=== PATIENT | male | born 1975 | race Caucasian/White ===

== ENCOUNTER 2017-09-21 19:14 | Emergency (ER) | payer MEDICAID, SELFPAY ==
[2017-09-21] VITALS (8 sets, daily range): BP systolic 133–156; BP diastolic 60–103; PULSE 98–114; RESP 12–25; TEMP 36.6; O2SAT 95–99; BMI 40.0
--- NOTE | 2017-09-21 19:30 | ED.VISSUMM ---
- ER Visit Summary Date of Service: 09/21/17 Chief Complaint: Dyspnea and wheezing History of Present Illness: The patient is a 41 M with history of asthma who presents for 5 weeks of respiratory complaints, including dyspnea, wheezing and now cough. Patient was diagnosed with a sinus and double ear infection 5 weeks ago and completed a course of amoxicillin. He then began having chest tightness and symptoms consistent with asthma exacerbation, and was started on prednisone and albuterol. He felt much better and completed the prednisone 2 days ago. Since then he has been getting worse again. He has pleuritic chest pain, frequent cough, shortness of breath, and nausea and vomiting yesterday. No fever. His symptoms are consistent with his asthma. He also has history of pneumonia. He has not had a chest x-ray since his symptoms began. Physical Examination: Vital signs: afebrile, hemodynamically stable, no hypoxia on room air General: well nourished, well developed, in no distress frequently coughing Skin: warm, dry, no rash, no pallor HEENT: normocephalic and atraumatic; PERRL, EOMI, moist mucous membranes Cardiovascular: Tachycardic rate and regular rhythm without murmurs, no peripheral edema, 2+ pulses all distal extremities Respiratory: Mild increased work of breathing, shallow respirations, lungs are clear to auscultation bilaterally, no rales, rhonchi or wheezing, frequently coughing Abdominal: Abdomen is soft, nontender with normoactive bowel sounds, no guarding or rebound, no masses MSK: Moves all extremities, no deformities, normal strength Neuro: Awake and alert, oriented ?4. No facial droop, sensation and motor function intact and symmetric Test Results: Abnormal Lab Results 09/21/17 09/21/17 09/21/17 21:00 21:00 21:00 WBC 11.8 H RBC 4.67 Hgb 13.9 Hct 41.2 MCV 88.2 MCH 29.8 MCHC 33.7 RDW 12.2 RDW Differential 38.5 Plt Count 331 MPV 9.7 Immature Gran % (Auto) 0.100 Neut % (Auto) 54.4 Lymph % (Auto) 35.7 O'Brien % (Auto) 8.3 Eos % (Auto) 1.2 Baso % (Auto) 0.3 Absolute Neuts (auto) 6.4 Absolute Lymphs (auto) 4.19 Total Counted Not Reportable D-Dimer Quant (PE/DVT) 0.27 Sodium 135 L Potassium 3.7 Chloride 100 Carbon Dioxide 28.0 Anion Gap 7 BUN 8 Creatinine 0.79 Estim Creat Clear Calc 111.04 Est GFR (MDRD) Af Amer 138 Est GFR (MDRD) Non-Af 114 BUN/Creatinine Ratio 10.1 Glucose 312 H Calcium 8.8 Troponin I < 0.02 Emergency Department Course and Treatment: Patient states his asthma is more cough variant rather than overt wheezing. He is currently having frequent cough with chest discomfort and shortness of breath. He was given a series of breathing treatments. He was given an oral dose of prednisone. Chest x-ray performed no pneumonia. Reevaluation patient had no improvement. We discussed his symptoms, and he stated he was concerned after googling his symptoms and was concerned for possible cardiac disease. Concerned started when he had jaw pain at onset of his symptoms 5 weeks ago. Given the patient is still complaining of chest tightness with his cough and shortness of breath, and has these concerns as well as history of diabetes and a BMI, chest pain workup was performed. D-dimer was negative. Troponin negative. EKG showed sinus tachycardia without ischemia or ectopy. Patient had resolution of his tachycardia prior to receiving his breathing treatments, and now the tachycardia may be related to the albuterol treatments. Patient was given a dose of Hycodan for his persistent cough. He had resolution of the cough while in the emergency department and felt much better afterwards. He is low risk at this time for this being acute coronary syndrome, as his symptoms have been present for 5 weeks and are more consistent with an infectious process. Thus no further cardiac workup performed. Patient was given a prescription for Hycodan and placed back on a prednisone taper. He was discharged home in improved condition from the Hycodan. Treatment Plan: [] Disposition: [] Impression: Acute bronchitis in patient with cough variant asthma This note was generated with [employer] dictation software. It may contain incorrect words, spelling, and punctuation that were not noted in review of the chart prior to signing ED Disposition - Plan for ED Patient: Disposition: Home or Assisted Living Chief Complaint: Asthma Instructions: ED Bronchitis Asthmatic Prescriptions: Hydrocodone Bit/Homatropine [Hycodan Syrup] 5 ml PO Q6H PRN PRN 3 Days #50 ml PRN Reason: severe cough Prednisone 10 mg PO UD #33 tab Referrals: Chadwick Alberts DO [Primary Care Provider] - 3-5 Days if not improving Additional Instructions: Please take the prednisone taper as prescribed to help with your asthma. You may use the cough medicine as needed for severe cough. I recommend you take it at bedtime, as it may make you sleepy and will help you sleep better. If you have any worsening of your condition or any new concerning symptoms, please follow-up with your doctor immediately or return to the emergency department immediately for another evaluation.
[2017-09-21] MEDS: predniSONE 20 MG Tablet 60 MG PO (19:36)
[2017-09-21] MEDS: Albuterol 2.5 MG/3 ML VIAL.NEB. INHALATION ×3 (19:37→19:48)
[2017-09-21] MEDS: Ipratropium/Albuterol Sulfate 3 ML AMPUL.NEB INHALATION (19:38)
--- NOTE | 2017-09-21 19:38 | NURSING ---
AEROSOL TX GIVEN BY RESPIRATORY
--- NOTE | 2017-09-21 20:10 | RAD_ITS ---
STUDY: X-RAY CHEST REASON FOR EXAM: Male, 41 years old. Asthma. Cough and illness for 3 weeks. TECHNIQUE: Frontal and lateral views of the chest. COMPARISON: January 03, 2015 FINDINGS: There is low volume inspiration with bibasilar atelectasis unchanged. There are no focal consolidations. There is no demonstrated pleural abnormality. Normal size heart. Normal mediastinum and ike. Normal visualized pulmonary arteries. Normal visualized aortic arch and descending thoracic aorta. Normal visualized thoracic spine. Normal visualized ribs, clavicles, and shoulders. There is no demonstrated abnormality of the visualized soft tissue structures of the upper abdomen. RAD/Chest PA and Lateral IMPRESSION: Stable low volume inspiration. No new or acute pathology. Electronically Signed: Marco Antonio Baltazar MD at 20:27 EDT , Service support ,
--- NOTE | 2017-09-21 20:42 | EKG12_ITS ---
Test Reason : CP Blood Pressure : / mmHG Vent. Rate : 106 BPM Atrial Rate : 106 BPM P-R Int : 174 ms QRS Dur : 082 ms QT Int : 340 ms P-R-T Axes : 062 035 027 degrees QTc Int : 451 ms Sinus tachycardia Otherwise normal ECG Confirmed by CALOS CASH, ES ([id number]), news videotape editor KAM WHITEHEAD ([id number] on 09/23/2017 1:58:36 PM Referred By: MIRTHA Confirmed By:ES LIVE MD
[2017-09-21] MEDS: 0.9% Normal Saline 1,000 ML 1000 ML IV (21:02)
--- NOTE | 2017-09-21 21:14 | NURSING ---
PT HAD STATED TO THE DOCTOR THAT HE HAD NO RELIEF FROM THE AEROSOL TX, AND HAD SOME CONCERNING S/S WITH HIS CHEST DISCOMFORT.
[2017-09-21 21:19] LABS: Absolute Lymphocyte Count 4.19 X10^3/ul (0.83-4.51); Absolute Neutrophil Count 6.4 X10^3/uL (2.0-7.7); Basophil# 0.03 X10^3/uL; Basophil% 0.3 % (0-1); Eosinophil# 0.14 X10^3/uL; Eosinophils% 1.2 % (0-5); Hematocrit 41.2 % (40-54); Hemoglobin 13.9 g/dl (13.0-16.5); Lymphocyte # 4.19 X10^3/ul (4.0); Lymphocyte % 35.7 % (19-41); Mean Corp Hgb Conc 33.7 g/gl (32-36); Mean Corpuscular Hgb 29.8 pg (27.0-32.0); Mean Corpuscular Volume 88.2 fL (80-94); Mean Platelet Vol. 9.7 fl (6.2-12.0); Monocyte# 0.98 X10^3/uL; Monocyte% 8.3 % (0-10); Neutrophil % 54.4 % (47-70); Platelet Count 331 K/mm3 (150-450); RBC Distribution Width CV 12.2 % (11.6-14.6); RBC Distribution Width SD 38.5 fl (35.1-43.9); Red Blood Count 4.67 M/mm3 (4.6-6.2); White Blood Count 11.8 K/mm3 (4.4-11.0)
[2017-09-21 21:20] LABS: POSITIVE COUNT NO; POSITIVE DIFFERENTIAL NO; POSITIVE MORPHOLOGY NO
[2017-09-21 21:28] LABS: D-Dimer Quantitative (DVT/PE) 0.27 FEU/ug/m (0.27-0.49)
[2017-09-21 21:33] LABS: Anion Gap 7 (5-15); BUN 8 mg/dL (7-18); BUN/Creat Ratio 10.1 RATIO (10-20); Calcium,Total 8.8 mg/dL (8.5-10.1); Chloride 100 mmol/L (98-107); Creatinine, Serum 0.79 mg/dL (0.70-1.30); EST Glomerular Filtration Rate 114 mL/min (>60); Est Glom Filt Rate - Afr Amer 138 mL/min (>60); Estimated Creatinine Clearance 111.04 ml/min; Glucose 312 mg/dL (74-106); Potassium 3.7 mmol/L (3.5-5.1); Sodium Level 135 mmol/L (136-145)
--- NOTE | 2017-09-21 21:51 | ED.DEP ---
ED Disposition - Plan for ED Patient: Disposition: Home or Assisted Living Chief Complaint: Asthma Instructions: ED Bronchitis Asthmatic Prescriptions: Hydrocodone Bit/Homatropine [Hycodan Syrup] 5 ml PO Q6H PRN PRN 3 Days #50 ml PRN Reason: severe cough Prednisone 10 mg PO UD #33 tab Referrals: Chadwick Alberts DO [Primary Care Provider] - 3-5 Days if not improving Additional Instructions: Please take the prednisone taper as prescribed to help with your asthma. You may use the cough medicine as needed for severe cough. I recommend you take it at bedtime, as it may make you sleepy and will help you sleep better. If you have any worsening of your condition or any new concerning symptoms, please follow-up with your doctor immediately or return to the emergency department immediately for another evaluation.
== END 2017-09-21 22:01 | disposition home or self-care (01) ==
PROVIDERS: Emergency Provider Emergency Medicine; Family Provider Family Medicine; PCP Family Medicine
DX: J40 Bronchitis, not specified as acute or chronic (principal); J45.991 Cough variant asthma; E11.9 Type 2 diabetes mellitus without complications; Z87.01 Personal history of pneumonia (recurrent); Z79.84 Long term (current) use of oral hypoglycemic drugs
CPT/HCPCS: 71046; 80048; 84484; 85025; 85379; 93005; 94640; 96360; 99284; J7030; A4216

== ENCOUNTER 2018-08-08 14:40 | Emergency (ER) | payer OTHER, SELFPAY ==
[2018-08-08 14:41] VITALS: BP 139/80; PULSE 94; RESP 16; TEMP 36.6; O2SAT 98; BMI 38.4
[2018-08-08 14:42] VITALS: TEMP 36.7
[2018-08-08 15:12] LABS: Absolute Lymphocyte Count 2.59 X10^3/ul (0.83-4.51); Absolute Neutrophil Count 5.1 X10^3/uL (2.0-7.7); Basophil# 0.06 X10^3/uL; Basophil% 0.7 % (0-1); Eosinophil# 0.16 X10^3/uL; Eosinophils% 1.8 % (0-5); Hematocrit 40.5 % (40-54); Hemoglobin 14.1 g/dl (13.0-16.5); Lymphocyte # 2.59 X10^3/ul (4.0); Lymphocyte % 29.6 % (19-41); Mean Corp Hgb Conc 34.8 g/gl (32-36); Mean Corpuscular Hgb 30.1 pg (27.0-32.0); Mean Corpuscular Volume 86.5 fL (80-94); Mean Platelet Vol. 9.6 fl (6.2-12.0); Monocyte# 0.85 X10^3/uL; Monocyte% 9.7 % (0-10); Neutrophil # 5.05 X10^3/uL (2.7-7.7); Neutrophil % 57.7 % (47-70); Platelet Count 323 K/mm3 (150-450); RBC Distribution Width CV 12.1 % (11.6-14.6); RBC Distribution Width SD 37.6 fl (35.1-43.9); Red Blood Count 4.68 M/mm3 (4.6-6.2); White Blood Count 8.8 K/mm3 (4.4-11.0)
[2018-08-08 15:14] LABS: POSITIVE COUNT NO; POSITIVE DIFFERENTIAL NO; POSITIVE MORPHOLOGY NO
[2018-08-08 15:23] LABS: BUN 7 mg/dL (7-18); Creatinine, Serum 0.76 mg/dL (0.70-1.30); EST Glomerular Filtration Rate 120 mL/min (>60); Estimated Creatinine Clearance 118.38 ml/min; Glucose 252 mg/dL (74-106)
--- NOTE | 2018-08-08 15:23 | CT_ITS ---
STUDY: CT ABDOMEN AND PELVIS WITHOUT CONTRAST REASON FOR EXAM: Male, 42 years old. Right upper quadrant pain with nausea and vomiting. RADIATION DOSAGE (If Supplied By Facility): CTDIvol = ( 23.55 ) mGy, DLP = ( 1282.42 ) mGycm TECHNIQUE: Transaxial images were obtained from the dome of the diaphragm to the symphysis pubis without oral contrast, and without intravenous contrast. Sagittal and coronal images were reconstructed. Individualized dose optimization techniques were used for this CT. COMPARISON: None. FINDINGS: The visualized lung bases are unremarkable. The visualized portions of the heart are within normal limits. Normal liver. Normal gallbladder and extrahepatic biliary system. Normal spleen. Normal pancreas. Normal bilateral adrenal glands. Normal right kidney. Normal left kidney. There is a small hiatal hernia. Normal small intestine. Normal colon. The appendix is visualized and appears normal. Multiple small lymph nodes are seen within the root of the mesenteric fat suggestive of mesenteric adenitis. Normal abdominal aorta. Normal inferior vena cava. Normal retroperitoneum. Normal urinary bladder. There is a left-sided inguinal hernia containing adipose tissue. Normal osseous structures. CT/Abdomen/Pelvis without Cont IMPRESSION: Findings suggestive of mesenteric lymphadenitis in the root of the mesentery. Electronically Signed: Ryan Ledesma, at 15:58 EST , Service support ,
[2018-08-08 15:24] LABS: Anion Gap 9 (5-15); BUN/Creat Ratio 9.2 RATIO (10-20); Calcium,Total 8.1 mg/dL (8.5-10.1); Chloride 102 mmol/L (98-107); Est Glom Filt Rate - Afr Amer 145 mL/min (>60); Potassium 3.6 mmol/L (3.5-5.1); Sodium Level 138 mmol/L (136-145)
--- NOTE | 2018-08-08 15:25 | ED.DCSUM_ITS ---
- ER Visit Summary Date of Service: 08/08/18 Chief Complaint: [Abdominal pain] History of Present Illness: The patient is a 42 M presents the emergency department complaint of abdominal pain that started initially 8 days ago. Patient states the pain is typically worse at night and he has a hard time sleeping at night. Patient initially had severe vomiting that lasted about 12 hours but then seemed to resolve until this morning when he started to vomit again. Patient states that he has had frequent watery stools about every hour. He denies any fevers. Patient last ate around noon today was able eat some fish and states that was the first time he had eaten anything solid. Patient is a type II diabetic and he has had a history of kidney stones. He denies any urinary symptoms. Patient has not been on antibiotics recently.] Physical Examination: [HEENT-PERRLA, EOMI. Cranial nerves II through XII grossly intact. TMs clear. Mucous membranes moist. No adenopathy. Cardiovascular-regular rate and rhythm without murmur or ectopy Lungs-clear to auscultation, chest wall stable without crepitus or subcu emphysema Abdomen-normoactive bowel sounds, soft. Patient has some tenderness palpation mostly over the right lower quadrant with some guarding. There is no rebound, rigidity, or peritoneal signs. No CVA tenderness on exam. Extremities-intact ?4, normal range of motion, normal pulses, atraumatic] Test Results: [CBC with differential obtained showed a white blood cell count of 8.8, hemoglobin 14, hematocrit 40, platelets 323. Chemistries were unremarkable. Glucose was 252. LFTs showed slightly elevated ALT of 85, AST was 45, and lipase was 583. CT scan of the abdomen pelvis showed a normal appendix and some mesenteric adenitis. Ultrasound of the gallbladder was significant for some hepatomegaly otherwise nothing acute.] Emergency Department Course and Treatment: [Patient received Zofran in the emergency department as well as a liter normal same fluid bolus.] Treatment Plan: [Patient will be given a prescription for Zofran and Lomotil. I did order and send off stool for enteric pathogens as well as ova and parasites.] Disposition: [Discharged home in stable condition] Impression: [Abdominal pain Gastroenteritis] This note was generated with [employer] dictation software. It may contain incorrect words, spelling, and punctuation that were not noted in review of the chart prior to signing ED Disposition - Plan for ED Patient: Referrals: NOT,DEFINED [NON-STAFF] -
[2018-08-08] MEDS: 0.9% Normal Saline 1,000 ML 1000 ML IV (15:35)
[2018-08-08] MEDS: Ondansetron 4 MG/2 ML Vial IV (15:35)
[2018-08-08 15:46] LABS: Bacteria 0 SEEN /hpf (None Seen); Mucous, Urine 0 SEEN /hpf (<or=2+); Red Blood Cells-Urine 0 SEEN /hpf (0-5); Squamous Epithelial Cells - UA 0 SEEN /hpf (0-5); White Blood Cells 0 SEEN /hpf (0-5)
[2018-08-08 16:07] LABS: Color, Urine Yellow (Yellow); Glucose, Dipstick 1000 mg/dl (Normal); Ketone-Dipstick Negative (Negative); Leukocyte Esterase-Dipstick Negative /ul (Negative); Nitrite-Dipstick Negative (Negative); Occult Blood-Urine Negative /ul (Negative); Protein-Dipstick Negative (Negative); Specific Gravity, Urine 1.015 (1.002-1.030); Urine Bilirubin Dipstick Negative (Negative); Urine Clarity Clear (Clear); Urine Urobilinogen Normal (Normal)
[2018-08-08 16:13] LABS: AST(SGOT) 45 U/L (15-37); Alanine Aminotransfer ALT/SGPT 85 U/L (16-61); Albumin, Serum 3.3 g/dL (3.2-5.0); Alkaline Phosphatase 93 U/L (45-117); Bilirubin, Direct 0.14 mg/dL (0.00-0.30); Globulin 3.4 g/dL (2.2-4.2); Lipase 583 U/L (73-393); Protein, Total 6.7 g/dL (6.4-8.2)
--- NOTE | 2018-08-08 17:08 | US_ITS ---
STUDY: ABDOMINAL ULTRASOUND - RIGHT UPPER QUADRANT REASON FOR VISIT: Male, 42 years old. Right upper quadrant pain. TECHNIQUE: Ultrasound evaluation of the right upper quadrant was performed with real-time and static barber-scale imaging. TECHNICAL QUALITY: Adequate. COMPARISON: CT scan 08/08/2018. FINDINGS: Liver: The liver measures 20.6 cm. There is increased echogenicity consistent with fatty infiltration. The bile ducts are within normal limits. There is hepatic color flow. The direction of portal flow is hepatopetal. There is no demonstrated mass lesion. Gallbladder: Normal distended gallbladder. The gallbladder wall measures 2 mm. There is a negative sonographic March's sign. There is no pericholecystic fluid. There are no gallstones. Common Bile Duct (C.B.D.): The common bile duct measures 3 mm. Pancreas: Normal size of the head, body and tail of the pancreas. There is normal echogenicity of the pancreas. There is no demonstrated pancreatic mass or cyst. Right Kidney: Normal size of the right kidney. The right kidney measures 13.3 cm. Normal renal cortex. The right cortex measures 1.0 cm. There is no demonstrated renal mass or cyst. There is no right hydronephrosis. US/Gallbladder IMPRESSION: Hepatomegaly and fatty liver. No acute abnormalities. Electronically Signed: Jhoan Mujica MD at 18:56 EST , Service support ,
[2018-08-08 18:12] VITALS: RESP 17; TEMP 37
[2018-08-08 19:01] VITALS: BP 123/87; PULSE 86; RESP 17; O2SAT 97
--- NOTE | 2018-08-08 19:04 | ED.DEP ---
ED Disposition - Plan for ED Patient: Instructions: ED Abdominal Pain Unkn Cause, ED Gastroenteritis Viral, ED Gastroenteritis Report Pend Prescriptions: Ondansetron [Zofran Odt] 4 mg PO Q8H PRN PRN #10 tab PRN Reason: Nausea Diphenoxylate/Atrop [Lomotil] 2 tab PO TID PRN PRN #20 tab PRN Reason: Diarrhea Referrals: NOT,DEFINED [NON-STAFF] - 3-5 Days
== END 2018-08-08 19:21 | disposition home or self-care (01) ==
LOC: ED 15:53
PROVIDERS: Emergency Provider Emergency Medicine; Family Provider Physician Assistant; PCP Physician Assistant
DX: K52.9 Noninfective gastroenteritis and colitis, unspecified (principal); R10.9 Unspecified abdominal pain; E11.9 Type 2 diabetes mellitus without complications; I88.0 Nonspecific mesenteric lymphadenitis; R16.0 Hepatomegaly, not elsewhere classified; Z79.84 Long term (current) use of oral hypoglycemic drugs; Z79.899 Other long term (current) drug therapy; Z87.442 Personal history of urinary calculi
CPT/HCPCS: 74176; 76705; 80048; 80076; 81001; 83690; 85025; 87506; 96361; 96374; 99283; J7030; A4216; J2405

== ENCOUNTER 2018-08-14 08:55 | Emergency (ER) | payer OTHER, SELFPAY ==
[2018-08-14 08:56] VITALS: BP 157/84; PULSE 101; RESP 20; TEMP 37.9; O2SAT 97; BMI 39.1
[2018-08-14 09:11] VITALS: TEMP 37.8
--- NOTE | 2018-08-14 09:11 | RAD_ITS ---
STUDY: X-RAY CHEST REASON FOR EXAM: Male, 42 years old. Chest pain. TECHNIQUE: PA and lateral views of the chest. COMPARISON: Comparison is made with prior study dated September 21, 2017. FINDINGS: Mild elevation of the right hemidiaphragm. Mild degree of vascular congestion. There is no demonstrated pleural abnormality. Normal size heart. Normal mediastinum and ike. Normal visualized pulmonary arteries. Normal visualized aortic arch and descending thoracic aorta. There are degenerative changes of the visualized thoracic spine. Normal visualized ribs, clavicles, and shoulders. There is no demonstrated abnormality of the visualized soft tissue structures of the upper abdomen. RAD/Chest PA and Lateral IMPRESSION: Mild degree of vascular congestion. Electronically Signed: Ryan Ledesma, at 10:34 EDT , Service support ,
--- NOTE | 2018-08-14 09:11 | EKG12_ITS ---
Test Reason : CHEST OTHER Blood Pressure : / mmHG Vent. Rate : 094 BPM Atrial Rate : 094 BPM P-R Int : 172 ms QRS Dur : 082 ms QT Int : 336 ms P-R-T Axes : 049 043 013 degrees QTc Int : 420 ms Normal sinus rhythm Normal ECG Confirmed by RICHARD CUMMINGS ([id number]), staff editor DEREK LUI ([id number]) on 08/18/2018 4:54:41 PM Referred By: Confirmed By:RICHARD CUMMINGS
--- NOTE | 2018-08-14 09:15 | ED.VISSUMM ---
- ER Visit Summary Date of Service: 08/14/18 Chief Complaint: Chest pain History of Present Illness: The patient is a 42 M with chest pain and cough. Symptoms have been going on for several days. He was diagnosed with Rasheeda virus at a visit last week. He had nausea and vomiting as well as diarrhea. He continues to have vomiting, but the diarrhea has improved. He presents today with increasing coughing and bilateral rib pain. He has a history of asthma and pneumonia. He denies any history of heart disease or PE. Denies any leg swelling or calf pain. Denies recent travel. Denies recent surgery or hospitalization. Denies any chest pain with exertion. Physical Examination: Temperature is 100.2. Heart rate 101 and respiratory rate 20. Pulse ox 97% on room air. The patient appears uncomfortable but not toxic or in distress. Heart is regular. Lungs show expiratory wheeze in all gruber. Abdomen is soft and nontender. Extremities nontender with no edema. Skin appears normal. Test Results: Labs and chest x-ray pending. Emergency Department Course and Treatment: Patient was treated with fluids DuoNeb, and Toradol while awaiting results. I am concerned for infectious etiologies as well as myofascial chest pain. I have less suspicion for cardiac, PE, vascular pathology. Will check EKG, chest x-ray, labs. Will reassess. CBC, CMP, lipase all unremarkable. His glucose was 256. Troponin was normal. EKG and chest x-ray unremarkable. He had some mild vascular congestion but no evidence of pneumonia or other complication. I suspect the patient's symptoms may be from his viral illness. There are no red flag findings like sepsis. Nothing to suggest cardiomyopathy or other complications. I believe the patient is appropriate for outpatient care and follow-up with his doctor. He was educated on symptoms for which to return. He was given a short course of pain medicine as well as Tessalon. He has breathing treatments at home. Treatment Plan: As above Disposition: Discharge Impression: 1. Cough This note was generated with [employer] dictation software. It may contain incorrect words, spelling, and punctuation that were not noted in review of the chart prior to signing ED Disposition - Plan for ED Patient: Referrals: Chioma Weinstein PA [Primary Care Provider] -
--- NOTE | 2018-08-14 09:18 | ED.DCSUM_ITS ---
- ER Visit Summary Date of Service: 08/14/18 Chief Complaint: Chest pain History of Present Illness: The patient is a 42 M with chest pain and cough. Symptoms have been going on for several days. He was diagnosed with Rasheeda virus at a visit last week. He had nausea and vomiting as well as diarrhea. He co ntinues to have vomiting, but the diarrhea has improved. He presents today with increasing coughing and bilateral rib pain. He has a history of asthma and pneumonia. He denies any history of heart disease or PE. Denies any leg swelling or calf pain. Denies recent travel. Denies recent surgery or hospitalization. Denies any chest pain with exertion. Physical Examination: Temperature is 100.2. Heart rate 101 and respiratory rate 20. Pulse ox 97% on room air. The patient appears uncomfortable but not toxic or in distress. Heart is regular. Lungs show expiratory wheeze in all gruber. Abdomen is soft and nontender. Extremities nontender with no edema. Skin appears normal. Test Results: Labs and chest x-ray pending. Emergency Department Course and Treatment: Patient was treated with fluids DuoNeb, and Toradol while awaiting results. I am concerned for infectious etiologies as well as myofascial chest pain. I have less suspicion for cardiac, PE, vascular pathology. Will check EKG, chest x-ray, labs. Will reassess. CBC, CMP, lipase all unremarkable. His glucose was 256. Troponin was normal. EKG and chest x-ray unremarkable. He had some mild vascular congestion but no evidence of pneumonia or other complication. I suspect the patient's symptoms may be from his viral illness. There are no red flag findings like sepsis. Nothing to suggest cardiomyopathy or other complications. I believe the patient is appropriate for outpatient care and follow-up with his doctor. He was educated on symptoms for which to return. He was given a short course of pain medicine as well as Tessalon. He has breathing treatments at home. Treatment Plan: As above Disposition: Discharge Impression: 1. Cough This note was generated with [employer] dictation software. It may contain incorrect words, spelling, and punctuation that were not noted in review of the chart prior to signing ED Disposition - Plan for ED Patient: Referrals: Chioma Weinstein PA [Primary Care Provider] -
[2018-08-14] MEDS: Ipratropium/Albuterol Sulfate 3 ML AMPUL.NEB INHALATION (09:29)
[2018-08-14 09:35] VITALS: PULSE 89; RESP 18
[2018-08-14] MEDS: Ketorolac 30 MG/ML Syringe IV (09:49)
[2018-08-14] MEDS: 0.9% Normal Saline 1,000 ML 1000 ML IV (09:49)
[2018-08-14 09:53] LABS: Absolute Lymphocyte Count 1.48 X10^3/ul (0.83-4.51); Absolute Neutrophil Count 4.4 X10^3/uL (2.0-7.7); Basophil# 0.06 X10^3/uL; Basophil% 0.9 % (0-1); Eosinophil# 0.13 X10^3/uL; Eosinophils% 1.9 % (0-5); Hemoglobin 12.6 g/dl (13.0-16.5); Lymphocyte # 1.48 X10^3/ul (4.0); Lymphocyte % 21.7 % (19-41); Mean Corp Hgb Conc 33.2 g/gl (32-36); Mean Corpuscular Hgb 29.1 pg (27.0-32.0); Mean Corpuscular Volume 87.8 fL (80-94); Monocyte# 0.79 X10^3/uL; Monocyte% 11.6 % (0-10); Neutrophil # 4.35 X10^3/uL (2.7-7.7); Neutrophil % 63.8 % (47-70); Platelet Count 286 K/mm3 (150-450); RBC Distribution Width SD 38.9 fl (35.1-43.9); Red Blood Count 4.33 M/mm3 (4.6-6.2); White Blood Count 6.8 K/mm3 (4.4-11.0)
[2018-08-14 09:58] LABS: POSITIVE COUNT NO; POSITIVE DIFFERENTIAL NO; POSITIVE MORPHOLOGY NO
[2018-08-14 10:01] LABS: ALB/GLOB Ratio 0.8 RATIO (0.9-2.4); AST(SGOT) 32 U/L (15-37); Alanine Aminotransfer ALT/SGPT 65 U/L (16-61); Albumin, Serum 2.8 g/dL (3.2-5.0); Alkaline Phosphatase 104 U/L (45-117); Anion Gap 8 (5-15); BUN 5 mg/dL (7-18); BUN/Creat Ratio 6.4 RATIO (10-20); Calcium,Total 7.9 mg/dL (8.5-10.1); Chloride 99 mmol/L (98-107); Creatinine, Serum 0.78 mg/dL (0.70-1.30); EST Glomerular Filtration Rate 115 mL/min (>60); Est Glom Filt Rate - Afr Amer 139 mL/min (>60); Estimated Creatinine Clearance 115.35 ml/min; Globulin 3.7 g/dL (2.2-4.2); Glucose 256 mg/dL (74-106); Lipase 121 U/L (73-393); Potassium 3.8 mmol/L (3.5-5.1); Protein, Total 6.5 g/dL (6.4-8.2); Sodium Level 136 mmol/L (136-145)
--- NOTE | 2018-08-14 11:03 | DCINST.ED_ITS ---
ED Disposition - Plan for ED Patient: Instructions: ED Viral Syndrome Prescriptions: Hydrocodone Bitart/Apap 5-325 [[place] 5MG-325MG] 1 tab PO Q6H PRN PRN 3 Days #10 tab PRN Reason: Pain Benzonatate [Tessalon Perle] 200 mg PO TID PRN PRN #20 cap PRN Reason: Cough Referrals: Chioma Weinstein PA [Primary Care Provider] -
[2018-08-14 11:28] VITALS: BP 122/77; PULSE 87; PULSE 89; RESP 19; TEMP 37.8; O2SAT 94; O2SAT 95
== END 2018-08-14 11:35 | disposition home or self-care (01) ==
PROVIDERS: Emergency Provider Emergency Medicine; Family Provider Physician Assistant; PCP Physician Assistant
DX: R05 Cough (principal); E11.9 Type 2 diabetes mellitus without complications; Z79.84 Long term (current) use of oral hypoglycemic drugs
CPT/HCPCS: 71046; 80053; 83690; 84484; 85025; 93005; 94640; 96361; 96374; 99284; J7030; A4216

== ENCOUNTER 2019-02-23 10:48 | Emergency (ER) | payer OTHER, SELFPAY ==
[2019-02-23 10:49] VITALS: BP 149/85; PULSE 111; RESP 17; TEMP 37.4; O2SAT 98; BMI 39.2
--- NOTE | 2019-02-23 11:45 | EKG12_ITS ---
Test Reason : ABD PAIN Blood Pressure : / mmHG Vent. Rate : 101 BPM Atrial Rate : 101 BPM P-R Int : 166 ms QRS Dur : 080 ms QT Int : 338 ms P-R-T Axes : 050 038 020 degrees QTc Int : 438 ms Sinus tachycardia Otherwise normal ECG Confirmed by CALOS CASH, ES ([id number]), clinical editor GAIL RUIZ ([id number]) on 02/25/2019 10:48:47 AM Referred By: LUCILA Confirmed By:ES LIVE MD
--- NOTE | 2019-02-23 11:46 | CT_ITS ---
STUDY: CTA CHEST REASON FOR EXAM: Male, 43 years old. Abdominal pain. Nausea. Fatigue. RADIATION DOSAGE (If Supplied By Facility): CTDIvol = ( 22.41 ) mGy, DLP = ( 2045.22 ) mGycm TECHNIQUE: The examination was performed with the intravenous administration of IV Isovue 370 100CC. Post-processing of the angiographic images was performed, with multiplanar reformation and 3D reconstruction. Individualized dose optimization techniques were used for this CT. COMPARISON: None. FINDINGS: Normal enhancement of the main pulmonary artery and right and left pulmonary arteries. Normal enhancement of the bilateral peripheral pulmonary arteries. There is no demonstrated pulmonary embolism. Normal thoracic aorta and visualized great vessels. There is no demonstrated aortic dissection. Normal heart and pericardium. Normal mediastinum. Normal hilar regions. Normal visualized trachea and bronchi. The lungs are well expanded. Normal pulmonary parenchyma. Normal pleura. Normal chest wall structures. There are degenerative changes of thoracic spine. Diffuse fatty infiltration of the liver. Small hiatal hernia. CT/CTA Chest W/WO Contrast IMPRESSION: Normal CTA chest examination, without a demonstrated pulmonary embolism or arterial dissection. Diffuse fatty infiltration of the liver. Electronically Signed: Ryan Ledesma, at 13:59 EDT , Service support ,
--- NOTE | 2019-02-23 11:46 | CT_ITS ---
STUDY: CT ABDOMEN AND PELVIS WITH CONTRAST REASON FOR EXAM: Male, 43 years old. Abdominal pain. Nausea. Fatigue. RADIATION DOSAGE (If Supplied By Facility): CTDIvol = ( 22.41 ) mGy, DLP = ( 2045.22 ) mGycm TECHNIQUE: Transaxial images were obtained from the dome of the diaphragm to the symphysis pubis without oral contrast. IV 100mL Isovue-370 100CC was administered. Sagittal and coronal images were reconstructed. Individualized dose optimization techniques were used for this CT. COMPARISON: Comparison is made with prior examination dated August 08, 2018. FINDINGS: The visualized lung bases are unremarkable. The visualized portions of the heart are within normal limits. There is decreased attenuation of the liver consistent with steatosis. Normal gallbladder and extrahepatic biliary system. Normal spleen. Normal pancreas. Normal bilateral adrenal glands. Normal right kidney. Normal left kidney. There is a small hiatal hernia. Normal small intestine. There are scattered colonic diverticula consistent with diverticulosis. The appendix is visualized and appears normal. Normal abdominal aorta. Normal inferior vena cava. There is borderline retroperitoneal lymphadenopathy with enlarged nodes no greater than 10mm in the short axis diameter. Scattered small lymph nodes are seen in the root of the mesentery. These have decreased in size as compared to prior study. Normal urinary bladder. There is a left-sided inguinal hernia containing adipose tissue. Normal osseous structures. CT/Abdomen/Pelvis W IV Cont ONLY IMPRESSION: Fatty infiltration of the liver. Small left inguinal hernia containing fat. Scattered sigmoid diverticula. Electronically Signed: Ryan Ledesma, at 14:02 EDT , Service support ,
--- NOTE | 2019-02-23 11:47 | ED.DCSUM_ITS ---
- ER Visit Summary Date of Service: 02/23/19 Chief Complaint: Abdominal pain History of Present Illness: The patient is a 43 M presenting with abdominal pain. Patient states this started today. He has had symptoms of nausea, dizziness over the past week. Denies syncope. Denies chest pain. He states earlier in the week he had vomiting and diarrhea. This has since resolved. He now has left upper quadrant abdominal pain. He has a mild cough. He has had a fever at home. Complains of diffuse myalgias. He was seen by Dr. Nicole and sent to the ED for further evaluation. Physical Examination: Vitals are stable. Patient is afebrile. Alert no acute distress. HEENT exam is unremarkable. Neck is supple. Lungs are clear and equal bilaterally. Heart is regular rate and rhythm. Abdomen is soft left upper quadrant tenderness, no rebound or guarding Extremities are unremarkable. Skin is warm and dry. Remainder of exam is unremarkable. Emergency Department Course and Treatment: Patient was given IV fluids, morphine, Zofran. EKG is sinus tachycardia rate of 101. CBC, chemistries unremarkable other than glucose 317. Urinalysis unremarkable other than glucose. Troponin is negative. CTA chest shows no evidence of PE. CT abdomen shows fatty infiltration of the liver, small left inguinal hernia containing fat, scattered sigmoid diverticula. He was given a GI cocktail. Repeat BGT 236. Patient has some improvement of his symptoms. He will follow-up with his primary care physician. He is given prescription for Pepcid and Zofran. Advised return to ED for worsening complaints. Disposition: Discharge home Impression: Abdominal pain This note was generated with [employer] dictation software. It may contain incorrect words, spelling, and punctuation that were not noted in review of the chart prior to signing ED Disposition - Plan for ED Patient: Instructions: ABDOMINAL PAIN, Unkown Cause, (Male) Prescriptions: Famotidine [Pepcid] 20 mg PO BID #28 tab Prescription Printed Ondansetron [Zofran Odt] 4 mg PO Q8H PRN PRN #10 tab PRN Reason: Nausea Prescription Printed Referrals: Chioma Weinstein PA [Primary Care Provider] -
[2019-02-23] MEDS: Ondansetron 4 MG/2 ML Vial IV (11:59)
[2019-02-23] MEDS: 0.9% Normal Saline 1,000 ML 1000 ML IV (11:59)
[2019-02-23] MEDS: Morphine 4 MG/ML Syringe IV (11:59)
[2019-02-23 12:01] LABS: Bacteria 0 SEEN /hpf (None Seen); Mucous, Urine 0 SEEN /hpf (<or=2+); Red Blood Cells-Urine 0 SEEN /hpf (0-5); Squamous Epithelial Cells - UA 0 SEEN /hpf (0-5); White Blood Cells 0 SEEN /hpf (0-5)
[2019-02-23 12:03] LABS: Color, Urine Yellow (Yellow); Glucose, Dipstick 1000 mg/dl (Normal); Ketone-Dipstick 50 mg/dl (Negative); Leukocyte Esterase-Dipstick Negative /ul (Negative); Nitrite-Dipstick Negative (Negative); Occult Blood-Urine Negative /ul (Negative); Protein-Dipstick Negative (Negative); Urine Bilirubin Dipstick Negative (Negative); Urine Clarity Clear (Clear); Urine Urobilinogen 1 mg/dl (Normal)
[2019-02-23 12:03] LABS: Absolute Lymphocyte Count 1.01 X10^3/uL (0.83-4.51); Absolute Neutrophil Count 3.9 X10^3/uL (2.0-7.7); Basophil# 0.05 X10^3/uL; Basophil% 0.9 % (0-1); Eosinophil# 0.02 X10^3/uL; Eosinophils% 0.4 % (0-5); Hematocrit 45.9 % (40-54); Hemoglobin 15.8 g/dL (13.0-16.5); Lymphocyte # 1.01 X10^3/ul (4.0); Lymphocyte % 17.8 % (19-41); Mean Corp Hgb Conc 34.4 g/dL (32-36); Mean Corpuscular Volume 87.1 fL (80-94); Mean Platelet Vol. 9.7 fl (6.2-12.0); Monocyte# 0.66 X10^3/uL; Monocyte% 11.7 % (0-10); NRBC Flagged by Analyzer 0 % (0-5); Neutrophil # 3.89 X10^3/uL (2.7-7.7); Neutrophil % 68.7 % (47-70); Platelet Count 253 K/mm3 (150-450); RBC Distribution Width CV 11.9 % (11.6-14.6); RBC Distribution Width SD 38.1 fl (35.1-43.9); Red Blood Count 5.27 M/mm3 (4.6-6.2); White Blood Count 5.7 K/mm3 (4.4-11.0)
[2019-02-23 12:16] LABS: Anion Gap 9 (5-15); BUN 8 mg/dL (7-18); Calcium,Total 8.9 mg/dL (8.5-10.1); Chloride 98 mmol/L (98-107); EST Glomerular Filtration Rate 111 mL/min (>60); Est Glom Filt Rate - Afr Amer 135 mL/min (>60); Estimated Creatinine Clearance 107.44 ml/min; Glucose 317 mg/dL (74-106); Potassium 4.3 mmol/L (3.5-5.1); Sodium Level 134 mmol/L (136-145)
[2019-02-23 13:15] VITALS: BP 138/91; PULSE 69; RESP 18; TEMP 37.3; O2SAT 97
[2019-02-23] MEDS: 0.9% Normal Saline 1,000 ML 999 ML IV (13:26)
[2019-02-23 16:01] LABS: Bedside Glucose 236 mg/dL (70-110)
[2019-02-23] MEDS: Mag Hydrox/Al Hydrox/Simeth 30 ML UDC PO (16:04)
--- NOTE | 2019-02-23 16:05 | ED.DEP ---
ED Disposition - Plan for ED Patient: Instructions: ABDOMINAL PAIN, Unkown Cause, (Male) Prescriptions: Famotidine [Pepcid] 20 mg PO BID #28 tablet Ondansetron [Zofran Odt] 4 mg PO Q8H PRN PRN #10 tablet PRN Reason: Nausea Referrals: Chioma Weinstein PA [Primary Care Provider] -
[2019-02-23 16:41] VITALS: BP 124/81; PULSE 103; RESP 11; O2SAT 96
== END 2019-02-23 16:50 | disposition home or self-care (01) ==
LOC: ED 12:39
PROVIDERS: Emergency Provider Emergency Medicine; Family Provider Physician Assistant; PCP Physician Assistant
DX: R10.12 Left upper quadrant pain (principal); R42 Dizziness and giddiness; R05 Cough; R11.2 Nausea with vomiting, unspecified; R19.7 Diarrhea, unspecified; R50.9 Fever, unspecified; K76.0 Fatty (change of) liver, not elsewhere classified; K40.90 Unilateral inguinal hernia, without obstruction or gangrene, not specified as recurrent; K57.30 Diverticulosis of large intestine without perforation or abscess without bleeding; J45.909 Unspecified asthma, uncomplicated; E11.9 Type 2 diabetes mellitus without complications; Z87.442 Personal history of urinary calculi; Z79.84 Long term (current) use of oral hypoglycemic drugs
CPT/HCPCS: 71275; 74177; 80048; 81001; 82962; 84484; 85025; 93005; 96361; 96374; 96375; 99285; Q9967; A4216; J2405

== ENCOUNTER 2019-02-28 08:30 | Emergency (ER) | payer OTHER, SELFPAY ==
[2019-02-28 08:30] VITALS: BP 157/80; PULSE 103; RESP 17; TEMP 36.9; O2SAT 95; BMI 38.7
--- NOTE | 2019-02-28 09:21 | ED.DCSUM_ITS ---
History of Present Illness Chief Complaint: Abd Pain Informant: Patient Onset: Days Narrative: Patient presents to the ED with primary concern of one episode of hematemesis. He states this morning he vomited approximately the size of a quarter of bright red blood. This was his only episode. For the last week and a half, he has had abdominal pain, fever, nausea, and vomiting. He states the pain was predominantly in the left upper quadrant until yesterday it is more in the right flank area. He was seen here 5 days ago and had quite an extensive work-up including CTA of the chest and CT of the abdomen/pelvis with IV contrast. There is no PE. CT of the abdomen just showed sigmoid diverticula and a a small left inguinal hernia. He states that they told him he may have a gastric ulcer and he has an appointment in 2 days with his PCP to establish a referral to general surgery. He states this week he has been taking ibuprofen for his pain. He is taking 800 mg twice a day. He was prescribed Pepcid and Zofran after leaving the emergency department at his last visit and has been taking everything as prescribed until today. He has reported intermittent fevers. His highest temperature is 101 ?F. He is not taking any other antipyretics other than the i buprofen he denies any chest pain, shortness of breath, cough. Past Medical History - Allergies and Home Meds Allergies/Adverse Reactions: Allergies metoclopramide HCl [From Reglan] Adverse Reaction (Verified 02/28/19 08:30) Other Primary Care Physician: Jose Christy MD [STAFF PHYSICIAN] - Chioma Weinstein PA [Primary Care Provider] - Smoking Status: Never smoker Review of Systems General: Reports: Fever. Denies: Chills, Sweats Eyes: Denies: Visual changes - bilaterally, Diplopia ENT: Denies: Rhinorrhea, Sore throat Cardiovascular: Denies: Chest pain, Palpitations Respiratory: Denies: Dyspnea, Cough, Dyspnea on exertion Gastrointestinal: Reports: Abdominal pain, Nausea, - - Hematemesis. Denies: Vomiting, Diarrhea, Melena, Hematochezia Genitourinary: Denies: Dysuria, Hematuria, Frequency Musculoskeletal: Denies: Back pain, Extremity Pain Skin: Denies: Rash, Wounds Neurological: Denies: Headache, Weakness, Numbness Physical Exam Vital Signs/Narrative: Vital Signs Temp Pulse Resp BP Pulse Ox 02/28/19 08:30 98.4 F 103 H 17 157/80 H 95 General: Well nourished, Well developed, No Acute Distress Head: Normocephalic, Atraumatic Eyes: Perrl, EOMI ENT: Moist mucous membranes, No rhinorrhea Neck: Supple, Nontender Cardiovascular: Regular rate, Regular rhythm, No murmurs Respiratory: No distress, CTA bilaterally, Chest nontender Abdomen: Soft, Nondistended, Normal bowel sounds, - - Generalized abdominal tenderness to palpation. . Negative for: Guarding, Rebound tenderness Back: Nontender, Normal Inspection. Negative for: CVA tenderness Extremities: Nontender, No edema Skin: Normal color, No rash Neurological: Alert, Oriented x3, Cranial nerves II-XII grossly intact, Normal Strength, Normal Sensation Psychological: Normal affect, Normal Mood Diagnostic/Tx/Re-eval - Medical Decision Making Presents to the ED with abdominal pain, nausea, vomiting, and intermittent fever. He was seen here Saturday for similar symptoms. This morning, he had one episode of hematemesis. He appears well and nontoxic. He states that on Saturday he did have extensive work-up done. This included negative CTA of the chest. CT of the abdomen/pelvis with IV contrast indicated left inguinal hernia and sigmoid diverticula with no evidence of diverticulitis or other acute findings. Patient was given IV fluids, morphine, Zofran, and Pepcid for symptomatic relief. He was told on Saturday that he could have a gastric ulcer. Since then, he has been continuing to take large doses of ibuprofen at a time. I did discuss with him that this could still be the case. Laboratory studies are fairly unremarkable. Given the patient's intermittent fever since Saturday, repeat CT of the abdomen/pelvis was obtained which indicated no acute findings descriptive of his symptoms. Patient was reeducated that this may be a gastric ulcer was given general surgery to follow-up with. He does have Zofran still at home that he will continue to use. He was prescribed Pepcid on Saturday and I did give him another prescription for Pepcid in case he runs out. He will also be started on a course of Carafate. He does have a follow-up appointment on Saturday with his PCP. Is educated on signs/symptoms to return to the ED and provided with discharge instructions. He was agreeable to plan. Impression: Gastritis versus gastric ulcer. Fever unknown origin. Disposition: Home stable. ED Disposition - Plan for ED Patient: Disposition: Home or Assisted Living Diagnosis: Gastritis Instructions: GASTRITIS vs. ULCER Prescriptions: Sucralfate [Carafate] 1 gm PO 4X/DAY 7 Days #28 udc Prescription Printed Famotidine [Pepcid] 20 mg PO BID #28 tab Prescription Printed Referrals: Chioma Weinstein PA [Primary Care Provider] - Jose Christy MD [STAFF PHYSICIAN] -
[2019-02-28] MEDS: Ondansetron 4 MG/2 ML Vial IV (09:35)
[2019-02-28] MEDS: Morphine 4 MG/ML Syringe IV ×2 (09:35→13:46)
[2019-02-28] MEDS: 0.9% Normal Saline 1,000 ML 1000 ML IV (09:35)
[2019-02-28 09:41] LABS: Bacteria 0 SEEN /hpf (None Seen); Mucous, Urine 0 SEEN /hpf (<or=2+); Red Blood Cells-Urine 0 SEEN /hpf (0-5); Squamous Epithelial Cells - UA 0 SEEN /hpf (0-5)
[2019-02-28 09:45] LABS: Absolute Lymphocyte Count 5.36 X10^3/uL (0.83-4.51); Absolute Neutrophil Count 3.1 X10^3/uL (2.0-7.7); Basophil# 0.07 X10^3/uL; Basophil% 0.7 % (0-1); Eosinophil# 0.19 X10^3/uL; Hematocrit 40.4 % (40-54); Hemoglobin 13.8 g/dL (13.0-16.5); Lymphocyte # 5.36 X10^3/ul (4.0); Lymphocyte % 56.6 % (19-41); Mean Corp Hgb Conc 34.2 g/dL (32-36); Mean Corpuscular Hgb 29.4 pg (27.0-32.0); Mean Corpuscular Volume 86.1 fL (80-94); Mean Platelet Vol. 9.5 fl (6.2-12.0); Monocyte# 0.77 X10^3/uL; Monocyte% 8.1 % (0-10); NRBC Flagged by Analyzer 0 % (0-5); Neutrophil # 3.05 X10^3/uL (2.7-7.7); Neutrophil % 32.3 % (47-70); POSITIVE DIFFERENTIAL YES; POSITIVE MORPHOLOGY YES; Platelet Count 219 K/mm3 (150-450); RBC Distribution Width CV 12.2 % (11.6-14.6); RBC Distribution Width SD 37.9 fl (35.1-43.9); Red Blood Count 4.69 M/mm3 (4.6-6.2); White Blood Count 9.5 K/mm3 (4.4-11.0)
[2019-02-28 09:46] LABS: Color, Urine Yellow (Yellow); Glucose, Dipstick 1000 mg/dl (Normal); Ketone-Dipstick 5 mg/dl (Negative); Leukocyte Esterase-Dipstick Negative /ul (Negative); Nitrite-Dipstick Negative (Negative); Occult Blood-Urine Negative /ul (Negative); Protein-Dipstick 15 mg/dl (Negative); Specific Gravity, Urine 1.015 (1.002-1.030); Urine Bilirubin Dipstick Negative (Negative); Urine Clarity Clear (Clear); Urine Urobilinogen Normal (Normal)
[2019-02-28 09:52] LABS: Differential Indicated SCAN CRITERIA MET
[2019-02-28 10:03] LABS: White Blood Cells 0-5 SEEN /hpf (0-5)
[2019-02-28 10:06] LABS: Differential Comment SCANNED
[2019-02-28 10:07] LABS: Reactive Lymphocyte 1+
[2019-02-28 10:57] LABS: ALB/GLOB Ratio 0.8 RATIO (0.9-2.4); AST(SGOT) 51 U/L (15-37); Alanine Aminotransfer ALT/SGPT 95 U/L (16-61); Alkaline Phosphatase 113 U/L (45-117); Anion Gap 6 (5-15); BUN 6 mg/dL (7-18); BUN/Creat Ratio 7.3 RATIO (10-20); Calcium,Total 8.6 mg/dL (8.5-10.1); Chloride 101 mmol/L (98-107); Creatinine, Serum 0.82 mg/dL (0.70-1.30); EST Glomerular Filtration Rate 108 mL/min (>60); Est Glom Filt Rate - Afr Amer 131 mL/min (>60); Estimated Creatinine Clearance 104.82 ml/min; Globulin 3.9 g/dL (2.2-4.2); Glucose 288 mg/dL (74-106); Lipase 188 U/L (73-393); Protein, Total 6.9 g/dL (6.4-8.2); Sodium Level 137 mmol/L (136-145)
[2019-02-28 12:31] VITALS: BP 122/70; PULSE 71; RESP 16; O2SAT 95
--- NOTE | 2019-02-28 12:49 | CT_ITS ---
STUDY: CT ABDOMEN AND PELVIS WITH CONTRAST REASON FOR EXAM: Male, 43 years old. Abdominal pain. Fever. RADIATION DOSAGE (If Supplied By Facility): CTDIvol = ( 20.35 ) mGy, DLP = ( 1386.6 ) mGycm TECHNIQUE: Transaxial images were obtained from the dome of the diaphragm to the symphysis pubis without oral contrast. IV 100mL Isovue-300 100 was administered. Sagittal and coronal images were reconstructed. Individualized dose optimization techniques were used for this CT. COMPARISON: February 23, 2019 FINDINGS: The visualized lung bases are unremarkable. The visualized portions of the heart are within normal limits. There is hepatomegaly with diffuse hepatic enlargement. Normal gallbladder and extrahepatic biliary system. There is mild splenomegaly. Normal pancreas. Normal bilateral adrenal glands. Normal right kidney. Normal left kidney. No stones are seen. There is distention of the left mid and distal ureter, series 2 images 103/140 through 115/140. No stones are seen. Normal visualized stomach. Normal small intestine. There are multiple colonic diverticula consistent with diverticulosis. The appendix is visualized and appears normal. Normal abdominal aorta. Normal inferior vena cava. Normal retroperitoneum. Normal urinary bladder. There is no free fluid in the abdomen or pelvis. There is a left-sided inguinal hernia containing adipose tissue. Normal osseous structures. CT/Abdomen/Pelvis W IV Cont ONLY IMPRESSION: Colonic diverticulosis. No obstruction or abscess. Dilatation of the left ureter. No stones are seen. Hepatosplenomegaly. Left inguinal hernia containing fat. Electronically Signed: Turner Wood MD at 14:13 EDT , Service support ,
--- NOTE | 2019-02-28 18:35 | ED.RN ---
PT CALLED ASKING IF CARAFATE LIQUID COULD BE CHANGED TO TABLET D/T KAMARA DIFFERENCE. OK'D TO CHANGE TO TABLET PER DR. CANSECO. [facility] MADE AWARE OF CHANGE. CALLED PT BACK AND MADE AWARE OF CHANGE.
== END 2019-02-28 15:09 | disposition home or self-care (01) ==
PROVIDERS: Emergency Provider Physician Assistant; Family Provider Physician Assistant; PCP Physician Assistant
DX: K29.70 Gastritis, unspecified, without bleeding (principal); K57.30 Diverticulosis of large intestine without perforation or abscess without bleeding; K40.90 Unilateral inguinal hernia, without obstruction or gangrene, not specified as recurrent
CPT/HCPCS: 74177; 80053; 81001; 83690; 85025; 96361; 96365; 96374; 96375; 96376; 99284; J7030; Q9967; J2405

== ENCOUNTER 2019-12-21 17:54 | Emergency (ER) | payer OTHER, SELFPAY ==
[2019-12-21 17:56] VITALS: BP 152/88; PULSE 97; RESP 18; TEMP 36.6; O2SAT 98; BMI 38.7
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
--- NOTE | 2019-12-21 18:42 | ED.DEP ---
ED Disposition - Plan for ED Patient: Disposition: Home or Assisted Living Instructions: ED LUMBAR SPRAIN/STRAIN Prescriptions: Diazepam [Valium] 5 mg PO 4X/DAY PRN PRN #14 tab PRN Reason: Muscle Spasm Prescription Printed Referrals: Chioma Weinstein PA [Primary Care Provider] - 1 Week if not improving Additional Instructions: Follow-up with your primary care provider if not improving. Valium for back spasms. Motrin for pain and inflammation. Do not drive or drink alcohol while taking the Valium. Hot shower and warm bath.
== END 2019-12-21 18:50 | disposition home or self-care (01) ==
LOC: ED 18:47
PROVIDERS: Emergency Provider Emergency Medicine; PCP Physician Assistant
DX: M54.5 Low back pain (principal); M62.830 Muscle spasm of back; E11.9 Type 2 diabetes mellitus without complications; J45.909 Unspecified asthma, uncomplicated; Z79.84 Long term (current) use of oral hypoglycemic drugs; Z79.899 Other long term (current) drug therapy; Z87.442 Personal history of urinary calculi
CPT/HCPCS: 72100; 99282

== ENCOUNTER 2020-07-21 19:32 | Emergency (ER) | payer OTHER, SELFPAY ==
[2020-07-21 19:34] VITALS: BP 152/79; PULSE 106; RESP 16; TEMP 36.6; O2SAT 97; BMI 40.3
[2020-07-21] MEDS: Morphine 4 MG/ML Syringe IV (21:14)
[2020-07-21] MEDS: Ondansetron 4 MG/2 ML Vial IV (21:14)
[2020-07-21] MEDS: 0.9% Normal Saline 1,000 ML 1000 ML IV (21:15)
[2020-07-21 21:30] LABS: Bacteria 0 SEEN /hpf (None Seen); Mucous, Urine 0 SEEN /hpf (<or=2+); Red Blood Cells-Urine 0 SEEN /hpf (0-5); Squamous Epithelial Cells - UA 0 SEEN /hpf (0-5); White Blood Cells 0 SEEN /hpf (0-5)
[2020-07-21 21:35] LABS: Absolute Neutrophil Count 14.5 X10^3/uL (2.0-7.7); Basophil# 0.03 X10^3/uL; Basophil% 0.2 % (0-1); Eosinophil# 0.01 X10^3/uL; Eosinophils% 0.1 % (0-5); Hematocrit 41.1 % (40-54); Hemoglobin 14.2 g/dL (13.0-16.5); Lymphocyte % 9.4 % (19-41); Mean Corp Hgb Conc 34.5 g/dL (32-36); Mean Corpuscular Hgb 30.3 pg (27.0-32.0); Mean Corpuscular Volume 87.6 fL (80-94); Mean Platelet Vol. 9.8 fl (6.2-12.0); Monocyte# 0.71 X10^3/uL; Monocyte% 4.2 % (0-10); NRBC Flagged by Analyzer 0 % (0-5); Neutrophil # 14.51 X10^3/uL (2.7-7.7); Neutrophil % 85.5 % (47-70); Platelet Count 399 K/mm3 (150-450); RBC Distribution Width CV 11.7 % (11.6-14.6); RBC Distribution Width SD 37.1 fl (35.1-43.9); Red Blood Count 4.69 M/mm3 (4.6-6.2)
--- NOTE | 2020-07-21 21:37 | ED.VIS.GEN ---
History of Present Illness Informant: Patient Narrative: 44-year-old male postoperative day 1 of a left inguinal hernia surgery at [facility] by Dr. Christy He tells me that this afternoon he developed nausea and vomiting. He notes significant pain at the surgical site. He states he has not had a bowel movement. He notes that he has had very little flatus. He took some MiraLAX this evening. No fevers. He has been able to urinate. He was unable to contact his surgeon and did not think he could make it to the hospital in [place] so he came here. <Elio Mendez - Last Filed: 07/21/20 21:37> <Turner Adan - Last Filed: 07/22/20 01:09> Chief Complaint: Male Pain/Injury Past Medical History Surgical History: herniorrhaphy Smoking Status: Never smoker Drugs: None <Elio Mendez - Last Filed: 07/21/20 21:37> <Turner Adan - Last Filed: 07/22/20 01:09> - Allergies and Home Meds Allergies/Adverse Reactions: Allergies metoclopramide HCl [From Reglan] Adverse Reaction (Verified 07/21/20 19:33) Other Primary Care Physician: Chioma Weinstein PA [Primary Care Provider] - Review of Systems General: Denies: Chills, Fever, Sweats Eyes: Denies: Visual changes - bilaterally, Diplopia ENT: Denies: Rhinorrhea, Sore throat Cardiovascular: Denies: Chest pain, Palpitations Respiratory: Denies: Dyspnea, Cough, Dyspnea on exertion Gastrointestinal: Reports: Abdominal pain, Nausea, Vomiting. Denies: Diarrhea, Melena, Hematochezia Genitourinary: Denies: Dysuria, Hematuria, Frequency Musculoskeletal: Denies: Back pain, Extremity Pain Skin: Denies: Rash, Wounds Neurological: Denies: Headache, Weakness, Numbness <Elio Mendez - Last Filed: 07/21/20 21:37> Physical Exam Vital Signs/Narrative: Vital Signs Temp Pulse Resp BP Pulse Ox 07/21/20 19:34 97.9 F 106 H 16 152/79 H 97 Inital Vital Signs reviewed: Yes General: Well nourished, Well developed, No Acute Distress Head: Normocephalic, Atraumatic Eyes: Perrl, EOMI ENT: Moist mucous membranes, No rhinorrhea Neck: Supple, Nontender Cardiovascular: Regular rate, Regular rhythm, No murmurs Respiratory: No distress, CTA bilaterally, Chest nontender Abdomen: Soft, Nontender, Nondistended, Hypoactive bowel sounds, - - Left inguinal surgical site appears without complication. Mild ecchymosis noted. Back: Nontender, Normal Inspection Extremities: Nontender, No edema Skin: Normal color, No rash Neurological: Alert, Oriented x3, Cranial nerves II-XII grossly intact, Normal Strength, Normal Sensation Psychological: Normal affect, Normal Mood <Elio Mendez - Last Filed: 07/21/20 21:37> Vital Signs/Narrative: Vital Signs Pulse Resp BP 07/22/20 00:48 91 16 125/82 H 07/21/20 22:14 106 H 16 136/83 H <Turner Adan - Last Filed: 07/22/20 01:09> Diagnostic/Tx/Re-eval Impressions Abdomen/Pelvis CT 07/21/20 22:00 IMPRESSION: Postsurgical changes of the left internal canal region without evidence of large hernia formation. Small amount of surrounding inflammation without evidence of abscess Electronically Signed: Gonzalez Buck DO at 0:25 EST Tel , Service support , 07/21/20 22:00 CT Abd [Abdomen/Pelvis WITH Contrast] [CT] Stat Laboratory Results 07/21/20 07/21/20 07/21/20 21:15 21:15 21:15 WBC 17.0 H RBC 4.69 Hgb 14.2 Hct 41.1 MCV 87.6 MCH 30.3 MCHC 34.5 RDW Std Deviation 37.1 RDW Coeff of Jeremiah 11.7 Plt Count 399 MPV 9.8 Immature Gran % (Auto) 0.600 Neut % (Auto) 85.5 H Lymph % (Auto) 9.4 L [place] % (Auto) 4.2 Eos % (Auto) 0.1 Baso % (Auto) 0.2 Absolute Neuts (auto) 14.5 H Absolute Lymphs (auto) 1.60 Nucleated RBC % 0 Sodium 131 L Potassium 4.0 Chloride 98 Carbon Dioxide 28.0 Anion Gap 5 BUN 8 Creatinine 0.72 Estim Creat Clear Calc 118.15 Est GFR (MDRD) Af Amer 152 Est GFR (MDRD) Non-Af 125 BUN/Creatinine Ratio 11.1 Glucose 325 H Calcium 8.6 Total Bilirubin 0.70 AST 11 L ALT 28 Alkaline Phosphatase 87 Total Protein 7.3 Albumin 3.4 Globulin 3.9 Albumin/Globulin Ratio 0.9 Lipase 367 Urine Color Yellow Urine Clarity Clear Urine pH 6.5 Ur Specific [place] 1.015 Urine Protein 15 H Urine Glucose (UA) 1000 H Urine Ketones 150 H Urine Occult Blood Negative Urine Nitrite Negative Urine Bilirubin Negative Urine Urobilinogen Normal Ur Leukocyte Esterase Negative Urine RBC 0 SEEN Urine WBC 0 SEEN Ur Squamous Epith Cells 0 SEEN Urine Bacteria 0 SEEN Urine Mucus 0 SEEN - Medical Decision Making It took over care of this patient at rn clinical review 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 Upon going to CT for his imaging, the swimming pool service technician called me because the patient was so anxious about being claustrophobic and lying down for the CT and having an asthma attack, etc. that he said he was unable to undergo the scan. I sent a nurse over and offered the patient a dose of Ativan, he accepted this and was able to do the scan. The results are as above, which are benign showing postoperative changes without any acute abnormality. I examined him. He states after the morphine, Zofran, IV fluids, he is feeling much better and he appears well. His abdomen is soft and benign and he has normal bowel sounds present now. He states since he was last seen by the other ED physician, he has passed some flatus suggesting that if he did have an ileus it is resolved and his bowels are waking up. He has not had a bowel movement yet. We gave him some water to drink and he drank without any difficulty and he feels well enough to go home. I feel in context of all of this, his leukocytosis was likely due to stress/pain/demargination, and does not necessarily indicate infection or acute surgical emergency since the CT indicates none is present. Since it is after midnight and his surgeon is not on-call for this hospital, I do not think it requires any emergency surgery contact at this time, and he is encouraged to call his surgeon in the morning and to stay on a clear liquid diet in the meantime. He is comfortable with that plan. <Turner Adan - Last Filed: 07/22/20 01:09> ED Disposition <Elio Mendez - Last Filed: 07/21/20 21:37> <Turner Adan - Last Filed: 07/22/20 01:09> - Plan for ED Patient: Disposition: Home or Assisted Living Diagnosis: Postoperative pain, Vomiting Instructions: ED Post Op Wound Check, Pain Referrals: Jose Christy MD [STAFF PHYSICIAN] - (1-2 days -- call to discuss or make an appointment for Saturday or Saturday)
[2020-07-21 21:42] LABS: Color, Urine Yellow (Yellow); Glucose, Dipstick 1000 mg/dl (Normal); Leukocyte Esterase-Dipstick Negative /ul (Negative); Nitrite-Dipstick Negative (Negative); Occult Blood-Urine Negative /ul (Negative); Protein-Dipstick 15 mg/dl (Negative); Specific Gravity, Urine 1.015 (1.002-1.030); Urine Bilirubin Dipstick Negative (Negative); Urine Clarity Clear (Clear); Urine Urobilinogen Normal (Normal); Urine pH 6.5 (5.0 - 8.0)
[2020-07-21 21:44] LABS: Ketone-Dipstick 150 mg/dl (Negative)
[2020-07-21 21:52] LABS: ALB/GLOB Ratio 0.9 RATIO (0.9-2.4); AST(SGOT) 11 U/L (15-37); Alanine Aminotransfer ALT/SGPT 28 U/L (16-61); Albumin, Serum 3.4 g/dL (3.2-5.0); Alkaline Phosphatase 87 U/L (45-117); Anion Gap 5 (5-15); BUN 8 mg/dL (7-18); BUN/Creat Ratio 11.1 RATIO (10-20); Calcium,Total 8.6 mg/dL (8.5-10.1); Chloride 98 mmol/L (98-107); Creatinine, Serum 0.72 mg/dL (0.70-1.30); EST Glomerular Filtration Rate 125 mL/min (>60); Est Glom Filt Rate - Afr Amer 152 mL/min (>60); Estimated Creatinine Clearance 118.15 ml/min; Globulin 3.9 g/dL (2.2-4.2); Glucose 325 mg/dL (74-106); Lipase 367 U/L (73-393); Protein, Total 7.3 g/dL (6.4-8.2); Sodium Level 131 mmol/L (136-145)
--- NOTE | 2020-07-21 22:00 | CT_ITS ---
STUDY: CT ABDOMEN AND PELVIS WITH CONTRAST REASON FOR EXAM: Male, 44 years old. LT INGUINAL HERNIA REPAIR YESTERDAY,NAUSEA AND VOMITING,PAIN AT SURGERY SITE,ELEVATED WBC,NO BM -- HX:ASTHMA,DIABETES,GERD RADIATION DOSAGE (If Supplied By Facility): CTDIvol = ( 21.57 ) mGy, DLP = ( 1730.73 ) mGycm TECHNIQUE: Transaxial images were obtained from the dome of the diaphragm to the symphysis pubis without oral contrast. Oral and amp; IV Gastrografin and amp; 100mL Isovue-300 was administered. Sagittal and coronal images were reconstructed. Individualized dose optimization techniques were used for this CT. COMPARISON: CT abdomen and pelvis dated 02/28/2019 FINDINGS: The visualized lung bases are unremarkable. The visualized portions of the heart are within normal limits. Normal liver. Normal gallbladder and extrahepatic biliary system. Normal spleen. Normal pancreas. Normal bilateral adrenal glands. Normal right kidney. Normal left kidney. Stable perinephric fat stranding bilaterally Normal visualized stomach. Normal small intestine. Normal colon. The appendix is visualized and appears normal. Normal abdominal aorta. Normal inferior vena cava. Normal retroperitoneum. Normal urinary bladder. Unremarkable prostate. Postsurgical changes in the left inguinal canal region. No evidence of significant hernia formation. Surrounding subcutaneous inflammation and edema. No evidence of abscess. Normal abdominal wall. Normal osseous structures. CT/Abdomen/Pelvis WITH Contrast IMPRESSION: Postsurgical changes of the left internal canal region without evidence of large hernia formation. Small amount of surrounding inflammation without evidence of abscess Electronically Signed: Gonzalez Buck DO at 0:25 EST Tel , Service support ,
[2020-07-21] MEDS: 0.9% Normal Saline 1,000 ML 125 ML IV (22:12)
[2020-07-21 22:14] VITALS: BP 136/83; PULSE 106; RESP 16
[2020-07-22 00:48] VITALS: BP 125/82; PULSE 91; RESP 16
== END 2020-07-22 01:15 | disposition home or self-care (01) ==
PROVIDERS: Emergency Provider Emergency Medicine; PCP Physician Assistant
DX: R11.2 Nausea with vomiting, unspecified (principal); R10.9 Unspecified abdominal pain; Z98.890 Other specified postprocedural states; Z87.19 Personal history of other diseases of the digestive system
CPT/HCPCS: 74177; 80053; 81001; 83690; 85025; 96361; 96374; 96375; 99284; J7030; Q9967; J2405

== ENCOUNTER 2020-08-22 12:13 | Emergency (ER) | payer OTHER, SELFPAY ==
[2020-08-22 12:14] VITALS: BP 162/97; PULSE 105; RESP 18; TEMP 36.4; O2SAT 97; BMI 39.4
--- NOTE | 2020-08-22 12:48 | CT_ITS ---
STUDY: CT ABDOMEN AND PELVIS WITH CONTRAST REASON FOR EXAM: Male, 44 years old. Left sided pain, 3 weeks s/p inguinal hernia repair. RADIATION DOSAGE (If Supplied By Facility): CTDIvol = ( 16.82 ) mGy, DLP = ( 1341.55 ) mGycm TECHNIQUE: Transaxial images were obtained from the dome of the diaphragm to the symphysis pubis without oral contrast. IV 100mL Isovue-300 was administered. Sagittal and coronal images were reconstructed. Individualized dose optimization techniques were used for this CT. COMPARISON: Comparison is made with prior study dated 07/21/2020. FINDINGS: The visualized lung bases are unremarkable. The visualized portions of the heart are within normal limits. There is decreased attenuation of the liver consistent with steatosis. Normal gallbladder and extrahepatic biliary system. Normal spleen. Normal pancreas. Normal bilateral adrenal glands. Normal right kidney. Normal left kidney. There is dilatation of the mid and distal portion of the left ureter. No obstructive uropathy is seen. This may represent changes to either a recently passed calculus or a possible left ureteral vesicle reflux. There is a small hiatal hernia. Normal small intestine. Normal colon. The appendix is visualized and appears normal. Normal abdominal aorta. Normal inferior vena cava. Normal retroperitoneum. Normal urinary bladder. Persistent postoperative changes are seen in the deep subcutaneous tissues in the region of the left inguinal canal. There has been a slight progression of the 4 cm x 5.2 cm soft tissue density in the left inguinal canal. This may represent partial resorption of the postoperative hematoma. Normal osseous structures. CT/Abdomen/Pelvis W IV Cont ONLY IMPRESSION: Postoperative changes are seen overlying the left inguinal canal secondary to prior left inguinal hernia repair. There has been slight progression in the 5.2 cm x 4 cm rounded soft tissue density suggestive of possible resolving hematoma. Fatty infiltration of the liver. Electronically Signed: Ryan Ledesma MD at 14:03 EDT , Service support ,
[2020-08-22] MEDS: 0.9% Normal Saline 1,000 ML 1000 ML IV (13:03)
[2020-08-22] MEDS: Ondansetron 4 MG/2 ML Vial IV (13:04)
[2020-08-22 13:08] LABS: Absolute Lymphocyte Count 3.05 X10^3/uL (0.83-4.51); Absolute Neutrophil Count 5.1 X10^3/uL (2.0-7.7); Basophil# 0.05 X10^3/uL; Basophil% 0.6 % (0-1); Eosinophil# 0.17 X10^3/uL; Eosinophils% 1.9 % (0-5); Hematocrit 42.7 % (40-54); Hemoglobin 14.4 g/dL (13.0-16.5); Lymphocyte # 3.05 X10^3/ul (4.0); Lymphocyte % 33.6 % (19-41); Mean Corp Hgb Conc 33.7 g/dL (32-36); Mean Corpuscular Hgb 29.8 pg (27.0-32.0); Mean Corpuscular Volume 88.4 fL (80-94); Mean Platelet Vol. 9.2 fl (6.2-12.0); Monocyte# 0.64 X10^3/uL; Monocyte% 7.1 % (0-10); NRBC Flagged by Analyzer 0 % (0-5); Neutrophil # 5.12 X10^3/uL (2.7-7.7); Neutrophil % 56.4 % (47-70); Platelet Count 418 K/mm3 (150-450); RBC Distribution Width CV 11.7 % (11.6-14.6); Red Blood Count 4.83 M/mm3 (4.6-6.2); White Blood Count 9.1 K/mm3 (4.4-11.0)
[2020-08-22 13:17] LABS: ALB/GLOB Ratio 0.8 RATIO (0.9-2.4); AST(SGOT) 11 U/L (15-37); Alanine Aminotransfer ALT/SGPT 29 U/L (16-61); Albumin, Serum 3.3 g/dL (3.2-5.0); Alkaline Phosphatase 94 U/L (45-117); Anion Gap 5 (5-15); BUN 8 mg/dL (7-18); BUN/Creat Ratio 10.4 RATIO (10-20); Calcium,Total 8.7 mg/dL (8.5-10.1); Chloride 101 mmol/L (98-107); Creatinine, Serum 0.77 mg/dL (0.70-1.30); EST Glomerular Filtration Rate 117 mL/min (>60); Est Glom Filt Rate - Afr Amer 141 mL/min (>60); Estimated Creatinine Clearance 110.48 ml/min; Globulin 4.1 g/dL (2.2-4.2); Glucose 295 mg/dL (74-106); Lipase 173 U/L (73-393); Protein, Total 7.4 g/dL (6.4-8.2); Sodium Level 133 mmol/L (136-145)
--- NOTE | 2020-08-22 14:38 | ED.VISSUMM ---
- ER Visit Summary Date of Service: 08/22/20 Chief Complaint: Abdominal pain History of Present Illness: The patient is a 44 M who sees Riky Weinstein and Dr. Conrad. Patient reports that he had a left inguinal hernia repaired 3-1/[address] Conrad[address] States that he has abdominal pain that began 2 days ago. Some aching pain in the left upper quadrant is 7-10 at worst and 5-10 currently. Is worsened by standing. Is relieved by laying on his right side. Patient reports has been nausea and vomited twice. No blood in his emesis. Has had diarrhea over the past 3 days. He states he had it 10 x 3 days ago, 5 times yesterday, and twice today. No blood in stools or black tarry stools. Patient reports that 9 days ago he had an abscess to the left side of his back I&D. He was placed on Bactrim and Keflex. He reports that he has 1 day left. Physical Examination: Vitals: Stable. Afebrile. General: Well-nourished and well-developed. Head: Normocephalic atraumatic. Neck: Supple, no lymphadenopathy. No JVD. Nontender. Cardiovascular: Regular rate and rhythm. No murmurs. Respiratory: No respiratory distress. Clear to auscultation bilaterally. Abdominal: Soft, nontender, nondistended, normal bowel sounds. No guarding, rebound, or peritoneal signs. Incision in the left inguinal region is clean, dry, intact. It is healed well. Back: Nontender. Extremities: Nontender, no edema. Skin: Exam of his back shows where he had the I&D performed in the left flank. The incision is healing well. There is no erythema, induration, or fluctuance. Neurologic: Alert and oriented ?3. Cranial nerves II through XII are intact. Normal strength and sensation. Psych: Normal affect. Test Results: CBC is normal. Chem-7 shows a sodium 133 and glucose 295. LFTs show an AST of 11. Lipase is 173. Clinical Impression(s) from Imaging Studies Abdomen/Pelvis CT 08/22/20 12:48 IMPRESSION: Postoperative changes are seen overlying the left inguinal canal secondary to prior left inguinal hernia repair. There has been slight progression in the 5.2 cm x 4 cm rounded soft tissue density suggestive of possible resolving hematoma. Fatty infiltration of the liver. Electronically Signed: Ryan Ledesma MD at 14:03 EDT , Service support , Emergency Department Course and Treatment: Patient was given Zofran IV. He is resting comfortably and refused pain medications. He was unable to give a stool sample. Treatment Plan: I had a prolonged discussion the patient brought up possibility of C. difficile given the recent antibiotics. The diarrhea actually seems to be improving and he has not been able to give a sample here. He is instructed to stop taking the Bactrim and Keflex as there is no longer an abscess or cellulitis present. He will be discharged with Zofran and instructed to follow-up his primary care physician in 1 to 2 days if not improving. Return to the emergency department for any worsening symptoms. Disposition: To home in improved and stable condition. Impression: 1. Abdominal pain, uncertain cause. 2. 3-week status post left inguinal hernia repair. 3. Diarrhea. This note was generated with [employer] dictation software. It may contain incorrect words, spelling, and punctuation that were not noted in review of the chart prior to signing ED Disposition - Plan for ED Patient: Disposition: Home or Assisted Living Instructions: ED Diarrhea, Unknown Cause Prescriptions: Ondansetron [Zofran Odt] 4 mg PO Q8H PRN PRN #10 tablet PRN Reason: Nausea Prescription Printed Referrals: Chioma Weinstein PA [Primary Care Provider] - 1-2 Days if not improving
[2020-08-22 14:57] VITALS: BP 128/90; PULSE 96; RESP 16; O2SAT 96; O2SAT 97
== END 2020-08-22 15:22 | disposition home or self-care (01) ==
LOC: ED 12:58
PROVIDERS: Emergency Provider Emergency Medicine; PCP Physician Assistant
DX: R10.12 Left upper quadrant pain (principal); Z98.890 Other specified postprocedural states; R06.00 Dyspnea, unspecified; R68.83 Chills (without fever); R19.7 Diarrhea, unspecified; R11.2 Nausea with vomiting, unspecified; E11.9 Type 2 diabetes mellitus without complications; J45.909 Unspecified asthma, uncomplicated; Z79.84 Long term (current) use of oral hypoglycemic drugs
CPT/HCPCS: 74177; 80053; 83690; 85025; 96361; 96374; 99283; J7030; Q9967; J2405

== ENCOUNTER 2020-08-24 12:54 | Emergency (ER) | payer OTHER, SELFPAY ==
[2020-08-24 12:55] VITALS: BP 158/100; PULSE 100; RESP 19; TEMP 36.4; O2SAT 98; BMI 38.4
[2020-08-24] MEDS: Ondansetron 4 MG/2 ML Vial IV (13:28)
[2020-08-24] MEDS: 0.9% Normal Saline 1,000 ML 1000 ML IV (13:28)
[2020-08-24] MEDS: Morphine 4 MG/ML Syringe IV (13:28)
[2020-08-24 13:30] LABS: Absolute Lymphocyte Count 2.75 X10^3/uL (0.83-4.51); Basophil# 0.06 X10^3/uL; Basophil% 0.7 % (0-1); Eosinophil# 0.18 X10^3/uL; Eosinophils% 2.1 % (0-5); Hematocrit 40.3 % (40-54); Hemoglobin 13.7 g/dL (13.0-16.5); Lymphocyte # 2.75 X10^3/ul (4.0); Lymphocyte % 32.1 % (19-41); Mean Corpuscular Hgb 29.6 pg (27.0-32.0); Mean Platelet Vol. 9.2 fl (6.2-12.0); Monocyte# 0.53 X10^3/uL; Monocyte% 6.2 % (0-10); NRBC Flagged by Analyzer 0 % (0-5); Neutrophil # 5.02 X10^3/uL (2.7-7.7); Neutrophil % 58.4 % (47-70); Platelet Count 374 K/mm3 (150-450); RBC Distribution Width CV 11.7 % (11.6-14.6); RBC Distribution Width SD 37.2 fl (35.1-43.9); Red Blood Count 4.63 M/mm3 (4.6-6.2); White Blood Count 8.6 K/mm3 (4.4-11.0)
[2020-08-24 13:46] LABS: ALB/GLOB Ratio 0.8 RATIO (0.9-2.4); AST(SGOT) 25 U/L (15-37); Alanine Aminotransfer ALT/SGPT 30 U/L (16-61); Albumin, Serum 3.2 g/dL (3.2-5.0); Alkaline Phosphatase 87 U/L (45-117); Anion Gap 6 (5-15); BUN 7 mg/dL (7-18); BUN/Creat Ratio 8.3 RATIO (10-20); Calcium,Total 8.8 mg/dL (8.5-10.1); Chloride 99 mmol/L (98-107); Creatinine, Serum 0.84 mg/dL (0.70-1.30); EST Glomerular Filtration Rate 105 mL/min (>60); Est Glom Filt Rate - Afr Amer 127 mL/min (>60); Estimated Creatinine Clearance 101.27 ml/min; Glucose 301 mg/dL (74-106); Lipase 227 U/L (73-393); Potassium 4.4 mmol/L (3.5-5.1); Protein, Total 7.2 g/dL (6.4-8.2); Sodium Level 135 mmol/L (136-145)
--- NOTE | 2020-08-24 14:47 | ED.DCSUM_ITS ---
- ER Visit Summary Date of Service: 08/24/20 Chief Complaint: Abdominal pain and diarrhea History of Present Illness: The patient is a 44 M who sees Riky Weinstein and Dr. Conrad. He reports that his abdominal pain began 4 days ago. Is an aching pain distention worsened 6 out of 10 currently. States it is worsened by food and he feels bloated. He reports this relieved by vomiting and diarrhea. Procedure vomited 3 times yesterday as well as 3 times today. No blood in his emesis. Is not getting relief from Zofran. Patient reports he is having diarrhea 4-6 times per day. He denies any blood in the stools or black tarry stools. He dropped off a sample for C. difficile [facility] today and does not have the reports back. He denies any dysuria or frequency. Patient had an abscess to his back that was I&D to 11 days ago. He was seen in the emergency department 2 days ago and instructed to stop the Bactrim and Keflex as this appears that it is healed well. Physical Examination: Vitals: Stable. Afebrile. General: Well-nourished and well-developed. Head: Normocephalic atraumatic. Neck: Supple, no lymphadenopathy. No JVD. Nontender. Cardiovascular: Regular rate and rhythm. No murmurs. Respiratory: No respiratory distress. Clear to auscultation bilaterally. Abdominal: Soft, mild diffuse tenderness to palpation, nondistended, normal bowel sounds. No guarding, rebound, or peritoneal signs. Incision in the left inguinal region is clean, dry, intact. There is no erythema or drainage. Back: Nontender. Extremities: Nontender, no edema. Skin: Normal color, no rash. Neurologic: Alert and oriented ?3. Cranial nerves II through XII are intact. Normal strength and sensation. Psych: Normal affect. Test Results: CBC is normal. Chem-7 shows a sodium 135 and glucose 301. LFTs are normal. Lipase is normal. Emergency Department Course and Treatment: Patient had an IV placed. Is given dose of morphine and Zofran IV. He had no vomiting while here. He is also been unable to give a stool sample while here. We did contact [facility] and they said that his stool sample is not even sent to [facility] yet. Treatment Plan: Patient would like to go home. He will be discharged with Phenergan to use in addition to his Zofran. Follow-up his primary care physician in 1 day for the results of his C. difficile test. Push fluids. Return to the emergency department for any worsening symptoms. Disposition: To home in improved and stable condition. Impression: 1. Abdominal pain. 2. Vomiting/diarrhea. 3. Noninsulin dependent diabetes mellitus with hyperglycemia. This note was generated with [employer] dictation software. It may contain incorrect words, spelling, and punctuation that were not noted in review of the chart prior to signing ED Disposition - Plan for ED Patient: Instructions: ED Vomiting and Diarrhea ... Prescriptions: proMETHazine suppository [Phenergan Suppository] 25 mg RECTAL Q6H PRN PRN #6 suppos. PRN Reason: Nausea proMETHazine tablet [Phenergan] 25 mg PO Q6H PRN PRN #10 tablet PRN Reason: Nausea Referrals: Chioma Weinstein PA [Primary Care Provider] - 1 Day for another exam
== END 2020-08-24 15:02 | disposition home or self-care (01) ==
LOC: ED 13:43
PROVIDERS: Emergency Provider Emergency Medicine; PCP Physician Assistant
DX: R10.9 Unspecified abdominal pain (principal); R11.2 Nausea with vomiting, unspecified; R68.83 Chills (without fever); E11.65 Type 2 diabetes mellitus with hyperglycemia; Z79.84 Long term (current) use of oral hypoglycemic drugs; J45.909 Unspecified asthma, uncomplicated
CPT/HCPCS: 80053; 83690; 85025; 96361; 96374; 96375; 99284; J7030; A4216; J2405

== ENCOUNTER 2020-08-28 16:47 | Observation (INO) | payer OTHER, SELFPAY ==
[2020-08-28 16:48] VITALS: BP 143/87; PULSE 106; RESP 20; TEMP 36.2; O2SAT 98; BMI 38.0
--- NOTE | 2020-08-28 17:05 | CT_ITS ---
STUDY: CT ABDOMEN AND PELVIS WITH CONTRAST REASON FOR EXAM: Male, 44 years old. Abdominal pain diarrhea RADIATION DOSAGE (If Supplied By Facility): CTDIvol = ( 14.29 ) mGy, DLP = ( 1244.16 ) mGycm TECHNIQUE: CT images were obtained from the dome of the diaphragm to the symphysis pubis without oral contrast. Oral and amp; IV BREEZA NEUTRAL and amp; 100ML ISOVUE 370 was administered. Sagittal and coronal images were reconstructed. Individualized dose optimization techniques were used for this CT. COMPARISON: 22 August 2020, 21 July 2020, 28 February 2019 FINDINGS: The visualized lung bases are unremarkable. The visualized portions of the heart are within normal limits. The liver is fatty infiltrated without focal lesions.. Normal gallbladder and extrahepatic biliary system. Normal spleen. Normal pancreas. Normal bilateral adrenal glands. Normal right kidney. Normal left kidney. Normal visualized stomach. Normal small intestine. Normal colon. The appendix is visualized and appears normal. Normal abdominal aorta. Normal inferior vena cava. Normal retroperitoneum. Normal urinary bladder. Left lower quadrant of abdominal wall and inguinal region inflammatory changes are slowly evolving/involuting. There is no drainable fluid collection. Normal osseous structures. CT/Abdomen/Pelvis WITH Contrast IMPRESSION: 1. No acute abdominal findings. 2. Slowly evolving/involuting left lower quadrant/inguinal inflammation. Electronically Signed: Jamin Byers MD at 19:21 EDT Tel , Service support ,
[2020-08-28] MEDS: 0.9% Normal Saline 1,000 ML 1000 ML IV (17:28)
[2020-08-28] MEDS: Ondansetron 4 MG/2 ML Vial IV (17:28)
[2020-08-28] MEDS: Morphine 4 MG/ML Syringe IV ×2 (17:29→20:28)
[2020-08-28 17:40] LABS: Absolute Lymphocyte Count 3.67 X10^3/uL (0.83-4.51); Absolute Neutrophil Count 5.2 X10^3/uL (2.0-7.7); Basophil# 0.08 X10^3/uL; Basophil% 0.8 % (0-1); Eosinophil# 0.21 X10^3/uL; Eosinophils% 2.1 % (0-5); Hematocrit 43.6 % (40-54); Hemoglobin 14.8 g/dL (13.0-16.5); Lymphocyte # 3.67 X10^3/ul (4.0); Mean Corp Hgb Conc 33.9 g/dL (32-36); Mean Corpuscular Hgb 29.8 pg (27.0-32.0); Mean Corpuscular Volume 87.9 fL (80-94); Mean Platelet Vol. 9.7 fl (6.2-12.0); Monocyte# 0.69 X10^3/uL; NRBC Flagged by Analyzer 0 % (0-5); Neutrophil # 5.23 X10^3/uL (2.7-7.7); Neutrophil % 52.8 % (47-70); Platelet Count 394 K/mm3 (150-450); RBC Distribution Width CV 11.8 % (11.6-14.6); RBC Distribution Width SD 37.7 fl (35.1-43.9); Red Blood Count 4.96 M/mm3 (4.6-6.2); White Blood Count 9.9 K/mm3 (4.4-11.0)
[2020-08-28 18:04] LABS: ALB/GLOB Ratio 0.8 RATIO (0.9-2.4); AST(SGOT) 25 U/L (15-37); Alanine Aminotransfer ALT/SGPT 34 U/L (16-61); Albumin, Serum 3.4 g/dL (3.2-5.0); Alkaline Phosphatase 90 U/L (45-117); Anion Gap 5 (5-15); BUN 9 mg/dL (7-18); BUN/Creat Ratio 10.3 RATIO (10-20); Calcium,Total 9.1 mg/dL (8.5-10.1); Chloride 98 mmol/L (98-107); Creatinine, Serum 0.88 mg/dL (0.70-1.30); EST Glomerular Filtration Rate 100 mL/min (>60); Est Glom Filt Rate - Afr Amer 121 mL/min (>60); Estimated Creatinine Clearance 96.67 ml/min; Globulin 4.1 g/dL (2.2-4.2); Glucose 294 mg/dL (74-106); Lipase 135 U/L (73-393); Potassium 4.5 mmol/L (3.5-5.1); Protein, Total 7.5 g/dL (6.4-8.2); Sodium Level 132 mmol/L (136-145)
--- NOTE | 2020-08-28 18:25 | ED.VISSUMM ---
- ER Visit Summary Date of Service: 08/28/20 Chief Complaint: Vomiting/diarrhea History of Present Illness: The patient is a 44 M who sees Riky Weinstein and Dr. Conrad. He has vomiting and diarrhea that began 8 days ago. He reports that he has been nausea and vomiting after every meal. Seems to improve yesterday after Zofran and Phenergan. However is worsened today despite these medications. He is reports that he is having diarrhea every few hours. He is estimating 5-10 times per day. He reports his stools very soft. He denies any blood in his stools or black tarry stools. No blood in his emesis. Patient complains of an aching, dull abdominal pain that is 10 out of 10 at worst and 6 out of 10 currently. Is worsened by eating or drinking anything. Is relieved by nothing. He denies any dysuria or frequency. Patient had a C. difficile and bacterial stool study that was negative at [facility] already. Patient did have a left inguinal hernia repair on July [address] Conrad. However, he reports that area is healing well and is not having any pain. He also had an I&D of his back 8 days ago and was placed on Keflex and Bactrim at that time. However, he stopped these medications 5 days ago. Physical Examination: Vitals: Stable. Afebrile. General: Well-nourished and well-developed. Head: Normocephalic atraumatic. Neck: Supple, no lymphadenopathy. No JVD. Nontender. Cardiovascular: Regular rate and rhythm. No murmurs. Respiratory: No respiratory distress. Clear to auscultation bilaterally. Abdominal: Soft, mild epigastric tenderness to palpation, nondistended, normal bowel sounds. No guarding, rebound, or peritoneal signs. Incision in the left inguinal region is clean, dry, intact. There is no erythema, induration, or tenderness to palpation. Back: Nontender. Incision to his back is healed well. There is no erythema or induration. Extremities: Nontender, no edema. Skin: Normal color, no rash. Neurologic: Alert and oriented ?3. Cranial nerves II through XII are intact. Normal strength and sensation. Psych: Normal affect. Test Results: CBC is normal. Chem-7 shows a sodium 132 and glucose 294. LFTs are normal. Lipase is normal. Covid is negative. Clinical Impression(s) from Imaging Studies Abdomen/Pelvis CT 08/28/20 17:05 IMPRESSION: 1. No acute abdominal findings. 2. Slowly evolving/involuting left lower quadrant/inguinal inflammation. Electronically Signed: Jamin Byers MD at 19:21 EDT Tel , Service support , Emergency Department Course and Treatment: Patient had an IV placed. Is given a liter normal saline. He is given morphine and Zofran IV. He is resting more comfortably. This is the patient's third visit to the emergency department for the symptoms. He has failed treatment at home with Zofran and Phenergan. He is allergic to Reglan. Patient has been unable to give a stool sample here. Treatment Plan: Patient will be discussed with Dr. Barrientos for the possibility of admission. Disposition: Admitted in stable condition. Impression: 1. Vomiting/diarrhea. 2. Hyperglycemia. 3. [id number] diabetes mellitus. This note was generated with [employer] dictation software. It may contain incorrect words, spelling, and punctuation that were not noted in review of the chart prior to signing ED Disposition - Plan for ED Patient: Referrals: Chioma Weinstein PA [Primary Care Provider] -
--- NOTE | 2020-08-28 19:59 | HP.PCM_ITS ---
Problem List (1) Intractable nausea and vomiting Status: Acute (2) Abdominal pain Status: Acute Qualifiers: Abdominal location: epigastric Qualified Code(s): R10.13 - Epigastric pain (3) Diarrhea Status: Acute Qualifiers: Diarrhea type: unspecified type Qualified Code(s): R19.7 - Diarrhea, unspecified (4) Obesity Status: Chronic Qualifiers: Obesity type: due to excess calories Obesity classification: adult class 2 (BMI 35 - 39.9) Serious obesity comorbidity presence: unspecified whether serious comorbidity present Body mass index: BMI 38.0-38.9 Qualified C ode(s): E66.09 - Other obesity due to excess calories; Z68.38 - Body mass index [BMI] 38.0-38.9, adult (5) Diabetes mellitus, type II Status: Acute Qualifiers: Diabetes mellitus fdc insulin use: without fdc use Diabetes mellitus complication status: with other specified complication Qualified Code(s): E11.69 - Type 2 diabetes mellitus with other specified complication (6) Asthma Status: Chronic Qualifiers: Asthma severity: unspecified severity Asthma persistence: unspecified Asthma complication type: unspecified Qualified Code(s): J45.909 - Unspecified asthma, uncomplicated (7) REGAN (obstructive sleep apnea) Status: Acute History of Present Illness Date of Admission: 08/28/20 Chief Complaint: Nausea, diarrhea The patient is a 44 y/o M w/ PMHx: Asthma, GERD, Diabetes mellitus type II, REGAN, Obesity who presents to the [facility] ED on 08/28/20 with history of recent left inguinal hernia repair by Dr. Christy with issues ongoing specifically primarily mid epigastric discomfort immediately following up oral intake of regular food all the way to clear liquids, approximately 20 to 30 minutes following, described as being punched in the stomach, 10 out of 10 sharp pain with immed iate emesis and worsen discomfort following this with slow improvement and trend towards a constant 5-6 out of 10 dull aching discomfort with additionally episodes of stomach cramping following attempted intake and independent of intake with loose stools following which his cramping does seem to improve. Patient notes that he has been going several times a day. He does note that he normally has with his chronic Metformin regimen 1 day approximately every 4 to 5 days of loose stools but this is very different than his normal previous baseline presentation. He denies having pain in the epigastric region to palpation. In the ED upon evaluation he notes his discomfort currently dull and constant level. Work-up in the ED included T 97.1, heart rate 106, BP 143/87, respiratory rate 20, 98% on room air, CBC unremarkable with WBC 9.9, hemoglobin 14.8, platelet 394 without marked shift, CMP with sodium 132, glucose 294 otherwise not marked appearing, lipase 135, unremarkable hepatic profile, CT abdomen and pelvis with contrast with reported left lower quadrant abdominal wall and inguinal region inflammatory changes there is slowly evolving/involuting with no drainable fluid collection but no other reported acute intra-abdominal findings. In the ED patient ministered normal saline, Zofran, morphine. Past Medical History Past Medical History (Chronic Problems): Chronic Problems Obesity (Chronic) Asthma (Chronic) Allergies metoclopramide HCl [From Reglan] Adverse Reaction (Verified 08/28/20 16:50) GO CRAZY Home Medications: Ambulatory Orders Medication Instructions Recorded metFORMIN HCl [Glucophage] 1,000 mg PO BIDCM 01/03/15 Glipizide [Glipizide ER] 5 mg PO DAILY 07/21/20 Albuterol Aerosols [Ventolin 2.5 mg INHALATION Q4H PRN PRN 08/22/20 Aerosols] Albuterol Inhaler [Ventolin Hfa 1 puff INHALATION Q6H PRN PRN 08/22/20 (SP)] proMETHazine suppository 25 mg RECTAL Q6H PRN PRN #6 suppos. 08/24/20 [Phenergan Suppository] proMETHazine tablet [Phenergan] 25 mg PO Q6H PRN PRN #10 tab 08/24/20 Surgical History: herniorrhaphy, - - Recent left inguinal hernia repair 07/20/2020, prior remote right inguinal hernia repair, left Achilles and cartilage surgery, tonsillectomy. Psychiatric History: Anxiety Lives: Spouse/ Significant Other - Patient lives with his and 3 children ranging in age from 3 years old to 17 years old, all boys., With Family Smoking Status: Never smoker Tobacco Use: Non-smoker Alcohol: None Drugs: None - *Family History Maternal History Items: - - Patient denies any maternal history of heart disease, diabetes, cancer, underlying pulmonary disease, underlying renal disease but does note she has significant issues with her esophagus, unsure exact disease. Notes frequent has items stuck, thin esophagus, dysphagia. Denied achalasia as etiology. Paternal History Items: - - Patient denies any paternal history of heart disease, diabetes, cancer, underlying pulmonary disease, underlying renal disease but does note significant history of frequent urinary tract infections. Review of Systems Constitutional: Reports: Anorexia, Malaise, Weakness, Fatigue. Denies: Chills, Fever, Weight Change HEENT: Denies: Head Aches, Sinus Congestion, Sinus Drainage Cardiovascular: Denies: Chest Pain, Palpitations Respiratory: Denies: Cough, Shortness of breath at rest, Sputum production Gastrointestinal: Reports: Abdominal Pain, Diarrhea, Nausea, Vomiting Genitourinary: Denies: Dysuria Musculoskeletal: Reports: Joint Pain. Denies: Joint Tenderness Skin: Denies: Rash, Wounds Neurological: Denies: Numbness, Tingling, Focal weakness Psychiatric: Reports: Anxiety. Denies: Depression, Homicidal Ideations, Suicidal Ideations Hematologic/ Lymphatic: Denies: Easy Bruising, Easy Bleeding VTE Information - Inpt Only VTE Present on Admission: No VTE Mechan Device Prophylaxis: SCD's VTE Pharm Prophylaxis ordered?: Yes Subjective: Patient seated upright in the ED bed, fatigued, mildly hoarse voice which he notes is from vomiting frequently. Objective: Physical Examination: General: awake, alert, oriented x 3 and cooperative, seated upright in the ED bed in no apparent distress, fatigued appearance. Skin: normal color, turgor, no icterus, cyanosis, well-healed left inguinal hernia incision. HEENT: AT/NC, EOMI, PERRLA, dry MM, no carotid bruits or JVD noted. Lungs: Diminished breath sounds, greater bases, appropriate effort, no rales, ronchi or wheezing. Heart: Mildly tachycardic with regular rhythm; no gallop, rub audible. Abdomen: soft, obese, no specific discomfort to palpation even in the epigastric region and patient confirms these not had pain by palpation, does state still discomfort currently, no marked obvious distention but habitus makes examination difficult, mildly hyperactive bowel sounds, no obvious HSM. Extremities: no cyanosis, clubbing, or edema. Neurological: patient awake, alert, oriented as noted; cognitive function intact; pupils equally reactive to light and accomodation; cranial nerves II-XII grossly normal, moving all 4 extremities, no focal deficits, strength mildly global decreased secondary to acute complaints. Psychiatric: affect appears fatigued otherwise normal, no acute evidence of depressive or anxiety feelings. - Physical Exam Vitals/I&O's: Vital Signs Temp Pulse Resp BP Pulse Ox 97.1 F L 106 H 20 H 143/87 H 98 08/28/20 16:48 08/28/20 16:48 08/28/20 16:48 08/28/20 16:48 08/28/20 16:48 Oxygen Delivery Method Room Air Weight: 239 lb 3.2 oz Body Mass Index (BMI) 38.0 Finger Stick Blood Glucose 236 Microbiology Past 72 Hours 08/28/20 18:07 Mucosa - Nose SARS-CoV-2 Antigen (Rapid) - Final Laboratory Results 08/28/20 17:30: WBC 9.9, RBC 4.96, Hgb 14.8, Hct 43.6, MCV 87.9, MCH 29.8, MCHC 33.9, RDW Std Deviation 37.7, RDW Coeff of Jeremiah 11.8, Plt Count 394, MPV 9.7, Immature Gran % (Auto) 0.300, Neut % (Auto) 52.8, Lymph % (Auto) 37.0, [place] % (Auto) 7.0, Eos % (Auto) 2.1, Baso % (Auto) 0.8, Absolute Neuts (auto) 5.2, Absolute Lymphs (auto) 3.67, Nucleated RBC % 0 08/28/20 17:30: Sodium 132 L, Potassium 4.5, Chloride 98, Carbon Dioxide 29.0, Anion Gap 5, BUN 9, Creatinine 0.88, Estim Creat Clear Calc 96.67, Est GFR (MDRD) Af Amer 121, Est GFR (MDRD) Non-Af 100, BUN/Creatinine Ratio 10.3, Glucose 294 H, Calcium 9.1, Total Bilirubin 0.60, AST 25, ALT 34, Alkaline Phosphatase 90, Total Protein 7.5, Albumin 3.4, Globulin 4.1, Albumin/Globulin Ratio 0.8 L, Lipase 135 Assessment/Plan All Active Problems Intractable nausea and vomiting (Acute) Abdominal pain (Acute) Diarrhea (Acute) Diabetes mellitus, type II (Acute) REGAN (obstructive sleep apnea) (Acute) The patient is a 44 y/o M w/ PMHx: Asthma, GERD, Diabetes mellitus type II, REGAN, Obesity who presents to the [facility] ED on 08/28/20 with history of recent left inguinal hernia repair by Dr. Christy with issues ongoing including epigastric discomfort, nausea and emesis following any oral intake and episodes of loose stools with cramping abdominal pain for the last several weeks since operative intervention 07/20/2020. 1. Recurrent bouts nausea with emesis with intractable epigastric region pain followed by loose stools, unclear etiology: Patient has never had this prior and he does note this started following his recent surgery however there is no WBC elevation or left shift and no significant finding on physical exam to the left lower quadrant nor on CT, nor does pain occur in the left lower quadrant. Will admit to medical surgical floor, will maintain n.p.o. status given pain with oral intake, maintain on IV famotidine, will initiate anti-inflammatory pain medicine as well as p.o. and IV breakthrough regimen, if requested C. difficile and enteric pathogen's are negative will initiate antidiarrheals as needed although from discussions only occurs following oral intake, requested surgery evaluation given recent surgery and onset following although lower suspicion of involvement, may need to consider gastric emptying study. Of note patient listed allergy to Reglan specifically because he became very anxious, notes he is discussed this with his physicians and they suspect it was but given very quickly, patient willing to try again if necessary. 2. Recent left inguinal hernia repair: Patient status post left inguinal surgery 07/20/2020 per his report. Patient has had follow-up with his surgeon, C. difficile given surgery recently outpatient negative however pending repeat as noted above, CT with noted evolving/involuting changes expected status post OR, lower suspicion that this is related but awaiting surgery service input. 3. Diabetes mellitus type II: Hold oral home regimen, will maintain n.p.o. status given presentation and slowly advance potential to clears in a.m. pending clinical reevaluation, accu checks w/ ISS. Will obtain HgbA1c given #1, unclear if may be related to potentially gastroparesis. 4. Chronic asthma: We will have as needed albuterol, encourage I-S and head of bed. 5. Obesity: Weight loss and lifestyle changes encouraged. 6. GERD: We will maintain on IV famotidine. 7. REGAN: We will maintain on CPAP nightly. Patient does note he has had issues with his own home CPAP and achieving the optimum dry/humidified air to work with his asthma to avoid exacerbations. Patient willing to try CPAP here and work with respiratory therapy to potentially help with his home situation. 8. DVT prophylaxis: Marah, Suex. OBSV E&M: [id number] Initial observation care L3
[2020-08-28 20:11] VITALS: BP 115/76; PULSE 85; RESP 16; O2SAT 98
[2020-08-28 20:31] VITALS: BP 115/76; PULSE 85; RESP 16; TEMP 36.8; O2SAT 98
[2020-08-28 21:19] VITALS: BMI 38.0; BMI 38.1
[2020-08-28 21:45] VITALS: PULSE 80
[2020-08-28 21:53] VITALS: BP 111/70; PULSE 83; RESP 16; TEMP 36.7; O2SAT 98
[2020-08-28] MEDS: Ketorolac 30 MG/ML Syringe IV (22:09)
[2020-08-28] MEDS: 0.9% Normal Saline 1,000 ML 999 ML IV (22:09)
[2020-08-28 23:02] LABS: Procalcitonin < 0.04 ng/mL (0.00-0.09)
[2020-08-28] MEDS: Famotidine 200 MG/20 ML MDV 20 MG in 0.9% Normal Saline (Pres. free 8 ML 300 MG IV (23:22)
[2020-08-28] MEDS: 0.9% Normal Saline 1,000 ML 125 ML IV (23:22)
[2020-08-28 23:37] VITALS: RESP 16; O2SAT 94
--- NOTE | 2020-08-28 23:41 | CPS ---
Patient declined usage of hospital CPAP during stay. Patient reported that he hasn't worn his CPAP machine at home in over 2 years due to dryness issues associated with the humidity. [employer] talked to patient and explained that hospital PAP machines unfortunately don't have the availability of controlled humidity with usage. Patient said that the humidity problems at home can lead him to have asthma flare ups. For this reason he would like to try without the CPAP during stay. If patient has problems with REGAN or requests to try the CPAP during stay he knows that [employer] will help setup CPAP on him.
[2020-08-28 23:46] LABS: Bedside Glucose 201 mg/dL (70-110)
[2020-08-28] MEDS: Insulin Lispro 100 UNIT/ML INSULN.PEN SC (23:47)
[2020-08-29 02:56] VITALS: BP 109/72; PULSE 72; RESP 16; TEMP 36.6; O2SAT 99
[2020-08-29 05:51] LABS: Absolute Lymphocyte Count 4.11 X10^3/uL (0.83-4.51); Absolute Neutrophil Count 2.7 X10^3/uL (2.0-7.7); Basophil# 0.06 X10^3/uL; Basophil% 0.8 % (0-1); Eosinophil# 0.33 X10^3/uL; Eosinophils% 4.2 % (0-5); Hematocrit 40.1 % (40-54); Hemoglobin 13.3 g/dL (13.0-16.5); Lymphocyte # 4.11 X10^3/ul (4.0); Mean Corp Hgb Conc 33.2 g/dL (32-36); Mean Corpuscular Hgb 29.8 pg (27.0-32.0); Mean Corpuscular Volume 89.7 fL (80-94); Mean Platelet Vol. 9.5 fl (6.2-12.0); Monocyte# 0.67 X10^3/uL; Monocyte% 8.5 % (0-10); NRBC Flagged by Analyzer 0 % (0-5); Neutrophil # 2.72 X10^3/uL (2.7-7.7); Neutrophil % 34.4 % (47-70); Platelet Count 321 K/mm3 (150-450); RBC Distribution Width CV 11.9 % (11.6-14.6); RBC Distribution Width SD 38.6 fl (35.1-43.9); Red Blood Count 4.47 M/mm3 (4.6-6.2); White Blood Count 7.9 K/mm3 (4.4-11.0)
[2020-08-29] MEDS: Insulin Lispro 100 UNIT/ML INSULN.PEN SC ×2 (06:11→12:09)
[2020-08-29] MEDS: Ketorolac 30 MG/ML Syringe IV ×3 (06:11→21:13)
[2020-08-29 06:18] LABS: ALB/GLOB Ratio 0.8 RATIO (0.9-2.4); AST(SGOT) 15 U/L (15-37); Alanine Aminotransfer ALT/SGPT 27 U/L (16-61); Albumin, Serum 2.7 g/dL (3.2-5.0); Alkaline Phosphatase 76 U/L (45-117); Anion Gap 6 (5-15); BUN 7 mg/dL (7-18); BUN/Creat Ratio 9.4 RATIO (10-20); Chloride 105 mmol/L (98-107); Creatinine, Serum 0.74 mg/dL (0.70-1.30); EST Glomerular Filtration Rate 121 mL/min (>60); Est Glom Filt Rate - Afr Amer 146 mL/min (>60); Estimated Creatinine Clearance 114.95 ml/min; Globulin 3.2 g/dL (2.2-4.2); Glucose 179 mg/dL (74-106); Protein, Total 5.9 g/dL (6.4-8.2); Sodium Level 138 mmol/L (136-145)
[2020-08-29 06:26] LABS: Bedside Glucose 188 mg/dL (70-110)
--- NOTE | 2020-08-29 07:30 | PCM.CONS.B ---
- Consult Date of Consult: 08/29/20 - Reason for Consult HISTORY AND PHYSICAL ? Kenrick Barrientos 1975 ? ? CHIEF COMPLAINT: nausea/emesis, diarrhea, early satiety, upper abdominal pain ? HPI: Kenrick is a 44 year old male who presents with complaint of nausea/emesis, diarrhea, early satiety, upper abdominal pain. He has noted the above for almost two weeks. He states that shortly after eating or drinking, has has nausea and then has emesis. He also notes feeling full in the upper abdomen. He denies fevers, but has chills and sweats. He states that he has upper abdominal pain, rated as 5 out of 10 on a scale of 1-10. Feels like someone punched <in the area> about 20 times He notes diarrhea, loose watery bowel movements 5-10 episodes per day. He denies blood in his stools. He presented to [facility] ED with dehydration symptoms. He is s/p left inguinal hernia repair on 07/20/2020, but denies pain in the left groin area. The patient had undergone CT scan at [facility] in February 2019 for his symptoms of abdominal pain, nausea and fatigue. ? Patient seen in April 2019 for abdominal complaints of nausea and dizziness. He also noted vomiting and episodic diarrhea. He underwent upper and lower endoscopy. He had mild gastritis and mild reflux esophagitis with a normal-appearing colon and normal terminal ileum. Pathology at that time demonstrated: ? FINAL DIAGNOSIS 1. Jejunum, biopsy (A): Small intestinal mucosa with no significant pathologic abnormality. 2. Stomach, biopsy (B): Mild chronic gastritis. 3. Distal esophagus, biopsy (C): Squamous mucosa with mild reactive changes. 4. Mid esophagus, biopsy (D): Squamous mucosa with mildly increased intraepithelial eosinophils; see comment. 5. Terminal ileum, biopsy (E): Small intestinal mucosa with no significant pathologic abnormality. 6. Random colon, biopsy (F): Colonic mucosa with no significant pathologic abnormality. ? He states he will get up without having any true nausea but usually if he does not eat the right amount of food first thing in the morning he will note nausea followed by relatively violent retching. He has used Zofran in the past which is helped the symptoms but usually he tries to time his food intake to minimize these effects. He feels this is likely secondary to him taking Metformin. He has not attempted to stop his Metformin dose. A recent hemoglobin A1c is elevated with an A1c of 10. ?? ? PAST MEDICAL HISTORY ? Abdominal pain ? ? Closed displaced avulsion fracture of left talus ? ? [facility] ? Diabetes (HCC) ? ? Gastritis 04/09/2019 ? EGD 04/03/19 Dr. Christy: Gastritis and GERD, diarrhea, normal-appearing colon ? GERD without esophagitis 04/09/2019 ? 04/03/[address] Christy: Gastritis and GERD, diarrhea, normal-appearing colon ? Hernia ? ? Mild intermittent asthma with acute exacerbation 01/15/2018 ? Lifelong. Has been to ED in last year. 2007 hospitalized. ? Type 2 diabetes mellitus with stable proliferative retinopathy of left eye, without long-term current use of insulin ([facility]) 11/19/2017 ? PAST SURGICAL HISTORY ? COLONOSCOP W/ OR W/O BRSH SPEC ? 03/27/2019 ? Colonoscopy ? EGD W/O OR W/BRUSH/WASH ? 03/27/2019 ? EGD ? INGUINAL HERNIA REPAIR HX Right 1993 ? KIDNEY STONE SURGERY HX ? ? ? PAST SURGICAL HISTORY OF ? 2000 ? right ankle: tendon repair and cartilage trimmed [facility] ? TONSILLECTOMY HX ? CURRENT MEDICATIONS ? ondansetron orally disintegrating (ZOFRAN ODT) 4 mg disintegrating tablet Take 1 tablet by mouth every 8 hours as needed. ? linagliptin-metFORMIN (JENTADUETO) 2.5-1,000 mg tab Take 1 tablet by mouth twice daily. ? glipiZIDE (GLUCOTROL) 5 mg tablet Take 1 tablet by mouth once daily. ? montelukast chewable (SINGULAIR) 5 mg chewable tablet Take 1 tablet by mouth daily at bedtime. ? albuterol (PROVENTIL) 5 mg/mL nebu Inhale 0.5 mL as instructed one time only for 1 dose. ?? ? ALLERGIES: Dulaglutide and Reglan [Metoclopramide Hcl] ? PERSONAL HISTORY: Tobacco Use ? Smoking status: Never Smoker ? Smokeless tobacco: Never Used Substance Use Topics ? Alcohol use: Never ? Drug use: Never - DENIES MARIJUANA USE ? FAMILY HISTORY: ? GI Mother Ledezma's esophagus ? Diabetes Maternal Grandmother ? ? Colon Cancer Maternal Grandfather ? ? Heart Maternal Grandfather ? ? Alzheimer's Disease Paternal Grandfather ? ? REVIEW OF SYSTEMS: General: The patient NOTES fatigue, denies weight loss, denies weight gain, NOTES feeling hot, and NOTES feelings of cold. Eyes: The patient denies glaucoma, denies eye injury/surgery, wears glasses or contacts. Ear/Nose/Throat: The patient denies allergies, NOTES hayfever, denies ear infections, and denies bloody noses. Cardiovascular: The patient denies chest pain, denies heart disease, denies high blood pressure,denies cardiac stent, denies prior heart attack, denies irregular heart beat, denies high cholesterol, denies poor circulation, denies heart failure, other cardiac issues, denies claudication, denies cold feet, denies peripheral arterial stent. Respiratory: The patient denies tuberculosis, NOTES pneumonia, denies frequent cough, denies pulmonary embolism, NOTES shortness of breath, and denies coughing up blood. Gastrointestinal: The patient denies difficulty swallowing, NOTES acid reflux, denies ulcers, NOTES vomiting, denies jaundice/hepatitis, denies gallbladder problems, denies black or tarry stools, denies hemorrhoids, denies bleeding from rectum, denies diverticulitis, denies constipation, NOTES diarrhea, denies loss of stool control, and denies hernias. Kidney/Bladder: The patient NOTES kidney stones, denies urine infections, and denies bloody urine. Skin: The patient denies a history of skin cancer, denies bleeding/changing moles, and denies a history of skin rash. Neurologic: The patient denies a history of epilepsy/convulsions, denies headaches, denies head/spinal injuries, and denies stroke/TIA. Psychiatric: The patient denies psychiatric medications, denies depression, and denies voices, denies substance abuse. Endocrine: The patient denies thyroid disorders, NOTES diabetes, and denies hormonal problems. Hematologic: The patient denies a history of bruising, denies bleeding, and denies anemia, denies blood clots. Infections: The patient denies a history of measles and mumps, denies rheumatic fever, and denies sexually transmitted diseases. Musculoskeletal: The patient denies back pain/injury, denies back problems, denies sciatica, denies knee/foot trouble, NOTES arthritis, or denies gout. ? ? PHYSICAL EXAMINATION: ?General: The patient is 44 year old male, well nourished, well hydrated in no acute distress. The patient is oriented to time, place, and person. ?VITALS: Blood pressure 122/82, pulse 102, temperature 36.5 ?C (97.7 ?F), height 170.2 cm (5' 7), weight 113.8 kg (250 lb 12.8 oz), SpO2 100 %. Body mass index is 39.28 kg/m?. ?HEENT: Normal cephalic, ataumatic, pupils are equally round, sclera are anicteric, mucous membranes are moist, oropharynx is clear. Neck has no masses, asymmetry or lymphadenopathy. Thyroid is unremarkable. ?Respiratory: Clear to auscultation and percussion. Normal respiratory excursion and pattern. ?Cardiac: Examination is regular rate and rhythm. ?Abdominal exam: Soft, nontender, with no palpable masses. No hepatosplenomegaly. A moderate reducible left inguinal hernia, no right inguinal or umbilical hernias are noted ?Rectal exam: exam deferred ?Extremities: no clubbing, cyanosis or edema. No adenopathy. ? Impression: upper abdominal pain nausea/vomiting - dehydration early satiety/fullness diarrhea Plan: I have discussed above with the patient. I doubt that the hernia repair is the cause of the patient's symptoms, as he has had these symptoms prior to surgery. However, the use of narcotic medications perioperatively, may have exacerbated his condition. Will evaluate for gallbladder disease and delayed gastric emptying - will order US RUQ and gastric emptying study I have no surgical offering at this point in time. I have explained above to patient and he has no questions at this time.
--- NOTE | 2020-08-29 07:31 | US_ITS ---
STUDY: ABDOMINAL ULTRASOUND - RIGHT UPPER QUADRANT REASON FOR VISIT: Male, 44 years old nausea/emesis, upper abdominal pain, diarrhea TECHNIQUE: Ultrasound evaluation of the right upper quadrant was performed with real-time and static barber-scale imaging. TECHNICAL QUALITY: Limited. Examination limited due to a combination of factors including obesity and bowel gas. COMPARISON: Comparison is made with prior examination dated 08/08/2018. FINDINGS: Liver: The liver is mildly enlarged and measures 18.4 cm. There is increased echogenicity consistent with fatty infiltration. The bile ducts are within normal limits. There is hepatic color flow. The direction of portal flow is hepatopetal. There is no demonstrated mass lesion. Gallbladder: Normal distended gallbladder. The gallbladder wall measures 2 mm. There is a negative sonographic March''s sign. There is no pericholecystic fluid. There are no gallstones. Common Bile Duct (C.B.D.): The common bile duct measures 4 mm. Pancreas: Normal size of the head, body and tail of the pancreas. There is normal echogenicity of the pancreas. There is no demonstrated pancreatic mass or cyst. Right Kidney: Normal size of the right kidney. The right kidney measures 14.1 cm x 6.1 cm x 4.9 cm. Normal renal cortex. The right cortex measures 1.6 cm. There is no demonstrated renal mass or cyst. There is no right hydronephrosis. US/Gallbladder IMPRESSION: Mild hepatomegaly and fatty infiltration of the liver. Electronically Signed: Ryan Ledesma MD at 9:16 EDT , Service support ,
--- NOTE | 2020-08-29 07:32 | NM_ITS ---
CLINICAL: 44-year-old diabetic male with reported history of chronic nausea-abdominal pain. SEMI-SOLID PHASE 99m Tc SULFUR COLLOID GASTRIC EMPTYING STUDY COMPARISON: Gallbladder ultrasound report 08/29/2020, CT of the abdomen-pelvis report 08/28/2020 FINDINGS: The patient was administered 1.1 mCi of 99m Tc sulfur colloid mixed with oatmeal and consumed per os. Image acquisitions in the anterior-posterior projections were obtained for 60 minutes. There is prompt visualization of the stomach. There is no gastroesophageal reflux identified. There is no discernible emptying of the radiopharmaceutical defined over the course of 60 minutes of image acquisition, (Normal: 12-56 minutes). NM/Gastric Emptying Study IMPRESSION: 1. SEVERELY ABNORMAL 99m Tc sulfur colloid semi-solid phase (oatmeal) gastric emptying imaging examination. A. There is markedly delayed semi-solid phase gastric emptying compared to normal controls with no evidence of emptying of the radiopharmaceutical as defined above. Given the. (Kristy et al, J Nucl Med Tech 38: 186, 2010). Electronically Signed: Jose Hernandez DO at 15:08 EDT Tel , Service support ,
[2020-08-29 07:48] VITALS: BP 108/74; PULSE 75; RESP 16; TEMP 36.6; O2SAT 99
[2020-08-29 08:00] VITALS: O2SAT 94
[2020-08-29] MEDS: 0.9% Normal Saline 1,000 ML 125 ML IV ×2 (08:37→17:55)
--- NOTE | 2020-08-29 09:33 | NURSING ---
Patient off unit to nuclear medicine.
--- NOTE | 2020-08-29 11:36 | PN_ITS ---
Patient Problems: Active and Suspected Problems Intractable nausea and vomiting (Acute) Abdominal pain (Acute) Diarrhea (Acute) Diabetes mellitus, type II (Acute) REGAN (obstructive sleep apnea) (Acute) Subjective: Still with RUQ and epigastric pain. Has had abominal pain since his hernia surgery last month. Intractable N/V. Never had these symptoms before. Symptoms worse with eating. Vitals/I&O's: Vital Signs Temp Pulse Resp BP Pulse Ox 36.6 C 75 16 108/74 94 08/29/20 07:48 08/29/20 07:48 08/29/20 07:48 08/29/20 07:48 08/29/20 08:00 Oxygen Delivery Method Room Air Weight: 110.7 kg Body Mass Index (BMI) 38.0 Finger Stick Blood Glucose 236 Intake and Output for Last 24 Hours 08/27/20 08/28/20 08/29/20 23:59 23:59 23:59 Intake Total 2009 1120.83 / 1120.83 Output Total 500 / 500 Balance 2009 620.83 / 620.83 General: Alert, No apparent distress HEENT: Atraumatic, Normocephalic Oral: Moist Mucosa, No Gingival or Mucosal Lesions/ Ulcerations Neck: No Nodes, Thyroid Normal Size and Texture Lungs: Clear to auscultation, Normal air movement, No rhonchi, No wheeze, No rales Cardiovascular: Regular rate, Regular Rhythm, Normal S1, Normal S2, No murmurs Abdomen: Bowel Sounds Present, Soft, Non Tender, Non-Distended, No Hepato- splenomegaly Extremities: No edema, No Calf Tenderness Skin: - - resolved cellulitis on left side of back. Psych/Mental Status: Normal Affect, Appropriate Microbiology Past 72 Hours 08/28/20 18:07 Mucosa - Nose SARS-CoV-2 Antigen (Rapid) - Final Laboratory Results 08/28/20 17:30: WBC 9.9, RBC 4.96, Hgb 14.8, Hct 43.6, MCV 87.9, MCH 29.8, MCHC 33.9, RDW Std Deviation 37.7, RDW Coeff of Jeremiah 11.8, Plt Count 394, MPV 9.7, Immature Gran % (Auto) 0.300, Neut % (Auto) 52.8, Lymph % (Auto) 37.0, Cherry % (Auto) 7.0, Eos % (Auto) 2.1, Baso % (Auto) 0.8, Absolute Neuts (auto) 5.2, Absolute Lymphs (auto) 3.67, Nucleated RBC % 0 08/28/20 17:30: Sodium 132 L, Potassium 4.5, Chloride 98, Carbon Dioxide 29.0, Anion Gap 5, BUN 9, Creatinine 0.88, Estim Creat Clear Calc 96.67, Est GFR (MDRD) Af Amer 121, Est GFR (MDRD) Non-Af 100, BUN/Creatinine Ratio 10.3, Glucose 294 H, Calcium 9.1, Total Bilirubin 0.60, AST 25, ALT 34, Alkaline Phosphatase 90, Total Protein 7.5, Albumin 3.4, Globulin 4.1, Albumin/Globulin Ratio 0.8 L, Lipase 135 08/28/20 17:30: Magnesium 2.0 08/28/20 17:30: Procalcitonin < 0.04 08/28/20 23:41: POC Glucose 201 H 08/29/20 05:30: WBC 7.9, RBC 4.47 L, Hgb 13.3, Hct 40.1, MCV 89.7, MCH 29.8, MCHC 33.2, RDW Std Deviation 38.6, RDW Coeff of Jeremiah 11.9, Plt Count 321, MPV 9.5, Immature Gran % (Auto) 0.100, Neut % (Auto) 34.4 L, Lymph % (Auto) 52.0 H, Cherry % (Auto) 8.5, Eos % (Auto) 4.2, Baso % (Auto) 0.8, Absolute Neuts (auto) 2.7, Absolute Lymphs (auto) 4.11, Nucleated RBC % 0 08/29/20 05:30: Sodium 138, Potassium 4.0, Chloride 105, Carbon Dioxide 27.0, Anion Gap 6, BUN 7, Creatinine 0.74, Estim Creat Clear Calc 114.95, Est GFR (MDRD) Af Amer 146, Est GFR (MDRD) Non-Af 121, BUN/Creatinine Ratio 9.4 L, Glucose 179 H, Calcium 8.0 L, Total Bilirubin 0.40, AST 15, ALT 27, Alkaline Phosphatase 76, Total Protein 5.9 L, Albumin 2.7 L, Globulin 3.2, Albumin/Globulin Ratio 0.8 L 08/29/20 06:07: POC Glucose 188 H Current Medications Acetaminophen (Acetaminophen 325 Mg Tablet) 650 mg PO Q6H PRN PRN PRN Reason: Pain Score 1-10/Temp > 100.7 F Al Hydroxide/Mg Hydroxide (Mag Hydrox/Al Hydrox/Simeth 30 Ml Udc) 30 ml PO Q6H PRN PRN PRN Reason: Gastric Burning Albuterol Sulfate (Albuterol 2.5 Mg/3 Ml Vial.Neb.) 2.5 mg INHALATION Q2H PRN PRN PRN Reason: Dyspnea, wheezing Enoxaparin Sodium (Enoxaparin 40 Mg/0.4 Ml Syringe) 40 mg SC DAILY [facility] Guaifenesin (Guaifenesin 10 Ml Udc (200mg/10ml)) 20 ml PO Q4H PRN PRN PRN Reason: COUGH Hydralazine HCl (Hydralazine 20 Mg/Ml Vial) 10 mg IV Q4H PRN PRN PRN Reason: SBP > 160 Sodium Chloride () 1,000 mls @ 125 mls/hr IV .Q8H [facility] Last Infusion: 08/29/20 09:35 Dose: 0 mls/hr Documented by: Famotidine 20 mg/ Sodium (Chloride) 10 mls @ 300 mls/hr IV Q12 [facility] Last Infusion: 08/28/20 23:30 Dose: Infused Documented by: Insulin Human Lispro (Insulin Lispro 100 Unit/Ml Insuln.Pen) 0 unit SC Q6 [facility]; Protocol Last Admin: 08/29/20 06:11 Dose: 1 units Documented by: Ketorolac Tromethamine (Ketorolac 30 Mg/Ml Syringe) 30 mg IV Q8 [facility] Stop: 08/30/20 06:01 Last Admin: 08/29/20 06:11 Dose: 30 mg Documented by: Melatonin (Melatonin 3 Mg Tablet) 3 mg PO QHS PRN PRN PRN Reason: INSOMNIA Morphine Sulfate (Morphine 4 Mg/Ml Syringe) 4 mg IV Q3H PRN PRN PRN Reason: Pain Score 6-10 Ondansetron HCl (Ondansetron 4 Mg/2 Ml Vial) 4 mg IV Q8H PRN PRN PRN Reason: NAUSEA/VOMITING Oxycodone HCl (Oxycodone 5 Mg Tablet) 5 mg PO Q4H PRN PRN PRN Reason: Pain Score 4-5 Prochlorperazine Edisylate (Prochlorperazine 10 Mg/2 Ml Vial) 5 mg IV Q4H PRN PRN PRN Reason: Breakthrough nausea/vomiting Sodium Chloride (0.9% Saline Lock 10 Ml Syringe) 10 - 40 ml IV UD PRN PRN Reason: SALINE FLUSH Throat Lozenges (Benzocaine/Menthol 1 Lozenge) 1 lozenge MUCOUS MEM Q2H PRN PRN PRN Reason: SORE THROAT STROKE Vital Signs/Narrative: Vital Signs Temp Pulse Resp BP Pulse Ox 08/29/20 08:00 94 08/29/20 07:48 36.6 C 75 16 108/74 99 Medical Necessity - Tobacco Use Smoking Status: Never smoker Tobacco Use: Non-smoker Assessment/Plan All Active Problems Intractable nausea and vomiting (Acute) Abdominal pain (Acute) Diarrhea (Acute) Diabetes mellitus, type II (Acute) REGAN (obstructive sleep apnea) (Acute) 1. abdominal pain unclear etiology RUQ US shows hepatomegaly and fatty infiltration of the liver. GES pending GS following. Cdiff toxin pending Stool culture pending. 2. recent cellulitis and abscess resolved 3. DM2 stable on SSI 4. VTE prophylaxis: LMWH Inpatient E&M: 26628 [facility] Hosp L2
[2020-08-29] MEDS: 0.9% Saline Lock 10 ML Syringe IV (12:00)
[2020-08-29] MEDS: Ondansetron 4 MG/2 ML Vial IV (12:00)
[2020-08-29] MEDS: Famotidine 200 MG/20 ML MDV 20 MG in 0.9% Normal Saline (Pres. free 8 ML 300 MG IV ×2 (12:00→21:13)
[2020-08-29 12:16] LABS: Bedside Glucose 227 mg/dL (70-110)
--- NOTE | 2020-08-29 14:02 | CHAPLAIN ---
Type of Pastoral Visit _x__ Initial Visit ___ Follow-up Visit ___ On-call Visit ___ General Patient Visit ___ Spiritual Assessment ___ Family Conference ___ Bereavement ___ Rapid Response ___ Code Blue ___ Other (describe below) Pastoral Care Referral From _x__ Patient ___ Family ___ Nurse ___ Physician ___ Nutrition Intern ___ Ironer Hand ___ Other (describe below) Sacrament/Intervention _x__ Active listening ___ Anointing ___ Adventist ___ Bereavement ___ Communion _x__ Angeli exploration ___ _x__ Life review _x__ Prayer ___ Reconciliation ___ Sacrament of Sick _x__ Supportive presence ___ Wedding ___ Other (describe below) Pastoral Comments
[2020-08-29 15:00] VITALS: BP 120/77; PULSE 79; RESP 16; TEMP 36.6; O2SAT 99
[2020-08-29] MEDS: Enoxaparin 40 MG/0.4 ML Syringe SC (15:13)
[2020-08-29] MEDS: BENZOCAINE/MENTHOL 1 LOZENGE MUCOUS MEM ×2 (17:55→23:30)
[2020-08-29 18:00] LABS: Bedside Glucose 135 mg/dL (70-110)
[2020-08-29 20:20] VITALS: BP 134/81; PULSE 78; RESP 16; TEMP 36.4; O2SAT 100
[2020-08-30 00:06] LABS: Bedside Glucose 140 mg/dL (70-110)
[2020-08-30] MEDS: 0.9% Normal Saline 1,000 ML 125 ML IV ×2 (02:02→09:46)
[2020-08-30] MEDS: oxyCODONE 5 MG Tablet PO (02:05)
[2020-08-30 02:20] VITALS: BP 137/66; PULSE 77; RESP 16; TEMP 36.4; O2SAT 100
[2020-08-30] MEDS: Ketorolac 30 MG/ML Syringe IV (05:34)
[2020-08-30 05:55] LABS: Bedside Glucose 135 mg/dL (70-110)
[2020-08-30 06:59] VITALS: O2SAT 95
[2020-08-30 08:30] VITALS: BP 123/82; PULSE 79; RESP 18; TEMP 36.8; O2SAT 100
[2020-08-30] MEDS: Ondansetron 4 MG/2 ML Vial IV (08:34)
[2020-08-30 08:52] LABS: Hemoglobin A1c 10.1 % (3.8-5.6)
[2020-08-30] MEDS: Famotidine 200 MG/20 ML MDV 20 MG in 0.9% Normal Saline (Pres. free 8 ML 300 MG IV (09:46)
--- NOTE | 2020-08-30 10:34 | PN_ITS ---
Patient Problems: Active and Suspected Problems Intractable nausea and vomiting (Acute) Abdominal pain (Acute) Diarrhea (Acute) Diabetes mellitus, type II (Acute) REGAN (obstructive sleep apnea) (Acute) Subjective: Feeling well. Still with abdominal pain. Has not eaten yet. Vitals/I&O's: Vital Signs Temp Pulse Resp BP Pulse Ox 36.8 C 79 18 123/82 H 100 08/30/20 08:30 08/30/20 08:30 08/30/20 08:30 08/30/20 08:30 08/30/20 08:30 Oxygen Delivery Method Room Air Weight: 110.7 kg Body Mass Index (BMI) 38.0 Finger Stick Blood Glucose 236 Intake and Output for Last 24 Hours 08/28/20 08/29/20 08/30/20 23:59 23:59 23:59 Intake Total 2009 1942.91 / 194 / Output Total 1300 / 1300 Balance 2009 642.91 / 64. General: Alert, No apparent distress HEENT: Atraumatic, Normocephalic Oral: Moist Mucosa, No Gingival or Mucosal Lesions/ Ulcerations Neck: No Nodes, Thyroid Normal Size and Texture Lungs: Clear to auscultation, Normal air movement, No rhonchi, No wheeze, No rales Cardiovascular: Regular rate, Regular Rhythm, Normal S1, Normal S2 Abdomen: Bowel Sounds Present, Soft, Non-Distended, Obese, Tender - epigastrum Psych/Mental Status: Normal Affect, Appropriate Microbiology Past 72 Hours 08/28/20 18:07 Mucosa - Nose SARS-CoV-2 Antigen (Rapid) - Final Laboratory Results 08/29/20 05:30: Hemoglobin A1c 10.1 H 08/29/20 12:08: POC Glucose 227 H 08/29/20 17:52: POC Glucose 135 H 08/29/20 23:28: POC Glucose 140 H 08/30/20 05:33: POC Glucose 135 H Current Medications Acetaminophen (Acetaminophen 325 Mg Tablet) 650 mg PO Q6H PRN PRN PRN Reason: Pain Score 1-10/Temp > 100.7 F Al Hydroxide/Mg Hydroxide (Mag Hydrox/Al Hydrox/Simeth 30 Ml Udc) 30 ml PO Q6H PRN PRN PRN Reason: Gastric Burning Albuterol Sulfate (Albuterol 2.5 Mg/3 Ml Vial.Neb.) 2.5 mg INHALATION Q2H PRN PRN PRN Reason: Dyspnea, wheezing Enoxaparin Sodium (Enoxaparin 40 Mg/0.4 Ml Syringe) 40 mg SC DAILY [facility] Last Admin: 08/30/20 09:47 Dose: Not Given Documented by: Guaifenesin (Guaifenesin 10 Ml Udc (200mg/10ml)) 20 ml PO Q4H PRN PRN PRN Reason: COUGH Hydralazine HCl (Hydralazine 20 Mg/Ml Vial) 10 mg IV Q4H PRN PRN PRN Reason: SBP > 160 Sodium Chloride () 1,000 mls @ 125 mls/hr IV .Q8H [facility] Last Admin: 08/30/20 09:46 Dose: 125 mls/hr Documented by: Famotidine 20 mg/ Sodium (Chloride) 10 mls @ 300 mls/hr IV Q12 [facility] Last Infusion: 08/30/20 09:48 Dose: Infused Documented by: Insulin Human Lispro (Insulin Lispro 100 Unit/Ml Insuln.Pen) 0 unit SC Q6 [facility]; Protocol Last Admin: 08/30/20 05:33 Dose: Not Given Documented by: Ketorolac Tromethamine (Ketorolac 15 Mg/Ml Vial) 15 mg IV Q6H PRN PRN PRN Reason: Pain 1-10 or Fever Stop: 09/04/20 08:51 Melatonin (Melatonin 3 Mg Tablet) 3 mg PO QHS PRN PRN PRN Reason: INSOMNIA Ondansetron HCl (Ondansetron 4 Mg/2 Ml Vial) 4 mg IV Q8H PRN PRN PRN Reason: NAUSEA/VOMITING Last Admin: 08/30/20 08:34 Dose: 4 mg Documented by: Sodium Chloride (0.9% Saline Lock 10 Ml Syringe) 10 - 40 ml IV UD PRN PRN Reason: SALINE FLUSH Last Admin: 08/29/20 12:00 Dose: 20 ml Documented by: Throat Lozenges (Benzocaine/Menthol 1 Lozenge) 1 lozenge MUCOUS MEM Q2H PRN PRN PRN Reason: SORE THROAT Last Admin: 08/29/20 23:30 Dose: 1 lozenge Documented by: STROKE Vital Signs/Narrative: Vital Signs Temp Pulse Resp BP Pulse Ox 08/30/20 08:30 36.8 C 79 18 123/82 H 100 08/30/20 06:59 95 Medical Necessity - Tobacco Use Smoking Status: Never smoker Tobacco Use: Non-smoker Assessment/Plan All Active Problems Intractable nausea and vomiting (Acute) Abdominal pain (Acute) Diarrhea (Acute) Diabetes mellitus, type II (Acute) REGAN (obstructive sleep apnea) (Acute) 1. gastroparesis likely etiology of abdominal pain dw patient about GES and correlation with DM2 DC narcotics no metoclopramide given agitation that he has had previously. reviewed with patient, he has had symptoms previously and this has been an issue previously 2. abdominal pain 2/2 above no narcotics RUQ US shows hepatomegaly and fatty infiltration of the liver. GES pending GS following. Cdiff toxin pending Stool culture pending. 3. recent cellulitis and abscess resolved 4. DM2 stable on SSI 5. VTE prophylaxis: LMWH 6. Disposition: plan for discharge if can tolerate diet. Inpatient E&M: 27833 Subs Hosp L2
[2020-08-30 11:26] LABS: Bedside Glucose 217 mg/dL (70-110)
[2020-08-30] MEDS: Insulin Lispro 100 UNIT/ML INSULN.PEN SC (11:31)
--- NOTE | 2020-08-30 11:48 | PCM.PN.SRG ---
Patient Problems: Active and Suspected Problems Intractable nausea and vomiting (Acute) Abdominal pain (Acute) Diarrhea (Acute) Diabetes mellitus, type II (Acute) REGAN (obstructive sleep apnea) (Acute) - Physical Exam Vitals/I&O's: Vital Signs Temp Pulse Resp BP Pulse Ox 98.2 F 79 18 123/82 H 100 08/30/20 08:30 08/30/20 08:30 08/30/20 08:30 08/30/20 08:30 08/30/20 08:30 Oxygen Delivery Method Room Air Weight: 110.7 kg Body Mass Index (BMI) 38.0 Finger Stick Blood Glucose 236 Intake and Output for Last 24 Hours 08/28/20 08/29/20 08/30/20 23:59 23:59 23:59 Intake Total 2009 1942.91 / 1942.91 2776.67 / 2776.67 Output Total 1300 / 1300 300 / 300 Balance 2009 642.91 / 642.91 2476.67 / 2476.67 Microbiology Past 72 Hours 08/28/20 18:07 Mucosa - Nose SARS-CoV-2 Antigen (Rapid) - Final Laboratory Results 08/29/20 05:30: Hemoglobin A1c 10.1 H 08/29/20 12:08: POC Glucose 227 H 08/29/20 17:52: POC Glucose 135 H 08/29/20 23:28: POC Glucose 140 H 08/30/20 05:33: POC Glucose 135 H 08/30/20 11:13: POC Glucose 217 H Current Medications Acetaminophen (Acetaminophen 325 Mg Tablet) 650 mg PO Q6H PRN PRN PRN Reason: Pain Score 1-10/Temp > 100.7 F Al Hydroxide/Mg Hydroxide (Mag Hydrox/Al Hydrox/Simeth 30 Ml Udc) 30 ml PO Q6H PRN PRN PRN Reason: Gastric Burning Albuterol Sulfate (Albuterol 2.5 Mg/3 Ml Vial.Neb.) 2.5 mg INHALATION Q2H PRN PRN PRN Reason: Dyspnea, wheezing Enoxaparin Sodium (Enoxaparin 40 Mg/0.4 Ml Syringe) 40 mg SC DAILY [facility] Last Admin: 08/30/20 09:47 Dose: Not Given Documented by: Guaifenesin (Guaifenesin 10 Ml Udc (200mg/10ml)) 20 ml PO Q4H PRN PRN PRN Reason: COUGH Hydralazine HCl (Hydralazine 20 Mg/Ml Vial) 10 mg IV Q4H PRN PRN PRN Reason: SBP > 160 Sodium Chloride () 1,000 mls @ 125 mls/hr IV .Q8H [facility] Last Admin: 08/30/20 09:46 Dose: 125 mls/hr Documented by: Famotidine 20 mg/ Sodium (Chloride) 10 mls @ 300 mls/hr IV Q12 [facility] Last Infusion: 08/30/20 09:48 Dose: Infused Documented by: Insulin Human Lispro (Insulin Lispro 100 Unit/Ml Insuln.Pen) 0 unit SC ACHS [facility]; Protocol Last Admin: 08/30/20 11:31 Dose: 2 u Documented by: Ketorolac Tromethamine (Ketorolac 15 Mg/Ml Vial) 15 mg IV Q6H PRN PRN PRN Reason: Pain 1-10 or Fever Stop: 09/04/20 08:51 Melatonin (Melatonin 3 Mg Tablet) 3 mg PO QHS PRN PRN PRN Reason: INSOMNIA Ondansetron HCl (Ondansetron 4 Mg/2 Ml Vial) 4 mg IV Q8H PRN PRN PRN Reason: NAUSEA/VOMITING Last Admin: 08/30/20 08:34 Dose: 4 mg Documented by: Sodium Chloride (0.9% Saline Lock 10 Ml Syringe) 10 - 40 ml IV UD PRN PRN Reason: SALINE FLUSH Last Admin: 08/29/20 12:00 Dose: 20 ml Documented by: Throat Lozenges (Benzocaine/Menthol 1 Lozenge) 1 lozenge MUCOUS MEM Q2H PRN PRN PRN Reason: SORE THROAT Last Admin: 08/29/20 23:30 Dose: 1 lozenge Documented by: Medical Necessity - Tobacco Use Smoking Status: Never smoker Tobacco Use: Non-smoker Assessment/Plan All Active Problems Intractable nausea and vomiting (Acute) Abdominal pain (Acute) Diarrhea (Acute) Diabetes mellitus, type II (Acute) REGAN (obstructive sleep apnea) (Acute) impression: severe gastroparesis Discussion/Plan: I have counseled patient as to above. He will discuss with his PCP, use of reglan, etc. can discuss with personal property assessor - gastroparesis diet Can be discharged to home.
[2020-08-30 15:13] VITALS: BP 136/75; PULSE 73; RESP 18; TEMP 36.7; O2SAT 99
--- NOTE | 2020-08-30 15:55 | PCM.DC ---
- Discharge Diagnoses Current Active Problems: Current Active and Chronic Problems Intractable nausea and vomiting (Acute) Abdominal pain (Acute) Diarrhea (Acute) Obesity (Chronic) Diabetes mellitus, type II (Acute) Asthma (Chronic) REGAN (obstructive sleep apnea) (Acute) You will use the following diet at home:: Calorie/Carbohydrate Controlled (specify 1200, 1400, etc) - 1800. Do not over eat. Call your doctor if you observe: - - Intractable abdominal pain. Intractable nausea and vomiting. Allergies/Adverse Reactions: Allergies metoclopramide HCl [From Reglan] Adverse Reaction (Verified 08/28/20 21:22) GO CRAZY elevated anxiety Medications to take at Discharge metFORMIN HCl [Glucophage] 1,000 mg PO BIDCM 01/03/15 Glipizide [Glipizide ER] 5 mg PO QHS 07/21/20 Albuterol Aerosols [Ventolin Aerosols] 2.5 mg INHALATION Q4H PRN PRN 08/22/20 Albuterol Inhaler [Ventolin Hfa] 1 puff INHALATION Q6H PRN PRN 08/22/20 proMETHazine suppository [Phenergan Suppository] 25 mg RECTAL Q6H PRN PRN #6 suppos. 08/24/20 proMETHazine tablet [Phenergan tablet] 25 mg PO Q6H PRN PRN #10 tab 08/24/20 Ondansetron [Zofran] 8 mg PO Q8H PRN PRN #20 tab 08/30/20 The following prescriptions were given: Ondansetron [Zofran] 8 mg PO Q8H PRN PRN #20 tab PRN Reason: nausea vomiting Transmission Status: Pending to [facility] Primary Care Physician: Chioma Weinstein, PA [Primary Care Provider] - Within 2 Weeks Test Results: Test results from this visit will be discussed in further detail at your follow-up appointment, if applicable. Proposed Discharge Date: 08/30/20
--- NOTE | 2020-08-30 15:57 | PCM.DC.SUM ---
Discharge Date and Diagnosis - Problem List Patient Problems: Active and Suspected Problems Intractable nausea and vomiting (Acute) Abdominal pain (Acute) Diarrhea (Acute) Diabetes mellitus, type II (Acute) REGAN (obstructive sleep apnea) (Acute) Date of Admission: 08/28/20 - Primary Discharge Diagnosis Acute Problems: Active Problems Intractable nausea and vomiting (Acute) Abdominal pain (Acute) Diarrhea (Acute) Gastroparesis, acute - Secondary Discharge Diagnosis Chronic Problems: Chronic Problems Obesity (Chronic) Asthma (Chronic) Hospital Course and Treatment Imaging Results: Clinical Impression(s) from Imaging Studies Abdomen/Pelvis CT 08/28/20 17:05 IMPRESSION: 1. No acute abdominal findings. 2. Slowly evolving/involuting left lower quadrant/inguinal inflammation. Electronically Signed: Jamin Byers MD at 19:21 EDT Tel , Service support , Gallbladder Ultrasound 08/29/20 07:31 IMPRESSION: Mild hepatomegaly and fatty infiltration of the liver. Electronically Signed: Ryan Ledesma MD at 9:16 EDT , Service support , Gastric Emptying Nuclear Medicine 08/29/20 07:32 IMPRESSION: 1. SEVERELY ABNORMAL 99m Tc sulfur colloid semi-solid phase (oatmeal) gastric emptying imaging examination. A. There is markedly delayed semi-solid phase gastric emptying compared to normal controls with no evidence of emptying of the radiopharmaceutical as defined above. Given the. (Emiliana, J Nucl Med Tech 38: 186, 2010). Electronically Signed: Jose Hernandez DO at 15:08 EDT Tel , Service support , Chloe Thapa Summary of Care Provided: The patient is a 44 year old M presents with interval nausea and vomiting abdominal pain. Symptoms began after having a hernia repair. Hernia was in the lower abdomen most of his pain is in the epigastrium. Patient is also having intractable nausea and vomiting. Stated his symptoms are get worse when he eats. Has not gotten any better. Presented to the emergency room for evaluation. Patient had an ultrasound of his gallbladder as well as abdominal CT that was negative. Gastric emptying study showed severe gastroparesis. Patient is known type II diabetic. Patient has had this before but less severe and has tried metoclopramide in the past but made him very agitated so he is no longer taking that. Plan is to continue with conservative measures small meals and possibly follow-up with general surgery that has gastric pacemakers if symptoms are refractory to conservative measures. Patient has tolerated full liquid diet will be advanced to regular texture foods and if tolerates that then he will be discharged. [] Patient Problems: Active and Suspected Problems Intractable nausea and vomiting (Acute) Abdominal pain (Acute) Diarrhea (Acute) Diabetes mellitus, type II (Acute) REGAN (obstructive sleep apnea) (Acute) - Physical Exam Vitals/I&O's: Vital Signs Temp Pulse Resp BP Pulse Ox 36.7 C 73 18 136/75 H 99 08/30/20 15:13 08/30/20 15:13 08/30/20 15:13 08/30/20 15:13 08/30/20 15:13 Oxygen Delivery Method Room Air Weight: 110.7 kg Body Mass Index (BMI) 38.0 Finger Stick Blood Glucose 236 Intake and Output for Last 24 Hours 08/28/20 08/29/20 08/30/20 23:59 23:59 23:59 Intake Total 2009 1942.91 / 1942.91 2776.67 / 2776.67 Output Total 1300 / 1300 300 / 300 Balance 2009 642.91 / 642.91 2476.67 / 2476.67 Microbiology Past 72 Hours 08/28/20 18:07 Mucosa - Nose SARS-CoV-2 Antigen (Rapid) - Final Laboratory Results 08/29/20 05:30: Hemoglobin A1c 10.1 H 08/29/20 17:52: POC Glucose 135 H 08/29/20 23:28: POC Glucose 140 H 08/30/20 05:33: POC Glucose 135 H 08/30/20 11:13: POC Glucose 217 H Current Medications Acetaminophen (Acetaminophen 325 Mg Tablet) 650 mg PO Q6H PRN PRN PRN Reason: Pain Score 1-10/Temp > 100.7 F Al Hydroxide/Mg Hydroxide (Mag Hydrox/Al Hydrox/Simeth 30 Ml Udc) 30 ml PO Q6H PRN PRN PRN Reason: Gastric Burning Albuterol Sulfate (Albuterol 2.5 Mg/3 Ml Vial.Neb.) 2.5 mg INHALATION Q2H PRN PRN PRN Reason: Dyspnea, wheezing Enoxaparin Sodium (Enoxaparin 40 Mg/0.4 Ml Syringe) 40 mg SC DAILY [facility] Last Admin: 08/30/20 09:47 Dose: Not Given Documented by: Guaifenesin (Guaifenesin 10 Ml Udc (200mg/10ml)) 20 ml PO Q4H PRN PRN PRN Reason: COUGH Hydralazine HCl (Hydralazine 20 Mg/Ml Vial) 10 mg IV Q4H PRN PRN PRN Reason: SBP > 160 Sodium Chloride () 1,000 mls @ 125 mls/hr IV .Q8H [facility] Last Admin: 08/30/20 09:46 Dose: 125 mls/hr Documented by: Famotidine 20 mg/ Sodium (Chloride) 10 mls @ 300 mls/hr IV Q12 [facility] Last Infusion: 08/30/20 09:48 Dose: Infused Documented by: Insulin Human Lispro (Insulin Lispro 100 Unit/Ml Insuln.Pen) 0 unit SC [facility]; Protocol Last Admin: 08/30/20 11:31 Dose: 2 u Documented by: Ketorolac Tromethamine (Ketorolac 15 Mg/Ml Vial) 15 mg IV Q6H PRN PRN PRN Reason: Pain 1-10 or Fever Stop: 09/04/20 08:51 Melatonin (Melatonin 3 Mg Tablet) 3 mg PO QHS PRN PRN PRN Reason: INSOMNIA Ondansetron HCl (Ondansetron 4 Mg/2 Ml Vial) 4 mg IV Q8H PRN PRN PRN Reason: NAUSEA/VOMITING Last Admin: 08/30/20 08:34 Dose: 4 mg Documented by: Sodium Chloride (0.9% Saline Lock 10 Ml Syringe) 10 - 40 ml IV UD PRN PRN Reason: SALINE FLUSH Last Admin: 08/29/20 12:00 Dose: 20 ml Documented by: Throat Lozenges (Benzocaine/Menthol 1 Lozenge) 1 lozenge MUCOUS MEM Q2H PRN PRN PRN Reason: SORE THROAT Last Admin: 08/29/20 23:30 Dose: 1 lozenge Documented by: Discharge Diet: 1800 Calorie Control Diet Call your doctor if you observe: - - Intractable abdominal pain. Intractable nausea and vomiting. Home Medications: Medications to take at Discharge metFORMIN HCl [Glucophage] 1,000 mg PO BIDCM 01/03/15 Glipizide [Glipizide ER] 5 mg PO QHS 07/21/20 Albuterol Aerosols [Ventolin Aerosols] 2.5 mg INHALATION Q4H PRN PRN 08/22/20 Albuterol Inhaler [Ventolin Hfa] 1 puff INHALATION Q6H PRN PRN 08/22/20 proMETHazine suppository [Phenergan Suppository] 25 mg RECTAL Q6H PRN PRN #6 suppos. 08/24/20 proMETHazine tablet [Phenergan tablet] 25 mg PO Q6H PRN PRN #10 tab 08/24/20 Ondansetron [Zofran] 8 mg PO Q8H PRN PRN #20 tab 08/30/20 Following Prescriptions Were Given to Patient: Ondansetron [Zofran] 8 mg PO Q8H PRN PRN #20 tab PRN Reason: nausea vomiting Transmission Status: Pending to [facility] Primary Care Physician: Chioma Weinstein PA [Primary Care Provider] - Within 2 Weeks Disposition: Home Minutes spent on discharge:: 28 Patient Condition:: Good Medical Necessity - Tobacco Use Smoking Status: Never smoker Tobacco Use: Non-smoker Meaningful Use Info Meaningful Use Diagnoses (Choose all that apply): None applicable Inpatient E&M: 25368 Disch Hosp
[2020-08-30 16:26] LABS: Bedside Glucose 149 mg/dL (70-110)
[2020-08-30 17:26] VITALS: BP 131/78; PULSE 85; RESP 18; TEMP 36.8; O2SAT 100
== END 2020-08-30 17:39 | disposition home or self-care (01) ==
LOC: ED 17:50 → MS3 20:30
PROVIDERS: Admitting Provider Family Medicine; Emergency Provider Emergency Medicine; PCP Physician Assistant
DX: R11.2 Nausea with vomiting, unspecified (principal); R19.7 Diarrhea, unspecified; G47.33 Obstructive sleep apnea (adult) (pediatric); E86.0 Dehydration; Z23 Encounter for immunization; K31.84 Gastroparesis; E11.43 Type 2 diabetes mellitus with diabetic autonomic (poly)neuropathy; K21.9 Gastro-esophageal reflux disease without esophagitis; J45.909 Unspecified asthma, uncomplicated; E66.9 Obesity, unspecified; E11.65 Type 2 diabetes mellitus with hyperglycemia; Z79.899 Other long term (current) drug therapy; Z79.84 Long term (current) use of oral hypoglycemic drugs; Z68.39 Body mass index [BMI] 39.0-39.9, adult; K76.0 Fatty (change of) liver, not elsewhere classified
CPT/HCPCS: 74177; 76705; 78264; 80053; 82962; 83036; 83690; 83735; 84145; 85025; 87426; 96361; 96372; 96374; 96375; 96376; 97802; 97803; 99218; 99251; 99285; A9541; J7030; Q9967; 90686; A4216; G0378; G0463; J2405; J3490

== ENCOUNTER 2020-09-02 18:07 | Emergency (ER) | payer OTHER, SELFPAY ==
[2020-08-28 21:19] VITALS: BMI 38.0
[2020-09-02 18:09] VITALS: BP 155/92; PULSE 96; RESP 16; TEMP 36.6; O2SAT 96; BMI 38.9
--- NOTE | 2020-09-02 18:17 | ED.VIS.GEN ---
History of Present Illness Chief Complaint: Abd Pain Informant: Patient Narrative: 44-year-old male with type 2 diabetes and gastroparesis presents for nausea, vomiting, diarrhea. States is been present since he was discharged from the hospital 2 days ago. Was recently diagnosed with gastroparesis using a gastric emptying study on his most recent admission. States he has epigastric pain. Aching in nature. Intermittent. Denies any fever, chills, chest pain, lightheadedness, dizziness, urinary symptoms. Past Medical History - Allergies and Home Meds Allergies/Adverse Reactions: Allergies metoclopramide HCl [From Reglan] Adverse Reaction (Verified 09/02/20 18:08) GO CRAZY elevated anxiety Primary Care Physician: Chioma Weinstein PA [Primary Care Provider] - 2 Days Prior records reviewed: Yes Past Medical History: - - DMII, Gastroparesis Surgical History: herniorrhaphy, - - Recent left inguinal hernia repair 07/20/2020, prior remote right inguinal hernia repair, left Achilles and cartilage surgery, tonsillectomy. Lives: Spouse/ Significant Other Smoking Status: Never smoker Alcohol: None Drugs: None - Family History Maternal Family History: Reports: - - Patient denies any maternal history of heart disease, diabetes, cancer, underlying pulmonary disease, underlying renal disease but does note she has significant issues with her esophagus, unsure exact disease. Notes frequent has items stuck, thin esophagus, dysphagia. Denied achalasia as etiology. Paternal Family History: Reports: - - Patient denies any paternal history of heart disease, diabetes, cancer, underlying pulmonary disease, underlying renal disease but does note significant history of frequent urinary tract infections. Review of Systems General: Denies: Chills, Fever, Sweats Eyes: Denies: Visual changes - bilaterally, Diplopia ENT: Denies: Rhinorrhea, Sore throat Cardiovascular: Denies: Chest pain, Palpitations Respiratory: Denies: Dyspnea, Cough, Dyspnea on exertion Gastrointestinal: Reports: Abdominal pain, Nausea, Vomiting, Diarrhea. Denies: Melena, Hematochezia Genitourinary: Denies: Dysuria, Hematuria, Frequency Musculoskeletal: Denies: Back pain, Extremity Pain Skin: Denies: Rash, Wounds Neurological: Denies: Headache, Weakness, Numbness Physical Exam Vital Signs/Narrative: Vital Signs Temp Pulse Resp BP Pulse Ox 09/02/20 18:09 97.8 F 96 16 155/92 H 96 Inital Vital Signs reviewed: Yes General: Well nourished, Well developed, No Acute Distress Head: Normocephalic, Atraumatic Eyes: Perrl, EOMI ENT: Moist mucous membranes, No rhinorrhea Neck: Supple, Nontender Cardiovascular: Regular rate, Regular rhythm, No murmurs Respiratory: No distress, CTA bilaterally, Chest nontender Abdomen: Soft, Nondistended, Normal bowel sounds, - - Mild tenderness diffusely with no rebound or rigidity. Back: Nontender, Normal Inspection Extremities: Nontender, No edema Skin: Normal color, No rash Neurological: Alert, Oriented x3, Cranial nerves II-XII grossly intact, Normal Strength, Normal Sensation Psychological: Normal affect, Normal Mood Diagnostic/Tx/Re-eval Laboratory Data 09/02/20 09/02/20 09/02/20 18:50 18:50 19:15 WBC 7.8 RBC 4.50 L Hgb 13.4 Hct 40.0 MCV 88.9 MCH 29.8 MCHC 33.5 RDW Std Deviation 38.2 RDW Coeff of Jeremiah 11.9 Plt Count 356 MPV 10.1 Immature Gran % (Auto) 0.100 Neut % (Auto) 49.7 Lymph % (Auto) 37.9 [place] % (Auto) 9.4 Eos % (Auto) 2.4 Baso % (Auto) 0.5 Absolute Neuts (auto) 3.9 Absolute Lymphs (auto) 2.95 Nucleated RBC % 0 Sodium 138 Potassium 3.8 Chloride 100 Carbon Dioxide 31.0 Anion Gap 7 BUN 6 L Creatinine 0.83 Estim Creat Clear Calc 102.49 Est GFR (MDRD) Af Amer 129 Est GFR (MDRD) Non-Af 106 BUN/Creatinine Ratio 7.2 L Glucose 248 H Calcium 9.1 Total Bilirubin 0.40 AST 20 ALT 44 Alkaline Phosphatase 87 Total Protein 7.3 Albumin 3.4 Globulin 3.9 Albumin/Globulin Ratio 0.9 Lipase 881 H Urine Color Yellow Urine Clarity Sl. Cloudy Urine pH 7.0 Ur Specific [place] 1.005 Urine Protein Negative Urine Glucose (UA) 50 H Urine Ketones Negative Urine Occult Blood Negative Urine Nitrite Negative Urine Bilirubin Negative Urine Urobilinogen Normal Ur Leukocyte Esterase Negative Urine RBC 0 SEEN Urine WBC 0 SEEN Ur Squamous Epith Cells 0-5 SEEN Urine Bacteria 0 SEEN Urine Mucus 0 SEEN - Medical Decision Making Patient appears well and nontoxic. Hypertension but otherwise vital signs within normal limits. Benign abdominal exam. Lab work within normal limits. Patient first given Zofran and continued to have nausea. Was then given Haldol and has resolution of his symptoms. 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 Asked return for new or worsening symptoms. Patient agreeable and discharged home in stable condition. Impression: 1. Nausea and vomiting 2. Gastroparesis ED Disposition - Plan for ED Patient: Disposition: Home or Assisted Living Instructions: ED Diabetic Gastroparesis Referrals: Chioma Weinstein, PA [Primary Care Provider] - 2 Days
[2020-09-02] MEDS: 0.9% Normal Saline 1,000 ML 1000 ML IV (19:07)
[2020-09-02] MEDS: Ondansetron 4 MG/2 ML Vial IV (19:07)
[2020-09-02 19:18] LABS: Bacteria 0 SEEN /hpf (None Seen); Mucous, Urine 0 SEEN /hpf (<or=2+); Red Blood Cells-Urine 0 SEEN /hpf (0-5); White Blood Cells 0 SEEN /hpf (0-5)
[2020-09-02 19:38] LABS: Color, Urine Yellow (Yellow); Glucose, Dipstick 50 mg/dl (Normal); Ketone-Dipstick Negative (Negative); Leukocyte Esterase-Dipstick Negative /ul (Negative); Nitrite-Dipstick Negative (Negative); Occult Blood-Urine Negative /ul (Negative); Protein-Dipstick Negative (Negative); Specific Gravity, Urine 1.005 (1.002-1.030); Urine Bilirubin Dipstick Negative (Negative); Urine Clarity Sl. Cloudy (Clear); Urine Urobilinogen Normal (Normal)
[2020-09-02 19:40] LABS: Absolute Lymphocyte Count 2.95 X10^3/uL (0.83-4.51); Absolute Neutrophil Count 3.9 X10^3/uL (2.0-7.7); Basophil# 0.04 X10^3/uL; Basophil% 0.5 % (0-1); Eosinophil# 0.19 X10^3/uL; Eosinophils% 2.4 % (0-5); Hemoglobin 13.4 g/dL (13.0-16.5); Lymphocyte # 2.95 X10^3/ul (4.0); Lymphocyte % 37.9 % (19-41); Mean Corp Hgb Conc 33.5 g/dL (32-36); Mean Corpuscular Hgb 29.8 pg (27.0-32.0); Mean Corpuscular Volume 88.9 fL (80-94); Mean Platelet Vol. 10.1 fl (6.2-12.0); Monocyte# 0.73 X10^3/uL; Monocyte% 9.4 % (0-10); NRBC Flagged by Analyzer 0 % (0-5); Neutrophil # 3.87 X10^3/uL (2.7-7.7); Neutrophil % 49.7 % (47-70); Platelet Count 356 K/mm3 (150-450); RBC Distribution Width CV 11.9 % (11.6-14.6); RBC Distribution Width SD 38.2 fl (35.1-43.9); White Blood Count 7.8 K/mm3 (4.4-11.0)
[2020-09-02 19:47] LABS: Squamous Epithelial Cells - UA 0-5 SEEN /hpf (0-5)
[2020-09-02 19:59] LABS: ALB/GLOB Ratio 0.9 RATIO (0.9-2.4); AST(SGOT) 20 U/L (15-37); Alanine Aminotransfer ALT/SGPT 44 U/L (16-61); Albumin, Serum 3.4 g/dL (3.2-5.0); Alkaline Phosphatase 87 U/L (45-117); Anion Gap 7 (5-15); BUN 6 mg/dL (7-18); BUN/Creat Ratio 7.2 RATIO (10-20); Calcium,Total 9.1 mg/dL (8.5-10.1); Chloride 100 mmol/L (98-107); Creatinine, Serum 0.83 mg/dL (0.70-1.30); EST Glomerular Filtration Rate 106 mL/min (>60); Est Glom Filt Rate - Afr Amer 129 mL/min (>60); Estimated Creatinine Clearance 102.49 ml/min; Globulin 3.9 g/dL (2.2-4.2); Glucose 248 mg/dL (74-106); Lipase 881 U/L (73-393); Potassium 3.8 mmol/L (3.5-5.1); Protein, Total 7.3 g/dL (6.4-8.2); Sodium Level 138 mmol/L (136-145)
[2020-09-02] MEDS: Haloperidol Lactate 5 MG/ML Vial 2 MG IV (20:06)
== END 2020-09-02 20:33 | disposition home or self-care (01) ==
PROVIDERS: Emergency Provider Emergency Medicine; PCP Physician Assistant
DX: R11.2 Nausea with vomiting, unspecified (principal); E11.43 Type 2 diabetes mellitus with diabetic autonomic (poly)neuropathy; K31.84 Gastroparesis; Z79.84 Long term (current) use of oral hypoglycemic drugs
CPT/HCPCS: 80053; 81001; 83690; 85025; 96361; 96374; 96375; 99283; J7030; A4216; J2405

== ENCOUNTER 2020-09-04 18:35 | Emergency (ER) | payer OTHER, SELFPAY ==
[2020-09-04 18:37] VITALS: BP 149/93; PULSE 91; RESP 15; TEMP 35.7; O2SAT 97; BMI 37.9
--- NOTE | 2020-09-04 18:56 | CT_ITS ---
STUDY: CT ABDOMEN AND PELVIS WITH CONTRAST REASON FOR EXAM: Male, 44 years old. abdominal pain RADIATION DOSAGE (If Supplied By Facility): CTDIvol = ( 18.64 ) mGy, DLP = ( 1315.77 ) mGycm TECHNIQUE: Transaxial images were obtained from the dome of the diaphragm to the symphysis pubis without oral contrast. IV 100mL Isovue-370 was administered. Sagittal and coronal images were reconstructed. Individualized dose optimization techniques were used for this CT. COMPARISON: CT of abdomen and pelvis dated August 28, 2020 FINDINGS: The visualized lung bases are unremarkable. Normal liver. Normal gallbladder and extrahepatic biliary system. Normal spleen. Normal pancreas. Normal bilateral adrenal glands. Normal right kidney. Normal left kidney. There is a small hiatal hernia. Normal small intestine. There are multiple colonic diverticula consistent with diverticulosis. Normal transverse and proximal colon. The appendix is visualized and appears normal. Normal abdominal aorta. Normal inferior vena cava. Normal retroperitoneum. Normal urinary bladder. Prior left inguinal hernia repair chronic changes. Normal abdominal wall. There are diffuse degenerative changes of the visualized lumbar spine. CT/Abdomen/Pelvis W IV Cont ONLY IMPRESSION: 1. Mild colonic diverticulosis. Electronically Signed: Yonatan Doyle MD at 20:22 EDT , Service support ,
--- NOTE | 2020-09-04 18:56 | ED.VIS.GEN ---
History of Present Illness Chief Complaint: Nausea/Vomiting Informant: Patient Narrative: 44-year-old male presenting with nausea/vomiting. Patient states he was seen last week and admitted to the hospital. Ultimately was diagnosed with gastroparesis. He states his nausea and abdominal pain did improve. He states he has had some diarrhea and has been on a liquid diet since then. Today he states he has had multiple episodes of emesis. No blood or coffee-ground emesis. He denies black or bloody stool. Patient has not had a fever. Patient states he had hernia repair and July and believes his symptoms kind of started at that time. Past Medical History - Allergies and Home Meds Allergies/Adverse Reactions: Allergies metoclopramide HCl [From Reglan] Adverse Reaction (Verified 09/04/20 18:40) GO CRAZY elevated anxiety Primary Care Physician: Chioma Weinstein PA [Primary Care Provider] - Past Medical History: - - Diabetes, sleep apnea, asthma, Surgical History: herniorrhaphy, - - Recent left inguinal hernia repair 07/20/2020, prior remote right inguinal hernia repair, left Achilles and cartilage surgery, tonsillectomy. Lives: Spouse/ Significant Other Smoking Status: Never smoker - Family History Maternal Family History: Reports: - - Patient denies any maternal history of heart disease, diabetes, cancer, underlying pulmonary disease, underlying renal disease but does note she has significant issues with her esophagus, unsure exact disease. Notes frequent has items stuck, thin esophagus, dysphagia. Denied achalasia as etiology. Paternal Family History: Reports: - - Patient denies any paternal history of heart disease, diabetes, cancer, underlying pulmonary disease, underlying renal disease but does note significant history of frequent urinary tract infections. Review of Systems General: Denies: Chills, Fever, Sweats Eyes: Denies: Visual changes - bilaterally, Diplopia ENT: Denies: Rhinorrhea, Sore throat Cardiovascular: Denies: Chest pain, Palpitations Respiratory: Denies: Dyspnea, Cough, Dyspnea on exertion Gastrointestinal: Reports: Abdominal pain, Nausea, Vomiting, Diarrhea Genitourinary: Denies: Dysuria, Hematuria, Frequency Musculoskeletal: Denies: Back pain, Extremity Pain Skin: Denies: Rash, Wounds Neurological: Denies: Headache, Weakness, Numbness Psych: Denies: Depression, Anxiety, Suicidal thoughts, Suicidal ideations, -, - Physical Exam Vital Signs/Narrative: Vital Signs Temp Pulse Resp BP Pulse Ox 09/04/20 18:37 96.2 F L 91 15 149/93 H 97 Inital Vital Signs reviewed: Yes General: Obese, No Acute Distress Head: Normocephalic, Atraumatic Eyes: Perrl, EOMI. Negative for: Pale conjunctiva, Scleral icterus ENT: Moist mucous membranes, No rhinorrhea Cardiovascular: Regular rate, Regular rhythm Respiratory: No distress, CTA bilaterally Abdomen: Soft, Nondistended, - - Mild epigastric tenderness. Abdomen is nonperitoneal. Extremities: Nontender, No edema Skin: Normal color, No rash. Negative for: Cyanosis, Diaphoresis, Jaundice Neurological: Alert, Oriented x3, Cranial nerves II-XII grossly intact Psychological: Normal affect, Normal Mood Diagnostic/Tx/Re-eval Clinical Impression(s) from Imaging Studies Abdomen/Pelvis CT 09/04/20 18:56 IMPRESSION: 1. Mild colonic diverticulosis. Electronically Signed: Yonatan Doyle MD at 20:22 EDT , Service support , Laboratory Data 09/04/20 09/04/20 19:10 19:10 WBC 9.1 RBC 4.47 L Hgb 13.4 Hct 39.3 L MCV 87.9 MCH 30.0 MCHC 34.1 RDW Std Deviation 37.6 RDW Coeff of Jeremiah 11.9 Plt Count 357 MPV 9.3 Immature Gran % (Auto) 0.200 Neut % (Auto) 66.1 Lymph % (Auto) 24.6 [place] % (Auto) 7.5 Eos % (Auto) 1.0 Baso % (Auto) 0.6 Absolute Neuts (auto) 6.0 Absolute Lymphs (auto) 2.23 Nucleated RBC % 0 Sodium 137 Potassium 3.4 L Chloride 100 Carbon Dioxide 29.0 Anion Gap 8 BUN 7 Creatinine 0.83 Estim Creat Clear Calc 102.49 Est GFR (MDRD) Af Amer 129 Est GFR (MDRD) Non-Af 107 BUN/Creatinine Ratio 8.4 L Glucose 211 H Calcium 9.4 Total Bilirubin 0.70 AST 22 ALT 50 Alkaline Phosphatase 81 Total Protein 7.4 Albumin 3.6 Globulin 3.8 Albumin/Globulin Ratio 0.9 Lipase 98 - Medical Decision Making 44-year-old male with history of gastroparesis presents with nausea/vomiting. Patient states he was recently admitted for this. He has Phenergan suppositories which are not helping. He also has oral Zofran which is not dissolving tablets which is not working because he cannot keep it down. Patient had lab work today which is unremarkable. CT abdomen pelvis identifies no acute process. Patient given morphine, Zofran in the ED and feels much improved. He requests ODT Zofran for home. I will provide this. He is to follow-up with his GI doctor for follow-up. He is given return precautions. Patient stable at this time. Impression: 1. Nausea/vomiting 2. History of gastroparesis ED Disposition - Plan for ED Patient: Disposition: Home or Assisted Living Instructions: ED Vomiting (Adult), ED Diabetic Gastroparesis Referrals: Chioma Weinstein, PA [Primary Care Provider] -
[2020-09-04] MEDS: Morphine 4 MG/ML Syringe IV (19:12)
[2020-09-04] MEDS: 0.9% Normal Saline 1,000 ML 1000 ML IV (19:12)
[2020-09-04] MEDS: Ondansetron 4 MG/2 ML Vial IV (19:12)
[2020-09-04 19:14] LABS: Absolute Lymphocyte Count 2.23 X10^3/uL (0.83-4.51); Basophil# 0.05 X10^3/uL; Basophil% 0.6 % (0-1); Eosinophil# 0.09 X10^3/uL; Hematocrit 39.3 % (40-54); Hemoglobin 13.4 g/dL (13.0-16.5); Lymphocyte # 2.23 X10^3/ul (4.0); Lymphocyte % 24.6 % (19-41); Mean Corp Hgb Conc 34.1 g/dL (32-36); Mean Corpuscular Volume 87.9 fL (80-94); Mean Platelet Vol. 9.3 fl (6.2-12.0); Monocyte# 0.68 X10^3/uL; Monocyte% 7.5 % (0-10); NRBC Flagged by Analyzer 0 % (0-5); Neutrophil # 6.01 X10^3/uL (2.7-7.7); Neutrophil % 66.1 % (47-70); Platelet Count 357 K/mm3 (150-450); RBC Distribution Width CV 11.9 % (11.6-14.6); RBC Distribution Width SD 37.6 fl (35.1-43.9); Red Blood Count 4.47 M/mm3 (4.6-6.2); White Blood Count 9.1 K/mm3 (4.4-11.0)
[2020-09-04 19:30] LABS: ALB/GLOB Ratio 0.9 RATIO (0.9-2.4); AST(SGOT) 22 U/L (15-37); Alanine Aminotransfer ALT/SGPT 50 U/L (16-61); Albumin, Serum 3.6 g/dL (3.2-5.0); Alkaline Phosphatase 81 U/L (45-117); Anion Gap 8 (5-15); BUN 7 mg/dL (7-18); BUN/Creat Ratio 8.4 RATIO (10-20); Calcium,Total 9.4 mg/dL (8.5-10.1); Chloride 100 mmol/L (98-107); Creatinine, Serum 0.83 mg/dL (0.70-1.30); EST Glomerular Filtration Rate 107 mL/min (>60); Est Glom Filt Rate - Afr Amer 129 mL/min (>60); Estimated Creatinine Clearance 102.49 ml/min; Globulin 3.8 g/dL (2.2-4.2); Glucose 211 mg/dL (74-106); Lipase 98 U/L (73-393); Potassium 3.4 mmol/L (3.5-5.1); Protein, Total 7.4 g/dL (6.4-8.2); Sodium Level 137 mmol/L (136-145)
[2020-09-04 22:13] VITALS: BP 156/89; PULSE 94; PULSE 97; RESP 16; TEMP 36.6; O2SAT 97
[2020-09-04 22:25] VITALS: BP 148/86; PULSE 95; RESP 16; O2SAT 97
== END 2020-09-04 22:30 | disposition home or self-care (01) ==
PROVIDERS: Emergency Provider Student in an Organized Health Care Education/Training Program; PCP Physician Assistant
DX: R11.2 Nausea with vomiting, unspecified (principal); E11.43 Type 2 diabetes mellitus with diabetic autonomic (poly)neuropathy; K31.84 Gastroparesis; J45.909 Unspecified asthma, uncomplicated; G47.30 Sleep apnea, unspecified; Z79.84 Long term (current) use of oral hypoglycemic drugs
CPT/HCPCS: 74177; 80053; 83690; 85025; 96361; 96374; 96375; 99283; J7030; Q9967; J2405

== ENCOUNTER 2020-09-05 07:45 | Emergency (ER) | payer OTHER, SELFPAY ==
[2020-09-04 18:37] VITALS: BMI 37.9
[2020-09-05 07:47] VITALS: BP 168/99; PULSE 100; RESP 20; TEMP 36.6; O2SAT 100; BMI 37.7
[2020-09-05 07:56] VITALS: PULSE 100; RESP 20; O2SAT 99
--- NOTE | 2020-09-05 08:00 | ED.VISSUMM ---
- ER Visit Summary Date of Service: 09/05/20 Chief Complaint: Abdominal pain and vomiting History of Present Illness: The patient is a 44 M who sees Riky Weinstein. He reports that he has had abdominal pain and vomiting for 2 weeks. He was admitted to the hospital had a gastric emptying study that shows gastroparesis. He was seen by Dr. Garg. Was felt that he needs to see gastroenterology and may need a gastric pacemaker. He was discharged on Zofran and Phenergan. Despite that he continues to vomit. Patient reports that his vomit approximately 10 times in the past 12 hours. No blood in his emesis. He has a diffuse cramping, aching abdominal pain is 10 out of 10 in severity. Nothing makes this better or worse. He denies diarrhea. He reports that yesterday he had a small bowel movement. He denies any blood in his stools or black tarry stools. No dysuria or frequency. Physical Examination: Vitals: Stable. Afebrile. General: Well-nourished and well-developed. Head: Normocephalic atraumatic. Neck: Supple, no lymphadenopathy. No JVD. Nontender. Cardiovascular: Regular rate and rhythm. No murmurs. Respiratory: No respiratory distress. Clear to auscultation bilaterally. Abdominal: Soft, mild diffuse tenderness to palpation, nondistended, normal bowel sounds. No guarding, rebound, or peritoneal signs. Back: Nontender. Extremities: Nontender, no edema. Skin: Normal color, no rash. Neurologic: Alert and oriented ?3. Cranial nerves II through XII are intact. Normal strength and sensation. Psych: Normal affect. Test Results: CBC is normal. Chem-7 shows a sodium 135, glucose 196, BUN of 6. LFTs show an AST of 42. Lipase is normal. Emergency Department Course and Treatment: Patient had an IV placed. He is given morphine and Zofran IV. He is resting more comfortably. However he remains quite nauseated. Treatment Plan: Patient was discussed with [facility] as we do not have gastroenterology here. He will be transferred for further evaluation and treatment. Disposition: Transferred in stable condition. Impression: 1. Gastroparesis. 2. Intractable nausea and vomiting. This note was generated with [employer] software. It may contain incorrect words, spelling, and punctuation that were not noted in review of the chart prior to signing ED Disposition - Plan for ED Patient: Referrals: Chioma Weinstein, PA [Primary Care Provider] -
[2020-09-05] MEDS: Ondansetron 4 MG/2 ML Vial IV ×2 (08:06→09:04)
[2020-09-05] MEDS: Morphine 4 MG/ML Syringe IV ×2 (08:06→09:04)
[2020-09-05] MEDS: 0.9% Normal Saline 1,000 ML 1000 ML IV (08:09)
[2020-09-05 08:25] LABS: Absolute Lymphocyte Count 3.39 X10^3/uL (0.83-4.51); Absolute Neutrophil Count 5.5 X10^3/uL (2.0-7.7); Basophil# 0.04 X10^3/uL; Basophil% 0.4 % (0-1); Eosinophil# 0.14 X10^3/uL; Eosinophils% 1.4 % (0-5); Hematocrit 40.2 % (40-54); Hemoglobin 13.8 g/dL (13.0-16.5); Lymphocyte # 3.39 X10^3/ul (4.0); Lymphocyte % 34.4 % (19-41); Mean Corp Hgb Conc 34.3 g/dL (32-36); Mean Corpuscular Hgb 30.1 pg (27.0-32.0); Mean Corpuscular Volume 87.6 fL (80-94); Mean Platelet Vol. 9.7 fl (6.2-12.0); Monocyte# 0.79 X10^3/uL; NRBC Flagged by Analyzer 0 % (0-5); Neutrophil # 5.46 X10^3/uL (2.7-7.7); Neutrophil % 55.4 % (47-70); Platelet Count 401 K/mm3 (150-450); RBC Distribution Width CV 11.8 % (11.6-14.6); RBC Distribution Width SD 37.6 fl (35.1-43.9); Red Blood Count 4.59 M/mm3 (4.6-6.2); White Blood Count 9.9 K/mm3 (4.4-11.0)
[2020-09-05 08:45] LABS: ALB/GLOB Ratio 0.9 RATIO (0.9-2.4); AST(SGOT) 42 U/L (15-37); Alanine Aminotransfer ALT/SGPT 51 U/L (16-61); Albumin, Serum 3.5 g/dL (3.2-5.0); Alkaline Phosphatase 81 U/L (45-117); Anion Gap 8 (5-15); BUN 6 mg/dL (7-18); BUN/Creat Ratio 6.5 RATIO (10-20); Chloride 101 mmol/L (98-107); Creatinine, Serum 0.92 mg/dL (0.70-1.30); EST Glomerular Filtration Rate 95 mL/min (>60); Est Glom Filt Rate - Afr Amer 115 mL/min (>60); Estimated Creatinine Clearance 92.46 ml/min; Globulin 4.1 g/dL (2.2-4.2); Glucose 196 mg/dL (74-106); Lipase 96 U/L (73-393); Potassium 4.1 mmol/L (3.5-5.1); Protein, Total 7.6 g/dL (6.4-8.2); Sodium Level 135 mmol/L (136-145)
[2020-09-05 10:01] VITALS: RESP 16
[2020-09-05 10:09] VITALS: BP 153/70; PULSE 86; RESP 16; O2SAT 98
--- NOTE | 2020-09-05 10:31 | ED.RN ---
REPORT TO JUSTYN JOHNSON AT [facility].
== END 2020-09-05 10:19 | disposition short-term general hospital (02) ==
LOC: ED 08:17
PROVIDERS: Emergency Provider Emergency Medicine; PCP Physician Assistant
DX: E11.43 Type 2 diabetes mellitus with diabetic autonomic (poly)neuropathy (principal); K31.84 Gastroparesis; R11.2 Nausea with vomiting, unspecified; J45.909 Unspecified asthma, uncomplicated; Z79.84 Long term (current) use of oral hypoglycemic drugs
CPT/HCPCS: 80053; 83690; 85025; 87426; 96361; 96374; 96375; 96376; 99285; J7030; A4216; J2405

== ENCOUNTER 2020-09-10 13:05 | Emergency (ER) | payer OTHER, SELFPAY ==
[2020-09-10 13:06] VITALS: BP 153/87; PULSE 82; RESP 16; TEMP 37.2; O2SAT 96; BMI 55.0
--- NOTE | 2020-09-10 13:17 | EKG12_ITS ---
Test Reason : CHEST PAIN Blood Pressure : / mmHG Vent. Rate : 083 BPM Atrial Rate : 083 BPM P-R Int : 172 ms QRS Dur : 090 ms QT Int : 384 ms P-R-T Axes : 052 027 -03 degrees QTc Int : 451 ms Normal sinus rhythm Normal ECG Confirmed by REGAN CASH, POOL ([id number]), development editor GAIL RUIZ ([id number]) on 09/14/2020 10:49:15 AM Referred By: GABY Confirmed By:POOL SPEARS MD
--- NOTE | 2020-09-10 13:30 | ED.DCSUM_ITS ---
History of Present Illness Chief Complaint: Chest Pain Informant: Patient Narrative: 44-year-old male with history of diabetes and gastroparesis presenting for evaluation. Patient just discharged from [facility] about 3 hours ago. He states he was there since Saturday. He had an upper endoscopy performed by GI there which showed esophagitis. Patient was able to tolerate a meal and was discharged home. Patient is only been home for couple hours and now he states he feels weak. He has nausea without vomiting. He complains of epigastric pain. He started on pantoprazole but has been told it might take him a couple weeks to get his esophagitis under control. Patient has not taken any Pepcid or other medications. - Past Medical History (1) Diabetes mellitus, type II Status: Resolved (2) REGAN (obstructive sleep apnea) Status: Acute (3) Asthma Status: Chronic (4) Obesity Status: Chronic Past Medical History - Allergies and Home Meds Allergies/Adverse Reactions: Allergies haloperidol [From Haldol] Adverse Reaction (Verified 09/10/20 13:10) Other metoclopramide HCl [From Reglan] Adverse Reaction (Verified 09/10/20 13:10) GO CRAZY elevated anxiety Primary Care Physician: Chioma Weinstein PA [Primary Care Provider] - Prior records reviewed: Yes Past Medical History: - - Gastroparesis Surgical History: herniorrhaphy, - - Recent left inguinal hernia repair 07/20/2020, prior remote right inguinal hernia repair, left Achilles and cartilage surgery, tonsillectomy. Lives: Spouse/ Significant Other Smoking Status: Never smoker Alcohol: None Drugs: None - Family History Maternal Family History: Reports: - - Patient denies any maternal history of heart disease, diabetes, cancer, underlying pulmonary disease, underlying renal disease but does note she has significant issues with her esophagus, unsure exact disease. Notes frequent has items stuck, thin esophagus, dysphagia. Denied achalasia as etiology. Paternal Family History: Reports: - - Patient denies any paternal history of heart disease, diabetes, cancer, underlying pulmonary disease, underlying renal disease but does note significant history of frequent urinary tract infections. Review of Systems General: Denies: Chills, Fever, Sweats Eyes: Denies: Visual changes - bilaterally, Diplopia ENT: Denies: Rhinorrhea, Sore throat Cardiovascular: Reports: Chest pain Respiratory: Denies: Dyspnea, Cough, Sputum Gastrointestinal: Reports: Abdominal pain - Epigastric. Denies: Nausea, Vomiting, Diarrhea Genitourinary: Denies: Dysuria, Hematuria Musculoskeletal: Denies: Myalgias, Arthralgias Skin: Denies: Rash, Abscess Neurological: Denies: Headache, Weakness, Numbness Psych: Denies: Depression, Anxiety Endocrine: Denies: Polyuria, Polydipsia Physical Exam Vital Signs/Narrative: Vital Signs Temp Pulse Resp BP Pulse Ox 09/10/20 13:06 98.9 F 82 16 153/87 H 96 General: Obese, No Acute Distress Head: Normocephalic, Atraumatic Eyes: Perrl, EOMI ENT: Moist mucous membranes, No rhinorrhea Cardiovascular: Regular rate, Regular rhythm Respiratory: No distress, CTA bilaterally Abdomen: Soft, Nontender Extremities: Nontender, No edema Skin: Normal color, No rash. Negative for: Cyanosis, Diaphoresis Neurological: Alert, Oriented x3, Cranial nerves II-XII grossly intact Psychological: Normal affect, Normal Mood Diagnostic/Tx/Re-eval Laboratory Data 09/10/20 09/10/20 13:30 13:30 WBC 10.7 RBC 4.77 Hgb 14.1 Hct 41.1 MCV 86.2 MCH 29.6 MCHC 34.3 RDW Std Deviation 37.4 RDW Coeff of Jeremiah 11.9 Plt Count 379 MPV 9.9 Immature Gran % (Auto) 0.400 Neut % (Auto) 71.4 H Lymph % (Auto) 20.0 [place] % (Auto) 6.4 Eos % (Auto) 1.4 Baso % (Auto) 0.4 Absolute Neuts (auto) 7.6 Absolute Lymphs (auto) 2.13 Nucleated RBC % 0 Sodium 137 Potassium 3.3 L Chloride 99 Carbon Dioxide 28.0 Anion Gap 10 BUN 5 L Creatinine 0.61 L Estim Creat Clear Calc 139.45 Est GFR (MDRD) Af Amer 185 Est GFR (MDRD) Non-Af 153 BUN/Creatinine Ratio 8.2 L Glucose 92 Calcium 8.7 Total Bilirubin 0.60 AST 31 ALT 59 Alkaline Phosphatase 85 Troponin I < 0.015 Total Protein 7.0 Albumin 3.5 Globulin 3.5 Albumin/Globulin Ratio 1.0 Lipase 78 - Medical Decision Making I did review the medical records from [facility]. Patient had right upper quadrant ultrasound which did not show gallbladder disease. It does shows a fatty liver. There is no ascites. Spleen was 12 cm. CBC from yesterday showed a white blood cell count of 10.19, hemoglobin 12.8, hematocrit 37.4, platelets 326, potassium 3.2, BUN 6, creatinine 0.63. Liver function tests were unremarkable. Patient did have GI consult and a upper endoscopy which showed esophagitis. Patient's lab work is consistent with his previous work-up. Troponin is negative. EKG is sinus rhythm at 83 bpm with out signs of ischemic change as interpreted by myself. Given that the patient has had this pain for days in his epigastrium and his troponin is negative with a normal EKG I do not believe he needs a delta troponin. Sounds most consistent with GI upset. On reevaluation patient was given Zofran ODT and felt improved. He states that he wants to try to go home and that he has a family friend that can help him manage his treatment. Patient has antiemetics at home. He is discharged home in stable condition. Impression: 1. Epigastric pain 2. History of esophagitis 3. History of gastroparesis ED Disposition - Plan for ED Patient: Disposition: Home or Assisted Living Instructions: ED Diabetic Gastroparesis Referrals: Chioma Weinstein PA [Primary Care Provider] -
[2020-09-10] MEDS: Ondansetron ODT 4 MG Tablet PO (13:38)
[2020-09-10 13:39] VITALS: BP 153/87; PULSE 87; RESP 16; O2SAT 95
[2020-09-10 13:39] LABS: Absolute Lymphocyte Count 2.13 X10^3/uL (0.83-4.51); Absolute Neutrophil Count 7.6 X10^3/uL (2.0-7.7); Basophil# 0.04 X10^3/uL; Basophil% 0.4 % (0-1); Eosinophil# 0.15 X10^3/uL; Eosinophils% 1.4 % (0-5); Hematocrit 41.1 % (40-54); Hemoglobin 14.1 g/dL (13.0-16.5); Lymphocyte # 2.13 X10^3/ul (4.0); Mean Corp Hgb Conc 34.3 g/dL (32-36); Mean Corpuscular Hgb 29.6 pg (27.0-32.0); Mean Corpuscular Volume 86.2 fL (80-94); Mean Platelet Vol. 9.9 fl (6.2-12.0); Monocyte# 0.68 X10^3/uL; Monocyte% 6.4 % (0-10); NRBC Flagged by Analyzer 0 % (0-5); Neutrophil # 7.62 X10^3/uL (2.7-7.7); Neutrophil % 71.4 % (47-70); Platelet Count 379 K/mm3 (150-450); RBC Distribution Width CV 11.9 % (11.6-14.6); RBC Distribution Width SD 37.4 fl (35.1-43.9); Red Blood Count 4.77 M/mm3 (4.6-6.2); White Blood Count 10.7 K/mm3 (4.4-11.0)
[2020-09-10 14:04] LABS: AST(SGOT) 31 U/L (15-37); Alanine Aminotransfer ALT/SGPT 59 U/L (16-61); Albumin, Serum 3.5 g/dL (3.2-5.0); Alkaline Phosphatase 85 U/L (45-117); Anion Gap 10 (5-15); BUN 5 mg/dL (7-18); BUN/Creat Ratio 8.2 RATIO (10-20); Calcium,Total 8.7 mg/dL (8.5-10.1); Chloride 99 mmol/L (98-107); Creatinine, Serum 0.61 mg/dL (0.70-1.30); EST Glomerular Filtration Rate 153 mL/min (>60); Est Glom Filt Rate - Afr Amer 185 mL/min (>60); Estimated Creatinine Clearance 139.45 ml/min; Globulin 3.5 g/dL (2.2-4.2); Glucose 92 mg/dL (74-106); Lipase 78 U/L (73-393); Potassium 3.3 mmol/L (3.5-5.1); Sodium Level 137 mmol/L (136-145)
[2020-09-10 14:29] VITALS: BP 160/79; PULSE 89; RESP 16; O2SAT 100
== END 2020-09-10 14:49 | disposition home or self-care (01) ==
PROVIDERS: Emergency Provider Student in an Organized Health Care Education/Training Program; PCP Physician Assistant
DX: R10.13 Epigastric pain (principal); E11.43 Type 2 diabetes mellitus with diabetic autonomic (poly)neuropathy; K31.84 Gastroparesis; K20.90 Esophagitis, unspecified without bleeding; K76.0 Fatty (change of) liver, not elsewhere classified; E66.9 Obesity, unspecified; G47.33 Obstructive sleep apnea (adult) (pediatric); J45.909 Unspecified asthma, uncomplicated; Z79.4 Long term (current) use of insulin; Z79.899 Other long term (current) drug therapy
CPT/HCPCS: 80053; 83690; 84484; 85025; 93005; 99284; A4216

== ENCOUNTER 2021-03-10 18:06 | Emergency (ER) | payer OTHER, SELFPAY ==
[2021-03-10 18:06] VITALS: BP 181/93; PULSE 110; RESP 16; TEMP 36.1; O2SAT 98; BMI 39.4
--- NOTE | 2021-03-10 18:30 | EX.ED.DYSGE1 ---
HPI History of Present Illness Chief Complaint: Bite Informant: patient Narrative Narrative: 45-year-old male states he took a nap this afternoon inside and when he woke he had a bug bite on his left side of his neck. He excoriated it and seems to have spread larger. There was suggested that he get this checked out. No home treatment as of yet. He notes he has tingling of his face [facility] Medical History Asthma Diabetes type 2, controlled Home Medications albuterol sulfate 1 puff INHALATION Q6H PRN PRN 08/22/20 [History Last Taken Unknown] albuterol sulfate 2.5 mg INHALATION Q4H PRN PRN 08/22/20 [History Last Taken Unknown] glimepiride 4 mg PO DAILY 09/10/20 [History Last Taken Unknown] sucralfate 1 gm PO 4X/DAY 09/10/20 [History Last Taken Unknown] dulaglutide [Trulicity] mg SUBCUT 03/10/21 [History Last Taken Unknown] Allergy/AdvReac Type Severity Reaction Status Date / Time haloperidol [From Haldol] AdvReac Other Verified 03/10/21 18:13 metoclopramide HCl AdvReac GO CRAZY Verified 03/10/21 18:13 [From Reglan] Surgical History History of hernia surgery History of tonsillectomy Social History (Updated 03/10/21 @ 18:[address] Elio Mendez DO) Smoking Status: Never smoker substance use type: does not use ROS ROS ED Constitutional Constitutional ED: Denies chills or weight loss Eyes Eyes: Denies change in vision or diplopia ENT ENT ED: Denies ear pain, rhinorrhea or sore throat Cardiovascular Cardiovascular: Denies chest pain, orthopnea, palpitations or racing heartbeat Respiratory/Chest Respiratory/Chest: Denies cough, dyspnea or orthopnea Gastrointestinal Gastrointestinal: Denies abdominal pain, diarrhea, nausea or vomiting Genitourinary Genitourinary ED: Denies dysuria, hematuria or urinary frequency Musculoskeletal Musculoskeletal: Denies arthralgias or myalgias Integumentary Reports rash; Denies abscess Neurologic Neurologic: Denies headache(s) or weakness Psychiatric Psychiatric: Denies anxiety, depression, suicidal ideation or suicidal thoughts Endocrine Endocrinology: Denies polydipsia, polyphagia or polyuria Allergic/Immunologic Allergic/Immunologic ED: Denies mouth swelling, tongue swelling or urticaria EXAM Physical Exam Const Vital Signs: 03/10/21 18:06 Temperature 97 F L Temperature Source Temporal Pulse Rate 110 H Respiratory Rate 16 Blood Pressure 181/93 H Blood Pressure Mean 122 Pulse Ox 98 Positive well nourished and well developed General Appearance ED: well developed HEENT Reports normocephalic, head/scalp atraumatic, TM's clear and moist mucous membranes HEENT Narrative: No uvular swelling. No facial swelling. Floor the mouth is soft. Tongue appears normal handling his secretions normally Negative for trauma Tympanic Membrane ED: Yes TM's clear Eyes PERRL and EOMs intact bilaterally Neck no lymphadenopathy, supple and no JVD Neck Narrative: Left side of neck demonstrates a papular lesion with about 3 cm x 1 cm of erythema. The papular lesion appears raised and recently excoriated. Resp normal respiratory effort and clear to auscultation bilaterally Cardio regular rate, regular rhythm and no murmurs GI normal to inspection, nondistended, normoactive bowel sounds and non-tender Palpation: soft Back/Spine no CVA tenderness and normal ROM Extremity normal to inspection General Extremety ED: Negative for edema General Extremity: Negative for edema Neuro oriented x3 and CN's II-XII intact bilaterally Sensorium / Orientation: alert Motor Exam: strength 5/5 throughout Psych mental status grossly normal Mood & Affect: Negative for depressed or tearful Skin no rashes or lesions noted and no wounds MDM MDM MDM Narrative Medical decision making narrative: This appears to be an insect bite. I recommend that he take a Benadryl every 6 hours as well as apply topical hydrocortisone cream to it. Return if worsening or concerns Discharge Plan Triage Chief Complaint: Bite ED Provider: Elio Mendez Dx/Rx/DC Orders Clinical Impression: Insect bite Instructions: ED Insect Bite Prescriptions: No Action albuterol sulfate 2.5 MG/3 ML solution for nebulization 2.5 mg INHALATION Q4H PRN PRN (Reason: Wheezing) RF: 0 albuterol sulfate 1 INHALER inhaler 1 puff INHALATION Q6H PRN PRN (Reason: Wheezing) RF: 0 sucralfate 1 GM tablet 1 gm PO 4X/DAY RF: 0 glimepiride 4 MG tablet 4 mg PO DAILY RF: 0 Trulicity 0.75 mg/0.5 mL pen injector SUBCUT RF: 0 Primary Care Provider: Chioma Weinstein Referrals: Chioma Weinstein, PA [Primary Care Provider] - As Needed Activity Restrictions/Additional Instructions: I would take a Benadryl every 6 hours and apply hydrocortisone cream to the rash. Local ice. Return if worsening or concerns Disposition Disposition: Home, Self Care
== END 2021-03-10 18:41 | disposition home or self-care (01) ==
PROVIDERS: Emergency Provider Emergency Medicine; PCP Physician Assistant
DX: S10.96XA Insect bite of unspecified part of neck, initial encounter (principal); W57.XXXA Bitten or stung by nonvenomous insect and other nonvenomous arthropods, initial encounter; Y93.9 Activity, unspecified; Y92.9 Unspecified place or not applicable; E11.9 Type 2 diabetes mellitus without complications; J45.909 Unspecified asthma, uncomplicated; Z79.84 Long term (current) use of oral hypoglycemic drugs
CPT/HCPCS: 99282

== ENCOUNTER 2021-04-10 07:29 | Emergency (ER) | payer OTHER, SELFPAY ==
[2021-04-10 07:30] VITALS: BP 137/87; PULSE 107; RESP 18; TEMP 36.6; O2SAT 98; BMI 40.3
--- NOTE | 2021-04-10 07:47 | ED.VIS.GI ---
HPI HPI - GI History of Present Illness Chief Complaint: Nausea/Vomiting Narrative Narrative: 45-year-old male with history of gastroparesis presenting with 4 days of nausea/vomiting. He states he does have bowel movements but they are infrequent. Usually this is every couple of days. Patient states he has a history of diabetes as well. Patient states that the majority of his pain is in the epigastrium from vomiting. He states he has Zofran at home but he still vomits after he takes this. He denies alcohol use. Patient denies fever, chills. Denies urinary symptoms. PFSH PFSH Medical History Asthma Diabetes type 2, controlled Home Medications albuterol sulfate 1 puff INHALATION Q6H PRN PRN 08/22/20 [History Last Taken Unknown] albuterol sulfate 2.5 mg INHALATION Q4H PRN PRN 08/22/20 [History Last Taken Unknown] glimepiride 4 mg PO DAILY 09/10/20 [History Last Taken Unknown] sucralfate 1 gm PO 4X/DAY 09/10/20 [History Last Taken Unknown] dulaglutide [Trulicity] mg SUBCUT 03/10/21 [History Last Taken Unknown] Allergy/AdvReac Type Severity Reaction Status Date / Time haloperidol [From Haldol] AdvReac Other Verified 04/10/21 07:31 metoclopramide HCl AdvReac GO CRAZY Verified 04/10/21 07:31 [From Reglan] Surgical History History of hernia surgery History of tonsillectomy Social History Smoking Status: Never smoker substance use type: does not use ROS ROS ED Constitutional Constitutional ED: Denies chills or fever(s) ENT ENT ED: Denies rhinorrhea or sore throat Cardiovascular Cardiovascular: Denies chest pain or palpitations Respiratory/Chest Respiratory/Chest: Denies cough or dyspnea Gastrointestinal Gastrointestinal: Reports abdominal pain, constipation, nausea and vomiting; Denies diarrhea Genitourinary Genitourinary ED: Denies dysuria, hematuria or urinary frequency Musculoskeletal Musculoskeletal: Denies arthralgias, back pain, myalgias or neck pain Integumentary Denies Abrasions or rash Neurologic Neurologic: Denies headache(s) or paresthesias EXAM Physical Exam Const Vital Signs: 04/10/21 07:30 Temperature 97.9 F Temperature Source Temporal Pulse Rate 107 H Respiratory Rate 18 Blood Pressure 137/87 H Blood Pressure Mean 103 Pulse Ox 98 Oxygen Delivery Method Room Air Positive well nourished General Appearance ED: NAD; Negative for pallor HEENT normocephalic and atraumatic Eyes PERRL and EOMs intact bilaterally Resp normal respiratory effort Effort and Inspection: able to speak in complete sentences Cardio regular rate and regular rhythm GI non-distended Palpation: soft and tender epigastric Neuro Sensorium / Orientation: alert, oriented to person, oriented to place and oriented to time Psych mental status grossly normal and thought process normal Skin General Skin Exam: Negative for jaundice or pallor MDM MDM MDM Narrative Medical decision making narrative: Patient presenting for epigastric pain and gastroparesis history. He is given morphine and Zofran for pain and nausea respectively. I did obtain lab work and his CBC and a CMP are normal with exception of a glucose of 223. There is no anion gap. LFTs are normal. Lipase is negative. I do not believe he needs a CT of his abdomen. On reevaluation patient still has continued pain and was given Dilaudid. After he was given this his pain did subside and he felt comfortable going home. He has a follow-up with his gastroparesis specialist at [facility] on Saturday. Patient states he has Zofran at home as well. He is given return precautions. Impression: 1. Gastroparesis 2. Nausea/vomiting Lab Data Labs: Laboratory Results - last 24 hr 04/10/21 04/10/21 08:05 08:05 WBC 9.9 RBC 4.50 L Hgb 13.3 Hct 39.3 L MCV 87.3 MCH 29.6 MCHC 33.8 RDW Std Deviation 38.7 RDW Coeff of Jeremiah 12.1 Plt Count 355 MPV 9.9 Immature Gran % (Auto) 0.400 Neut % (Auto) 64.8 Lymph % (Auto) 24.6 [place] % (Auto) 8.5 Eos % (Auto) 1.5 Baso % (Auto) 0.2 Absolute Neuts (auto) 6.4 Absolute Lymphs (auto) 2.44 Nucleated RBC % 0 Sodium 136 Potassium 4.3 Chloride 100 Carbon Dioxide 30.0 Anion Gap 6 BUN 9 Creatinine 0.74 Estim Creat Clear Calc 113.76 Est GFR (MDRD) Af Amer 147 Est GFR (MDRD) Non-Af 121 BUN/Creatinine Ratio 12.1 Glucose 223 H Calcium 9.0 Total Bilirubin 0.60 AST 21 ALT 38 Alkaline Phosphatase 89 Total Protein 6.6 Albumin 3.2 Globulin 3.4 Albumin/Globulin Ratio 0.9 Lipase 112 Discharge Plan Triage Chief Complaint: Nausea/Vomiting ED Provider: Cayden Sommers Dx/Rx/DC Orders Instructions: ED Vomiting (Adult), ED Diabetic Gastroparesis Prescriptions: No Action albuterol sulfate 2.5 MG/3 ML solution for nebulization 2.5 mg INHALATION Q4H PRN PRN (Reason: Wheezing) RF: 0 albuterol sulfate 1 INHALER inhaler 1 puff INHALATION Q6H PRN PRN (Reason: Wheezing) RF: 0 sucralfate 1 GM tablet 1 gm PO 4X/DAY RF: 0 glimepiride 4 MG tablet 4 mg PO DAILY RF: 0 Trulicity 0.75 mg/0.5 mL pen injector SUBCUT RF: 0 Primary Care Provider: Chioma Weinstein Referrals: Chioma Weinstein, PA [Primary Care Provider] - Disposition Disposition: Home, Self Care
[2021-04-10] MEDS: 0.9% Normal Saline 1,000 ML 999 ML IV (08:04)
[2021-04-10] MEDS: Morphine 4 MG/ML Syringe IV (08:05)
[2021-04-10] MEDS: Ondansetron 4 MG/2 ML Vial IV (08:05)
[2021-04-10 08:16] LABS: Absolute Lymphocyte Count 2.44 X10^3/uL (0.83-4.51); Absolute Neutrophil Count 6.4 X10^3/uL (2.0-7.7); Basophil# 0.02 X10^3/uL; Basophil% 0.2 % (0-1); Eosinophil# 0.15 X10^3/uL; Eosinophils% 1.5 % (0-5); Hematocrit 39.3 % (40-54); Hemoglobin 13.3 g/dL (13.0-16.5); Lymphocyte # 2.44 X10^3/ul (0.83-4.51); Lymphocyte % 24.6 % (19-41); Mean Corp Hgb Conc 33.8 g/dL (32-36); Mean Corpuscular Hgb 29.6 pg (27.0-32.0); Mean Corpuscular Volume 87.3 fL (80-94); Mean Platelet Vol. 9.9 fl (6.2-12.0); Monocyte# 0.84 X10^3/uL; Monocyte% 8.5 % (0-10); NRBC Flagged by Analyzer 0 % (0-5); Neutrophil # 6.43 X10^3/uL (2.7-7.7); Neutrophil % 64.8 % (47-70); Platelet Count 355 K/mm3 (150-450); RBC Distribution Width CV 12.1 % (11.6-14.6); RBC Distribution Width SD 38.7 fl (35.1-43.9); White Blood Count 9.9 K/mm3 (4.4-11.0)
[2021-04-10] MEDS: Famotidine 200 MG/20 ML MDV 20 MG in 0.9% Normal Saline (Pres. free 8 ML 300 MG IV (08:28)
[2021-04-10 09:10] LABS: ALB/GLOB Ratio 0.9 RATIO (0.9-2.4); AST(SGOT) 21 U/L (15-37); Alanine Aminotransfer ALT/SGPT 38 U/L (16-61); Albumin, Serum 3.2 g/dL (3.2-5.0); Alkaline Phosphatase 89 U/L (45-117); Anion Gap 6 (5-15); BUN 9 mg/dL (7-18); BUN/Creat Ratio 12.1 RATIO (10-20); Chloride 100 mmol/L (98-107); Creatinine, Serum 0.74 mg/dL (0.70-1.30); EST Glomerular Filtration Rate 121 mL/min (>60); Est Glom Filt Rate - Afr Amer 147 mL/min (>60); Estimated Creatinine Clearance 113.76 ml/min; Globulin 3.4 g/dL (2.2-4.2); Glucose 223 mg/dL (74-106); Lipase 112 U/L (73-393); Potassium 4.3 mmol/L (3.5-5.1); Protein, Total 6.6 g/dL (6.4-8.2); Sodium Level 136 mmol/L (136-145)
[2021-04-10] MEDS: HYDROmorphone 0.5 MG/0.5 ML SYRINGE IV (09:56)
[2021-04-10 10:50] VITALS: BP 145/89; PULSE 78; RESP 15; O2SAT 96
== END 2021-04-10 10:51 | disposition home or self-care (01) ==
PROVIDERS: Emergency Provider Student in an Organized Health Care Education/Training Program; PCP Physician Assistant
DX: E11.43 Type 2 diabetes mellitus with diabetic autonomic (poly)neuropathy (principal); K31.84 Gastroparesis; J45.909 Unspecified asthma, uncomplicated; Z79.84 Long term (current) use of oral hypoglycemic drugs
CPT/HCPCS: 80053; 83690; 85025; 96361; 96374; 96375; 99284; J7030; A4216; J2405; J3490

== ENCOUNTER 2021-04-14 14:34 | Emergency (ER) | payer OTHER, SELFPAY ==
[2021-04-14 14:35] VITALS: BP 136/89; PULSE 95; RESP 17; TEMP 36.3; O2SAT 97; BMI 40.3
[2021-04-14 14:50] LABS: Bedside Glucose 180 mg/dL (70-110)
--- NOTE | 2021-04-14 14:50 | CT_ITS ---
EXAMINATION : Head CT w/out contrast HISTORY : Headache COMPARISON : None. TECHNIQUE : Multiple contiguous axial images were obtained from the skull base to the vertex without intravenous contrast. A radiation dose optimization technique was used for this scan. FINDINGS : The ventricles and sulci are normal in size. There is no evidence for acute intracranial hemorrhage, mass effect, or midline shift. There is no extra-axial fluid collection. There is normal bell-white differentiation, without CT evidence of acute ischemia or infarct. The skull base and calvarium are unremarkable. The orbits are unremarkable. The paranasal sinuses are clear. The mastoid air cells are well-aerated. The soft tissues are unremarkable. CT/Brain/Head without Contrast IMPRESSION: No acute intracranial abnormality. Electronically Signed: Bk Abarca MD at 17:02 EST Tel , Service support ,
--- NOTE | 2021-04-14 14:51 | EKG12_ITS ---
Test Reason : SYNCOPE Blood Pressure : / mmHG Vent. Rate : 083 BPM Atrial Rate : 083 BPM P-R Int : 190 ms QRS Dur : 084 ms QT Int : 356 ms P-R-T Axes : 052 031 021 degrees QTc Int : 418 ms Normal sinus rhythm Normal ECG Confirmed by REGAN CASH, POOL ([id number]), editor department GAIL RUIZ ([id number]) on 04/17/2021 11:42:52 AM Referred By: LEODAN/NNEKA Confirmed By:POOL SPEARS MD
--- NOTE | 2021-04-14 14:54 | EX.ED.DYSGE1 ---
HPI History of Present Illness Chief Complaint: Syncope Narrative Narrative: Patient presents with his because of near syncope and dizziness. He has past medical history of gastroparesis and diabetes. He states he is supposed to have surgery for his gastroparesis in the near future because over the last week he has been having a flare. He has had multiple episodes of diarrhea in a day. He denies any fevers or chills. 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 He states the car was spinning. He was in a seated position. When he stood up, it did not get any better or worse. He denies any chest pain or shortness of breath. He does have a frontal headache but states that he does not have problems with headaches. While he states he did not have a full syncopal episode, he feels very lightheaded and dizzy. [facility] Medical History Asthma Diabetes type 2, controlled Home Medications albuterol sulfate 1 puff INHALATION Q6H PRN PRN 08/22/20 [History Last Taken Unknown] albuterol sulfate 2.5 mg INHALATION Q4H PRN PRN 08/22/20 [History Last Taken Unknown] glimepiride 4 mg PO DAILY 09/10/20 [History Last Taken Unknown] sucralfate 1 gm PO 4X/DAY 09/10/20 [History Last Taken Unknown] dulaglutide [Trulicity] 1 SUBCUT 03/10/21 [History Last Taken Unknown] insulin lispro [Humalog KwikPen Insulin] SUBCUT 04/14/21 [History Last Taken Unknown] insulin lispro [Humalog KwikPen Insulin] SUBCUT 04/14/21 [History Last Taken Unknown] ondansetron HCl [Zofran] 4 mg PO Q6H PRN 04/14/21 [History Last Taken Unknown] pantoprazole PO 04/14/21 [History Last Taken Unknown] promethazine [Phenergan] 25 mg PO Q6H PRN 04/14/21 [History Last Taken Unknown] prucalopride [Motegrity] mg 04/14/21 [History Last Taken Unknown] Allergy/AdvReac Type Severity Reaction Status Date / Time haloperidol [From Haldol] AdvReac Other Verified 04/14/21 14:35 metoclopramide HCl AdvReac GO CRAZY Verified 04/14/21 14:35 [From Reglan] Surgical History History of hernia surgery History of tonsillectomy Social History Smoking Status: Never smoker substance use type: does not use ROS ROS ED ROS Narrative Constitutional: No fever, no chills. HEENT: No sore throat. No neck pain. No loss of vision. Throbbing of bilateral eyes, states had brief visual disturbance out of both eyes. No rhinorrhea. Cardiovascular: No chest pain. No palpitations. No pedal edema. Respiratory: No cough, no shortness of breath. Abdominal: No abdominal pain. No nausea. No vomiting. Positive diarrhea. Gastroparesis flare. Genitourinary: No dysuria. No hematuria. Musculoskeletal: No myalgias. No arthralgias. Neurologic: Positive frontal headaches. Positive dizziness. Positive lightheadedness. Skin: No rash. No change in color. Psychiatric: No depression. No anxiety. EXAM Physical Exam Narrative Exam Narrative: Afebrile. Vital signs noted. HEENT: Normocephalic. Atraumatic. PERRL, EOMI. Neck soft and supple. No point tenderness or step off. Cardiovascular: Regular rate and rhythm. No murmurs, rubs, or gallops appreciated. Respiratory: No tachypnea. Lungs clear to auscultation bilaterally. Gastrointestinal: Abdomen soft, nontender, with normoactive bowel sounds. No rebound or guarding. Neurological: Awake. Alert. Oriented x3. Nonfocal, nonlateralizing. NIH stroke scale equals 0. SVAN negative. Skin: No rash. Normal color. No pallor. Musculoskeletal: No pedal edema. Full range of motion extremities. Const Vital Signs: 04/14/21 14:35 04/14/21 15:03 04/14/21 15:21 Temperature 97.3 F L Temperature Source Temporal Pulse Rate 95 Pulse Rate [Lying] 83 Pulse Rate [Sitting] 92 Pulse Rate [Standing] 99 Respiratory Rate 17 Respiratory Effort Normal Respiratory Pattern Normal Blood Pressure 136/89 H Blood Pressure [Lying] 119/79 Blood Pressure [Sitting] 131/86 H Blood Pressure [Standing] 125/82 H Blood Pressure Mean 104 Blood Pressure Mean [Lying] 92 Blood Pressure Mean [Sitting] 101 Blood Pressure Mean [Standing] 96 Pulse Ox 97 Oxygen Delivery Method Room Air 04/14/21 17:02 Temperature Temperature Source Pulse Rate 90 Pulse Rate [Lying] Pulse Rate [Sitting] Pulse Rate [Standing] Respiratory Rate 14 Respiratory Effort Respiratory Pattern Blood Pressure 136/96 H Blood Pressure [Lying] Blood Pressure [Sitting] Blood Pressure [Standing] Blood Pressure Mean 109 Blood Pressure Mean [Lying] Blood Pressure Mean [Sitting] Blood Pressure Mean [Standing] Pulse Ox 95 Oxygen Delivery Method Room Air MDM MDM MDM Narrative Medical decision making narrative: Comprehensive work-up was pursued. Concern is more for near syncope, orthostatics were obtained. He may have intravascular volume depletion. CBC shows normal white count of 10.8, hemoglobin normal at 13.9. Electrolyte panel shows sodium slightly low at 133, but has been low in the past and I think this is secondary to his hyperglycemia with a glucose of 192. BUN is normal at 11. He has a normal anion gap of 5. EKG demonstrates normal sinus rhythm at 83 bpm without ectopy or acute ST changes. Given his headache and dizziness I obtained a CT of the brain which shows no acute process. Urinalysis shows no evidence of infection or dehydration. He was complaining of his gastroparesis and abdominal pain. I reviewed his prior records. He had received morphine previously and Dilaudid. He was given a dose of Dilaudid here and was told to follow-up with his providers. I feel he be discharged safely home with follow-up. Return instructions were reviewed. Disposition is discharged home in stable condition. Lab Data Attestation: I reviewed the patient's lab results. Labs: Laboratory Results - last 24 hr 04/14/21 04/14/21 04/14/21 14:47 15:00 15:00 WBC 10.8 RBC 4.65 Hgb 13.9 Hct 40.3 MCV 86.7 MCH 29.9 MCHC 34.5 RDW Std Deviation 37.3 RDW Coeff of Jeremiah 11.9 Plt Count 298 MPV 10.3 Immature Gran % (Auto) 0.400 Neut % (Auto) 53.6 Lymph % (Auto) 35.8 [place] % (Auto) 7.8 Eos % (Auto) 2.1 Baso % (Auto) 0.3 Absolute Neuts (auto) 5.8 Absolute Lymphs (auto) 3.86 Nucleated RBC % 0 Platelet Estimate ADEQUATE RBC Morphology NORM C+C Sodium 133 L Potassium 4.7 Chloride 100 Carbon Dioxide 28.0 Anion Gap 5 BUN 11 Creatinine 0.77 Estim Creat Clear Calc 109.33 Est GFR (MDRD) Af Amer 141 Est GFR (MDRD) Non-Af 117 BUN/Creatinine Ratio 14.4 Glucose 192 H Calcium 9.3 Total Bilirubin 0.40 AST 35 ALT 34 Alkaline Phosphatase 89 Troponin I High Sens 4 Total Protein 7.4 Albumin 3.0 L Globulin 4.4 H Albumin/Globulin Ratio 0.7 L Urine Color Urine Clarity Urine pH Ur Specific [place] Urine Protein Urine Glucose (UA) Urine Ketones Urine Occult Blood Urine Nitrite Urine Bilirubin Urine Urobilinogen Ur Leukocyte Esterase Urine RBC Urine WBC Ur Squamous Epith Cells Urine Bacteria Urine Mucus POC Glucose 180 H 04/14/21 15:58 WBC RBC Hgb Hct MCV MCH MCHC RDW Std Deviation RDW Coeff of Jeremiah Plt Count MPV Immature Gran % (Auto) Neut % (Auto) Lymph % (Auto) [place] % (Auto) Eos % (Auto) Baso % (Auto) Absolute Neuts (auto) Absolute Lymphs (auto) Nucleated RBC % Platelet Estimate RBC Morphology Sodium Potassium Chloride Carbon Dioxide Anion Gap BUN Creatinine Estim Creat Clear Calc Est GFR (MDRD) Af Amer Est GFR (MDRD) Non-Af BUN/Creatinine Ratio Glucose Calcium Total Bilirubin AST ALT Alkaline Phosphatase Troponin I High Sens Total Protein Albumin Globulin Albumin/Globulin Ratio Urine Color Yellow Urine Clarity Clear Urine pH 7.0 Ur Specific [place] 1.015 Urine Protein Negative Urine Glucose (UA) Normal Urine Ketones Negative Urine Occult Blood Negative Urine Nitrite Negative Urine Bilirubin Negative Urine Urobilinogen Normal Ur Leukocyte Esterase Negative Urine RBC 0 SEEN Urine WBC 0 SEEN Ur Squamous Epith Cells 0 SEEN Urine Bacteria 0 SEEN Urine Mucus 0 SEEN POC Glucose Radiography Diagnostic Testing: Clinical Impression(s) from Imaging Studies Brain CT 04/14/21 14:50 IMPRESSION: No acute intracranial abnormality. Electronically Signed: Bk Abarca MD at 17:02 EST Tel , Service support , Discharge Plan Triage Chief Complaint: Syncope ED Provider: Gaetano Cummings Dx/Rx/DC Orders Clinical Impression: Near syncope, Abdominal pain, Headache, Gastroparesis Instructions: Gastroparesis, ED Near-Fainting, Uncertain Cause Prescriptions: No Action albuterol sulfate 2.5 MG/3 ML solution for nebulization 2.5 mg INHALATION Q4H PRN PRN (Reason: Wheezing) RF: 0 albuterol sulfate 1 INHALER inhaler 1 puff INHALATION Q6H PRN PRN (Reason: Wheezing) RF: 0 sucralfate 1 GM tablet 1 gm PO 4X/DAY RF: 0 glimepiride 4 MG tablet 4 mg PO DAILY RF: 0 Trulicity 0.75 mg/0.5 mL pen injector 1 SUBCUT RF: 0 ondansetron HCl [Zofran] 4 mg Tablet 4 mg PO Q6H PRN (Reason: Nausea) RF: 0 pantoprazole 40 mg tablet,delayed release (DR/EC) PO RF: 0 promethazine [Phenergan] 25 mg Tablet 25 mg PO Q6H PRN (Reason: Nausea) RF: 0 insulin lispro [Humalog KwikPen Insulin] 100 unit/mL insulin pen SUBCUT RF: 0 insulin lispro [Humalog KwikPen Insulin] 100 unit/mL insulin pen SUBCUT RF: 0 Motegrity 1 mg tablet RF: 0 Primary Care Provider: Chioma Weinstein Referrals: Chioma Weinstein PA [Primary Care Provider] - 04/17/21 Disposition Disposition: Home, Self Care
[2021-04-14 15:10] LABS: Absolute Lymphocyte Count 3.86 X10^3/uL (0.83-4.51); Absolute Neutrophil Count 5.8 X10^3/uL (2.0-7.7); Basophil# 0.03 X10^3/uL; Basophil% 0.3 % (0-1); Eosinophil# 0.23 X10^3/uL; Eosinophils% 2.1 % (0-5); Hematocrit 40.3 % (40-54); Hemoglobin 13.9 g/dL (13.0-16.5); Lymphocyte # 3.86 X10^3/ul (0.83-4.51); Lymphocyte % 35.8 % (19-41); Mean Corp Hgb Conc 34.5 g/dL (32-36); Mean Corpuscular Hgb 29.9 pg (27.0-32.0); Mean Corpuscular Volume 86.7 fL (80-94); Mean Platelet Vol. 10.3 fl (6.2-12.0); Monocyte# 0.84 X10^3/uL; Monocyte% 7.8 % (0-10); NRBC Flagged by Analyzer 0 % (0-5); Neutrophil # 5.79 X10^3/uL (2.7-7.7); Neutrophil % 53.6 % (47-70); POSITIVE COUNT YES; RBC Distribution Width CV 11.9 % (11.6-14.6); RBC Distribution Width SD 37.3 fl (35.1-43.9); Red Blood Count 4.65 M/mm3 (4.6-6.2); White Blood Count 10.8 K/mm3 (4.4-11.0)
[2021-04-14 15:21] VITALS: BP 119/79; BP 125/82; BP 131/86; PULSE 83; PULSE 92; PULSE 99
[2021-04-14 15:37] LABS: ALB/GLOB Ratio 0.7 RATIO (0.9-2.4); AST(SGOT) 35 U/L (15-37); Alanine Aminotransfer ALT/SGPT 34 U/L (16-61); Alkaline Phosphatase 89 U/L (45-117); Anion Gap 5 (5-15); BUN 11 mg/dL (7-18); BUN/Creat Ratio 14.4 RATIO (10-20); Calcium,Total 9.3 mg/dL (8.5-10.1); Chloride 100 mmol/L (98-107); Creatinine, Serum 0.77 mg/dL (0.70-1.30); EST Glomerular Filtration Rate 117 mL/min (>60); Est Glom Filt Rate - Afr Amer 141 mL/min (>60); Estimated Creatinine Clearance 109.33 ml/min; Globulin 4.4 g/dL (2.2-4.2); Glucose 192 mg/dL (74-106); Potassium 4.7 mmol/L (3.5-5.1); Protein, Total 7.4 g/dL (6.4-8.2); Sodium Level 133 mmol/L (136-145); Troponin-I HS 4 pg/mL (3.0-78.0)
[2021-04-14 15:39] LABS: Platelet Count 298 K/mm3 (150-450)
[2021-04-14 15:40] LABS: Differential Indicated SCAN CRITERIA MET
[2021-04-14 15:41] LABS: Platelet Estimate ADEQUATE (ADEQ); Red Cell Morphology NORM C+C NORMAL (NORM C&C)
[2021-04-14 16:06] LABS: Bacteria 0 SEEN /hpf (None Seen); Mucous, Urine 0 SEEN /hpf (<or=2+); Red Blood Cells-Urine 0 SEEN /hpf (0-5); Squamous Epithelial Cells - UA 0 SEEN /hpf (0-5); White Blood Cells 0 SEEN /hpf (0-5)
[2021-04-14 16:07] LABS: Color, Urine Yellow (Yellow); Glucose, Dipstick Normal (Normal); Ketone-Dipstick Negative (Negative); Leukocyte Esterase-Dipstick Negative /ul (Negative); Nitrite-Dipstick Negative (Negative); Occult Blood-Urine Negative /ul (Negative); Protein-Dipstick Negative (Negative); Specific Gravity, Urine 1.015 (1.002-1.030); Urine Bilirubin Dipstick Negative (Negative); Urine Clarity Clear (Clear); Urine Urobilinogen Normal (Normal)
[2021-04-14] MEDS: HYDROmorphone 1 MG/ML Syringe IV (16:29)
[2021-04-14 17:02] VITALS: BP 136/96; PULSE 90; RESP 14; O2SAT 95
== END 2021-04-14 17:52 | disposition home or self-care (01) ==
PROVIDERS: Emergency Provider Emergency Medicine; PCP Physician Assistant
DX: R55 Syncope and collapse (principal); R10.9 Unspecified abdominal pain; R51.9 Headache, unspecified; E11.43 Type 2 diabetes mellitus with diabetic autonomic (poly)neuropathy; K31.84 Gastroparesis; J45.909 Unspecified asthma, uncomplicated; Z79.4 Long term (current) use of insulin; Z79.899 Other long term (current) drug therapy
CPT/HCPCS: 70450; 80053; 81001; 82962; 84484; 85025; 93005; 96361; 96374; 99284; J7040; A4216

== ENCOUNTER 2021-04-17 19:14 | Emergency (ER) | payer OTHER, SELFPAY ==
[2021-04-17 19:14] VITALS: BP 118/88; PULSE 116; RESP 16; TEMP 37.2; O2SAT 97; BMI 39.4
[2021-04-17 20:33] LABS: Absolute Lymphocyte Count 4.53 X10^3/uL (0.83-4.51); Absolute Neutrophil Count 5.2 X10^3/uL (2.0-7.7); Basophil# 0.06 X10^3/uL; Basophil% 0.5 % (0-1); Eosinophil# 0.38 X10^3/uL; Eosinophils% 3.5 % (0-5); Hematocrit 45.6 % (40-54); Hemoglobin 15.4 g/dL (13.0-16.5); Lymphocyte # 4.53 X10^3/ul (0.83-4.51); Lymphocyte % 41.2 % (19-41); Mean Corp Hgb Conc 33.8 g/dL (32-36); Mean Corpuscular Hgb 29.8 pg (27.0-32.0); Mean Corpuscular Volume 88.2 fL (80-94); Mean Platelet Vol. 10.3 fl (6.2-12.0); Monocyte# 0.82 X10^3/uL; Monocyte% 7.5 % (0-10); NRBC Flagged by Analyzer 0 % (0-5); Neutrophil # 5.17 X10^3/uL (2.7-7.7); Platelet Count 431 K/mm3 (150-450); RBC Distribution Width CV 12.1 % (11.6-14.6); RBC Distribution Width SD 39.2 fl (35.1-43.9); Red Blood Count 5.17 M/mm3 (4.6-6.2)
[2021-04-17] MEDS: Ondansetron 4 MG/2 ML Vial IV (20:38)
[2021-04-17] MEDS: 0.9% Normal Saline 1,000 ML 999 ML IV (20:38)
[2021-04-17] MEDS: HYDROmorphone 1 MG/ML Syringe IV ×2 (20:39→21:56)
[2021-04-17 20:45] LABS: ALB/GLOB Ratio 0.7 RATIO (0.9-2.4); AST(SGOT) 35 U/L (15-37); Alanine Aminotransfer ALT/SGPT 44 U/L (16-61); Albumin, Serum 3.5 g/dL (3.2-5.0); Alkaline Phosphatase 92 U/L (45-117); Anion Gap 6 (5-15); BUN 10 mg/dL (7-18); Calcium,Total 9.5 mg/dL (8.5-10.1); Chloride 100 mmol/L (98-107); Creatinine, Serum 0.91 mg/dL (0.70-1.30); EST Glomerular Filtration Rate 96 mL/min (>60); Est Glom Filt Rate - Afr Amer 116 mL/min (>60); Estimated Creatinine Clearance 92.51 ml/min; Globulin 4.9 g/dL (2.2-4.2); Glucose 156 mg/dL (74-106); Lipase 144 U/L (73-393); Potassium 4.6 mmol/L (3.5-5.1); Protein, Total 8.4 g/dL (6.4-8.2); Sodium Level 131 mmol/L (136-145)
--- NOTE | 2021-04-17 20:50 | CT_ITS ---
STUDY: CT ABDOMEN AND PELVIS WITH CONTRAST REASON FOR EXAM: Male, 45 years old. Abdominal pain. RADIATION DOSAGE (If Supplied By Facility): CTDIvol = ( 26.87 ) mGy, DLP = ( 1440.57 ) mGycm TECHNIQUE: Transaxial images were obtained from the dome of the diaphragm to the symphysis pubis without oral contrast. 100 mL of ISOVUE-300 was administered. Sagittal and coronal images were reconstructed. Individualized dose optimization techniques were used for this CT. COMPARISON: 09/04/2020. FINDINGS: The visualized lung bases are unremarkable. The visualized portions of the heart are within normal limits. Normal liver. Normal gallbladder and extrahepatic biliary system. Normal spleen. Normal pancreas. Normal bilateral adrenal glands. Normal right kidney. Normal left kidney. Normal visualized stomach. Normal small intestine. Normal colon. The appendix is visualized and appears normal. Normal abdominal aorta. Normal inferior vena cava. Normal retroperitoneum. Normal urinary bladder. Normal prostate. Phleboliths in the pelvis without lymphadenopathy. No free air or free fluid is seen within the peritoneal cavity. Normal abdominal wall. Normal osseous structures. CT/Abdomen/Pelvis W IV Cont ONLY IMPRESSION: Normal enhanced CT of the abdomen and pelvis. Electronically Signed: Ricky Wild DO at 21:10 EST Tel [phone], Service support ,
--- NOTE | 2021-04-17 21:44 | EDS_ITS ---
HPI HPI - GI History of Present Illness Chief Complaint: Abd Pain Narrative Narrative: 45-year-old male with history of gastroparesis presenting with abdominal pain nausea and vomiting. He states has been here twice already this week and had blood work done. Patient states he has seen his surgeon at the [facility] and states he is supposed to have a procedure to help him with her gastroparesis but has not told mid May. Patient is not had any fever or chills. He denies black or bloody stool or emesis. [facility] Medical History Asthma Diabetes type 2, controlled Home Medications albuterol sulfate 1 puff INHALATION Q6H PRN PRN 08/22/20 [History Last Taken Unknown] albuterol sulfate 2.5 mg INHALATION Q4H PRN PRN 08/22/20 [History Last Taken Unknown] glimepiride 4 mg PO DAILY 09/10/20 [History Last Taken Unknown] sucralfate 1 gm PO 4X/DAY 09/10/20 [History Last Taken Unknown] dulaglutide [Trulicity] 1 SUBCUT Q7D 03/10/21 [History Last Taken Unknown] insulin lispro [Humalog KwikPen Insulin] SUBCUT 04/14/21 [History Last Taken Unknown] insulin lispro [Humalog KwikPen Insulin] SUBCUT 04/14/21 [History Last Taken Unknown] ondansetron HCl [Zofran] 4 mg PO Q6H PRN 04/14/21 [History Last Taken Unknown] pantoprazole 40 mg PO DAILY 04/14/21 [History Last Taken Unknown] promethazine [Phenergan] 25 mg PO Q6H PRN 04/14/21 [History Last Taken Unknown] prucalopride [Motegrity] mg 04/14/21 [History Last Taken Unknown] Allergy/AdvReac Type Severity Reaction Status Date / Time haloperidol [From Haldol] AdvReac Other Verified 04/17/21 19:16 metoclopramide HCl AdvReac GO CRAZY Verified 04/17/21 19:16 [From Reglan] Surgical History History of hernia surgery History of tonsillectomy Social History Smoking Status: Never smoker substance use type: does not use ROS ROS ED Constitutional Constitutional ED: Denies fever(s) or subjective ENT ENT ED: Denies rhinorrhea or sore throat Cardiovascular Cardiovascular: Denies chest pain or palpitations Respiratory/Chest Respiratory/Chest: Denies cough or dyspnea Gastrointestinal Gastrointestinal: Reports abdominal pain, nausea and vomiting Genitourinary Genitourinary ED: Denies dysuria or hematuria Musculoskeletal Musculoskeletal: Denies arthralgias or myalgias Integumentary Denies abscess or rash Neurologic Neurologic: Denies headache(s) or weakness EXAM Physical Exam Const Vital Signs: 04/17/21 19:14 04/17/21 21:59 Temperature 98.9 F Temperature Source Temporal Pulse Rate 116 H Respiratory Rate 16 16 Blood Pressure 118/88 H Blood Pressure Mean 98 Pulse Ox 97 Oxygen Delivery Method Room Air Positive well nourished General Appearance ED: NAD; Negative for pallor HEENT normocephalic and atraumatic Eyes PERRL and EOMs intact bilaterally Resp normal respiratory effort and clear to auscultation bilaterally Cardio regular rate and regular rhythm GI non-distended GI Narrative: Generalized mild tenderness Palpation: soft Back/Spine no CVA tenderness Neuro Sensorium / Orientation: alert, oriented to person, oriented to place and oriented to time Psych mental status grossly normal and thought process normal Skin General Skin Exam: Negative for jaundice or pallor MDM MDM MDM Narrative Medical decision making narrative: Patient with gastroparesis. With abdominal pain. He is given Dilaudid and Zofran as well as IV fluids. I did obtain a blood work-up which is ultimately normal. His CBC, CMP, lipase are all within normal limits with exception of his glucose which is 156 without an anion gap. I did obtain a CT of the abdomen pelvis because this is the patient's third visit this week and this is normal. Patient will be given a second dose of Dilaudid. I did have a long discussion with him about his gastroparesis and his need to follow-up with his surgeon in [facility] if he is having these continued episodes of pain and nausea and vomiting. He acknowledged understanding. Impression: 1. Diabetic gastroparesis Lab Data Attestation: I reviewed the patient's lab results. Labs: Laboratory Results - last 24 hr 04/17/21 04/17/21 19:44 19:44 WBC 11.0 RBC 5.17 Hgb 15.4 Hct 45.6 MCV 88.2 MCH 29.8 MCHC 33.8 RDW Std Deviation 39.2 RDW Coeff of Jeremiah 12.1 Plt Count 431 MPV 10.3 Immature Gran % (Auto) 0.300 Neut % (Auto) 47.0 Lymph % (Auto) 41.2 [place] % (Auto) 7.5 Eos % (Auto) 3.5 Baso % (Auto) 0.5 Absolute Neuts (auto) 5.2 Absolute Lymphs (auto) 4.53 H Nucleated RBC % 0 Sodium 131 L Potassium 4.6 Chloride 100 Carbon Dioxide 25.0 Anion Gap 6 BUN 10 Creatinine 0.91 Estim Creat Clear Calc 92.51 Est GFR (MDRD) Af Amer 116 Est GFR (MDRD) Non-Af 96 BUN/Creatinine Ratio 11.0 Glucose 156 H Calcium 9.5 Total Bilirubin 0.50 AST 35 ALT 44 Alkaline Phosphatase 92 Total Protein 8.4 H Albumin 3.5 Globulin 4.9 H Albumin/Globulin Ratio 0.7 L Lipase 144 Radiography Diagnostic Testing: Clinical Impression(s) from Imaging Studies Abdomen/Pelvis CT 04/17/21 20:50 IMPRESSION: Normal enhanced CT of the abdomen and pelvis. Electronically Signed: Ricky Wild DO at 21:10 EST Tel [phone], Service support , Discharge Plan Triage Chief Complaint: Abd Pain ED Provider: Cayden Sommers Dx/Rx/DC Orders Instructions: ED Diabetic Gastroparesis Prescriptions: No Action albuterol sulfate 2.5 MG/3 ML solution for nebulization 2.5 mg INHALATION Q4H PRN PRN (Reason: Wheezing) RF: 0 albuterol sulfate 1 INHALER inhaler 1 puff INHALATION Q6H PRN PRN (Reason: Wheezing) RF: 0 sucralfate 1 GM tablet 1 gm PO 4X/DAY RF: 0 glimepiride 4 MG tablet 4 mg PO DAILY RF: 0 Trulicity 0.75 mg/0.5 mL pen injector 1 SUBCUT Q7D RF: 0 ondansetron HCl [Zofran] 4 mg Tablet 4 mg PO Q6H PRN (Reason: Nausea) RF: 0 pantoprazole 40 mg tablet,delayed release (DR/EC) 40 mg PO DAILY RF: 0 promethazine [Phenergan] 25 mg Tablet 25 mg PO Q6H PRN (Reason: Nausea) RF: 0 insulin lispro [Humalog KwikPen Insulin] 100 unit/mL insulin pen SUBCUT RF: 0 insulin lispro [Humalog KwikPen Insulin] 100 unit/mL insulin pen SUBCUT RF: 0 Motegrity 1 mg tablet RF: 0 Primary Care Provider: Chioma Weinstein Referrals: Chioma Weinstein, PA [Primary Care Provider] - Disposition Disposition: Home, Self Care
[2021-04-17 21:59] VITALS: RESP 16
[2021-04-17 22:40] VITALS: BP 114/60; PULSE 98; RESP 18; O2SAT 98
== END 2021-04-18 00:21 | disposition home or self-care (01) ==
PROVIDERS: Emergency Provider Student in an Organized Health Care Education/Training Program; PCP Physician Assistant
DX: E11.43 Type 2 diabetes mellitus with diabetic autonomic (poly)neuropathy (principal); K31.84 Gastroparesis; J45.909 Unspecified asthma, uncomplicated; Z79.4 Long term (current) use of insulin
CPT/HCPCS: 74177; 80053; 83690; 85025; 96361; 96374; 96375; 99285; J7030; Q9967; A4216; J2405

== ENCOUNTER 2021-05-10 01:35 | Emergency (ER) | payer OTHER, SELFPAY ==
[2021-05-10 01:36] VITALS: BP 126/82; PULSE 100; RESP 18; TEMP 36.6; O2SAT 100; BMI 38.7
[2021-05-10] MEDS: 0.9% Normal Saline 1,000 ML 999 ML IV (02:17)
[2021-05-10] MEDS: Ondansetron 4 MG/2 ML Vial IV (02:17)
[2021-05-10] MEDS: HYDROmorphone 1 MG/ML Syringe IV ×2 (02:18→03:14)
--- NOTE | 2021-05-10 04:23 | EDS_ITS ---
HPI History of Present Illness Chief Complaint: Abd Pain Narrative Narrative: Patient is a 45-year-old male with past medical history of gastroparesis. He states he is scheduled to undergo surgery for this in approximately 2 weeks. He states occasionally his gastroparesis will flareup and lead to intractable abdominal pain and bouts of vomiting. Patient reports he is having a flareup at this time. He states that when this happens he needs IV medication of fluid to help break the symptoms and therefore comes in for evaluation [facility] Medical History (Updated 05/10/21 @ 04:[address] Reji Alonzo DO) Asthma Diabetes type 2, controlled Gastroparesis Home Medications albuterol sulfate 1 puff INHALATION Q6H PRN PRN 08/22/20 [History Last Taken U nknown] albuterol sulfate 2.5 mg INHALATION Q4H PRN PRN 08/22/20 [History Last Taken Unknown] glimepiride 4 mg PO DAILY 09/10/20 [History Last Taken Unknown] sucralfate 1 gm PO 4X/DAY 09/10/20 [History Last Taken Unknown] dulaglutide [Trulicity] 1 SUBCUT Q7D 03/10/21 [History Last Taken Unknown] insulin lispro [Humalog KwikPen Insulin] SUBCUT 04/14/21 [History Last Taken Unknown] insulin lispro [Humalog KwikPen Insulin] SUBCUT 04/14/21 [History Last Taken Unknown] pantoprazole 40 mg PO DAILY 04/14/21 [History Last Taken Unknown] prucalopride [Motegrity] 1 mg PO 04/14/21 [History Last Taken Unknown] Allergy/AdvReac Type Severity Reaction Status Date / Time haloperidol [From Haldol] AdvReac Other Verified 05/10/21 01:39 metoclopramide HCl AdvReac GO CRAZY Verified 05/10/21 01:39 [From Reglan] Surgical History History of hernia surgery History of tonsillectomy Social History Smoking Status: Never smoker substance use type: does not use ROS ROS ED Constitutional Constitutional ED: Denies chills or fever(s) ENT ENT ED: Denies sore throat Cardiovascular Cardiovascular: Denies chest pain Respiratory/Chest Respiratory/Chest: Denies cough or dyspnea Gastrointestinal Gastrointestinal: Reports abdominal pain, nausea and vomiting; Denies diarrhea Genitourinary Genitourinary ED: Denies dysuria Musculoskeletal Musculoskeletal: Denies myalgias Integumentary Denies rash Neurologic Neurologic: Denies headache(s) EXAM Physical Exam Const Vital Signs: 05/10/21 01:36 05/10/21 04:37 Temperature 97.9 F Temperature Source Oral Pulse Rate 100 101 H Respiratory Rate 18 18 Blood Pressure 126/82 H 130/78 H Blood Pressure Mean 96 Pulse Ox 100 99 Oxygen Delivery Method Room Air Positive well nourished, well developed and obese General Appearance ED: well developed Nutritional Appearance: obese HEENT Reports dry mucous membranes Mouth ED: Yes dry mucous membranes Mouth: dry mucous membranes Eyes PERRL and EOMs intact bilaterally Neck supple Resp normal respiratory effort and clear to auscultation bilaterally Cardio regular rate and regular rhythm Rate: other Other Details: Radial pulses are plus 2 out of 4 bilaterally are equal and symmetric GI GI Narrative: Abdomen is obese and soft but slightly distended with diffuse pain on palpation but no voluntary guarding or rigidity no pulsatile mass Palpation: soft Extremity normal to inspection Neuro oriented x3 and CN's II-XII intact bilaterally Sensorium / Orientation: alert Motor Exam: strength 5/5 throughout Psych mental status grossly normal Skin no rashes or lesions noted MDM MDM MDM Narrative Medical decision making narrative: Patient presented to the ER afebrile and reported a chronic issue. He states he is had bouts of his gastroparesis flare multiple times and this feels very similar to the previous events. We discussed possible blood work as well as imaging studies but as patient feels this is related to his gastroparesis flare he did not want those obtained. Therefore patient was given IV hydration and pain control and on reevaluation reported feeling better. At this time as his symptoms have resolved and patient remains in no acute distress he can be discharged and follow-up as needed Discharge Plan Triage Chief Complaint: Abd Pain ED Provider: Reji Alonzo Dx/Rx/DC Orders Clinical Impression: Gastroparesis Instructions: Gastroparesis Prescriptions: No Action albuterol sulfate 2.5 MG/3 ML solution for nebulization 2.5 mg INHALATION Q4H PRN PRN (Reason: Wheezing) RF: 0 albuterol sulfate 1 INHALER inhaler 1 puff INHALATION Q6H PRN PRN (Reason: Wheezing) RF: 0 sucralfate 1 GM tablet 1 gm PO 4X/DAY RF: 0 glimepiride 4 MG tablet 4 mg PO DAILY RF: 0 Trulicity 0.75 mg/0.5 mL pen injector 1 SUBCUT Q7D RF: 0 pantoprazole 40 mg tablet,delayed release (DR/EC) 40 mg PO DAILY RF: 0 insulin lispro [Humalog KwikPen Insulin] 100 unit/mL insulin pen SUBCUT RF: 0 insulin lispro [Humalog KwikPen Insulin] 100 unit/mL insulin pen SUBCUT RF: 0 Motegrity 1 mg tablet 1 mg PO RF: 0 Primary Care Provider: Chioma Weinstein Referrals: Chioma Weinstein, PA [Primary Care Provider] - Disposition Disposition: Home, Self Care Discharge Date/Time: 05/10/21 04:39
[2021-05-10 04:37] VITALS: BP 130/78; PULSE 101; RESP 18; O2SAT 99
== END 2021-05-10 04:39 | disposition home or self-care (01) ==
PROVIDERS: Emergency Provider Emergency Medicine; PCP Physician Assistant
DX: E11.43 Type 2 diabetes mellitus with diabetic autonomic (poly)neuropathy (principal); K31.84 Gastroparesis; J45.909 Unspecified asthma, uncomplicated; Z79.4 Long term (current) use of insulin; E66.9 Obesity, unspecified; Z68.38 Body mass index [BMI] 38.0-38.9, adult
CPT/HCPCS: 80053; 96361; 96374; 96375; 99283; J7030; A4216; J2405

== ENCOUNTER 2021-05-10 18:16 | Emergency (ER) | payer OTHER, SELFPAY ==
[2021-05-10 18:17] VITALS: BP 147/87; PULSE 108; RESP 20; TEMP 36.6; O2SAT 100; BMI 38.7
--- NOTE | 2021-05-10 18:35 | ED.VIS.GI ---
HPI HPI - GI History of Present Illness Chief Complaint: Nausea/Vomiting Informant: patient Abdominal Pain/Flank Pain Onset: Hours Context: Sudden Onset Timing: Intermittent and Waxes and wanes Quality: Burning Location: Epigastric Current Severity: Mild Maximum Severity: Severe Worsened by: Nothing Relieved by: Nothing Nausea/Vomiting/Emesis GI Symptom: Positive for Nausea and Vomiting Onset: Hours Quality: Positive for - (Patient states his emesis was dark. He did not describe blood or coffee-ground emesis); Negative for Nonbilious, Blood streaks, Coffee ground and Hematemesis Severity: Severe Diarrhea/Melena/Hematochezia GI Symptom: Negative for Diarrhea, Melena and Hematochezia Associated Symptoms Associated Symptoms: Negative for Dysuria, Frequency and Hematuria Narrative Narrative: Patient is a middle-age male with gastric paresis who presents with nausea and vomiting that started at 3 PM. He states he is allergic to Reglan. He is scheduled for surgery for the gastroparesis. He denies fever, chills or night sweats. He denies headache. He denies double vision, blurred vision or loss of vision. Denies ringing in his ears or decreased hearing. He denies sore throat. Denies change in voice. He denies chest pain of any type. No PND. He does report epigastric pain. He feels bloated and distended. He is status post right and left herniorrhaphy. He states his urine output is decreased. He forced himself to have a bowel movement. Passed gas he states in 24 hours. Prior similar symptoms: Yes Recent Illness/Hospitalization: No PFSH PFSH Medical History Asthma Diabetes type 2, controlled Gastroparesis Home Medications albuterol sulfate 1 puff INHALATION Q6H PRN PRN 08/22/20 [History Last Taken Unknown] albuterol sulfate 2.5 mg INHALATION Q4H PRN PRN 08/22/20 [History Last Taken Unknown] glimepiride 4 mg PO DAILY 09/10/20 [History Last Taken Unknown] sucralfate 1 gm PO 4X/DAY 09/10/20 [History Last Taken Unknown] dulaglutide [Trulicity] 1 SUBCUT Q7D 03/10/21 [History Last Taken Unknown] insulin lispro [Humalog KwikPen Insulin] SUBCUT 04/14/21 [History Last Taken Unknown] insulin lispro [Humalog KwikPen Insulin] SUBCUT 04/14/21 [History Last Taken Unknown] pantoprazole 40 mg PO DAILY 04/14/21 [History Last Taken Unknown] prucalopride [Motegrity] 1 mg PO 04/14/21 [History Last Taken Unknown] ondansetron 4 mg PO Q8H PRN PRN #10 tab 05/10/21 [Rx Last Taken Unknown] Allergy/AdvReac Type Severity Reaction Status Date / Time haloperidol [From Haldol] AdvReac Other Verified 05/10/21 18:17 metoclopramide HCl AdvReac GO CRAZY Verified 05/10/21 18:17 [From Reglan] Surgical History History of hernia surgery History of tonsillectomy Social History (Updated 05/10/21 @ 18:[address] Clifford Howell MD) household members: spouse Smoking Status: Never smoker substance use type: does not use ROS ROS ED Constitutional Constitutional ED: Denies chills, fever(s), subjective, sweats or weight loss ENT ENT ED: Denies ear pain, rhinorrhea or sore throat Cardiovascular Cardiovascular: Denies chest pain, orthopnea, palpitations, paroxysmal nocturnal dyspnea or racing heartbeat Respiratory/Chest Respiratory/Chest: Denies cough, dyspnea, dyspnea on exertion, orthopnea or paroxysmal nocturnal dyspnea Gastrointestinal Gastrointestinal: Reports abdominal pain, nausea and vomiting; Denies constipation, diarrhea or melena Genitourinary Genitourinary ED: Denies dysuria, hematuria or urinary frequency Musculoskeletal Musculoskeletal: Denies arthralgias, back pain, myalgias or neck pain Integumentary Denies rash Neurologic Neurologic: Reports weakness; Denies headache(s) or paresthesias Endocrine Endocrinology: Denies polydipsia, polyphagia or polyuria Hematologic/Lymphatic Hematologic/Lymphatic: Denies easy bleeding or easy bruising EXAM Physical Exam Const Vital Signs: 05/10/21 18:17 05/10/21 20:42 Temperature 97.9 F Temperature Source Temporal Pulse Rate 108 H Respiratory Rate 20 H Blood Pressure 147/87 H Blood Pressure Mean 107 Pulse Ox 100 96 Oxygen Delivery Method Room Air Room Air Positive well nourished General Appearance ED: NAD; Negative for pallor HEENT Reports TM's clear and dry mucous membranes HEENT Narrative: Uvula is midline. There is no erythema or exudate of the posterior pharynx. normocephalic and atraumatic Tympanic Membrane ED: Yes TM's clear Mouth ED: Yes dry mucous membranes Mouth: dry mucous membranes Eyes PERRL and EOMs intact bilaterally General Eye ED: Negative for pale conjunctiva or scleral icterus Neck no lymphadenopathy, supple and no JVD General: Negative for tenderness Resp normal respiratory effort and clear to auscultation bilaterally GI non-distended and no masses; Negative for non-tender Inspection: Negative for abdominal distention Auscultation: hypoactive bowel sounds; Negative for normoactive bowel sounds Palpation: soft and tender; Negative for guarding, rigid, hepatomegaly, splenomegaly, mass, pulsatile mass or rebound tenderness present Back/Spine no CVA tenderness Thoracic Spine / Upper Back: Negative for thoracic spinal tenderness Lumbar Spine / Lower Back: Negative for lumbar spinal tenderness Extremity full ROM General Extremety ED: Negative for edema or tenderness General Extremity: Negative for edema Neuro Sensorium / Orientation: oriented to person Motor Exam: strength 5/5 throughout Psych mental status grossly normal and thought process normal Skin no wounds General Skin Exam: Negative for jaundice or pallor Lesions: no lesions Rashes: no rashes MDM MDM MDM Narrative Medical decision making narrative: With history of gastroparesis diabetes, type II requiring insulin, and clinically dehydrated will obtain basic metabolic panel to assess glucose, anion gap, renal function. 1 L of normal saline was ordered. Since he is allergic to Reglan Zofran was ordered. Since clinically he does not have a bowel obstruction has never had a bowel obstruction in the past imaging was not ordered. Lab Data Attestation: I reviewed the patient's lab results. Lab results narrative: Electrolytes unremarkable. Blood sugar is 160 with a normal CO2 and anion gap. Labs: Laboratory Results - last 24 hr 05/10/21 18:45 Sodium 137 Potassium 4.1 Chloride 101 Carbon Dioxide 28.0 Anion Gap 8 BUN 9 Creatinine 0.78 Estim Creat Clear Calc 107.92 Est GFR (MDRD) Af Amer 138 Est GFR (MDRD) Non-Af 114 BUN/Creatinine Ratio 11.6 Glucose 160 H Calcium 9.6 Total Bilirubin 0.70 AST 24 ALT 47 Alkaline Phosphatase 97 Total Protein 8.0 Albumin 3.7 Globulin 4.3 H Albumin/Globulin Ratio 0.9 Treatment and Re-Evaluation Comments:: Patient passed p.o. challenge. Patient be discharged home. Patient asked nurse if he would get Dilaudid. No comment was made. Discharge Plan Triage Chief Complaint: Nausea/Vomiting ED Provider: Clifford Howell Dx/Rx/DC Orders Clinical Impression: Vomiting, Abdominal pain, Diabetes mellitus with gastroparesis Instructions: ED Diabetic Gastroparesis Prescriptions: New ondansetron [ondansetron] 4 MG tablet 4 mg PO Q8H PRN PRN (Reason: Nausea) Qty: 10 RF: 0 No Action albuterol sulfate 2.5 MG/3 ML solution for nebulization 2.5 mg INHALATION Q4H PRN PRN (Reason: Wheezing) RF: 0 albuterol sulfate 1 INHALER inhaler 1 puff INHALATION Q6H PRN PRN (Reason: Wheezing) RF: 0 sucralfate 1 GM tablet 1 gm PO 4X/DAY RF: 0 glimepiride 4 MG tablet 4 mg PO DAILY RF: 0 Trulicity 0.75 mg/0.5 mL pen injector 1 SUBCUT Q7D RF: 0 pantoprazole 40 mg tablet,delayed release (DR/EC) 40 mg PO DAILY RF: 0 insulin lispro [Humalog KwikPen Insulin] 100 unit/mL insulin pen SUBCUT RF: 0 insulin lispro [Humalog KwikPen Insulin] 100 unit/mL insulin pen SUBCUT RF: 0 Motegrity 1 mg tablet 1 mg PO RF: 0 Primary Care Provider: Chioma Weinstein Referrals: Chioma Weinstein PA [Primary Care Provider] - 3-5 Days if not improving Disposition Disposition: Home, Self Care
[2021-05-10] MEDS: Ondansetron 4 MG/2 ML Vial IV (18:43)
[2021-05-10] MEDS: 0.9% Normal Saline 1,000 ML 1000 ML IV (18:43)
[2021-05-10 19:07] LABS: ALB/GLOB Ratio 0.9 RATIO (0.9-2.4); AST(SGOT) 24 U/L (15-37); Alanine Aminotransfer ALT/SGPT 47 U/L (16-61); Albumin, Serum 3.7 g/dL (3.2-5.0); Alkaline Phosphatase 97 U/L (45-117); Anion Gap 8 (5-15); BUN 9 mg/dL (7-18); BUN/Creat Ratio 11.6 RATIO (10-20); Calcium,Total 9.6 mg/dL (8.5-10.1); Chloride 101 mmol/L (98-107); Creatinine, Serum 0.78 mg/dL (0.70-1.30); EST Glomerular Filtration Rate 114 mL/min (>60); Est Glom Filt Rate - Afr Amer 138 mL/min (>60); Estimated Creatinine Clearance 107.92 ml/min; Globulin 4.3 g/dL (2.2-4.2); Glucose 160 mg/dL (74-106); Potassium 4.1 mmol/L (3.5-5.1); Sodium Level 137 mmol/L (136-145)
[2021-05-10 20:42] VITALS: O2SAT 96
[2021-05-10 21:03] VITALS: PULSE 68; O2SAT 96
== END 2021-05-10 21:04 | disposition home or self-care (01) ==
PROVIDERS: Emergency Provider Emergency Medicine; PCP Physician Assistant
DX: R11.2 Nausea with vomiting, unspecified (principal); R10.9 Unspecified abdominal pain; E11.43 Type 2 diabetes mellitus with diabetic autonomic (poly)neuropathy; K31.84 Gastroparesis; J45.909 Unspecified asthma, uncomplicated; Z79.4 Long term (current) use of insulin; Z79.899 Other long term (current) drug therapy
CPT/HCPCS: 80048; 80053; 96361; 96374; 99283; A4216; J2405

== ENCOUNTER 2022-02-18 16:00 | Emergency (ER) | payer OTHER, MEDICAID, SELFPAY ==
[2022-02-18 16:01] VITALS: BP 152/92; PULSE 94; RESP 18; TEMP 36.6; O2SAT 98; BMI 39.5
--- NOTE | 2022-02-18 16:48 | ED.VIS.BACK ---
HPI History of Present Illness Chief Complaint: Back Informant: patient Onset/Context/Timing Onset: Days (5) Context: Gradual Onset Timing: Continuous Quality: Sharp and Throbbing Location: Lumbar Worsened by: improves with Movement and Bending Relieved by: Nothing Associated Symptoms Associated Symptoms: Abdominal Pain and Urinary Retention; Negative for Numbness, Tingling, Radiation to Right Leg, Radiation to Left Leg, Fever, Dysuria, Unable to Ambulate, Unable to Transfer, Urinary Incontinence, Constipation or Fecal Incontinence Narrative Narrative: Patient presents with back pain that has been constant for the past 5 days. Patient states it is gradually gotten worse. Patient states that his sharp and throbbing. Patient states it is over the left lower lumbar area. Patient states that radiates into his left lower abdomen. Patient states it is worse with movement and with bending. Patient denies any radiation to his lower extremities. Patient denies any fevers or chills. Patient states he feels as though he cannot completely empty his bladder when he urinates but denies any incontinence. Patient denies any stool incontinence. [facility], [facility] Medical History Asthma Diabetes type 2, controlled Gastroparesis Home Medications albuterol sulfate 2.5 mg/3 mL (0.083 %) solution for nebulization 2.5 mg inhalation Q4H PRN PRN Wheezing 08/22/20 [History Last Taken Unknown] albuterol sulfate 90 mcg/actuation aerosol inhaler 1 puff inhalation Q6H PRN PRN Wheezing 08/22/20 [History Last Taken Unknown] sucralfate 1 gram tablet 1 gm PO 4X/DAY 09/10/20 [History Last Taken Unknown] dulaglutide 0.75 mg/0.5 mL subcutaneous pen injector (Trulicity) 1 subcut Q7D 03/10/21 [History Last Taken Unknown] insulin lispro 100 unit/mL subcutaneous pen (Humalog KwikPen (U-100) Insulin) subcut 04/14/21 [History Last Taken Unknown] insulin lispro 100 unit/mL subcutaneous pen (Humalog KwikPen (U-100) Insulin) subcut 04/14/21 [History Last Taken Unknown] pantoprazole 40 mg tablet,delayed release 40 mg PO DAILY 04/14/21 [History Last Taken Unknown] prucalopride 1 mg tablet (Motegrity) 1 mg PO 04/14/21 [History Last Taken Unknown] ondansetron 4 mg disintegrating tablet 4 mg PO Q8H PRN PRN Nausea #10 tabs 05/10/21 [Rx Last Taken Unknown] hydrocodone-acetaminophen 5-325mg 5mg-325mg 1 tab PO Q6H PRN PRN Pain 3 days #10 TABLETS 02/18/22 [Rx Last Taken Unknown] Allergy/AdvReac Type Severity Reaction Status Date / Time haloperidol [From Haldol] AdvReac Other Verified 02/18/22 16:02 metoclopramide HCl AdvReac GO CRAZY Verified 02/18/22 16:02 [From Reglan] Surgical History History of hernia surgery History of tonsillectomy Social History household members: spouse Smoking Status: Never smoker substance use type: does not use ROS ROS ED Constitutional Constitutional ED: Denies chills or fever(s) Eyes Eyes: Reports blurry vision; Denies diplopia ENT ENT ED: Denies rhinorrhea or sore throat Cardiovascular Cardiovascular: Denies chest pain or palpitations Respiratory/Chest Respiratory/Chest: Denies cough or dyspnea Gastrointestinal Gastrointestinal: Reports nausea and vomiting Genitourinary Genitourinary ED: Reports urinary frequency; Denies dysuria or hematuria Musculoskeletal Musculoskeletal: Reports back pain; Denies neck pain Integumentary Reports rash; Denies abscess Neurologic Neurologic: Denies headache(s) or weakness Allergic/Immunologic Allergic/Immunologic ED: Denies mouth swelling or urticaria EXAM Physical Exam Const Vital Signs: 02/18/22 16:01 02/18/22 18:49 Temperature 97.8 F Temperature Source Temporal Pulse Rate 94 92 Respiratory Rate 18 16 Blood Pressure 152/92 H 141/87 H Blood Pressure Mean 112 105 Pulse Ox 98 97 Oxygen Delivery Method Room Air Room Air Positive well nourished, well developed and obese General Appearance ED: well developed and NAD Nutritional Appearance: obese HEENT Reports moist mucous membranes Neck supple and no JVD Resp normal respiratory effort and clear to auscultation bilaterally Cardio regular rate and regular rhythm GI soft to palpation and non-distended Palpation: tender LLQ; Negative for guarding or rebound tenderness present Back/Spine Back/Spine Narrative: There is mild tenderness in spasm over the left lumbar paraspinal muscles. There is no midline tenderness. There is no bony crepitance or step-off. Range of motion was slightly limited in all motions of the lumbar spine secondary to pain. Lumbar Spine / Lower Back: ROM limited and straight leg raise negative bilaterally Neuro oriented x3 and no sensory deficits noted Sensorium / Orientation: alert Motor Exam: strength 5/5 throughout Psych mental status grossly normal MDM MDM MDM Narrative Medical decision making narrative: Patient was given IV fluids, morphine, and Zofran. CBC was within normal limits. Comprehensive metabolic profile was within normal limits. Urinalysis does not show any evidence of urinary tract infection or hematuria. CT scan of the abdomen pelvis was obtained. There is no acute process noted. This was interpreted by the radiologist and reviewed by myself. Patient had no improvement after the morphine. Patient was given a dose of Dilaudid here. Patient was given a prescription for a short course of [place]. Patient was instructed to follow-up with his primary care physician in 3 to 5 days. Patient understood and was agreeable with the plan. All questions were answered. Lab Data Attestation: I reviewed the patient's lab results. Labs: Laboratory Results - last 24 hr 02/18/22 02/18/22 02/18/22 17:15 17:15 17:15 WBC 9.9 RBC 4.89 Hgb 15.1 Hct 44.4 MCV 90.8 MCH 30.9 MCHC 34.0 RDW Std Deviation 39.1 RDW Coeff of Jeremiah 11.8 Plt Count 356 MPV 9.7 Immature Gran % (Auto) 0.200 Neut % (Auto) 46.2 L Lymph % (Auto) 40.8 [place] % (Auto) 10.6 H Eos % (Auto) 1.8 Baso % (Auto) 0.4 Absolute Neuts (auto) 4.6 Absolute Lymphs (auto) 4.05 Nucleated RBC % 0 Sodium 140 Potassium 4.3 Chloride 106 Carbon Dioxide 27.0 Anion Gap 7 BUN 14 Creatinine 0.86 Estim Creat Clear Calc 96.85 Est GFR (MDRD) Af Amer 122 Est GFR (MDRD) Non-Af 101 BUN/Creatinine Ratio 16.2 Glucose 172 H Calcium 9.1 Total Bilirubin 0.40 AST 16 ALT 30 Alkaline Phosphatase 94 Total Protein 7.4 Albumin 3.4 Globulin 4.0 Albumin/Globulin Ratio 0.8 L Urine Color Straw Urine Clarity Clear Urine pH 6.0 Ur Specific [place] 1.015 Urine Protein Negative Urine Glucose (UA) 100 H Urine Ketones Negative Urine Occult Blood Negative Urine Nitrite Negative Urine Bilirubin Negative Urine Urobilinogen Normal Ur Leukocyte Esterase Negative Urine RBC 0 SEEN Urine WBC 0 SEEN Ur Squamous Epith Cells 0 SEEN Urine Bacteria RARE Urine Mucus 0 SEEN Radiography Diagnostic Testing: Clinical Impression(s) from Imaging Studies Abdomen/Pelvis CT 02/18/22 16:53 IMPRESSION: No renal or ureteral stone. Electronically Signed: Jose Rowland MD at 17:46 EDT , Discharge Plan Triage Chief Complaint: Back ED Provider: Vishal Booth Dx/Rx/DC Orders Clinical Impression: Acute low back pain, Abdominal pain Instructions: ED Back Pain (Acute or Chronic) Prescriptions: New hydrocodone-acetaminophen [hydrocodone-acetaminophen] 5-325 mg tablet 1 tab PO Q6H PRN PRN (Reason: Pain) 3 Days Qty: 10 0RF No Action albuterol sulfate 2.5 MG/3 ML solution for nebulization 2.5 mg INHALATION Q4H PRN PRN (Reason: Wheezing) albuterol sulfate 1 INHALER inhaler 1 puff INHALATION Q6H PRN PRN (Reason: Wheezing) sucralfate 1 GM tablet 1 gm PO 4X/DAY Trulicity 0.75 mg/0.5 mL pen injector 1 SUBCUT Q7D pantoprazole 40 mg tablet,delayed release (DR/EC) 40 mg PO DAILY insulin lispro [Humalog KwikPen Insulin] 100 unit/mL insulin pen SUBCUT insulin lispro [Humalog KwikPen Insulin] 100 unit/mL insulin pen SUBCUT Motegrity 1 mg tablet 1 mg PO ondansetron [ondansetron] 4 MG tablet 4 mg PO Q8H PRN PRN (Reason: Nausea) Qty: 10 0RF Primary Care Provider: Chioma Weinstein Referrals: Chioma Wenistein PA [Primary Care Provider] - 3-5 Days Disposition Disposition: Home, Self Care
--- NOTE | 2022-02-18 16:53 | CT_ITS ---
STUDY: CT ABDOMEN AND PELVIS WITHOUT CONTRAST REASON FOR EXAM: Male, 46 years old. Left flank pain RADIATION DOSAGE (If Supplied By Facility): CTDIvol = ( 21.45 ) mGy, DLP = ( 1194.87 ) mGycm TECHNIQUE: Transaxial images were obtained from the dome of the diaphragm to the symphysis pubis without oral contrast, and without intravenous contrast. Sagittal and coronal images were reconstructed. Individualized dose optimization techniques were used for this CT. COMPARISON: 04/17/2021 FINDINGS: The visualized lung bases are unremarkable. The visualized portions of the heart are within normal limits. Normal liver. Normal gallbladder and extrahepatic biliary system. Normal spleen. Normal pancreas. Normal bilateral adrenal glands. Normal right kidney. Normal left kidney. Normal visualized stomach. Normal small intestine. Normal colon. The appendix is visualized and appears normal. Normal abdominal aorta. Normal inferior vena cava. Normal retroperitoneum. Normal urinary bladder. Normal abdominal wall. Normal osseous structures. CT/Abdomen/Pelvis without Cont IMPRESSION: No renal or ureteral stone. Electronically Signed: Jose Rowland MD at 17:46 EDT ,
[2022-02-18] MEDS: Morphine 4 MG/ML Syringe IV (17:16)
[2022-02-18] MEDS: Ondansetron 4 MG/2 ML Vial IV (17:17)
[2022-02-18] MEDS: 0.9% Normal Saline 1,000 ML 1000 ML IV (17:17)
[2022-02-18 17:19] LABS: Mucous, Urine 0 SEEN /hpf (<or=2+); Red Blood Cells-Urine 0 SEEN /hpf (0-5); Squamous Epithelial Cells - UA 0 SEEN /hpf (0-5); White Blood Cells 0 SEEN /hpf (0-5)
[2022-02-18 17:28] LABS: Absolute Lymphocyte Count 4.05 X10^3/uL (0.83-4.51); Absolute Neutrophil Count 4.6 X10^3/uL (2.0-7.7); Basophil# 0.04 X10^3/uL; Basophil% 0.4 % (0-1); Eosinophil# 0.18 X10^3/uL; Eosinophils% 1.8 % (0-5); Hematocrit 44.4 % (40-54); Hemoglobin 15.1 g/dL (13.0-16.5); Lymphocyte # 4.05 X10^3/ul (0.83-4.51); Lymphocyte % 40.8 % (19-41); Mean Corpuscular Hgb 30.9 pg (27.0-32.0); Mean Corpuscular Volume 90.8 fL (80-94); Mean Platelet Vol. 9.7 fl (6.2-12.0); Monocyte# 1.05 X10^3/uL; Monocyte% 10.6 % (0-10); NRBC Flagged by Analyzer 0 % (0-5); Neutrophil # 4.58 X10^3/uL (2.7-7.7); Neutrophil % 46.2 % (47-70); Platelet Count 356 K/mm3 (150-450); RBC Distribution Width CV 11.8 % (11.6-14.6); RBC Distribution Width SD 39.1 fl (35.1-43.9); Red Blood Count 4.89 M/mm3 (4.6-6.2); White Blood Count 9.9 K/mm3 (4.4-11.0)
[2022-02-18 17:32] LABS: Color, Urine Straw (Yellow); Glucose, Dipstick 100 mg/dl (Normal); Ketone-Dipstick Negative (Negative); Leukocyte Esterase-Dipstick Negative /ul (Negative); Nitrite-Dipstick Negative (Negative); Occult Blood-Urine Negative /ul (Negative); Protein-Dipstick Negative (Negative); Specific Gravity, Urine 1.015 (1.002-1.030); Urine Bilirubin Dipstick Negative (Negative); Urine Clarity Clear (Clear); Urine Urobilinogen Normal (Normal)
[2022-02-18 17:42] LABS: Bacteria RARE /hpf (None Seen)
[2022-02-18 17:47] LABS: ALB/GLOB Ratio 0.8 RATIO (0.9-2.4); AST(SGOT) 16 U/L (15-37); Alanine Aminotransfer ALT/SGPT 30 U/L (16-61); Albumin, Serum 3.4 g/dL (3.2-5.0); Alkaline Phosphatase 94 U/L (45-117); Anion Gap 7 (5-15); BUN 14 mg/dL (7-18); BUN/Creat Ratio 16.2 RATIO (10-20); Calcium,Total 9.1 mg/dL (8.5-10.1); Chloride 106 mmol/L (98-107); Creatinine, Serum 0.86 mg/dL (0.70-1.30); EST Glomerular Filtration Rate 101 mL/min (>60); Est Glom Filt Rate - Afr Amer 122 mL/min (>60); Estimated Creatinine Clearance 96.85 ml/min; Glucose 172 mg/dL (74-106); Potassium 4.3 mmol/L (3.5-5.1); Protein, Total 7.4 g/dL (6.4-8.2); Sodium Level 140 mmol/L (136-145)
[2022-02-18 18:49] VITALS: BP 141/87; PULSE 92; RESP 16; O2SAT 97
[2022-02-18] MEDS: HYDROmorphone 1 MG/ML Syringe 0.5 MG IV (19:35)
[2022-02-18 19:39] VITALS: BP 112/77; PULSE 87; RESP 16; O2SAT 94
[2022-02-18 19:55] VITALS: BP 113/79; PULSE 93; RESP 18
== END 2022-02-18 19:55 | disposition home or self-care (01) ==
PROVIDERS: Emergency Provider Emergency Medicine; PCP Physician Assistant; Visit Provider Emergency Medicine
DX: M54.50 Low back pain, unspecified (principal); E11.43 Type 2 diabetes mellitus with diabetic autonomic (poly)neuropathy; Z79.4 Long term (current) use of insulin; J45.909 Unspecified asthma, uncomplicated; R35.0 Frequency of micturition; E66.9 Obesity, unspecified; R10.9 Unspecified abdominal pain; Z68.39 Body mass index [BMI] 39.0-39.9, adult; K31.84 Gastroparesis
CPT/HCPCS: 74176; 80053; 81001; 85025; 96361; 96374; 96375; 99284; J7030; A4216; J2405

== ENCOUNTER 2022-10-03 21:17 | Observation (INO) | payer OTHER, MEDICAID, SELFPAY ==
[2022-10-03 21:18] VITALS: BP 146/91; PULSE 100; RESP 18; TEMP 36.6; O2SAT 99; BMI 41.4
[2022-10-03 21:40] LABS: Absolute Lymphocyte Count 4.47 X10^3/uL (0.83-4.51); Absolute Neutrophil Count 5.4 X10^3/uL (2.0-7.7); Basophil# 0.05 X10^3/uL; Basophil% 0.5 % (0-1); Eosinophil# 0.18 X10^3/uL; Eosinophils% 1.6 % (0-5); Hematocrit 44.8 % (40-54); Hemoglobin 15.1 g/dL (13.0-16.5); Lymphocyte # 4.47 X10^3/ul (0.83-4.51); Lymphocyte % 40.5 % (19-41); Mean Corp Hgb Conc 33.7 g/dL (32-36); Mean Corpuscular Hgb 29.5 pg (27.0-32.0); Mean Corpuscular Volume 87.7 fL (80-94); Mean Platelet Vol. 9.4 fl (6.2-12.0); Monocyte% 8.1 % (0-10); NRBC Flagged by Analyzer 0 % (0-5); Neutrophil # 5.42 X10^3/uL (2.7-7.7); Platelet Count 376 K/mm3 (150-450); RBC Distribution Width CV 11.9 % (11.6-14.6); RBC Distribution Width SD 38.1 fl (35.1-43.9); Red Blood Count 5.11 M/mm3 (4.6-6.2); White Blood Count 11.1 K/mm3 (4.4-11.0)
--- NOTE | 2022-10-03 21:54 | RAD_ITS ---
EXAM: XR CHEST, 1 VIEW CLINICAL INDICATION: chest pain TECHNIQUE: AP portable upright view of the chest. COMPARISON: Previous chest radiographs of 08/14/2018 and 09/21/17. FINDINGS: LUNGS AND PLEURAL SPACES: Unremarkable. No consolidation or edema. No pneumothorax. No effusion. HEART: Upper normal heart size. Normal pulmonary vasculature. MEDIASTINUM: Minimal elongation of the thoracic aorta. Trachea is midline. No mediastinal widening. BONES/JOINTS: Unremarkable. SOFT TISSUES: Chronic mild elevation right hemidiaphragm. RAD/Chest 1 View (Portable) IMPRESSION: No radiographic evidence of acute cardiopulmonary disease. Electronically Signed: Kristofer Hutchins MD at 22:14 EDT ,
[2022-10-03 22:00] LABS: Anion Gap 7 (5-15); BUN 14 mg/dL (7-18); BUN/Creat Ratio 14.9 RATIO (10-20); Chloride 103 mmol/L (98-107); Creatinine, Serum 0.94 mg/dL (0.70-1.30); EST Glomerular Filtration Rate 91 mL/min (>60); Est Glom Filt Rate - Afr Amer 110 mL/min (>60); Estimated Creatinine Clearance 87.67 ml/min; Glucose 248 mg/dL (74-106); Potassium 4.7 mmol/L (3.5-5.1); Sodium Level 136 mmol/L (136-145)
--- NOTE | 2022-10-03 22:10 | ED.VIS.CHEST ---
HPI History of Present Illness Chief Complaint: Chest Pain Informant: patient Onset/Context/Timing Onset: Hours (3 hours) Narrative Narrative: Patient presents secondary to syncopal episode and chest pain. He states he has not felt well the past couple days. He had noticed that anytime he tried to bear down of a bowel movement the last few days he would develop chest pressure and lightheadedness as if he might pass out. Tonight he was lifting his child into their car seat when he blacked out. He states he lost consciousness briefly and fell forward into the car. He denies palpitations prior to this. He states since then he has had constant chest pressure. He is a diabetic and states overall his blood sugar averages have been good, but he has been having wide swings of dropping as low as 52 and as high as the upper 200s. He states has been waking between 2 and 3 the morning with low blood sugars in the 50s. He will often note some chest pressure when his blood sugars are low as well. No fever or chills. Very minimal cough. [facility] Medical History Asthma Diabetes type 2, controlled Gastroparesis Morbid obesity REGAN (obstructive sleep apnea) Home Medications albuterol sulfate 2.5 mg/3 mL (0.083 %) solution for nebulization 2.5 mg inhalation Q4H PRN PRN Wheezing 08/22/20 [History Last Taken Unknown] albuterol sulfate 90 mcg/actuation aerosol inhaler 1 puff inhalation Q6H PRN PRN Wheezing 08/22/20 [History Last Taken Unknown] sucralfate 1 gram tablet 1 gm PO 4X/DAY 09/10/20 [History Last Taken Unknown] dulaglutide 0.75 mg/0.5 mL subcutaneous pen injector (Trulicity) 1 subcut Q7D 03/10/21 [History Last Taken Unknown] insulin lispro 100 unit/mL subcutaneous pen (Humalog KwikPen (U-100) Insulin) subcut 04/14/21 [History Last Taken Unknown] insulin lispro 100 unit/mL subcutaneous pen (Humalog KwikPen (U-100) Insulin) subcut 04/14/21 [History Last Taken Unknown] pantoprazole 40 mg tablet,delayed release 40 mg PO DAILY 04/14/21 [History Last Taken Unknown] prucalopride 1 mg tablet (Motegrity) 1 mg PO 04/14/21 [History Last Taken Unknown] ondansetron 4 mg disintegrating tablet 4 mg PO Q8H PRN PRN Nausea #10 tabs 05/10/21 [Rx Last Taken Unknown] hydrocodone-acetaminophen 5-325mg 5mg-325mg 1 tab PO Q6H PRN PRN Pain 3 days #10 TABLETS 02/18/22 [Rx Last Taken Unknown] Allergy/AdvReac Type Severity Reaction Status Date / Time haloperidol [From Haldol] AdvReac Other Verified 10/03/22 21:20 metoclopramide HCl AdvReac GO CRAZY Verified 10/03/22 21:20 [From Reglan] Family History Mother Dysphagia Patient denies any maternal history of heart disease, diabetes, cancer, underlying pulmonary disease, underlying renal disease but does note she has significant issues with her esophagus, unsure exact disease. Notes frequent has items stuck, thin esophagus, dysphagia. Denied achalasia as etiology. Father Frequent UTI Patient denies any paternal history of heart disease, diabetes, cancer, underlying pulmonary disease, underlying renal disease but does note significant history of frequent urinary tract infections. Surgical History H/O foot surgery History of hernia surgery History of tonsillectomy History of tonsillectomy and adenoidectomy Social History household members: spouse Smoking Status: Never smoker alcohol intake: never substance use type: does not use ROS ROS ED Constitutional Constitutional ED: Denies chills or fever(s) Eyes Eyes: Denies change in vision or discharge from eye(s) ENT ENT ED: Denies discharge from eye(s), rhinorrhea or sore throat Cardiovascular Cardiovascular: Reports chest pain; Denies palpitations or racing heartbeat Respiratory/Chest Respiratory/Chest: Reports dyspnea; Denies cough Gastrointestinal Gastrointestinal: Denies abdominal pain, diarrhea, nausea or vomiting Genitourinary Genitourinary ED: Denies difficulty urinating or dysuria Musculoskeletal Musculoskeletal: Denies back pain or extremity pain Integumentary Denies Abrasions or rash Neurologic Neurologic: Reports weakness; Denies headache(s) Psychiatric Psychiatric: Denies anxiety or depression Allergic/Immunologic Allergic/Immunologic ED: Denies lip swelling or urticaria EXAM Physical Exam Const Vital Signs: 10/03/22 21:18 10/03/22 22:29 10/03/22 22:31 Temperature 97.9 F Temperature Source Temporal Pulse Rate 100 Respiratory Rate 18 Respiratory Effort Normal Non-Labored Blood Pressure 146/91 H Blood Pressure Mean 109 Pulse Ox 99 96 Oxygen Delivery Method Room Air Room Air 10/03/22 22:31 10/03/22 23:31 Temperature Temperature Source Pulse Rate 91 96 Respiratory Rate 20 H 18 Respiratory Effort Blood Pressure 156/85 H 144/89 H Blood Pressure Mean 108 107 Pulse Ox 96 95 Oxygen Delivery Method Room Air Positive well nourished and well developed General Appearance ED: well developed HEENT Reports normocephalic and head/scalp atraumatic Eyes PERRL and EOMs intact bilaterally Neck supple Chest Wall inspection of chest normal and palpation of chest normal Resp normal respiratory effort and clear to auscultation bilaterally Cardio regular rate and regular rhythm GI normal to inspection, nondistended, normoactive bowel sounds Palpation: soft Extremity normal to inspection Neuro oriented x3 Neuro Narrative: No focal neurologic deficits. Sensorium / Orientation: alert Psych mental status grossly normal Skin no rashes or lesions noted Heart Score History: Slightly/Non-Suspicious ECG: Normal Age: >45 - <65 years Risk Factors: 1 or 2 Risk Factors Troponin: </= Normal Limit Score: 2 MDM MDM MDM Narrative Medical decision making narrative: Patient placed on desk monitor. EKG obtained to evaluate for cardiac arrhythmia/ischemia. Chest x-ray obtained to evaluate for acute lung pathology, cardiac size, or mediastinal abnormality. Labwork obtained to evaluate for leukocytosis, anemia, and electrolyte derangement. History & Record Review Discussion w/independent historian: Patient and Family Lab Data Attestation: I reviewed the patient's lab results. Labs: Laboratory Results - last 24 hr 10/03/22 10/03/22 10/03/22 21:30 21:30 21:30 WBC 11.1 H RBC 5.11 Hgb 15.1 Hct 44.8 MCV 87.7 MCH 29.5 MCHC 33.7 RDW Std Deviation 38.1 RDW Coeff of Jeremiah 11.9 Plt Count 376 MPV 9.4 Immature Gran % (Auto) 0.300 Neut % (Auto) 49.0 Lymph % (Auto) 40.5 [place] % (Auto) 8.1 Eos % (Auto) 1.6 Baso % (Auto) 0.5 Absolute Neuts (auto) 5.4 Absolute Lymphs (auto) 4.47 Nucleated RBC % 0 D-Dimer Quant (PE/DVT) Sodium 136 Potassium 4.7 Chloride 103 Carbon Dioxide 26.0 Anion Gap 7 BUN 14 Creatinine 0.94 Estim Creat Clear Calc 87.67 Est GFR (MDRD) Af Amer 110 Est GFR (MDRD) Non-Af 91 BUN/Creatinine Ratio 14.9 Glucose 248 H Calcium 9.0 Troponin I High Sens Cancelled 3 10/03/22 10/03/22 22:14 23:47 WBC RBC Hgb Hct MCV MCH MCHC RDW Std Deviation RDW Coeff of Jeremiah Plt Count MPV Immature Gran % (Auto) Neut % (Auto) Lymph % (Auto) [place] % (Auto) Eos % (Auto) Baso % (Auto) Absolute Neuts (auto) Absolute Lymphs (auto) Nucleated RBC % D-Dimer Quant (PE/DVT) < 0.27 L Sodium Potassium Chloride Carbon Dioxide Anion Gap BUN Creatinine Estim Creat Clear Calc Est GFR (MDRD) Af Amer Est GFR (MDRD) Non-Af BUN/Creatinine Ratio Glucose Calcium Troponin I High Sens 5 Radiography Chest X-Ray - ED: 1 View, Read by ED Physician, Normal, Heart, Lungs and Mediastinum Diagnostic Testing: Clinical Impression(s) from Imaging Studies Chest X-Ray 10/03/22 21:54 IMPRESSION: No radiographic evidence of acute cardiopulmonary disease. Electronically Signed: Kristofer Hutchins MD at 22:14 EDT , EKG Initial EKG: Attestation: I personally reviewed and interpreted this EKG as follows: Interpretation: Sinus Rhythm (Sinus at 94 with no acute ischemia.) Differential Diagnosis Chest pain/SOB: pulmonary embolism Reason(s) PE less likely: Positive for D-Dimer negative, not tachycardic and not hypoxic and ACS ACS: Positive for no evidence of ACS based on cardiac biomarkers and EKG without ischemia Treatment and Re-Evaluation :: No significant arrhythmias noted on desk monitor. CBC reveals a white have 11.1 with normal differential. Hemoglobin normal at 15.1. Chemistry studies significant for a glucose of 248. Other values are unremarkable. Initial troponin is normal at 3 with 2-hour repeat at 5. D-dimer is less than 0.27. Patient has been given IV fluids. On repeat evaluation he states he still feels the same. He continues to have some chest pressure. With patient having a syncopal episode tonight I do feel would be worthwhile to observe him overnight to ensure no cardiac arrhythmias and closely monitor his blood sugars as he has been having wide swings and dropping low. I will speak with hospitalist. Discharge Plan Triage Chief Complaint: Chest Pain ED Provider: Azalia Wei Dx/Rx/DC Orders Clinical Impression: Chest pain, Syncope Prescriptions: No Action albuterol sulfate 2.5 MG/3 ML solution for nebulization 2.5 mg INHALATION Q4H PRN PRN (Reason: Wheezing) albuterol sulfate 1 INHALER inhaler 1 puff INHALATION Q6H PRN PRN (Reason: Wheezing) sucralfate 1 GM tablet 1 gm PO 4X/DAY Trulicity 0.75 mg/0.5 mL pen injector 1 SUBCUT Q7D pantoprazole 40 mg tablet,delayed release (DR/EC) 40 mg PO DAILY insulin lispro [Humalog KwikPen Insulin] 100 unit/mL insulin pen SUBCUT insulin lispro [Humalog KwikPen Insulin] 100 unit/mL insulin pen SUBCUT Motegrity 1 mg tablet 1 mg PO ondansetron [ondansetron] 4 MG tablet 4 mg PO Q8H PRN PRN (Reason: Nausea) Qty: 10 0RF hydrocodone-acetaminophen [hydrocodone-acetaminophen] 5-325 mg tablet 1 tab PO Q6H PRN PRN (Reason: Pain) 3 Days Qty: 10 0RF Primary Care Provider: Chioma Weinstein Referrals: Chioma Weinstein PA [Primary Care Provider] - Disposition Disposition: Acute Care [facility]
[2022-10-03 22:14] LABS: Troponin-I HS (w/2H Reflex) 3 pg/mL (3.0-78.0)
[2022-10-03] MEDS: Aspirin 81 MG TAB.CHEW 324 MG PO (22:27)
[2022-10-03] MEDS: 0.9% Normal Saline 1,000 ML 150 ML IV (22:28)
[2022-10-03 22:31] VITALS: BP 156/85; PULSE 91; RESP 20; O2SAT 96
[2022-10-03 22:39] LABS: D-Dimer Quantitative (DVT/PE) < 0.27 FEU/ug/m (0.27-0.49)
[2022-10-03 23:31] VITALS: BP 144/89; PULSE 96; RESP 18; O2SAT 95
[2022-10-03 23:36] LABS: Reflex Troponin-HS? (from REC) Y
[2022-10-04] VITALS (9 sets, daily range): BP systolic 107–129; BP diastolic 72–80; PULSE 75–97; RESP 14–17; TEMP 36.4–36.7; O2SAT 96–98; BMI 40.4
[2022-10-04 00:11] LABS: Troponin-I HS 5 pg/mL (3.0-78.0)
--- NOTE | 2022-10-04 00:27 | PCM.HP.STD ---
HPI - General General Date of Admission: 10/04/22 Date of Service: 10/04/22 Chief Complaint: Chest pain, LH, Syncopal event. HPI Narrative The patient is a 47 y/o M w/ PMHx: Morbid Obesity, Diabetes mellitus type II with associated Gastroparesis, Asthma, REGAN not using PAP (notes upcoming re-evaluation), GERD who presents to the [facility] ED on 10/04/22 with history of 3 days of initially onset increased fatigue, malaise, nausea with bout of emesis reporting that his prior to him has been sick with an upper respiratory infection with headache, congestion as well as cough for approximately 5 days and has just been resolving prior to his onset of symptoms with also episodes of lightheadedness and dizziness in addition to midsternal nonradiating chest heaviness rated 8 out of 10 in severity occurring when straining on the toilet as well as extremely labile blood sugars specifically stating that he had recurrent chest discomfort only when his blood sugars were low and he would also have at that time concurrent sensation of his heart racing/palpitations with on day prior to presentation the evening while attempting to lift his child into a car seat had onset of lightheadedness and dizziness w/ syncope using and landing forward into the car seat with no head trauma prompting family to bring him to the ED for evaluation. Work-up in the ED included T98, heart rate 97, BP 129/72, respiratory rate 17, 97% oxygenation, CBC with WC 11.1, hemoglobin 15.1, platelet 376 without shift, D-dimer less than 0.27, BMP with glucose 248 otherwise not marked appearing, initial troponin 3 with repeat 5, EKG with sinus rhythm with no acute evidence of ischemia. In the ED patient ministered full-strength aspirin therapy and maintenance IV fluids per ED physician. [facility] Medical History Asthma Diabetes type 2, controlled Gastroparesis GERD (gastroesophageal reflux disease) Morbid obesity REGAN (obstructive sleep apnea) Home Medications albuterol sulfate 2.5 mg/3 mL (0.083 %) solution for nebulization 2.5 mg inhalation Q4H PRN PRN Wheezing 08/22/20 [History Last Taken Unknown] albuterol sulfate 90 mcg/actuation aerosol inhaler 1 puff inhalation Q6H PRN PRN Wheezing 08/22/20 [History Last Taken Unknown] pantoprazole 40 mg tablet,delayed release 40 mg PO DAILY 04/14/21 [History Last Taken Unknown] prucalopride 1 mg tablet (Motegrity) 1 mg PO DAILY 04/14/21 [History Last Taken Unknown] empagliflozin 10 mg tablet (Jardiance) 10 mg PO DAILY 10/04/22 [History Last Taken Unknown] glyburide 5 mg tablet 4 mg PO DAILY 10/04/22 [History Last Taken Unknown] omeprazole 40 mg capsule,delayed release 40 mg PO DAILY 10/04/22 [History Last Taken Unknown] Allergy/AdvReac Type Severity Reaction Status Date / Time haloperidol [From Haldol] AdvReac Other Verified 10/03/22 21:20 metoclopramide HCl AdvReac GO CRAZY Verified 10/03/22 21:20 [From Reglan] Family History Mother Dysphagia Patient denies any maternal history of heart disease, diabetes, cancer, underlying pulmonary disease, underlying renal disease but does note she has significant issues with her esophagus, unsure exact disease. Notes frequent has items stuck, thin esophagus, dysphagia. Denied achalasia as etiology. Father Frequent UTI Patient denies any paternal history of heart disease, diabetes, cancer, underlying pulmonary disease, underlying renal disease but does note significant history of frequent urinary tract infections. Surgical History H/O foot surgery History of hernia surgery History of tonsillectomy History of tonsillectomy and adenoidectomy Social History household members: spouse housing: house Smoking Status: Never smoker alcohol intake: never substance use type: does not use ROS ROS Narrative Admission Review of Systems: CONSTITUTIONAL: No weight loss, fever, chills, + weakness or fatigue. HEENT: Eyes: No visual loss, blurred vision, double vision or yellow sclerae. Ears, Nose, Throat: No hearing loss, sneezing, congestion, runny nose or sore throat. SKIN: No rash or itching, lesions, wounds. CARDIOVASCULAR: + chest heaviness/pressure, palpitations, syncopal event. No edema, orthopnea. RESPIRATORY: No shortness of breath, cough or sputum, wheezing, hemoptysis. GASTROINTESTINAL: + anorexia, nausea, vomiting. No diarrhea, abdominal pain, melena, BRBPR. GENITOURINARY: No dysuria, frequency, urgency or retention. NEUROLOGICAL: + Syncopal event, lightheadedness, dizziness. No headache, paralysis, ataxia, numbness or tingling in the extremities, focal weakness, change in bowel or bladder control, seizure. MUSCULOSKELETAL: + muscle, back pain, joint pain or stiffness. HEMATOLOGIC: No anemia, bleeding or bruising. LYMPHATICS: No enlarged nodes. No history of splenectomy. PSYCHIATRIC: No history of depression or anxiety. ENDOCRINOLOGIC: No reports of sweating, cold or heat intolerance. No polyuria or polydipsia. ALLERGIES: + history of asthma. Vital Signs Vital Signs Vital Signs: 10/03/22 21:18 10/03/22 22:29 10/03/22 22:31 Temperature 97.9 F Temperature Source Temporal Pulse Rate 100 Respiratory Rate 18 Respiratory Effort Normal Non-Labored Blood Pressure 146/91 H Blood Pressure Mean 109 Pulse Ox 99 96 Oxygen Delivery Method Room Air Room Air 10/03/22 22:31 10/03/22 23:31 Temperature Temperature Source Pulse Rate 91 96 Respiratory Rate 20 H 18 Respiratory Effort Blood Pressure 156/85 H 144/89 H Blood Pressure Mean 108 107 Pulse Ox 96 95 Oxygen Delivery Method Room Air Weight Weight: 256 lb 9.889 oz Body Mass Index (BMI) 41.4 Physical Exam Narrative Physical Examination: General: Awake, alert, oriented x 3 and cooperative, seated upright in the ED bed in no apparent distress, fatigued appearing. Skin: Normal color, normal turgor, no icterus, no cyanosis. HEENT: AT/NC, EOMI, PERRLA, mildly dry MM, no carotid bruits or JVD noted. Lungs: Diminished, greater bases, appropriate effort, no rales, ronchi or wheezing. Heart: Currently regular rate and rhythm; no gallop, rub audible. Abdomen: Soft, morbidly obese, NTTP, ND, mildly hyperactive BS, no HSM. Extremities: No cyanosis, clubbing, or edema. Neurological: Patient awake, alert, oriented as noted, cognitive function intact; pupils equally reactive to light and accommodation, cranial nerves II-XII grossly normal, moving all 4 extremities, no focal deficits, strength moderately global decrease secondary to acute presentation complaints. Psychiatric: Affect appears flat, fatigued, no acute evidence of depressive or anxiety feelings. Results Lab / Micro Data Result Diagrams: 10/03/22 21:30 10/03/22 21:30 Labs: Laboratory Results - last 24 hr 10/03/22 21:30: WBC 11.1 H, RBC 5.11, Hgb 15.1, Hct 44.8, MCV 87.7, MCH 29.5, MCHC 33.7, RDW Std Deviation 38.1, RDW Coeff of Jeremiah 11.9, Plt Count 376, MPV 9.4, Immature Gran % (Auto) 0.300, Neut % (Auto) 49.0, Lymph % (Auto) 40.5, [place] % (Auto) 8.1, Eos % (Auto) 1.6, Baso % (Auto) 0.5, Absolute Neuts (auto) 5.4, Absolute Lymphs (auto) 4.47, Nucleated RBC % 0 10/03/22 21:30: Sodium 136, Potassium 4.7, Chloride 103, Carbon Dioxide 26.0, Anion Gap 7, BUN 14, Creatinine 0.94, Estim Creat Clear Calc 87.67, Est GFR (MDRD) Af Amer 110, Est GFR (MDRD) Non-Af 91, BUN/Creatinine Ratio 14.9, Glucose 248 H, Calcium 9.0, Troponin I High Sens Cancelled 10/03/22 21:30: Troponin I High Sens 3 10/03/22 22:14: D-Dimer Quant (PE/DVT) < 0.27 L 10/03/22 23:47: Troponin I High Sens 5 Radiology Impression Chest X-Ray 10/03/22 21:54 IMPRESSION: No radiographic evidence of acute cardiopulmonary disease. Electronically Signed: Kristofer Hutchins MD at 22:14 EDT , Assessment & Plan Assessment/Plan (1) Chest pain: (2) Syncope: PLAN: Plan The patient is a 47 y/o M w/ PMHx: Morbid Obesity, Diabetes mellitus type II with associated Gastroparesis, Asthma, REGAN not using PAP (notes upcoming re-evaluation), GERD who presents to the [facility] ED on 10/04/22 with history of 3 days of initially onset increased fatigue, malaise, nausea with bout of emesis reporting that his prior to him has been sick with an upper respiratory infection with headache, congestion as well as cough for approximately 5 days and has just been resolving prior to his onset of symptoms with also episodes of lightheadedness and dizziness in addition to midsternal nonradiating chest heaviness rated 8 out of 10 in severity occurring when straining on the toilet as well as extremely labile blood sugars specifically stating that he had recurrent chest discomfort only when his blood sugars were low and he would also have at that time concurrent sensation of his heart racing/palpitations with on day prior to presentation the evening while attempting to lift his child into a car seat had onset of lightheadedness, dizziness w/ syncopal event. #1. Syncopal Event with recent history of lightheadedness, dizziness as well as chest pressure, potentially related with #2 and potentially hypoglycemic events with underlying #3: EKG in ED w/ sinus rhythm without evidence of acute ischemia, CXR w/ no acute cardiopulmonary findings, initial trop normal and repeat also. Will admit to PCU to be cautious, place on a monitored bed to assure no acute myocardial infarction with serial cardiac enzymes and EKGs. Will maintain on fall precautions, obtain admission orthostatic, continue judicious hydration, request echocardiogram, if serial enzymes and repeat EKGs are unremarkable will pursue a.m. cardiac stress testing however given patient recent vague symptoms and his also ill there is a pending COVID PCR and respiratory viral panel and if COVID is positive low threshold to defer stress testing. FLP in AM. Magnesium level requested. Will maintain on fall precautions. Again chest discomfort history very atypical as he does report only discomfort when straining on the toilet and also with hypoglycemic periods. #2. Suspected acute viral syndrome with increased fatigue, malaise, nausea, anorexia, emesis: Patient spouse also recently ill although her symptoms were reportedly more upper respiratory type infection lasting at least 5 days, recently only improved, patient does report that he was vaccinated with the Pfizer dose x1 only, will obtain COVID PCR and respiratory full viral panel to be cautious. Certainly could be related with his acute presentation #1. #3. Diabetes mellitus type II with recently labile blood sugars including hypoglycemic episodes: Hold oral home regimen, n.p.o. status currently for further cardiac assessment but once appropriate transition back to ADA diet, accu checks w/ ISS. If blood sugars do decrease although currently elevated low threshold at that point to add dextrose fluids if needed and to more closely monitor blood sugars. #4. Chronic asthma: Per current list patient not on any chronic inhaler, will have as needed albuterol, encourage head of bed and I-S. #5. GERD: We will continue patient's home PPI regimen. #6. REGAN: Last usage PAP therapy ~ 15 years prior, notes upcoming re-evaluation. #7. DVT Prophylaxis: Lovenox. #8. CODE status: Full Code. Admission Evaluation Time spent evaluating chart, patient history, patient evaluation, care planning and discussion with specialists: 60 minutes. Charges/Coding Visit Charges Inpatient E&M: 01861 Init Hosp L2
[2022-10-04 00:55] LABS: Magnesium 1.9 mg/dL (1.6-2.6)
--- NOTE | 2022-10-04 01:09 | ECHOD_ITS ---
Reason For Study: Syncope Procedure This was a 2D Doppler, Color Flow transthoracic echocardiogram. Exam performed portable in patient room. Left Ventricle Normal left ventricle. The left ventricular ejection fraction is 65 %. Normal diastology for age. Right Ventricle Normal right ventricle. Atria The left and right atria are normal. Mitral Valve The mitral valve is structurally normal. No prolapse or stenosis seen. Tricuspid Valve Mild tricuspid valve insufficiency. Normal pulmonary artery pressure. Aortic Valve Normal aortic valve. Pulmonic Valve The pulmonic valve is not well visualized. Great Vessels Normal sized aortic root. Pericardium/Pleural No pericardial effusion. MMode/2D Measurements & Calculations LVIDd: 4.0 cm IVSd: 1.0 cm Ao root diam: 3.5 cm LVIDs: 3.0 cm LVPWd: 0.98 cm LA dimension: 3.2 cm RVDd: 3.8 cm FS: 24.6 % LAV(MOD-bp): 42.1 ml LVAd ap4: 31.7 cm2 LVAd ap2: 28.6 cm2 LAV(MOD-bp) Indexed: 19.1 ml/m2 LVLd ap4: 7.7 cm LVLd ap2: 7.8 cm LAV(MOD-sp2): 44.7 ml EDV(MOD-sp4): 107.8 ml EDV(MOD-sp2): 86.2 ml LAV(MOD-sp4): 33.6 ml EDV(sp4-el): 111.6 ml EDV(sp2-el): 89.0 ml LVAs ap4: 17.8 cm2 LVAs ap2: 17.0 cm2 LVLs ap4: 6.3 cm LVLs ap2: 6.4 cm ESV(MOD-sp4): 42.8 ml ESV(MOD-sp2): 37.3 ml ESV(sp4-el): 42.7 ml ESV(sp2-el): 38.1 ml EF(MOD-sp4): 60.3 % EF(MOD-sp2): 56.7 % EF(sp4-el): 61.7 % SV(MOD-sp4): 65.0 ml SV(MOD-sp2): 48.9 ml SV(sp4-el): 68.9 ml LA A4 area: 14.4 cm2 RA A4 area: 10.1 cm2 Time Measurements MV dec time: 0.15 sec Doppler Measurements & Calculations MV E max claudy: 97.4 cm/sec Lat Peak E' Claudy: 14.6 cm/sec Med Peak E' Claudy: 11.5 cm/sec MV A max claudy: 72.6 cm/sec E/E' lat: 6.7 E/E' med: 8.5 MV E/A: 1.3 MV V2 max: 114.3 cm/sec MV P1/2t max claudy: 114.8 cm/sec Ao V2 max: 93.0 cm/sec MV max P.2 mmHg MV P1/2t: 55.5 msec Ao max P.5 mmHg MV V2 mean: 60.9 cm/sec MV dec slope: 605.3 cm/sec2 Ao V2 mean: 67.5 cm/sec MV mean P.8 mmHg Ao mean P.0 mmHg MV V2 VTI: 23.9 cm MVA(P1/2t): 4.0 cm2 Ao V2 VTI: 19.6 cm AV (velocity ratio): 0.90 LV V1 max: 88.9 cm/sec PA V2 max: 84.2 cm/sec TR max claudy: 225.2 cm/sec LV V1 max P.2 mmHg PA V2 mean: 62.5 cm/sec TR max P.3 mmHg LV V1 mean P.7 mmHg LV V1 mean: 60.8 cm/sec LV V1 VTI: 17.7 cm ECHO/Echo Complete Interpretation Summary The left ventricular ejection fraction is 65 %. Mild tricuspid valve insufficiency. Ordering Physician: Ev Barrientos Performed By: Yuan Saravia RCS
[2022-10-04] MEDS: Morphine 2 MG/ML Syringe IV (03:17)
[2022-10-04 05:49] LABS: Absolute Lymphocyte Count 3.75 X10^3/uL (0.83-4.51); Absolute Neutrophil Count 3.6 X10^3/uL (2.0-7.7); Basophil# 0.05 X10^3/uL; Basophil% 0.6 % (0-1); Eosinophil# 0.17 X10^3/uL; Hemoglobin 13.7 g/dL (13.0-16.5); Lymphocyte # 3.75 X10^3/ul (0.83-4.51); Lymphocyte % 44.8 % (19-41); Mean Corp Hgb Conc 33.4 g/dL (32-36); Mean Corpuscular Hgb 29.6 pg (27.0-32.0); Mean Corpuscular Volume 88.6 fL (80-94); Mean Platelet Vol. 9.3 fl (6.2-12.0); Monocyte# 0.75 X10^3/uL; NRBC Flagged by Analyzer 0 % (0-5); Neutrophil # 3.63 X10^3/uL (2.7-7.7); Neutrophil % 43.4 % (47-70); Platelet Count 322 K/mm3 (150-450); RBC Distribution Width CV 12.2 % (11.6-14.6); RBC Distribution Width SD 39.1 fl (35.1-43.9); Red Blood Count 4.63 M/mm3 (4.6-6.2); White Blood Count 8.4 K/mm3 (4.4-11.0)
[2022-10-04] MEDS: 0.9% Normal Saline 1,000 ML 100 ML IV (06:19)
[2022-10-04 06:20] LABS: Bedside Glucose 148 mg/dL (74-106)
[2022-10-04 06:24] LABS: Troponin-I HS 5 pg/mL (3.0-78.0)
[2022-10-04] MEDS: Mag Hydrox/Al Hydrox/Simeth 30 ML UDC PO (06:30)
[2022-10-04 06:35] LABS: ALB/GLOB Ratio 0.9 RATIO (0.9-2.4); AST(SGOT) 15 U/L (15-37); Alanine Aminotransfer ALT/SGPT 30 U/L (16-61); Alkaline Phosphatase 70 U/L (45-117); Anion Gap 8 (5-15); BUN 12 mg/dL (7-18); BUN/Creat Ratio 17.1 RATIO (10-20); Calcium,Total 8.1 mg/dL (8.5-10.1); Chloride 106 mmol/L (98-107); Cholesterol 143 mg/dL (200); EST Glomerular Filtration Rate 128 mL/min (>60); Est Glom Filt Rate - Afr Amer 155 mL/min (>60); Estimated Creatinine Clearance 117.73 ml/min; Globulin 3.2 g/dL (2.2-4.2); Glucose 157 mg/dL (74-106); High Density Lipoprotein 41 mg/dL; Potassium 4.3 mmol/L (3.5-5.1); Protein, Total 6.2 g/dL (6.4-8.2); Sodium Level 140 mmol/L (136-145); Triglycerides 99 mg/dL; Very Low Density Lipoprotein 20 mg/dL (5-40)
[2022-10-04] MEDS: Pantoprazole Sodium 40 MG Tablet PO (09:09)
[2022-10-04] MEDS: Sucralfate 1 GM Tablet PO ×3 (09:09→16:59)
[2022-10-04] MEDS: Enoxaparin 40 MG/0.4 ML Syringe SC (09:09)
[2022-10-04] MEDS: Aspirin E.C. 81 MG Tablet PO (09:09)
--- NOTE | 2022-10-04 09:32 | DCINST_ITS ---
Discharge Instructions Diet Discharge Diet: Low fat / Low cholesterol, 1800 Calorie Control Diet and 2000 mg Sodium Diet Activity Discharge Activity: Return to Normal Activity Weight Bearing Status: Weight bearing as tolerated Dressing / Incision Call your doctor if you observe: Fever of 101 or Higher, Coldness, Increased Pain, Numbness or Tingling, Change in Color, Inability to urinate, Inability to have a bowel movement, Shortness of breath, Dizziness, Fainting spells, Swelling in the ankles, Chest pain, Prolonged hiccupping, Increased palpitations (irregular heartbeat) and Calf discomfort Follow Up Care When: IN 2 WEEKS Test Results: Test results from this visit will be discussed in further detail at your follow- up appointment, if applicable. Discharge Plan Admission Admit Date/Time: 10/04/22 00:27 Primary Reason for Your Visit: Syncope, atypical chest pain. Attending Provider: Ryley Van Primary Care Provider: Chioma Weinstein Consulting Providers: Ev Barrientos Discharge Orders/Prescriptions Prescriptions: Continued albuterol sulfate 2.5 MG/3 ML solution for nebulization 2.5 mg INHALATION Q4H PRN PRN (Reason: Wheezing) albuterol sulfate 1 INHALER inhaler 1 puff INHALATION Q6H PRN PRN (Reason: Wheezing) pantoprazole 40 mg tablet,delayed release (DR/EC) 40 mg PO DAILY Motegrity 1 mg tablet 1 mg PO DAILY Jardiance 10 mg Tablet 10 mg PO DAILY Changed glyburide 5 mg Tablet 2.5 mg PO DAILY 30 Days Qty: 0 0RF Referrals / Follow Up: Chioma Weinstein PA [Primary Care Provider] - Louie Nichols MD [Med Staff - Courtesy Staff] - Within 1 Month (For labile diabetes mellitus type 2. Wide fluctuation of glucose.) Disposition Disposition (needs filled in before D/C Order can be placed): Home, Self Care
[2022-10-04] MEDS: Insulin Lispro 100 UNIT/ML INSULN.PEN SC (11:34)
[2022-10-04 11:55] LABS: Bedside Glucose 162 mg/dL (74-106)
--- NOTE | 2022-10-04 13:08 | CHAPLAIN ---
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
--- NOTE | 2022-10-04 15:07 | DS.PCM_ITS ---
Providers Date of Admission: 10/04/22 Date of Discharge: 10/04/22 Primary Care Physician: MARCIAL Trujillo Reason For Visit: CHEST PAIN, SYNCOPE Diagnosis Discharge Diagnosis (1) Chest pain: Status: Acute Code(s): R07.9 - Chest pain, unspecified (2) Syncope: Status: Acute Code(s): R55 - Syncope and collapse Medications at Discharge Home Medications albuterol sulfate 2.5 mg/3 mL (0.083 %) solution for nebulization 2.5 mg inhalation Q4H PRN PRN Wheezing 08/22/20 albuterol sulfate 90 mcg/actuation aerosol inhaler 1 puff inhalation Q6H PRN PRN Wheezing 08/22/20 pantoprazole 40 mg tablet,delayed release 40 mg PO DAILY reflux 04/14/21 prucalopride 1 mg tablet (Motegrity) 1 mg PO DAILY gastroparesis 04/14/21 empagliflozin 10 mg tablet (Jardiance) 10 mg PO DAILY diabetes 10/04/22 glyburide 5 mg tablet 2.5 mg PO DAILY diabetes 30 days #0 tabs 10/04/22 Hospital Course Summary of Care Provided Hospital Course: 47-year-old gentleman admitted with syncopal episode and chest pain. Patient has wide fluctuation of glucose in the last 2 to 3 weeks. It goes high more than 250 and then drops to 50s around 2 to 3 AM and he feels neuro and adrenergic hypoglycemic symptoms and wakes up. Patient also has sweating during hypoglycemia episodes. He feels dizzy and lightheaded during hypoglycemia symptoms. Yesterday on day of admission he felt dizzy lightheaded while he left he discharged to put incarcerated and then fell forward and passed out for 10 to 15 seconds. He did not had significant injury or impact. Patient also complained of chest pain for past couple days during exertion like bearing down for bowel movement. This time his chest pain lasted for 2 to 3 hours. No fever or chills. Mild minimal cough. Patient was further admitted in PCU. 1. Syncopal event exact etiology unclear possible due to hypoglycemia or vasovagal or acute viral syndrome recovery: Patient had 2D echo which reported normal LV function with EF 65%. Mild tricuspid insufficiency. I do not think patient had cardiogenic cause for syncope. Advised better control of glucose. 2. Atypical chest pain most likely musculoskeletal or pleuritic: Patient had serial troponins negative. Twelve-lead EKG individually reviewed and shows normal sinus rhythm without evidence of acute ischemia. Chest x-ray no acute cardiopulmonary abnormality. Lexiscan nuclear stress test was ordered but patient could not complete it. If patient gets further chest pain and suspicion of angina by history, CT coronary might be an option as an outpatient by PCP. For now I do not think patient has ACS or unstable angina. 3. Suspected acute viral syndrome with increased fatigue malaise nausea, loss of appetite and emesis: Patient was recently sick and is in recovery phase. He had 1 dose of Affibody COVID-19 vaccine. COVID-19 PCR and respiratory viral panel are negative. Mucinex?DM 1200 mg p.o. twice daily. 4. Diabetes mellitus type 2 with labile/brittle diabetes mellitus: The patient does not have good control of glucose. His glucose fluctuates between 50-250 mg percent. Advised follow-up with mate fourth within 1 month for better control of glucose. Glipizide dose decreased to 2.5 mg daily to avoid hyp oglycemia. 5. Other medical morbidities include history of asthma, GERD, REGAN and morbid obesity: Patient BMI is 40.4 kg/m?. Discharge medication reconciliation done. Discharge follow-up instructions completed. Discharge process discussed with the patient and all questions were answered to patient's satisfaction. Total time spent, exact 35 minutes on discharge meds reconciliation, examinati on, coordination of care with nurses and ancillary staff, review of imaging and blood test and discussion with the patient on follow-up instructions. Clinical Impression(s) from Imaging Studies Chest X-Ray 10/03/22 21:54 IMPRESSION: No radiographic evidence of acute cardiopulmonary disease. Echocardiogram 10/04/22 01:09 Interpretation Summary The left ventricular ejection fraction is 65 %. Mild tricuspid valve insufficiency. Microbiology Past 72 Hours 10/04/22 01:11 Mucosa - Nose Respiratory Panel (PCR) - Final Laboratory Results 10/03/22 21:30: WBC 11.1 H, RBC 5.11, Hgb 15.1, Hct 44.8, MCV 87.7, MCH 29.5, MCHC 33.7, RDW Std Deviation 38.1, RDW Coeff of Jeremiah 11.9, Plt Count 376, MPV 9.4, Immature Gran % (Auto) 0.300, Neut % (Auto) 49.0, Lymph % (Auto) 40.5, Prentiss % (Auto) 8.1, Eos % (Auto) 1.6, Baso % (Auto) 0.5, Absolute Neuts (auto) 5.4, Absolute Lymphs (auto) 4.47, Nucleated RBC % 0 10/03/22 21:30: Sodium 136, Potassium 4.7, Chloride 103, Carbon Dioxide 26.0, Anion Gap 7, BUN 14, Creatinine 0.94, Estim Creat Clear Calc 87.67, Est GFR (MDRD) Af Amer 110, Est GFR (MDRD) Non-Af 91, BUN/Creatinine Ratio 14.9, Glucose 248 H, Calcium 9.0, Troponin I High Sens Cancelled 10/03/22 21:30: Troponin I High Sens 3 10/03/22 22:14: D-Dimer Quant (PE/DVT) < 0.27 L 10/03/22 23:47: Troponin I High Sens 5 10/03/22 23:47: Magnesium 1.9 10/04/22 01:11: COVID-19 ([facility]) Not Detected 10/04/22 05:20: WBC 8.4, RBC 4.63, Hgb 13.7, Hct 41.0, MCV 88.6, MCH 29.6, MCHC 33.4, RDW Std Deviation 39.1, RDW Coeff of Jeremiah 12.2, Plt Count 322, MPV 9.3, Immature Gran % (Auto) 0.200, Neut % (Auto) 43.4 L, Lymph % (Auto) 44.8 H, Prentiss % (Auto) 9.0, Eos % (Auto) 2.0, Baso % (Auto) 0.6, Absolute Neuts (auto) 3.6, Absolute Lymphs (auto) 3.75, Nucleated RBC % 0 10/04/22 05:20: Sodium 140, Potassium 4.3, Chloride 106, Carbon Dioxide 26.0, Anion Gap 8, BUN 12, Creatinine 0.70, Estim Creat Clear Calc 117.73, Est GFR (MDRD) Af Amer 155, Est GFR (MDRD) Non-Af 128, BUN/Creatinine Ratio 17.1, Glucose 157 H, Calcium 8.1 L, Total Bilirubin 0.20, AST 15, ALT 30, Alkaline Phosphatase 70, Total Protein 6.2 L, Albumin 3.0 L, Globulin 3.2, A lbumin/Globulin Ratio 0.9, Triglycerides 99, Cholesterol 143, LDL Cholesterol 82, VLDL Cholesterol 20, HDL Cholesterol 41 10/04/22 05:20: Troponin I High Sens 5 10/04/22 06:01: POC Glucose 148 H 10/04/22 11:29: POC Glucose 162 H Physical Exam Narrative Seen and examined. Patient does not have chest pain. No acute shortness of breath. Mild occasional cough. Physical exam General: Alert, Oriented x3, Cooperative, morbid obesity BMI 40.4 kg/m?. HEENT: Atraumatic, PERRLA, EOMI, Normocephalic Oral: Deep oropharyngeal structures could not be visualized. No oral ulcer. Neck: Supple, No JVD, Negative Carotid Bruits Lungs: Air entry diminished in bilateral lung bases. No crepitation/rhonchi Cardiovascular: Regular rate, Regular Rhythm, Normal S1, Normal S2, No murmurs Abdomen: Bowel Sounds Present, Soft, Non Tender, Non-Distended : No renal angle tenderness. No suprapubic tenderness. Extremities: No edema, Capillary Refill Less than 3 Seconds Skin: No rashes, No breakdown Musculoskeletal: No Tenderness to Palpation of Joints or Extremities. ROM full and intact. Neurological: Cranial nerves II-XII grossly intact, DTR 2+/4 and Symmetrical, Neuro grossly intact Psych/Mental Status: Normal Affect, Appropriate. Weight / BMI Weight Weight: 253 lb 15.56 oz Body Mass Index (BMI) 40.4 ABG / Lab / Microbiology Data Result Diagrams: 10/04/22 05:20 10/04/22 05:20 Laboratory: Laboratory Results - last 24 hr 10/03/22 21:30: WBC 11.1 H, RBC 5.11, Hgb 15.1, Hct 44.8, MCV 87.7, MCH 29.5, MCHC 33.7, RDW Std Deviation 38.1, RDW Coeff of Jeremiah 11.9, Plt Count 376, MPV 9.4, Immature Gran % (Auto) 0.300, Neut % (Auto) 49.0, Lymph % (Auto) 40.5, Prentiss % (Auto) 8.1, Eos % (Auto) 1.6, Baso % (Auto) 0.5, Absolute Neuts (auto) 5.4, Absolute Lymphs (auto) 4.47, Nucleated RBC % 0 10/03/22 21:30: Sodium 136, Potassium 4.7, Chloride 103, Carbon Dioxide 26.0, Anion Gap 7, BUN 14, Creatinine 0.94, Estim Creat Clear Calc 87.67, Est GFR (MDRD) Af Amer 110, Est GFR (MDRD) Non-Af 91, BUN/Creatinine Ratio 14.9, Glucose 248 H, Calcium 9.0, Troponin I High Sens Cancelled 10/03/22 21:30: Troponin I High Sens 3 10/03/22 22:14: D-Dimer Quant (PE/DVT) < 0.27 L 10/03/22 23:47: Troponin I High Sens 5 10/03/22 23:47: Magnesium 1.9 10/04/22 01:11: COVID-19 ([facility]) Not Detected 10/04/22 05:20: WBC 8.4, RBC 4.63, Hgb 13.7, Hct 41.0, MCV 88.6, MCH 29.6, MCHC 33.4, RDW Std Deviation 39.1, RDW Coeff of Jeremiah 12.2, Plt Count 322, MPV 9.3, Immature Gran % (Auto) 0.200, Neut % (Auto) 43.4 L, Lymph % (Auto) 44.8 H, Prentiss % (Auto) 9.0, Eos % (Auto) 2.0, Baso % (Auto) 0.6, Absolute Neuts (auto) 3.6, Absolute Lymphs (auto) 3.75, Nucleated RBC % 0 10/04/22 05:20: Sodium 140, Potassium 4.3, Chloride 106, Carbon Dioxide 26.0, Anion Gap 8, BUN 12, Creatinine 0.70, Estim Creat Clear Calc 117.73, Est GFR (MDRD) Af Amer 155, Est GFR (MDRD) Non-Af 128, BUN/Creatinine Ratio 17.1, Glucose 157 H, Calcium 8.1 L, Total Bilirubin 0.20, AST 15, ALT 30, Alkaline Phosphatase 70, Total Protein 6.2 L, Albumin 3.0 L, Globulin 3.2, Albumin/Globulin Ratio 0.9, Triglycerides 99, Cholesterol 143, LDL Cholesterol 82, VLDL Cholesterol 20, HDL Cholesterol 41 10/04/22 05:20: Troponin I High Sens 5 10/04/22 06:01: POC Glucose 148 H 10/04/22 11:29: POC Glucose 162 H Microbiology: Microbiology 10/04/22 01:11 Mucosa - Nose Respiratory Panel (PCR) - Final Radiography Diagnostic Testing: Radiology Impression Chest X-Ray 10/03/22 21:54 IMPRESSION: No radiographic evidence of acute cardiopulmonary disease. Electronically Signed: Kristofer Hutchins MD at 22:14 EDT , Echocardiogram 10/04/22 01:09 Interpretation Summary The left ventricular ejection fraction is 65 %. Mild tricuspid valve insufficiency. Ordering Physician: Ev Barrientos Performed By: Yuan Saravia RCS D/C Instructions Discharge Diet: Low fat / Low cholesterol, 1800 Calorie Control Diet and 2000 mg Sodium Diet Weight Bearing Status: Weight bearing as tolerated Call your doctor if you observe: Fever of 101 or Higher, Coldness, Increased Pain, Numbness or Tingling, Change in Color, Inability to urinate, Inability to have a bowel movement, Shortness of breath, Dizziness, Fainting spells, Swelling in the ankles, Chest pain, Prolonged hiccupping, Increased palpitations (irregular heartbeat) and Calf discomfort When: IN 2 WEEKS Meaningful Use Info Meaningful Use Diagnoses (Choose all that apply): None applicable Discharge Plan Admission Admit Date/Time: 10/04/22 00:27 Primary Reason for Your Visit: Syncope, atypical chest pain. Attending Provider: Ryley Van Primary Care Provider: Chioma Weinstein Consulting Providers: Ev Barrientos Discharge Orders/Prescriptions Prescriptions: Continued albuterol sulfate 2.5 MG/3 ML solution for nebulization 2.5 mg INHALATION Q4H PRN PRN (Reason: Wheezing) albuterol sulfate 1 INHALER inhaler 1 puff INHALATION Q6H PRN PRN (Reason: Wheezing) pantoprazole 40 mg tablet,delayed release (DR/EC) 40 mg PO DAILY Motegrity 1 mg tablet 1 mg PO DAILY Jardiance 10 mg Tablet 10 mg PO DAILY Changed glyburide 5 mg Tablet 2.5 mg PO DAILY 30 Days Qty: 0 0RF Referrals / Follow Up: Louie Nichols MD [Med Staff - Courtesy Staff] - Within 1 Month (For labile diabetes mellitus type 2. Wide fluctuation of glucose.) Chioma Weinstein PA [Primary Care Provider] - Disposition Disposition (needs filled in before D/C Order can be placed): Home, Self Care Charges/Coding Visit Charges Inpatient E&M: 39556 Disch Hosp >30min
[2022-10-04 17:15] LABS: Bedside Glucose 134 mg/dL (74-106)
== END 2022-10-04 15:06 | disposition home or self-care (01) ==
LOC: ED 10-04 00:21 → PCU 10-04 00:38
PROVIDERS: Admitting Provider Family Medicine; Emergency Provider Emergency Medicine; PCP Physician Assistant; Visit Provider Internal Medicine
DX: R55 Syncope and collapse (principal); E11.43 Type 2 diabetes mellitus with diabetic autonomic (poly)neuropathy; E66.01 Morbid (severe) obesity due to excess calories; Z68.41 Body mass index [BMI] 40.0-44.9, adult; Z79.4 Long term (current) use of insulin; I07.1 Rheumatic tricuspid insufficiency; K21.9 Gastro-esophageal reflux disease without esophagitis; R42 Dizziness and giddiness; Z79.899 Other long term (current) drug therapy; Z79.84 Long term (current) use of oral hypoglycemic drugs; R07.89 Other chest pain; G47.33 Obstructive sleep apnea (adult) (pediatric); J45.909 Unspecified asthma, uncomplicated
CPT/HCPCS: 36415; 71045; 80048; 80053; 80061; 82962; 83735; 84484; 85025; 85379; 87633; 87635; 93005; 93306; 96361; 96372; 96374; 97802; 99221; 99284; J7030; A4216; G0378; U0003; U0005

== ENCOUNTER 2022-11-27 22:45 | Emergency (ER) | payer OTHER, MEDICAID, SELFPAY ==
[2022-11-27 22:47] VITALS: BP 141/85; PULSE 99; RESP 16; TEMP 36.2; O2SAT 97; BMI 41.0
--- NOTE | 2022-11-27 23:12 | CT_ITS ---
EXAM: CT brain without contrast HISTORY: dizziness TECHNIQUE: No intravenous contrast. A radiation dose optimization technique was used for this scan. COMPARISON: Head CT April 14, 2021. LIMITATIONS: None. BRAIN: Normal barber/white matter differentiation. The cerebellar tonsils are slightly low-lying as before. VENTRICLES: No hydrocephalus. EXTRA-AXIAL SPACES: No acute hemorrhage. CALVARIUM/SKULL BASE: No acute fracture. FACE/SINUSES: No significant abnormality. SOFT TISSUES: Normal. OTHER: None. CONCLUSION: No acute intracranial abnormality. Electronically Signed: Berlin Holder MD at 0:02 EDT , CT/Brain/Head without Contrast IMPRESSION: undefined
[2022-11-27] MEDS: diazePAM 5 MG Tablet PO (23:25)
[2022-11-27] MEDS: Ondansetron 4 MG/2 ML Vial IV (23:26)
[2022-11-27] MEDS: 0.9% Normal Saline 1,000 ML 999 ML IV (23:26)
[2022-11-27 23:37] LABS: Absolute Lymphocyte Count 2.75 X10^3/uL (0.83-4.51); Absolute Neutrophil Count 8.4 X10^3/uL (2.0-7.7); Basophil# 0.05 X10^3/uL; Basophil% 0.4 % (0-1); Eosinophil# 0.13 X10^3/uL; Hemoglobin 14.6 g/dL (13.0-16.5); Lymphocyte # 2.75 X10^3/ul (0.83-4.51); Lymphocyte % 22.1 % (19-41); Mean Corp Hgb Conc 34.8 g/dL (32-36); Mean Corpuscular Hgb 30.2 pg (27.0-32.0); Mean Corpuscular Volume 86.8 fL (80-94); Mean Platelet Vol. 9.5 fl (6.2-12.0); Monocyte# 1.03 X10^3/uL; Monocyte% 8.3 % (0-10); NRBC Flagged by Analyzer 0 % (0-5); Neutrophil # 8.44 X10^3/uL (2.7-7.7); Neutrophil % 67.9 % (47-70); Platelet Count 325 K/mm3 (150-450); RBC Distribution Width CV 11.9 % (11.6-14.6); Red Blood Count 4.84 M/mm3 (4.6-6.2); White Blood Count 12.4 K/mm3 (4.4-11.0)
[2022-11-27 23:57] LABS: Anion Gap 6 (5-15); BUN 13 mg/dL (7-18); BUN/Creat Ratio 14.7 RATIO (10-20); Calcium,Total 9.2 mg/dL (8.5-10.1); Chloride 101 mmol/L (98-107); Creatinine, Serum 0.88 mg/dL (0.70-1.30); EST Glomerular Filtration Rate 98 mL/min (>60); Est Glom Filt Rate - Afr Amer 119 mL/min (>60); Estimated Creatinine Clearance 93.65 ml/min; Glucose 189 mg/dL (74-106); Magnesium 1.9 mg/dL (1.6-2.6); Potassium 3.9 mmol/L (3.5-5.1); Sodium Level 137 mmol/L (136-145)
[2022-11-28 00:38] VITALS: BP 132/77; PULSE 69; RESP 16; O2SAT 97
--- NOTE | 2022-11-28 00:39 | EDS_ITS ---
HPI History of Present Illness Chief Complaint: Nausea/Vomiting Informant: patient Narrative Narrative: Patient is a 47-year-old male with past medical history of type 2 diabetes and asthma. He states that today after standing up off the couch he felt dizzy which she describes as more of a sense of motion and then had bouts of nausea and vomiting. He states he still has a mild headache associated with this. He denies any recent trauma or history of blood thinner use. He denies any fevers or chills or ear pain but does admit to mild tinnitus. As symptoms have persisted and he is concerned this could be related to his diabetes he presents for evaluation [facility] Medical History Asthma Diabetes type 2, controlled Gastroparesis GERD (gastroesophageal reflux disease) Morbid obesity REGAN (obstructive sleep apnea) Home Medications albuterol sulfate 2.5 mg/3 mL (0.083 %) solution for nebulization 2.5 mg inhalation Q4H PRN PRN Wheezing 08/22/20 [History Last Taken Unknown] albuterol sulfate 90 mcg/actuation aerosol inhaler 1 puff inhalation Q6H PRN PRN Wheezing 08/22/20 [History Last Taken Unknown] pantoprazole 40 mg tablet,delayed release 40 mg PO DAILY reflux 04/14/21 [History Last Taken Unknown] prucalopride 1 mg tablet (Motegrity) 1 mg PO DAILY gastroparesis 04/14/21 [History Last Taken Unknown] dextromethorphan-guaifenesin ER 60 mg-1,200 mg tab,extend release,12hr (Mucinex DM) 1 tab PO Q12H #10 tabs 10/04/22 [Rx Last Taken Unknown] empagliflozin 10 mg tablet (Jardiance) 10 mg PO DAILY diabetes 10/04/22 [History Last Taken Unknown] glyburide 5 mg tablet 2.5 mg PO DAILY diabetes 30 days #0 tabs 10/04/22 [Rx Last Taken Unknown] diazepam 5 mg tablet (Valium) 5 mg PO TID PRN vertigo 5 days #15 tabs 11/28/22 [Rx Last Taken Unknown] ondansetron 4 mg disintegrating tablet 4 mg PO TID PRN nausea and vomiting #21 tabs 11/28/22 [Rx Last Taken Unknown] Allergy/AdvReac Type Severity Reaction Status Date / Time haloperidol [From Haldol] AdvReac Other Verified 11/27/22 22:46 metoclopramide HCl AdvReac GO CRAZY Verified 11/27/22 22:46 [From Reglan] Family History Mother Dysphagia Patient denies any maternal history of heart disease, diabetes, cancer, underlying pulmonary disease, underlying renal disease but does note she has significant issues with her esophagus, unsure exact disease. Notes frequent has items stuck, thin esophagus, dysphagia. Denied achalasia as etiology. Father Frequent UTI Patient denies any paternal history of heart disease, diabetes, cancer, underlying pulmonary disease, underlying renal disease but does note significant history of frequent urinary tract infections. Surgical History H/O foot surgery History of hernia surgery History of tonsillectomy History of tonsillectomy and adenoidectomy Social History household members: spouse housing: house Smoking Status: Never smoker alcohol intake: never substance use type: does not use ROS ROS ED Constitutional Constitutional ED: Denies chills or fever(s) Eyes Eyes: Denies change in vision ENT ENT ED: Denies sore throat Cardiovascular Cardiovascular: Denies chest pain Respiratory/Chest Respiratory/Chest: Reports cough; Denies dyspnea Gastrointestinal Gastrointestinal: Reports nausea and vomiting; Denies abdominal pain or diarrhea Genitourinary Genitourinary ED: Denies dysuria Musculoskeletal Musculoskeletal: Denies myalgias Integumentary Denies rash Neurologic Neurologic: Reports headache(s) and other Details: Positive dizziness Hematologic/Lymphatic Hematologic/Lymphatic: Denies easy bleeding or easy bruising EXAM Physical Exam Const Vital Signs: 11/27/22 22:47 Temperature 97.2 F L Temperature Source Temporal Pulse Rate 99 Respiratory Rate 16 Blood Pressure 141/85 H Blood Pressure Mean 103 Pulse Ox 97 Positive well nourished, well developed and obese General Appearance ED: well developed Nutritional Appearance: obese HEENT Reports moist mucous membranes HEENT Narrative: Bilateral TMs are slightly retracted but show no secondary changes to suggest infection Eyes PERRL and EOMs intact bilaterally Neck supple Resp normal respiratory effort and clear to auscultation bilaterally Cardio regular rate and regular rhythm Rate: other Other Details: Radial pulses are plus 2 out of 4 bilaterally are equal and symmetric GI non-tender and non-distended GI Narrative: Abdomen soft nontender nondistended hyperactive bowel sounds. No voluntary guarding or rigidity. No pulsatile mass or fluid wave Auscultation: hyperactive bowel sounds Palpation: soft Extremity normal to inspection Neuro oriented x3, CN's II-XII intact bilaterally and no sensory deficits noted Neuro Narrative: Cranial nerves II through XII are grossly intact there are no focal neurologic deficit. No pronator drift no dysmetria no truncal ataxia. NIH stroke scale score of 0. There is mild horizontal noted Positive Hallpike Sherman exam on right Sensorium / Orientation: alert Motor Exam: strength 5/5 throughout Psych mental status grossly normal Skin no rashes or lesions noted General Skin Exam: Negative for jaundice MDM MDM MDM Narrative Medical decision making narrative: Patient presented to the ER with stable vitals and a nonfocal neuro exam. As he did not have truncal ataxia this went against central vertigo and as he does have mild nystagmus with positive Hallpike exam this is most likely peripheral vertigo. Secondary to his diabetic status however I did elect to perform a basic cardiac to ensure that there was not a spontaneous hemorrhagic stroke or subarachnoid hemorrhage based on his headache or potential DKA or HHS or infectious process or electrolyte abnormality. Blood work revealed mild leukocytosis which is most likely stress response but otherwise no clinically significant finding. Head CT revealed no acute changes either. Patient was given IV hydration and Valium and Zofran and was able to walk with a steady gait and had resolution of his symptoms. On reevaluation his neuro exam remains normal and therefore as patient's had improvement of symptoms with steady gait and negative work-up he is otherwise safe for discharge. History & Record Review Discussion w/independent historian: Patient and Family Lab Data Attestation: I reviewed the patient's lab results. Labs: Laboratory Results - last 24 hr 11/27/22 11/27/22 23:30 23:30 WBC 12.4 H RBC 4.84 Hgb 14.6 Hct 42.0 MCV 86.8 MCH 30.2 MCHC 34.8 RDW Std Deviation 38.0 RDW Coeff of Jeremiah 11.9 Plt Count 325 MPV 9.5 Immature Gran % (Auto) 0.300 Neut % (Auto) 67.9 Lymph % (Auto) 22.1 [place] % (Auto) 8.3 Eos % (Auto) 1.0 Baso % (Auto) 0.4 Absolute Neuts (auto) 8.4 H Absolute Lymphs (auto) 2.75 Nucleated RBC % 0 Sodium 137 Potassium 3.9 Chloride 101 Carbon Dioxide 30.0 Anion Gap 6 BUN 13 Creatinine 0.88 Estim Creat Clear Calc 93.65 Est GFR (MDRD) Af Amer 119 Est GFR (MDRD) Non-Af 98 BUN/Creatinine Ratio 14.7 Glucose 189 H Calcium 9.2 Magnesium 1.9 Radiography Diagnostic Testing: Clinical Impression(s) from Imaging Studies Brain CT 11/27/22 23:12 IMPRESSION: undefined Discharge Plan Triage Chief Complaint: Nausea/Vomiting ED Provider: Reji Alonzo Dx/Rx/DC Orders Clinical Impression: Vertigo, Type 2 diabetes mellitus Instructions: ED Vertigo, Unspecified Prescriptions: New diazepam [Valium] 5 mg tablet 5 mg PO TID PRN (Reason: vertigo) 5 Days Qty: 15 0RF ondansetron 4 mg tablet,disintegrating 4 mg PO TID PRN (Reason: nausea and vomiting) Qty: 21 0RF No Action albuterol sulfate 2.5 MG/3 ML solution for nebulization 2.5 mg INHALATION Q4H PRN PRN (Reason: Wheezing) albuterol sulfate 1 INHALER inhaler 1 puff INHALATION Q6H PRN PRN (Reason: Wheezing) pantoprazole 40 mg tablet,delayed release (DR/EC) 40 mg PO DAILY Motegrity 1 mg tablet 1 mg PO DAILY Jardiance 10 mg Tablet 10 mg PO DAILY glyburide 5 mg Tablet 2.5 mg PO DAILY 30 Days Qty: 0 0RF dextromethorphan-guaifenesin [Mucinex DM] 60-1,200 mg tablet extended release 12 hr 1 tab PO Q12H Qty: 10 0RF Primary Care Provider: Chioma Weinstein Referrals: Chioma Weinstein, PA [Primary Care Provider] - Disposition Disposition: Home, Self Care
== END 2022-11-28 01:14 | disposition home or self-care (01) ==
PROVIDERS: Emergency Provider Emergency Medicine; PCP Physician Assistant; Visit Provider Emergency Medicine
DX: R42 Dizziness and giddiness (principal); E11.43 Type 2 diabetes mellitus with diabetic autonomic (poly)neuropathy; J45.909 Unspecified asthma, uncomplicated; K21.9 Gastro-esophageal reflux disease without esophagitis; Z79.899 Other long term (current) drug therapy; K31.84 Gastroparesis
CPT/HCPCS: 70450; 80048; 83735; 85025; 96361; 96374; 99284; J7030; A4216; J2405

== ENCOUNTER 2023-05-04 04:32 | Emergency (ER) | payer OTHER, MEDICAID, SELFPAY ==
[2023-05-04 04:33] VITALS: BP 142/86; PULSE 99; RESP 16; TEMP 36.4; O2SAT 97; BMI 41.2
--- NOTE | 2023-05-04 04:53 | CT_ITS ---
STUDY: CT ABDOMEN AND PELVIS WITHOUT CONTRAST REASON FOR EXAM: Male, 47 years old. Epigastric Pain, intractable n/v RADIATION DOSAGE (If Supplied By Facility): CTDIvol = ( 21.29 ) mGy, DLP = ( 1244.66 ) mGycm TECHNIQUE: Transaxial images were obtained from the dome of the diaphragm to the symphysis pubis without oral contrast, and without intravenous contrast. Sagittal and coronal images were reconstructed. Individualized dose optimization techniques were used for this CT. COMPARISON: February 18, 2022 CT scan abdomen and pelvis FINDINGS: The visualized lung bases are unremarkable. There is partially visualized coronary calcification. Is visualized gynecomastia. Normal liver. There is suggestion of possible minimal sludge or stones in the gallbladder. Normal spleen. Normal pancreas. Normal bilateral adrenal glands. There is persistent prominent appearance of the bilateral perinephric fat. There is persistent perinephric stranding. There is no hydronephrosis. Perinephric stranding stable. No hydronephrosis. There is a small hiatal hernia. There is mild distention of the small bowel. There is a pattern of air-fluid levels within the colon. Visualized The appendix is visualized and appears normal. Normal abdominal aorta. Normal inferior vena cava. Normal retroperitoneum. Normal urinary bladder. Normal visualized prostate gland. There is a small umbilical hernia containing fat. There are diffuse degenerative changes of the visualized lumbar spine. T12-L1 there is a broad left lateral disc osteophyte with mild central stenosis. At L5-S1 there is a broad disc bulge mild neural foramina narrowing no significant central stenosis. CT/Abdomen/Pelvis without Cont IMPRESSION: Mildly distended Air-fluid levels within the small bowel and colon suggests the patient may have diarrhea. Could consider pattern of enterocolitis. Contracted gallbladder. Minimal sludge or stones suggested. Could consider follow-up ultrasound. Stable bilateral kidneys with prominent perinephric fat and perinephric stranding. Degenerative change of the thoracolumbar spine. A small hiatal hernia. Visualized coronary calcification. No appendicitis. Electronically Signed: Amber Coto MD at 5:50 EST ,
--- NOTE | 2023-05-04 04:54 | EDS_ITS ---
HPI HPI - GI History of Present Illness Chief Complaint: Nausea/Vomiting/Diarrhea Informant: patient Narrative Narrative: Patient states for the past 3 days he has had intractable vomiting. He states he has been vomiting every 20 minutes for the past 3 days but he is also been having significant amount of watery nonbloody diarrhea. No fevers or chills. He is feeling lightheaded because he feels dehydrated, however he states he recently had an episode of atrial fibrillation and felt lightheaded with that as well. He has had no syncope. He has epigastric abdominal pain, no radiation or migration of pain no back pain. He denies hematemesis or bilious emesis. He has history of gastroparesis, which is done really well since he had a surgery last year for it, a POP procedure. He states his son has been sick with vomiting and diarrhea lately but it has been nothing compared to him. [facility] Medical History Asthma Diabetes type 2, controlled Gastroparesis GERD (gastroesophageal reflux disease) Morbid obesity REGAN (obstructive sleep apnea) Home Medications albuterol sulfate 2.5 mg/3 mL (0.083 %) solution for nebulization 2.5 mg inhalation Q4H PRN PRN Wheezing 08/22/20 [History Last Taken Unknown] albuterol sulfate 90 mcg/actuation aerosol inhaler 1 puff inhalation Q6H PRN PRN Wheezing 08/22/20 [History Last Taken Unknown] pantoprazole 40 mg tablet,delayed release 40 mg PO DAILY reflux 04/14/21 [History Last Taken Unknown] dextromethorphan-guaifenesin ER 60 mg-1,200 mg tab,extend release,12hr (Mucinex DM) 1 tab PO Q12H #10 tabs 10/04/22 [Rx Last Taken Unknown] fluoxetine 10 mg capsule 10 mg PO DAILY 05/04/23 [History Last Taken Unknown] glimepiride 4 mg tablet 4 mg PO DAILY 05/04/23 [History Last Taken Unknown] linaclotide 145 mcg capsule (Linzess) 145 mcg PO DAILY 05/04/23 [History Last Taken Unknown] lubiprostone 24 mcg capsule 24 mcg PO BID 05/04/23 [History Last Taken Unknown] ondansetron 4 mg disintegrating tablet 8 mg (2 x 4 mg) PO Q8H PRN nausea and vomiting #20 tabs 05/04/23 [Rx Last Taken Unknown] semaglutide 3 mg tablet (Rybelsus) 3 mg PO DAILY 05/04/23 [History Last Taken Unknown] Allergy/AdvReac Type Severity Reaction Status Date / Time haloperidol [From Haldol] AdvReac Other Verified 05/04/23 04:33 metoclopramide HCl AdvReac GO CRAZY Verified 05/04/23 04:33 [From Reglan] Family History Mother Dysphagia Patient denies any maternal history of heart disease, diabetes, cancer, underlying pulmonary disease, underlying renal disease but does note she has significant issues with her esophagus, unsure exact disease. Notes frequent has items stuck, thin esophagus, dysphagia. Denied achalasia as etiology. Father Frequent UTI Patient denies any paternal history of heart disease, diabetes, cancer, underlying pulmonary disease, underlying renal disease but does note significant history of frequent urinary tract infections. Surgical History H/O foot surgery History of hernia surgery History of tonsillectomy History of tonsillectomy and adenoidectomy Social History household members: spouse housing: house Smoking Status: Never smoker alcohol intake: never substance use type: does not use ROS ROS ED Constitutional Constitutional ED: Reports malaise; Denies chills or fever(s) Eyes Eyes: Denies change in vision or diplopia ENT ENT ED: Denies rhinorrhea or sore throat Cardiovascular Cardiovascular: Reports lightheadedness; Denies chest pain, palpitations or syncope Respiratory/Chest Respiratory/Chest: Denies cough or dyspnea Gastrointestinal Gastrointestinal: Reports abdominal pain, diarrhea, nausea and vomiting; Denies melena Genitourinary Genitourinary ED: Denies dysuria or hematuria Musculoskeletal Musculoskeletal: Denies back pain or neck pain Integumentary Denies abscess or rash Neurologic Neurologic: Denies headache(s), paresthesias or weakness Psychiatric Psychiatric: Denies anxiety or suicidal thoughts EXAM Physical Exam Const Vital Signs: 05/04/23 04:33 05/04/23 06:47 Temperature 97.5 F L Temperature Source Temporal Pulse Rate 99 Respiratory Rate 16 14 Blood Pressure 142/86 H Blood Pressure Mean 104 Pulse Ox 97 Positive well nourished, well developed and obese General Appearance ED: well developed and NAD Nutritional Appearance: obese HEENT Reports moist mucous membranes normocephalic and atraumatic Eyes PERRL and EOMs intact bilaterally Neck full ROM and supple Resp normal respiratory effort and clear to auscultation bilaterally Cardio regular rate, regular rhythm and no murmurs Rate: Negative for tachycardic GI non-distended GI Narrative: Epigastric tenderness no guarding or rebound no pulsatile mass but obesity limiting this part of the exam. Auscultation: normoactive bowel sounds Palpation: soft Back/Spine no CVA tenderness General Back: other FROM Extremity normal to inspection General Extremety ED: Negative for edema, pulses abnormal or tenderness General Extremity: Negative for edema or pulses abnormal Neuro oriented x3, CN's II-XII intact bilaterally and no sensory deficits noted Sensorium / Orientation: awake and alert Motor Exam: strength 5/5 throughout Skin no rashes or lesions noted and no wounds MDM MDM MDM Narrative Medical decision making narrative: Patient has akathisia with metoclopramide, so IV fluids and ondansetron ordered in addition to labs including liver enzymes and lipase to evaluate for pancreatitis and also a CT without contrast to evaluate for gastric outlet obstruction. All in all, it sounds most likely that he has viral gastroenteritis but in context of gastroparesis which is why his symptoms are more severe with regards to his vomiting. I did review the images of the CT which are inconsistent with a gastric outlet obstruction. Radiology interpretation was reviewed and I agree with it, basically consistent with enterocolitis. Labs are noted, he does have hyperglycemia to 284 which we treated with 8 units of insulin lispro. After Zofran and IV fluids patient still in pain and having some nausea so further treated with morphine, Thorazine, Benadryl. After this, although lethargic, he was able to walk and drink fluids and keep them down, so at this point I am comfortable letting him go home with family, given a prescription for Zofran and instructions for supportive care, my initial impression of gastroenteritis on gastroparesis stands. Lab Data Attestation: I reviewed the patient's lab results. Labs: Laboratory Results - last 24 hr 05/04/23 04:50 WBC 10.2 RBC 4.81 Hgb 14.2 Hct 42.8 MCV 89.0 MCH 29.5 MCHC 33.2 RDW Std Deviation 38.3 RDW Coeff of Jeremiah 11.9 Plt Count 353 MPV 9.9 Immature Gran % (Auto) 0.300 Neut % (Auto) 59.1 Lymph % (Auto) 25.1 [place] % (Auto) 8.6 Eos % (Auto) 6.3 H Baso % (Auto) 0.6 Absolute Neuts (auto) 6.1 Absolute Lymphs (auto) 2.57 Nucleated RBC % 0 Sodium 135 L Potassium 4.2 Chloride 102 Carbon Dioxide 26.0 Anion Gap 7 BUN 12 Creatinine 0.98 Estim Creat Clear Calc 84.09 Est GFR (MDRD) Af Amer 106 Est GFR (MDRD) Non-Af 87 BUN/Creatinine Ratio 12.3 Glucose 284 H Calcium 8.7 Total Bilirubin 0.50 AST 16 ALT 31 Alkaline Phosphatase 89 Total Protein 7.3 Albumin 3.4 Globulin 3.9 Albumin/Globulin Ratio 0.9 Lipase 59 Radiography Diagnostic Testing: Clinical Impression(s) from Imaging Studies Abdomen/Pelvis CT 05/04/23 04:53 IMPRESSION: Mildly distended Air-fluid levels within the small bowel and colon suggests the patient may have diarrhea. Could consider pattern of enterocolitis. Contracted gallbladder. Minimal sludge or stones suggested. Could consider follow-up ultrasound. Stable bilateral kidneys with prominent perinephric fat and perinephric stranding. Degenerative change of the thoracolumbar spine. A small hiatal hernia. Visualized coronary calcification. No appendicitis. Electronically Signed: Amber Coto MD at 5:50 EST Reading Location ID and State: [facility] / [place] Tel , Service support , Discharge Plan Triage Chief Complaint: Nausea/Vomiting/Diarrhea ED Provider: Turner Adan Dx/Rx/DC Orders Clinical Impression: Hyperglycemia due to type 2 diabetes mellitus, Gastroenteritis, Diabetic gastroparesis Instructions: ED Diabetic Hyperglycemia, ED Gastroenteritis, Viral (Adult) Prescriptions: Continued albuterol sulfate 2.5 MG/3 ML solution for nebulization 2.5 mg INHALATION Q4H PRN PRN (Reason: Wheezing) albuterol sulfate 1 INHALER inhaler 1 puff INHALATION Q6H PRN PRN (Reason: Wheezing) pantoprazole 40 mg tablet,delayed release (DR/EC) 40 mg PO DAILY glimepiride 4 mg tablet 4 mg PO DAILY fluoxetine 10 mg capsule 10 mg PO DAILY lubiprostone 24 mcg capsule 24 mcg PO BID Patient Comments: take 1 capsule by mouth twice a day with meals Linzess 145 mcg capsule 145 mcg PO DAILY Patient Comments: take 1 capsule by mouth once daily AT 6AM Rybelsus 3 mg tablet 3 mg PO DAILY Patient Comments: take 1 tablet by mouth once daily 30 MINUTES before THE FIRST YOLI... (REFER TO PRESCRIPTION NOTES). Changed ondansetron 4 mg tablet,disintegrating 8 mg PO Q8H PRN (Reason: nausea and vomiting) Qty: 20 0RF No Action dextromethorphan-guaifenesin [Mucinex DM] 60-1,200 mg tablet extended release 12 hr 1 tab PO Q12H Qty: 10 0RF Primary Care Provider: Chioma Weinstein Referrals: Chioma Weinstein PA [Primary Care Provider] - 3-5 Days if not improving (Or return to the ER if despite the Zofran you are not able to keep down fluids) Disposition Disposition: Home, Self Care
[2023-05-04 05:18] LABS: Absolute Lymphocyte Count 2.57 X10^3/uL (0.83-4.51); Absolute Neutrophil Count 6.1 X10^3/uL (2.0-7.7); Basophil# 0.06 X10^3/uL; Basophil% 0.6 % (0-1); Eosinophil# 0.64 X10^3/uL; Eosinophils% 6.3 % (0-5); Hematocrit 42.8 % (40-54); Hemoglobin 14.2 g/dL (13.0-16.5); Lymphocyte # 2.57 X10^3/ul (0.83-4.51); Lymphocyte % 25.1 % (19-41); Mean Corp Hgb Conc 33.2 g/dL (32-36); Mean Corpuscular Hgb 29.5 pg (27.0-32.0); Mean Platelet Vol. 9.9 fl (6.2-12.0); Monocyte# 0.88 X10^3/uL; Monocyte% 8.6 % (0-10); NRBC Flagged by Analyzer 0 % (0-5); Neutrophil # 6.06 X10^3/uL (2.7-7.7); Neutrophil % 59.1 % (47-70); Platelet Count 353 K/mm3 (150-450); RBC Distribution Width CV 11.9 % (11.6-14.6); RBC Distribution Width SD 38.3 fl (35.1-43.9); Red Blood Count 4.81 M/mm3 (4.6-6.2); White Blood Count 10.2 K/mm3 (4.4-11.0)
[2023-05-04 05:37] LABS: ALB/GLOB Ratio 0.9 RATIO (0.9-2.4); AST(SGOT) 16 U/L (15-37); Alanine Aminotransfer ALT/SGPT 31 U/L (16-61); Albumin, Serum 3.4 g/dL (3.2-5.0); Alkaline Phosphatase 89 U/L (45-117); Anion Gap 7 (5-15); BUN 12 mg/dL (7-18); BUN/Creat Ratio 12.3 RATIO (10-20); Calcium,Total 8.7 mg/dL (8.5-10.1); Chloride 102 mmol/L (98-107); Creatinine, Serum 0.98 mg/dL (0.70-1.30); EST Glomerular Filtration Rate 87 mL/min (>60); Est Glom Filt Rate - Afr Amer 106 mL/min (>60); Estimated Creatinine Clearance 84.09 ml/min; Globulin 3.9 g/dL (2.2-4.2); Glucose 284 mg/dL (74-106); Lipase 59 U/L (13-75); Potassium 4.2 mmol/L (3.5-5.1); Protein, Total 7.3 g/dL (6.4-8.2); Sodium Level 135 mmol/L (136-145)
[2023-05-04] MEDS: 0.9% Normal Saline (1000mL) 1,000 ML 1000 ML IV (05:57)
[2023-05-04] MEDS: Morphine 4 MG/ML Syringe IV (06:01)
[2023-05-04] MEDS: DiphenhydrAMINE 50 MG/ML Syringe 25 MG IV (06:01)
[2023-05-04] MEDS: Ondansetron 4 MG/2 ML Vial IV (06:01)
[2023-05-04] MEDS: Insulin Lispro 100 UNIT/ML INSULN.PEN 8 UNIT SC (06:07)
[2023-05-04] MEDS: ChlorproMAZINE 50 MG/2 ML Ampul 12.5 MG IV (06:45)
[2023-05-04 06:47] VITALS: RESP 14
[2023-05-04 08:20] VITALS: BP 138/87; PULSE 87; RESP 18; O2SAT 99
== END 2023-05-04 08:25 | disposition home or self-care (01) ==
PROVIDERS: Emergency Provider Emergency Medicine; PCP Physician Assistant; Visit Provider Emergency Medicine
DX: K52.9 Noninfective gastroenteritis and colitis, unspecified (principal); E11.65 Type 2 diabetes mellitus with hyperglycemia; E11.43 Type 2 diabetes mellitus with diabetic autonomic (poly)neuropathy; K31.84 Gastroparesis; K21.9 Gastro-esophageal reflux disease without esophagitis; Z79.899 Other long term (current) drug therapy; Z79.84 Long term (current) use of oral hypoglycemic drugs
CPT/HCPCS: 74176; 80053; 83690; 85025; 96361; 96372; 96374; 96375; 99283; J7030; A4216; J2405

== ENCOUNTER 2024-03-13 11:50 | Inpatient (IN) | payer OTHER, SELFPAY ==
[2024-03-13 11:50] VITALS: BP 144/90; PULSE 98; RESP 16; TEMP 36.8; O2SAT 99; BMI 25.7
--- NOTE | 2024-03-13 13:21 | CT_ITS ---
STUDY: CT ABDOMEN AND PELVIS WITH CONTRAST REASON FOR EXAM: Male, 48 years old. Epigastric pain RADIATION DOSAGE (If Supplied By Facility): CTDIvol = ( 15.08 ) mGy, DLP = ( 1167.31 ) mGycm TECHNIQUE: Transaxial images were obtained from the dome of the diaphragm to the symphysis pubis without oral contrast. IV 100mL [id number]-300 was administered. Sagittal and coronal images were reconstructed. Individualized dose optimization techniques were used for this CT. COMPARISON: Comparison is made with prior study of May 04, 2023. FINDINGS: The visualized lung bases are unremarkable. The visualized portions of the heart are within normal limits. There is decreased attenuation of the liver consistent with steatosis. Normal gallbladder and extrahepatic biliary system. Normal spleen. Normal pancreas. Normal bilateral adrenal glands. Normal right kidney. Normal left kidney. There is a small hiatal hernia. Normal small intestine. Normal colon. The appendix is visualized and appears normal. Normal abdominal aorta. Normal inferior vena cava. Normal retroperitoneum. Normal urinary bladder. Normal abdominal wall. Normal osseous structures. CT/Abdomen/Pelvis W IV Cont ONLY IMPRESSION: Fatty infiltration of the liver. Small hiatal hernia. Electronically Signed: Ryan Ledesma MD at 15:10 EDT ,
[2024-03-13 13:34] LABS: Bacteria 0 SEEN /hpf (None Seen); Mucous, Urine 0 SEEN /hpf (<or=2+); Red Blood Cells-Urine 0 SEEN /hpf (0-5); Squamous Epithelial Cells - UA 0 SEEN /hpf (0-5); White Blood Cells 0 SEEN /hpf (0-5)
[2024-03-13 13:40] LABS: Color, Urine Straw (Yellow); Glucose, Dipstick Normal (Normal); Ketone-Dipstick Negative (Negative); Leukocyte Esterase-Dipstick Negative /ul (Negative); Nitrite-Dipstick Negative (Negative); Occult Blood-Urine Negative /ul (Negative); Protein-Dipstick Negative (Negative); Specific Gravity, Urine 1.005 (1.002-1.030); Urine Bilirubin Dipstick Negative (Negative); Urine Clarity Clear (Clear); Urine Urobilinogen Normal (Normal)
[2024-03-13 13:51] LABS: ALB/GLOB Ratio 0.9 RATIO (0.9-2.4); AST(SGOT) 18 U/L (15-37); Alanine Aminotransfer ALT/SGPT 28 U/L (16-61); Albumin, Serum 3.6 g/dL (3.2-5.0); Alkaline Phosphatase 90 U/L (45-117); Anion Gap 7 (5-15); BUN 8 mg/dL (7-18); BUN/Creat Ratio 9.6 RATIO (10-20); Calcium,Total 9.2 mg/dL (8.5-10.1); Chloride 102 mmol/L (98-107); Creatinine, Serum 0.83 mg/dL (0.70-1.30); EST Glomerular Filtration Rate 105 mL/min (>60); Est Glom Filt Rate - Afr Amer 127 mL/min (>60); Estimated Creatinine Clearance 98.22 ml/min; Globulin 3.9 g/dL (2.2-4.2); Glucose 207 mg/dL (74-106); Lipase 176 U/L (13-75); Potassium 4.1 mmol/L (3.5-5.1); Protein, Total 7.5 g/dL (6.4-8.2); Sodium Level 137 mmol/L (136-145)
[2024-03-13 14:10] LABS: Absolute Lymphocyte Count 2.55 X10^3/uL (0.83-4.51); Absolute Neutrophil Count 5.3 X10^3/uL (2.0-7.7); Basophil# 0.05 X10^3/uL; Basophil% 0.6 % (0-1); Eosinophil# 0.13 X10^3/uL; Eosinophils% 1.5 % (0-5); Hematocrit 40.4 % (40-54); Hemoglobin 13.9 g/dL (13.0-16.5); Lymphocyte # 2.55 X10^3/ul (0.83-4.51); Lymphocyte % 29.2 % (19-41); Mean Corp Hgb Conc 34.4 g/dL (32-36); Mean Corpuscular Hgb 29.9 pg (27.0-32.0); Mean Corpuscular Volume 86.9 fL (80-94); Mean Platelet Vol. 9.5 fl (6.2-12.0); Monocyte# 0.65 X10^3/uL; Monocyte% 7.5 % (0-10); NRBC Flagged by Analyzer 0 % (0-5); Neutrophil # 5.32 X10^3/uL (2.7-7.7); Platelet Count 335 K/mm3 (150-450); RBC Distribution Width CV 11.9 % (11.6-14.6); RBC Distribution Width SD 37.4 fl (35.1-43.9); Red Blood Count 4.65 M/mm3 (4.6-6.2); White Blood Count 8.7 K/mm3 (4.4-11.0)
[2024-03-13] MEDS: Morphine 4 MG/ML Syringe IV ×2 (14:11→16:17)
[2024-03-13] MEDS: Ondansetron 4 MG/2 ML Vial IV (14:11)
[2024-03-13 14:12] VITALS: BP 138/81; PULSE 86; RESP 14; O2SAT 100
--- NOTE | 2024-03-13 16:01 | EDS_ITS ---
HPI History of Present Illness Chief Complaint: Abd Pain Narrative Narrative: Patient is a 40-year-old male past medical gastroparesis, type 2 diabetes, REGAN, GERD who presented to the emergency department chief complaint of abdominal pain. Patient states that he has been having abdominal pain for about 3 weeks now and states that it is progressively worsening. States that he followed up with his primary care physician yesterday had blood work obtained and was advised to come to the emergency department as his lipase was to be elevated. Patient states that he has had nausea vomiting not tolerating oral intake and increasing pain. He rates his pain an 8 out of 10. Patient states that originally thought his gastroparesis flaring up however things were not improving which ultimately prompted him to his primary care physician. Patient denies any alcohol use, tobacco use, drug use. [facility] Medical History GERD (gastroesophageal reflux disease) Morbid obesity Gastroparesis Asthma Diabetes type 2, controlled REGAN (obstructive sleep apnea) Home Medications ?Medication ?Instructions ?Recorded ?Last Taken ?Type albuterol sulfate 2.5 mg/3 mL 2.5 mg inhalation Q4H PRN Wheezing 08/22/20 Unknown History (0.083 %) solution for nebulization albuterol sulfate 90 mcg/actuation 1 puff inhalation Q6H PRN Wheezing 08/22/20 Unknown History aerosol inhaler pantoprazole 40 mg tablet,delayed 40 mg PO DAILY reflux 04/14/21 Unknown History release glimepiride 4 mg tablet 4 mg PO DAILY 05/04/23 Unknown History ondansetron 4 mg disintegrating 8 mg (2 x 4 mg) PO Q8H PRN nausea 05/04/23 Unknown Rx tablet and vomiting #20 tabs dextromethorphan-guaifenesin ER 60 1 tab PO Q12H PRN gastrointestinal 03/13/24 Unknown History mg-1,200 mg tab,extend spasms or cramping release,12hr (Mucinex DM) promethazine 25 mg tablet 25 mg PO Q8H PRN nausea and 03/13/24 Unknown History vomiting prucalopride 1 mg tablet 1 mg PO DAILY 03/13/24 Unknown History (Motegrity) tadalafil 10 mg tablet 10 - 20 mg PO DAILY PRN sexual 03/13/24 Unknown History activity Allergy/AdvReac Type Severity Reaction Status Date / Time haloperidol (From Haldol) AdvReac Other Verified 03/13/24 11:53 metoclopramide HCl (From AdvReac GO CRAZY Verified 03/13/24 11:53 Reglan) Family History Mother Dysphagia Patient denies any maternal history of heart disease, diabetes, cancer, underlying pulmonary disease, underlying renal disease but does note she has significant issues with her esophagus, unsure exact disease. Notes frequent has items stuck, thin esophagus, dysphagia. Denied achalasia as etiology. Father Frequent UTI Patient denies any paternal history of heart disease, diabetes, cancer, underlying pulmonary disease, underlying renal disease but does note significant history of frequent urinary tract infections. Surgical History H/O foot surgery History of tonsillectomy and adenoidectomy History of hernia surgery History of tonsillectomy Social History household members: spouse housing: house Smoking Status: Never smoker alcohol intake: never substance use type: does not use ROS ROS ED ROS Narrative Constitutional: Denies any fevers or chills, headaches, lightness, dizziness Eyes: Denies change vision double vision blurry vision Cardiovascular: Denies chest pain or palpitations Respiratory: Denies coughing wheezing shortness of breath Abdomen: Admits to abdominal pain nausea vomiting as noted above denies diarrhea : Denies any painful urination, hematuria or polyuria Neurological: Denies numbness, weakness, tingling Musculoskeletal: Denies back pain Skin: Denies rashes or lesions EXAM Physical Exam Narrative Exam Narrative: general: Patient was lying in bed did appear to be uncomfortable secondary to his abdominal pain Head: Atraumatic, normocephalic Eyes: PERRL bilateral, EOMI bilateral, no conjunctival injection Neck: Soft, supple, trachea midline Cardiovascular: Regular rate and rhythm no murmurs gallops rubs noted Respiratory: Clear to auscultation bilaterally no rales rhonchi or wheezes noted Abdomen: Soft, nondistended, tenderness to palpation epigastric region no rebound or guarding on exam Extremities: +5/5 strength noted in the bilateral lower extremities, no pedal edema noted on exam Neurological: Patient is following commands knew that he was at [facility] years 24 Skin: Warm, dry, intact Const Vital Signs: 03/13/24 11:50 03/13/24 14:12 03/13/24 16:09 Temperature 98.3 F Temperature Source Oral Pulse Rate 98 86 Respiratory Rate 16 14 Blood Pressure 144/90 H 138/81 H 164/87 H Blood Pressure Mean 108 100 112 Pulse Ox 99 100 Oxygen Delivery Method Room Air MDM MDM MDM Narrative Medical decision making narrative: Patient is a 40-year-old male who presents to the emergency department the chief complaint of abdominal pain and abnormal blood work in the outpatient setting. Patient will have a workup performed here on the differential diagnose clues but not limited to pancreatitis, cholecystitis, small bowel obstruction, gastroparesis. Once workup is obtained reviewed he will be reevaluated. Patient CBC was reviewed And was largely unremarkable no evidence leukocytosis white blood count normal at 8.7, hemoglobin stable 13.9, platelet count normal at 335. Patient sodium normal 137, potassium normal 4.1, creatinine normal at 0.83. Patient's AST and ALT were 18 and 28 respectively with a normal total bilirubin of 0.40. Patient's lipase was elevated 176, urinalysis reviewed and showed no evidence of infection. Patient CT abdomen pelvis with IV contrast was reviewed and showed fatty infiltration of the liver small hiatal hernia. On reevaluation the patient and repeat abdominal exam he has significant tenderness in the epigastric region and states that he is not tolerating oral intake therefore do believe the patient will warrant admission to the hospital service. Will discuss case with hospitalist. I did discuss case with hospitalist Dr. Venegas who accept patient for admission. Patient was notified is agreeable to plan all question concerns answered bed side. He is requesting more pain medication which should be given another 4 mg of morphine. Lab Data Labs: Laboratory Results - last 24 hr 03/13/24 03/13/24 03/13/24 12:40 12:40 13:30 WBC Cancelled Corrected WBC Cancelled RBC Cancelled Hgb Cancelled Hct Cancelled MCV Cancelled MCH Cancelled MCHC Cancelled RDW Std Deviation Cancelled RDW Coeff of Jeremiah Cancelled Plt Count Cancelled MPV Cancelled Immature Gran % (Auto) Cancelled Neut % (Auto) Cancelled Lymph % (Auto) Cancelled Ellis % (Auto) Cancelled Eos % (Auto) Cancelled Baso % (Auto) Cancelled Absolute Neuts (auto) Cancelled Absolute Lymphs (auto) Cancelled Total Counted Cancelled Neutrophils % (Manual) Cancelled Band Neutrophils % Cancelled Lymphocytes % (Manual) Cancelled Monocytes % (Manual) Cancelled Eosinophils % (Manual) Cancelled Basophils % (Manual) Cancelled Metamyelocytes % Cancelled Myelocytes % Cancelled Promyelocytes % Cancelled Blast Cells % Cancelled Plasma Cell % (Manual) Cancelled Other Cells % Cancelled Nucleated RBC % Cancelled Nucleated RBCs/100 WBC Cancelled Differential Comment Cancelled Diff Path Review Cancelled Hypersegmented Neuts Cancelled Atypical Lymphocytes Cancelled Reactive Lymphocytes Cancelled Smudge Cells Cancelled Toxic Granulation Cancelled Toxic Vacuolation Cancelled Dohle Bodies Cancelled Greg Rods Cancelled Platelet Estimate Cancelled Plt Morphology Comment Cancelled RBC Morphology Cancelled Cancelled Polychromasia Cancelled Hypochromasia Cancelled Basophilic Stippling Cancelled Anisocytosis Cancelled Microcytosis Cancelled Macrocytosis Cancelled Spherocytes Cancelled Sickle Cells Cancelled Target Cells Cancelled Tear Drop Cells Cancelled Ovalocytes Cancelled Stomatocytes Cancelled Valentino-[place] Bodies Cancelled [place] Cells Cancelled Bite Cells Cancelled Crenated Cell Cancelled Acanthocytes (Spur) Cancelled Rouleaux Cancelled Schistocytes Cancelled Sodium 137 Potassium 4.1 Chloride 102 Carbon Dioxide 28.0 Anion Gap 7 BUN 8 Creatinine 0.83 Estim Creat Clear Calc 98.22 Est GFR (MDRD) Af Amer 127 Est GFR (MDRD) Non-Af 105 BUN/Creatinine Ratio 9.6 L Glucose 207 H Calcium 9.2 Total Bilirubin 0.40 AST 18 ALT 28 Alkaline Phosphatase 90 Total Protein 7.5 Albumin 3.6 Globulin 3.9 Albumin/Globulin Ratio 0.9 Lipase 176 H Urine Color Straw Urine Clarity Clear Urine pH 7.0 Ur Specific [place] 1.005 Urine Protein Negative Urine Glucose (UA) Normal Urine Ketones Negative Urine Occult Blood Negative Urine Nitrite Negative Urine Bilirubin Negative Urine Urobilinogen Normal Ur Leukocyte Esterase Negative Urine RBC 0 SEEN Urine WBC 0 SEEN Ur Squamous Epith Cells 0 SEEN Urine Bacteria 0 SEEN Urine Mucus 0 SEEN 03/13/24 13:55 WBC 8.7 Corrected WBC RBC 4.65 Hgb 13.9 Hct 40.4 MCV 86.9 MCH 29.9 MCHC 34.4 RDW Std Deviation 37.4 RDW Coeff of Jeremiah 11.9 Plt Count 335 MPV 9.5 Immature Gran % (Auto) 0.200 Neut % (Auto) 61.0 Lymph % (Auto) 29.2 Ellis % (Auto) 7.5 Eos % (Auto) 1.5 Baso % (Auto) 0.6 Absolute Neuts (auto) 5.3 Absolute Lymphs (auto) 2.55 Total Counted Neutrophils % (Manual) Band Neutrophils % Lymphocytes % (Manual) Monocytes % (Manual) Eosinophils % (Manual) Basophils % (Manual) Metamyelocytes % Myelocytes % Promyelocytes % Blast Cells % Plasma Cell % (Manual) Other Cells % Nucleated RBC % 0 Nucleated RBCs/100 WBC Differential Comment Diff Path Review Hypersegmented Neuts Atypical Lymphocytes Reactive Lymphocytes Smudge Cells Toxic Granulation Toxic Vacuolation Dohle Bodies Greg Rods Platelet Estimate Plt Morphology Comment RBC Morphology Polychromasia Hypochromasia Basophilic Stippling Anisocytosis Microcytosis Macrocytosis Spherocytes Sickle Cells Target Cells Tear Drop Cells Ovalocytes Stomatocytes Valentino-[place] Bodies [place] Cells Bite Cells Crenated Cell Acanthocytes (Spur) Rouleaux Schistocytes Sodium Potassium Chloride Carbon Dioxide Anion Gap BUN Creatinine Estim Creat Clear Calc Est GFR (MDRD) Af Amer Est GFR (MDRD) Non-Af BUN/Creatinine Ratio Glucose Calcium Total Bilirubin AST ALT Alkaline Phosphatase Total Protein Albumin Globulin Albumin/Globulin Ratio Lipase Urine Color Urine Clarity Urine pH Ur Specific [place] Urine Protein Urine Glucose (UA) Urine Ketones Urine Occult Blood Urine Nitrite Urine Bilirubin Urine Urobilinogen Ur Leukocyte Esterase Urine RBC Urine WBC Ur Squamous Epith Cells Urine Bacteria Urine Mucus Radiography Diagnostic Testing: Clinical Impression(s) from Imaging Studies Abdomen/Pelvis CT 03/13/24 13:21 IMPRESSION: Fatty infiltration of the liver. Small hiatal hernia. Electronically Signed: Ryan Ledesma MD at 15:10 EDT , Discharge Plan Triage Chief Complaint: Abd Pain ED Provider: Tod Johnson Dx/Rx/DC Orders Clinical Impression: Intractable nausea and vomiting, Abdominal pain, Pancreatitis Prescriptions: No Action albuterol sulfate 2.5 MG/3 ML solution for nebulization 2.5 mg INHALATION Q4H PRN (Reason: Wheezing) Patient Comments: pt doesnt have to use often albuterol sulfate 1 INHALER inhaler 1 puff INHALATION Q6H PRN (Reason: Wheezing) pantoprazole 40 mg tablet,delayed release (DR/EC) 40 mg PO DAILY glimepiride 4 mg tablet 4 mg PO DAILY Patient Comments: ON 03/12/24 INCREASED TO 1 TAB DAILY ondansetron 4 mg tablet,disintegrating 8 mg PO Q8H PRN (Reason: nausea and vomiting) Qty: 20 0RF promethazine 25 mg tablet 25 mg PO Q8H PRN (Reason: nausea and vomiting) Motegrity 1 mg tablet 1 mg PO DAILY tadalafil 10 mg tablet 10 - 20 mg PO DAILY PRN (Reason: sexual activity) dextromethorphan-guaifenesin [Mucinex DM] 60-1,200 mg tablet extended release 12 hr 1 tab PO Q12H PRN (Reason: gastrointestinal spasms or cramping) Primary Care Provider: Nathaniel Nicole Referrals: Nathaniel Nicole MD [Primary Care Provider] - Print Language: Ethiopian
[2024-03-13 16:09] VITALS: BP 164/87
--- NOTE | 2024-03-13 17:28 | HP.PCM.HOS_ITS ---
HPI - General General Date of Admission: 03/13/24 Date of Service: 03/13/24 Chief Complaint: Abd pain, n/v HPI Narrative NESTOR PIERCE, is a 48 M history of gastroparesis with surgery on medication, type 2 diabetes, asthma who presented to [facility] ED 03/13/2024 with worsening abdominal pain over 3 weeks with intermittent nausea and vomiting that has progressively worsened to the point the patient has significant difficulty tolerating p.o. In the ED he had lipase that was elevated though mildly so and CT of abdomen with no acute findings but given his continued pain in continued nausea with vomiting and poor p.o. intake hospitalist was contacted for admission. Patient evaluated at bedside and reports his pain started as right sided lower abdominal pain 3 weeks ago and then went towards his epigastric region it is a dull achy feeling that comes and goes and he has vomiting more so in the morning but gets very bloated and has more nausea throughout the day. Has also had decreased bowel movements which is abnormal for him and he has been fairly constipated. No fevers or chills, he reports this feels like a gastroparesis flare just worse. Has a follow-up with his gastroparesis specialist later this month but was unable to wait. Initially his PCP sent him in for concerns for pancreatitis however given his lipase is not greater than 3 times upper limit of normal and he has no findings on CT scan consistent with pancreatitis and his symptoms resemble previous gastroparesis flares feel this is more consistent with gastroparesis flare and constipation. [facility] Medical History GERD (gastroesophageal reflux disease) Morbid obesity Gastroparesis Asthma Diabetes type 2, controlled REGAN (obstructive sleep apnea) Home Medications ?Medication ?Instructions ?Recorded ?Last Taken ?Type albuterol sulfate 2.5 mg/3 mL 2.5 mg inhalation Q4H PRN Wheezing 08/22/20 Unknown History (0.083 %) solution for nebulization albuterol sulfate 90 mcg/actuation 1 puff inhalation Q6H PRN Wheezing 08/22/20 Unknown History aerosol inhaler pantoprazole 40 mg tablet,delayed 40 mg PO DAILY reflux 04/14/21 Unknown History release glimepiride 4 mg tablet 4 mg PO DAILY 05/04/23 Unknown History ondansetron 4 mg disintegrating 8 mg (2 x 4 mg) PO Q8H PRN nausea 05/04/23 Unknown Rx tablet and vomiting #20 tabs dextromethorphan-guaifenesin ER 60 1 tab PO Q12H PRN gastrointestinal 03/13/24 Unknown History mg-1,200 mg tab,extend spasms or cramping release,12hr (Mucinex DM) promethazine 25 mg tablet 25 mg PO Q8H PRN nausea and 03/13/24 Unknown History vomiting prucalopride 1 mg tablet 1 mg PO DAILY 03/13/24 Unknown History (Motegrity) tadalafil 10 mg tablet 10 - 20 mg PO DAILY PRN sexual 03/13/24 Unknown History activity Allergy/AdvReac Type Severity Reaction Status Date / Time haloperidol (From Haldol) AdvReac Other Verified 03/13/24 11:53 metoclopramide HCl (From AdvReac GO CRAZY Verified 03/13/24 11:53 Reglan) Family History Mother Dysphagia Patient denies any maternal history of heart disease, diabetes, cancer, underlying pulmonary disease, underlying renal disease but does note she has significant issues with her esophagus, unsure exact disease. Notes frequent has items stuck, thin esophagus, dysphagia. Denied achalasia as etiology. Father Frequent UTI Patient denies any paternal history of heart disease, diabetes, cancer, underlying pulmonary disease, underlying renal disease but does note significant history of frequent urinary tract infections. Surgical History H/O foot surgery History of tonsillectomy and adenoidectomy History of hernia surgery History of tonsillectomy Social History household members: spouse housing: house Smoking Status: Never smoker alcohol intake: never substance use type: does not use ROS ROS Narrative General: Gets cold sometimes HENT: Occasionally gets headaches EYES: At times will have blurry vision that comes and goes more so when he is in pain Resp: No productive cough Cardiac: Denies chest pain GI: Some right-sided crampy abdominal pain and epigastric pain that comes and goes, constipation, nausea with vomiting mostly in vomiting in the morning with bile but nauseous throughout the day and bloating : Does urinate frequently Extremity: Denies swelling MSK: Denies weakness Neuro: Denies any numbness/tingling Heme: Denies any bleeding or bruising Skin: Denies rashes Psychiatric: No complaints voiced Vital Signs Vital Signs Vital Signs: 03/13/24 11:50 03/13/24 14:12 03/13/24 16:09 Temperature 98.3 F Temperature Source Oral Pulse Rate 98 86 Respiratory Rate 16 14 Blood Pressure 144/90 H 138/81 H 164/87 H Blood Pressure Mean 108 100 112 Pulse Ox 99 100 Oxygen Delivery Method Room Air Weight Weight: 72.121 kg Body Mass Index (BMI) 25.7 Physical Exam Narrative General: Alert, oriented, resting in bed HEENT: Atraumatic, normocephalic Eyes: Anicteric, normal conjunctiva, extraocular movements grossly intact Neck: Supple Respiratory: Clear to auscultation bilaterally, normal respiratory effort Cardiovascular: Regular rate and rhythm GI: Soft, somewhat bloated, has some generalized tenderness more so on right side and epigastric region but no rebound, guarding, rigidity Extremities: No edema Musculoskeletal: Moving all extremities Neuro: No overt focal neurological deficits Skin: No rashes appreciated Psych: Cooperative Results Lab / Micro Data 03/13/24 13:55 03/13/24 12:40 Labs: Laboratory Results - last 24 hr 03/13/24 12:40: WBC Cancelled, Corrected WBC Cancelled, RBC Cancelled, Hgb Cancelled, Hct Cancelled, MCV Cancelled, MCH Cancelled, MCHC Cancelled, RDW Std Deviation Cancelled, RDW Coeff of Jeremiah Cancelled, Plt Count Cancelled, MPV Cancelled, Immature Gran % (Auto) Cancelled, Neut % (Auto) Cancelled, Lymph % (Auto) Cancelled, [place] % (Auto) Cancelled, Eos % (Auto) Cancelled, Baso % (Auto) Cancelled, Absolute Neuts (auto) Cancelled, Absolute Lymphs (auto) Cancelled, Total Counted Cancelled, Neutrophils % (Manual) Cancelled, Band Neutrophils % Cancelled, Lymphocytes % (Manual) Cancelled, Monocytes % (Manual) Cancelled, Eosinophils % (Manual) Cancelled, Basophils % (Manual) Cancelled, Metamyelocytes % Cancelled, Myelocytes % Cancelled, Promyelocytes % Cancelled, Blast Cells % Cancelled, Plasma Cell % (Manual) Cancelled, Other Cells % Cancelled, Nucleated RBC % Cancelled, Nucleated RBCs/100 WBC Cancelled, Differential Comment Cancelled, Diff Path Review Cancelled, Hypersegmented Neuts Cancelled, Atypical Lymphocytes Cancelled, Reactive Lymphocytes Cancelled, Smudge Cells Cancelled, Toxic Granulation Cancelled, Toxic Vacuolation Cancelled, Dohle Bodies Cancelled, Greg Rods Cancelled, Platelet Estimate Cancelled, Plt Morphology Comment Cancelled, RBC Morphology Cancelled 03/13/24 12:40: RBC Morphology Cancelled, Polychromasia Cancelled, Hypochromasia Cancelled, Basophilic Stippling Cancelled, Anisocytosis Cancelled, Microcytosis Cancelled, Macrocytosis Cancelled, Spherocytes Cancelled, Sickle Cells Cancelled, Target Cells Cancelled, Tear Drop Cells Cancelled, Ovalocytes Cancelled, Stomatocytes Cancelled, Valentino-[place] Bodies Cancelled, [place] Cells Cancelled, Bite Cells Cancelled, Crenated Cell Cancelled, Acanthocytes (Spur) Cancelled, Rouleaux Cancelled, Schistocytes Cancelled, Sodium 137, Potassium 4.1, Chloride 102, Carbon Dioxide 28.0, Anion Gap 7, BUN 8, Creatinine 0.83, Estim Creat Clear Calc 98.22, Est GFR (MDRD) Af Amer 127, Est GFR (MDRD) Non-Af 105, BUN/Creatinine Ratio 9.6 L, Glucose 207 H, Calcium 9.2, Total Bilirubin 0.40, AST 18, ALT 28, Alkaline Phosphatase 90, Total Protein 7.5, Albumin 3.6, Globulin 3.9, Albumin/Globulin Ratio 0.9, Lipase 176 H 03/13/24 13:30: Urine Color Straw, Urine Clarity Clear, Urine pH 7.0, Ur Specific [place] 1.005, Urine Protein Negative, Urine Glucose (UA) Normal, Urine Ketones Negative, Urine Occult Blood Negative, Urine Nitrite Negative, Urine Bilirubin Negative, Urine Urobilinogen Normal, Ur Leukocyte Esterase Negative, Urine RBC 0 SEEN, Urine WBC 0 SEEN, Ur Squamous Epith Cells 0 SEEN, Urine Bacteria 0 SEEN, Urine Mucus 0 SEEN 03/13/24 13:55: WBC 8.7, RBC 4.65, Hgb 13.9, Hct 40.4, MCV 86.9, MCH 29.9, MCHC 34.4, RDW Std Deviation 37.4, RDW Coeff of Jeremiah 11.9, Plt Count 335, MPV 9.5, Immature Gran % (Auto) 0.200, Neut % (Auto) 61.0, Lymph % (Auto) 29.2, [place] % (Auto) 7.5, Eos % (Auto) 1.5, Baso % (Auto) 0.6, Absolute Neuts (auto) 5.3, Absolute Lymphs (auto) 2.55, Nucleated RBC % 0 Imaging Radiology Impression Abdomen/Pelvis CT 03/13/24 13:21 IMPRESSION: Fatty infiltration of the liver. Small hiatal hernia. Electronically Signed: Ryan Ledesam MD at 15:10 EDT , Assessment & Plan Assessment/Plan (1) Abdominal pain: QUALIFIERS: Abdominal location: epigastric Qualified Code(s): R 10.13 - Epigastric pain PLAN: Plan # Abdominal pain with intractable nausea vomiting and poor p.o. intake in setting of gastroparesis -CT scan with no acute process and lipase not greater than 3 times upper limit of normal -Patient reports this has happened in the past with gastroparesis flares and improves with antiemetics and IV fluids -He previously had surgery for his gastroparesis which has helped significantly but occasionally still has flares -He has had poor p.o. intake despite trying to remain hydrated given he has a lot of nausea, vomiting, bloating -Clear liquid diet -IV fluids -Cannot tolerate Reglan, will consult GI-may be candidate for erythromycin -Continue home Motegrity if patient able to bring this from home -Patient denies any tobacco, marijuana, alcohol, substance use -Pain control, minimize opioids were possible was that may worsen symptoms so we will add ketorolac as needed #Type 2 diabetes mellitus -Glucose checks and sliding scale insulin -Hold oral hypoglycemics #GERD -Continue PPI #DVT ppx: Lovenox subcu Eleanor Venegas MD Time spent in the patient's overall evaluation,decision-making process, review of diagnostic data, adjustment of management, discussion with other providers, nursing nursing and ancillary staff involved in patient's care documentation, 55 Minutes Charges/Coding Visit Charges Inpatient E&M: 72980 Init Hosp L2
[2024-03-13 18:02] VITALS: BP 152/96; PULSE 85; RESP 16; TEMP 36.9; O2SAT 100
[2024-03-13] MEDS: 0.9% Normal Saline (1000mL) 1,000 ML 100 ML IV (18:40)
[2024-03-13 18:47] VITALS: BMI 40.2
[2024-03-13] MEDS: Morphine 2 MG/ML Syringe IV ×2 (19:15→22:00)
[2024-03-13] MEDS: 0.9% Saline Lock 10 ML Syringe IV (19:15)
[2024-03-13 21:26] VITALS: BP 106/58; PULSE 78; RESP 16; TEMP 36.6; O2SAT 98
[2024-03-13 21:49] LABS: Bedside Glucose 175 mg/dL (74-106)
[2024-03-14] MEDS: Morphine 2 MG/ML Syringe IV ×4 (02:39→14:10)
[2024-03-14 02:49] VITALS: BP 123/75; PULSE 78; RESP 18; TEMP 36.6; O2SAT 100
[2024-03-14] MEDS: 0.9% Normal Saline (1000mL) 1,000 ML 100 ML IV ×2 (04:29→14:10)
[2024-03-14 06:29] LABS: Absolute Lymphocyte Count 2.77 X10^3/uL (0.83-4.51); Basophil# 0.05 X10^3/uL; Basophil% 0.7 % (0-1); Eosinophil# 0.19 X10^3/uL; Eosinophils% 2.8 % (0-5); Hematocrit 40.1 % (40-54); Lymphocyte # 2.77 X10^3/ul (0.83-4.51); Lymphocyte % 41.3 % (19-41); Mean Corp Hgb Conc 32.4 g/dL (32-36); Mean Corpuscular Hgb 29.6 pg (27.0-32.0); Mean Corpuscular Volume 91.3 fL (80-94); Mean Platelet Vol. 9.9 fl (6.2-12.0); Monocyte# 0.67 X10^3/uL; NRBC Flagged by Analyzer 0 % (0-5); Neutrophil # 3.01 X10^3/uL (2.7-7.7); Neutrophil % 44.9 % (47-70); Platelet Count 302 K/mm3 (150-450); RBC Distribution Width CV 11.9 % (11.6-14.6); RBC Distribution Width SD 39.9 fl (35.1-43.9); Red Blood Count 4.39 M/mm3 (4.6-6.2); White Blood Count 6.7 K/mm3 (4.4-11.0)
[2024-03-14 07:14] LABS: Anion Gap 4 (5-15); BUN 8 mg/dL (7-18); BUN/Creat Ratio 9.1 RATIO (10-20); Calcium,Total 8.7 mg/dL (8.5-10.1); Chloride 104 mmol/L (98-107); Creatinine, Serum 0.88 mg/dL (0.70-1.30); EST Glomerular Filtration Rate 99 mL/min (>60); Est Glom Filt Rate - Afr Amer 119 mL/min (>60); Estimated Creatinine Clearance 121.51 ml/min; Glucose 171 mg/dL (74-106); Magnesium 1.8 mg/dL (1.6-2.6); Potassium 3.9 mmol/L (3.5-5.1); Sodium Level 136 mmol/L (136-145)
[2024-03-14 07:42] LABS: Bedside Glucose 185 mg/dL (74-106)
[2024-03-14] MEDS: Enoxaparin 40 MG/0.4 ML Syringe SC (07:48)
[2024-03-14] MEDS: Pantoprazole Sodium 40 MG Tablet PO (07:48)
[2024-03-14 08:03] VITALS: BP 128/87; PULSE 72; RESP 18; TEMP 36.7; O2SAT 98
[2024-03-14] MEDS: 0.9% Saline Lock 10 ML Syringe IV ×3 (09:57→14:10)
[2024-03-14] MEDS: Ketorolac 30 MG/ML Syringe IV (09:57)
--- NOTE | 2024-03-14 10:15 | CASEMGMT ---
RN CM Face to Face with patient for initial transition planning/care coordination assessment. RN CM introduced self and role at [facility]. Patient lying in bed, alert and oriented, mother at bedside. Patient willing to participate in assessment and is able to answer all questions appropriately. Care providers, pharmacy, and demographics verified. Strata: 2 PCP: Bonnie Specialists: Friend, IGNACIO Vasquez, plan consultant Preferred Pharmacy: [facility] Insurance: MMO Prescription Benefit: yes Living Will/HPOA: none LNOK: Living Arrangements: Patient lives with in a 2 story condo. Patient is independent and able to ambulate stairs. Transportation: self, DME/HHC: Patient has cpap, nebulizer, and glucometer with supplies at home. Patient wishes to discharge home, denies need for home health at this time. Patient states he has no further needs or concerns at this time. CM to follow for discharge planning needs that may arise. Disposition Plan: Patient to discharge home with family support and follow-up plans in place. Elaine [place], RN, CM
--- NOTE | 2024-03-14 10:47 | PCM.PN.HOSP ---
Subjective Subjective Doing well, no issues overnight. Abdominal discomfort is slightly improved Objective Data Objective Data Vital Signs: Vital Signs Temp Pulse Resp BP Pulse Ox O2 Del Method 98.1 F 72 18 128/87 H 98 Room Air 03/14/24 08:03 03/14/24 08:03 03/14/24 08:03 03/14/24 08:03 03/14/24 08:03 03/14/24 08:05 Oxygen Delivery Method Room Air Weight: 250 lb 3.594 oz Body Mass Index (BMI) 40.2 Intake & Output: Intake and Output for Last 24 Hours 03/13/24 03/14/24 03/15/24 03:59 03:59 03:59 Intake Total 400 / 400 1031.67 / 1031.67 Balance 400 / 400 1031.67 / 1031.67 Lab / Micro Data 03/14/24 05:35 03/14/24 05:35 Labs: Laboratory Results - last 24 hr 03/13/24 12:40: WBC Cancelled, Corrected WBC Cancelled, RBC Cancelled, Hgb Cancelled, Hct Cancelled, MCV Cancelled, MCH Cancelled, MCHC Cancelled, RDW Std Deviation Cancelled, RDW Coeff of Jeremiah Cancelled, Plt Count Cancelled, MPV Cancelled, Immature Gran % (Auto) Cancelled, Neut % (Auto) Cancelled, Lymph % (Auto) Cancelled, [place] % (Auto) Cancelled, Eos % (Auto) Cancelled, Baso % (Auto) Cancelled, Absolute Neuts (auto) Cancelled, Absolute Lymphs (auto) Cancelled, Total Counted Cancelled, Neutrophils % (Manual) Cancelled, Band Neutrophils % Cancelled, Lymphocytes % (Manual) Cancelled, Monocytes % (Manual) Cancelled, Eosinophils % (Manual) Cancelled, Basophils % (Manual) Cancelled, Metamyelocytes % Cancelled, Myelocytes % Cancelled, Promyelocytes % Cancelled, Blast Cells % Cancelled, Plasma Cell % (Manual) Cancelled, Other Cells % Cancelled, Nucleated RBC % Cancelled, Nucleated RBCs/100 WBC Cancelled, Differential Comment Cancelled, Diff Path Review Cancelled, Hypersegmented Neuts Cancelled, Atypical Lymphocytes Cancelled, Reactive Lymphocytes Cancelled, Smudge Cells Cancelled, Toxic Granulation Cancelled, Toxic Vacuolation Cancelled, Dohle Bodies Cancelled, Greg Rods Cancelled, Platelet Estimate Cancelled, Plt Morphology Comment Cancelled, RBC Morphology Cancelled 03/13/24 12:40: RBC Morphology Cancelled, Polychromasia Cancelled, Hypochromasia Cancelled, Basophilic Stippling Cancelled, Anisocytosis Cancelled, Microcytosis Cancelled, Macrocytosis Cancelled, Spherocytes Cancelled, Sickle Cells Cancelled, Target Cells Cancelled, Tear Drop Cells Cancelled, Ovalocytes Cancelled, Stomatocytes Cancelled, [place] Bodies Cancelled, Twining Cells Cancelled, Bite Cells Cancelled, Crenated Cell Cancelled, Acanthocytes (Spur) Cancelled, Rouleaux Cancelled, Schistocytes Cancelled, Sodium 137, Potassium 4.1, Chloride 102, Carbon Dioxide 28.0, Anion Gap 7, BUN 8, Creatinine 0.83, Estim Creat Clear Calc 98.22, Est GFR (MDRD) Af Amer 127, Est GFR (MDRD) Non-Af 105, BUN/Creatinine Ratio 9.6 L, Glucose 207 H, Calcium 9.2, Total Bilirubin 0.40, AST 18, ALT 28, Alkaline Phosphatase 90, Total Protein 7.5, Albumin 3.6, Globulin 3.9, Albumin/Globulin Ratio 0.9, Lipase 176 H 03/13/24 13:30: Urine Color Straw, Urine Clarity Clear, Urine pH 7.0, Ur Specific [place] 1.005, Urine Protein Negative, Urine Glucose (UA) Normal, Urine Ketones Negative, Urine Occult Blood Negative, Urine Nitrite Negative, Urine Bilirubin Negative, Urine Urobilinogen Normal, Ur Leukocyte Esterase Negative, Urine RBC 0 SEEN, Urine WBC 0 SEEN, Ur Squamous Epith Cells 0 SEEN, Urine Bacteria 0 SEEN, Urine Mucus 0 SEEN 03/13/24 13:55: WBC 8.7, RBC 4.65, Hgb 13.9, Hct 40.4, MCV 86.9, MCH 29.9, MCHC 34.4, RDW Std Deviation 37.4, RDW Coeff of Jeremiah 11.9, Plt Count 335, MPV 9.5, Immature Gran % (Auto) 0.200, Neut % (Auto) 61.0, Lymph % (Auto) 29.2, [place] % (Auto) 7.5, Eos % (Auto) 1.5, Baso % (Auto) 0.6, Absolute Neuts (auto) 5.3, Absolute Lymphs (auto) 2.55, Nucleated RBC % 0 03/13/24 21:24: POC Glucose 175 H 03/14/24 05:35: WBC 6.7, RBC 4.39 L, Hgb 13.0, Hct 40.1, MCV 91.3 D, MCH 29.6, MCHC 32.4 D, RDW Std Deviation 39.9, RDW Coeff of Jeremiah 11.9, Plt Count 302, MPV 9.9, Immature Gran % (Auto) 0.300, Neut % (Auto) 44.9 L, Lymph % (Auto) 41.3 H, [place] % (Auto) 10.0, Eos % (Auto) 2.8, Baso % (Auto) 0.7, Absolute Neuts (auto) 3.0, Absolute Lymphs (auto) 2.77, Nucleated RBC % 0, Sodium 136, Potassium 3.9, Chloride 104, Carbon Dioxide 28.0, Anion Gap 4 L, BUN 8, Creatinine 0.88, Estim Creat Clear Calc 121.51, Est GFR (MDRD) Af Amer 119, Est GFR (MDRD) Non-Af 99, BUN/Creatinine Ratio 9.1 L, Glucose 171 H, Calcium 8.7, Magnesium 1.8, TSH 3.340 03/14/24 07:22: POC Glucose 185 H Radiography Diagnostic Testing: Radiology Impression Abdomen/Pelvis CT 03/13/24 13:21 IMPRESSION: Fatty infiltration of the liver. Small hiatal hernia. Electronically Signed: Ryan Ledesma MD at 15:10 EDT , Physical Exam Narrative General: Alert, Oriented x3, Cooperative, No apparent distress, morbidly obese HEENT: Atraumatic, PERRLA, EOMI, Normocephalic Oral: Moist Mucosa Neck: Supple, No JVD Lungs: Diminished, Normal air movement, No rhonchi, No wheeze, No rales Cardiovascular: Regular rate, Regular Rhythm, Normal S1, Normal S2, No murmurs Abdomen: Soft, minimally tender, Non-Distended, No Hepato-splenomegaly Extremities: No edema, Capillary Refill Less than 3 Seconds Skin: No rashes, No breakdown Musculoskeletal: No Tenderness to Palpation of Joints or Extremities Neurological: No focal neurological deficits, Motor Exam 5/5 strength throughout, Sensory exam intact to light touch and pain Psych/Mental Status: Normal Affect, Appropriate Assessment & Plan Assessment/Plan (1) Abdominal pain: QUALIFIERS: Abdominal location: epigastric Qualified Code(s): R10.13 - Epigastric pain PLAN: Plan 1. Abdominal pain with intractable nausea and vomiting secondary to gastroparesis flare ? Has had surgery for gastroparesis at the [facility] and his gastroparesis specialist is there ? She is allergic to Reglan ? She is feeling better today and would like to try to advance his diet ?Gastroenterology has been consulted for possible erythromycin 2. DM2 ? Sign scale insulin ? Accu-Cheks ACHS ? Will monitor and make adjustments as necessary 3. GERD ? Stable ? Continue with PPI DVT: Lovenox Charges/Coding Visit Charges Inpatient E&M: 47987 Subs Hosp L2
[2024-03-14 11:05] VITALS: BP 144/85; PULSE 81; RESP 18; TEMP 36.1; O2SAT 94
[2024-03-14] MEDS: Insulin Lispro 100 UNIT/ML INSULN.PEN SC ×2 (11:17→16:26)
[2024-03-14 11:42] LABS: Bedside Glucose 180 mg/dL (74-106)
[2024-03-14 12:08] LABS: Hemoglobin A1c 8.5 % (3.8-5.6)
[2024-03-14 14:09] VITALS: BP 121/75; PULSE 77; RESP 18; TEMP 37.1; O2SAT 98
[2024-03-14 16:45] LABS: Bedside Glucose 172 mg/dL (74-106)
--- NOTE | 2024-03-14 17:46 | DS.PCM_ITS ---
Providers Date of Admission: 03/13/24 Primary Care Physician: Dr. Nathaniel Nicole MD Consultations 03/13/24 17:57 Consult: Gastroenterology Routine Consulting Provider: Raquel [facility] Reason for Consult: intractable n/v, abd pain- hx gastroparesis EMERGENT Consult: No MD Notified: Yes Date Notified: 03/13/24 Time Notified: 17:52 Method of Notification: Text Reason For Visit: INTRACTABLE ABDOMINAL PAIN N/V Diagnosis Discharge Diagnosis (1) Abdominal pain: Status: Acute Code(s): R10.9 - Unspecified abdominal pain Qualifiers: Abdominal location: epigastric Qualified Code(s): R10.13 - Epigastric pain Plan 1. Abdominal pain with intractable nausea and vomiting secondary to gastroparesis flare ? Has had surgery for gastroparesis at the [facility] and his gastroparesis specialist is there ? She is allergic to Reglan ? She is feeling better today and would like to try to advance his diet ?Gastroenterology has been consulted for possible erythromycin 2. DM2 ? Sign scale insulin ? Accu-Cheks ACHS ? Will monitor and make adjustments as necessary 3. GERD ? Stable ? Continue with PPI DVT: Lovenox Medications at Discharge Home Medications albuterol sulfate 2.5 mg/3 mL (0.083 %) solution for nebulization 2.5 mg inhalation Q4H PRN Wheezing 08/22/20 albuterol sulfate 90 mcg/actuation aerosol inhaler 1 puff inhalation Q6H PRN Wheezing 08/22/20 pantoprazole 40 mg tablet,delayed release 40 mg PO DAILY reflux 04/14/21 glimepiride 4 mg tablet 4 mg PO DAILY diabetes 05/04/23 ondansetron 4 mg disintegrating tablet 8 mg (2 x 4 mg) PO Q8H PRN nausea and vomiting #20 tabs 05/04/23 dextromethorphan-guaifenesin ER 60 mg-1,200 mg tab,extend release,12hr (Mucinex DM) 1 tab PO Q12H PRN gastrointestinal spasms or cramping 03/13/24 promethazine 25 mg tablet 25 mg PO Q8H PRN nausea and vomiting 03/13/24 prucalopride 1 mg tablet (Motegrity) 1 mg PO DAILY gastro 03/13/24 tadalafil 10 mg tablet 10 - 20 mg PO DAILY PRN sexual activity 03/13/24 Hospital Course Operations None Procedures None Summary of Care Provided Minutes Spent on Discharge: 50 Hospital Course: Per HPI: NESTOR PIERCE, is a 48 M history of gastroparesis with surgery on medication, type 2 diabetes, asthma who presented to [facility] ED 03/13/2024 with worsening abdominal pain over 3 weeks with intermittent nausea and vomiting that has progressively worsened to the point the patient has significant difficulty tolerating p.o. In the ED he had lipase that was elevated though mildly so and CT of abdomen with no acute findings but given his continued pain in continued nausea with vomiting and poor p.o. intake hospitalist was contacted for admission. Patient evaluated at bedside and reports his pain started as right sided lower abdominal pain 3 weeks ago and then went towards his epigastric region it is a dull achy feeling that comes and goes and he has vomiting more so in the morning but gets very bloated and has more nausea throughout the day. Has also had decreased bowel movements which is abnormal for him and he has been fairly constipated. No fevers or chills, he reports this feels like a gastroparesis flare just worse. Has a follow-up with his gastroparesis specialist later this month but was unable to wait. Initially his PCP sent him in for concerns for pancreatitis however given his lipase is not greater than 3 times upper limit of normal and he has no findings on CT scan consistent with pancreatitis and his symptoms resemble previous gastroparesis flares feel this is more consistent with gastroparesis flare and constipation. Hospital Course: 1. Intractable nausea and vomiting secondary to gastroparesis flare?48-year-old male with history of gastroparesis likely from type 2 diabetes presented to the hospital with increased nausea and vomiting as well as abdominal pain. He says that it feels exact like his previous gastroparesis flares. He started on IV fluids as well as antiemetics. He was able to advance his diet a little bit today because this morning he was feeling much better and he has tolerated lunch and dinner and requested to be discharged home. I discussed with him and his the role the diabetes plays a gastroparesis as well as lifestyle modifications to lose weight and how to control his blood sugar better. They both expressed understanding the risk benefits of going home and he would like to go home today. He will need to follow-up with his gastroparesis doctor as an outpatient, he cannot take Reglan as a promotility agent but he may benefit from erythromycin, he is not sure if he is taking it before though he says it sounds familiar. 2. Type 2 diabetes, GERD are chronic medical conditions which complicate his care. His home medications were continued where appropriate Physical Exam Narrative General: Alert, Oriented x3, Cooperative, No apparent distress, morbidly obese HEENT: Atraumatic, PERRLA, EOMI, Normocephalic Oral: Moist Mucosa Neck: Supple, No JVD Lungs: Diminished, Normal air movement, No rhonchi, No wheeze, No rales Cardiovascular: Regular rate, Regular Rhythm, Normal S1, Normal S2, No murmurs Abdomen: Soft, minimally tender, Non-Distended, No Hepato-splenomegaly Extremities: No edema, Capillary Refill Less than 3 Seconds Skin: No rashes, No breakdown Musculoskeletal: No Tenderness to Palpation of Joints or Extremities Neurological: No focal neurological deficits, Motor Exam 5/5 strength throughout, Sensory exam intact to light touch and pain Psych/Mental Status: Normal Affect, Appropriate Weight / BMI Weight Weight: 250 lb 3.594 oz Body Mass Index (BMI) 40.2 ABG / Lab / Microbiology Data 03/14/24 05:35 03/14/24 05:35 Laboratory: Laboratory Results - last 24 hr 03/13/24 21:24: POC Glucose 175 H 03/14/24 05:35: WBC 6.7, RBC 4.39 L, Hgb 13.0, Hct 40.1, MCV 91.3 D, MCH 29.6, MCHC 32.4 D, RDW Std Deviation 39.9, RDW Coeff of Jeremiah 11.9, Plt Count 302, MPV 9.9, Immature Gran % (Auto) 0.300, Neut % (Auto) 44.9 L, Lymph % (Auto) 41.3 H, [place] % (Auto) 10.0, Eos % (Auto) 2.8, Baso % (Auto) 0.7, Absolute Neuts (auto) 3.0, Absolute Lymphs (auto) 2.77, Nucleated RBC % 0, Sodium 136, Potassium 3.9, Chloride 104, Carbon Dioxide 28.0, Anion Gap 4 L, BUN 8, Creatinine 0.88, Estim Creat Clear Calc 121.51, Est GFR (MDRD) Af Amer 119, Est GFR (MDRD) Non-Af 99, B UN/Creatinine Ratio 9.1 L, Glucose 171 H, Hemoglobin A1c 8.5 H, Calcium 8.7, Magnesium 1.8, TSH 3.340 03/14/24 07:22: POC Glucose 185 H 03/14/24 11:09: POC Glucose 180 H 03/14/24 16:25: POC Glucose 172 H D/C Instructions Discharge Diet: Carb Control Diet Call your doctor if you observe: Fever of 101 or Higher, Shortness of breath, Dizziness, Fainting spells, Swelling in the ankles, Chest pain and Increased palpitations (irregular heartbeat) Meaningful Use Info Meaningful Use Meaningful Use Diagnoses (Choose all that apply): None applicable Ischemic Stroke Statin Dosing Therapy Reference: STATIN DOSE THERAPY REFERENCE: * Patients > 75 years receive moderate or high dose statin therapy. * Patients 75 years or YOUNGER should receive HIGH intensity statin dose unless contraindicated. You will be required to document reason for non-treatment if statin daily dose does not meet guidelines. HIGH DOSE STATIN THERAPY DAILY Atorvastatin > than or = to 40 mg Rosuvastatin > than or = to 20 mg Amlodipine + Atorvastatin > than or = to 2.5/40 mg Ezetimibe + Simvastatin 10/80 mg Simvastatin 80mg Discharge Plan Admission Admit Date/Time: 03/13/24 17:28 Attending Provider: Raul Oliver Primary Care Provider: Nathaniel Nicole Consulting Providers: Eleanor Venegas Discharge Orders/Prescriptions Prescriptions: Continued albuterol sulfate 2.5 MG/3 ML solution for nebulization 2.5 mg INHALATION Q4H PRN (Reason: Wheezing) Patient Comments: pt doesnt have to use often albuterol sulfate 1 INHALER inhaler 1 puff INHALATION Q6H PRN (Reason: Wheezing) pantoprazole 40 mg tablet,delayed release (DR/EC) 40 mg PO DAILY glimepiride 4 mg tablet 4 mg PO DAILY Patient Comments: ON 03/12/24 INCREASED TO 1 TAB DAILY ondansetron 4 mg tablet,disintegrating 8 mg PO Q8H PRN (Reason: nausea and vomiting) Qty: 20 0RF promethazine 25 mg tablet 25 mg PO Q8H PRN (Reason: nausea and vomiting) Motegrity 1 mg tablet 1 mg PO DAILY tadalafil 10 mg tablet 10 - 20 mg PO DAILY PRN (Reason: sexual activity) dextromethorphan-guaifenesin [Mucinex DM] 60-1,200 mg tablet extended release 12 hr 1 tab PO Q12H PRN (Reason: gastrointestinal spasms or cramping) Referrals / Follow Up: Nathaniel Nicole MD [Primary Care Provider] - Within 1 Week Disposition Disposition (needs filled in before D/C Order can be placed): Home, Self Care Charges/Coding Visit Charges Inpatient E&M: 57981 Disch Hosp >30min
== END 2024-03-14 18:12 | disposition home or self-care (01) | DRG 74 ==
LOC: ED 12:56 → MS3 17:37
PROVIDERS: Admitting Provider Internal Medicine; Emergency Provider Emergency Medicine; PCP Family Medicine; Visit Provider Family Medicine
DX: E11.43 Type 2 diabetes mellitus with diabetic autonomic (poly)neuropathy (principal); K21.9 Gastro-esophageal reflux disease without esophagitis; K44.9 Diaphragmatic hernia without obstruction or gangrene; K31.84 Gastroparesis; Z79.84 Long term (current) use of oral hypoglycemic drugs
CPT/HCPCS: 74177; 80048; 80053; 81001; 82962; 83036; 83690; 83735; 84443; 85025; 93005; 99282; J7030; Q9967; A4216; J2405

== ENCOUNTER 2024-07-20 03:35 | Emergency (ER) | payer OTHER, SELFPAY ==
[2024-07-20 03:36] VITALS: BP 160/84; PULSE 88; RESP 18; TEMP 37; O2SAT 97; BMI 42.2
--- NOTE | 2024-07-20 03:42 | CT_ITS ---
PROCEDURE: ABDOMEN/PELVIS W IV CONT ONLY REASON FOR EXAM: Abdominal pain, vomiting TECHNIQUE: Abdomen and pelvis CT with intravenous contrast. IV CONTRAST: COMPARISON: 03/13/2024 FINDINGS: Lung bases: Clear Hernia: Small hiatal hernia Liver: Fatty infiltration Gallbladder: Unremarkable. Spleen: Unremarkable. Pancreas: Unremarkable. Adrenals: Unremarkable. Kidneys: Unremarkable. Bladder: Unremarkable. Reproductive Organs: Prostate measures 4.3 cm in transverse dimension Bowel: Diverticulosis of the sigmoid colon with no evidence of diverticulitis. Appendix: Normal. Lymph nodes: No suspicious lymph node enlargement. Vasculature: Major vascular structures are unremarkable. Peritoneum / Retroperitoneum: No ascites. No free air. Bones: Unremarkable. CT/Abdomen/Pelvis W IV Cont ONLY IMPRESSION: 1. No acute abnormality in the abdomen and pelvis. 2. Hepatic steatosis. 3. Diverticulosis of the sigmoid colon with no evidence of diverticulitis. 4. Small hiatal hernia One or more dose reduction techniques were used (e.g., Automated exposure contr ol, adjustment of the mA and/or kV according to patient size, use of iterative reconstruction technique). Reading Location: [facility]
--- NOTE | 2024-07-20 03:43 | EDS_ITS ---
HPI HPI - GI History of Present Illness Chief Complaint: Abd Pain Detail of Chief Complaint: Abdominal pain Informant: patient Abdominal Pain/Flank Pain Current Severity: 01/10 Narrative Narrative: Patient presents with abdominal pain that started about 5 days ago. He complains of nausea and vomiting. Patient states that he has history of gastroparesis and had some sort of a procedure years ago that has helped his symptoms but gets exacerbations like this about every 50 days or so. He states that over the last 5 days he is had decreased p.o. intake and has been throwing up every morning and in the evening as well. He has been having increasing abdominal pain. He denies fever. He denies urinary symptoms. He has had no other abdominal surgeries. [facility] Medical History GERD (gastroesophageal reflux disease) Morbid obesity Gastroparesis Asthma Diabetes type 2, controlled REGAN (obstructive sleep apnea) Home Medications ?Medication ?Instructions ?Recorded ?Last Taken ?Type albuterol sulfate 2.5 mg/3 mL 2.5 mg inhalation Q4H VT N Wheezing 08/22/20 Unknown History (0.083 %) solution for nebulization albuterol sulfate 90 mcg/actuation 1 puff inhalation Q 6H PRN Wheezing 08/22/20 Unknown History aerosol inhaler pantoprazole 40 mg tablet,delayed 40 mg PO DAILY reflu x 04/14/21 03/12/24 22:00 History release 40 mg glimepiride 4 mg tablet 4 mg PO DAILY diabetes 05/0403/12/24 20:00 History 4 mg ondansetron 4 mg disintegrating 8 mg (2 x 4 mg) PO Q8H PRN nausea 05/04/23 03/13/24 06:00 Rx tablet and vomiting #20 tabs 8 mg dextromethorphan-guaifenesin ER 60 1 tab PO Q12H PRN g astrointestinal 03/13/24 02/28/24 History mg-1,200 mg tab,extend spasms or cramping release,12hr (Mucinex DM) promethazine 25 mg tablet 25 mg PO Q8H PRN nausea and 03/13/24 03/12/24 20:00 History vomiting 25 mg prucalopride 1 mg tablet 1 mg PO DAILY gastro 4 03/13/24 History (Motegrity) tadalafil 10 mg tablet 10 - 20 mg PO DAILY PRN sexu al 03/13/24 Unknown History activity Allergy/AdvReac Type Severity Reaction Status Date / Time haloperidol (From Haldol) AdvReac Other Verified 07/20/24 03:36 metoclopramide HCl (From AdvReac GO CRAZY Verified 07/20/24 03:36 Reglan) Family History Mother Dysphagia Patient denies any maternal history of heart disease, diabetes, cancer, underlying pulmonary disease, underlying renal disease but does note she has significant issues with her esophagus, unsure exact disease. Notes frequent has items stuck, thin esophagus, dysphagia. Denied achalasia as etiology. Father Frequent UTI Patient denies any paternal history of heart disease, diabetes, cancer, underlying pulmonary disease, underlying renal disease but does note significant history of frequent urinary tract infections. Surgical History H/O foot surgery History of tonsillectomy and adenoidectomy History of hernia surgery History of tonsillectomy Social History household members: spouse housing: house Smoking Status: Never smoker alcohol intake: never substance use type: does not use ROS ROS ED Review of Systems ROS Unobtainable: other Constitutional Constitutional ED: Reports lethargy; Denies chills, fever(s), sweats or weight loss Eyes Eyes: Denies blurry vision, change in vision or diplopia ENT ENT ED: Denies rhinorrhea or sore throat Cardiovascular Cardiovascular: Denies chest pain, orthopnea or racing heartbeat Respiratory/Chest Respiratory/Chest: Denies cough, dyspnea, dyspnea on exertion, orthopnea or sputum Gastrointestinal Gastrointestinal: Reports abdominal pain, nausea and vomiting; Denies diarrhea Genitourinary Genitourinary ED: Denies dysuria, hematuria or urinary frequency Musculoskeletal Musculoskeletal: Denies arthralgias, back pain, myalgias or neck pain Integumentary Denies abscess, Abrasions or rash Neurologic Neurologic: Denies headache(s) or weakness Psychiatric Psychiatric: Denies anxiety, depression or suicidal thoughts Endocrine Endocrinology: Denies polydipsia, polyphagia or polyuria Hematologic/Lymphatic Hematologic/Lymphatic: Denies easy bleeding, easy bruising or lymphadenopathy Allergic/Immunologic Allergic/Immunologic ED: Denies mouth swelling, tongue swelling or urticaria EXAM Physical Exam Const Vital Signs: 07/20/24 03:36 07/20/24 05:21 Temperature 98.6 F Temperature Source Oral Pulse Rate 88 88 Respiratory Rate 18 15 Blood Pressure 160/84 H Blood Pressure Mean 109 Pulse Ox 97 95 Oxygen Delivery Method Room Air Room Air Positive well nourished and well developed General Appearance ED: well developed and NAD HEENT Reports TM's clear and moist mucous membranes normocephalic and atraumatic; Negative for trauma or tenderness Tympanic Membrane ED: Yes TM's clear Eyes PERRL and EOMs intact bilaterally General Eye ED: Negative for pale conjunctiva or scleral icterus Neck no lymphadenopathy, supple and no JVD General: Negative for tenderness Chest Wall inspection of chest normal and palpation of chest normal Chest: Negative for tenderness Resp normal respiratory effort and clear to auscultation bilaterally Effort and Inspection: Negative for respiratory distress or pain with movement Auscultation: Negative for rhonchi, wheezes or diminished lung sounds Cardio regular rate, regular rhythm, S1 normal heart sound, S2 normal heart sound and no murmurs Peripheral Pulses: pulses 2+ throughout GI normal to inspection, nondistended, normoactive bowel sounds, soft to palpation, non-distended and no masses GI Narrative: Tenderness palpation over the epigastric region with some guarding. There is no rebound or rigidity. No peritoneal signs. Back/Spine no CVA tenderness and no thoracic nor lumbar tenderness Extremity normal to inspection General Extremety ED: Negative for edema General Extremity: Negative for edema Neuro oriented x3, CN's II-XII intact bilaterally, no sensory deficits noted and gait normal Sensorium / Orientation: awake, alert, oriented to person, oriented to place and oriented to time Motor Exam: strength 5/5 throughout and strength abnormal Psych mental status grossly normal Skin no rashes or lesions noted and no wounds MDM MDM MDM Narrative Medical decision making narrative: Patient presents to the emergency department with vomiting and abdominal pain. Has had multiple similar episodes in the past. He believes its his gastroparesis acting up. He tells me normally he is able to get fluids and medication in the ED and can typically go home but the last time he was here he was admitted. He was admitted for 1 day at that time. Clinically looks well. IV line established. CBC with differential white count of 9.4 with hemoglobin 13.6 and platelet count of 376. Chemistries unremarkable. LFTs were normal. Lipase normal at 52. Patient was medicated with morphine and Zofran. He continued to complain of pain and was given a second dose of morphine and continue to have nausea and emesis in CT scanner and received another dose of Zofran. He has allergy to Reglan. I did obtain a CT scan of the abdomen pelvis given the ongoing pain and this was unremarkable. Patient received a second liter fluid bolus. After treatment he is feeling improved. He would like to try to go home. I feel this is reasonable. 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 Patient has Phenergan and Zofran at home. He is advised to return if worsening pain, persistent vomiting, dehydration, or condition should worsen anyway. Lab Data Attestation: I reviewed the patient's lab results. Labs: Laboratory Results - last 24 hr 07/20/24 04:00 WBC 9.4 RBC 4.54 L Hgb 13.6 Hct 39.6 L MCV 87.2 MCH 30.0 MCHC 34.3 RDW Std Deviation 38.2 RDW Coeff of Jeremiah 11.9 Plt Count 376 MPV 9.3 Immature Gran % (Auto) 0.200 Neut % (Auto) 45.9 L Lymph % (Auto) 40.9 Crisp % (Auto) 9.7 Eos % (Auto) 2.6 Baso % (Auto) 0.7 Absolute Neuts (auto) 4.3 Absolute Lymphs (auto) 3.83 Nucleated RBC % 0 Sodium 136 Potassium 4.2 Chloride 103 Carbon Dioxide 26.0 Anion Gap 7 BUN 9 Creatinine 0.87 Estim Creat Clear Calc 125.90 Est GFR (MDRD) Af Amer 121 Est GFR (MDRD) Non-Af 100 BUN/Creatinine Ratio 10.4 Glucose 167 H Lactic Acid 1.4 Calcium 8.9 Total Bilirubin 0.30 AST 18 ALT 32 Alkaline Phosphatase 80 Total Protein 6.9 Albumin 3.4 Globulin 3.5 Albumin/Globulin Ratio 1.0 Lipase 52 L Radiography Diagnostic Testing: Clinical Impression(s) from Imaging Studies Abdomen/Pelvis CT 07/20/24 03:42 IMPRESSION: 1. No acute abnormality in the abdomen and pelvis. 2. Hepatic steatosis. 3. Diverticulosis of the sigmoid colon with no evidence of diverticulitis. 4. Small hiatal hernia One or more dose reduction techniques were used (e.g., Automated exposure control, adjustment of the mA and/or kV according to patient size, use of iterative reconstruction technique). [facility] Triage Chief Complaint: Abd Pain ED Provider: Minal Myers Dx/Rx/DC Orders Clinical Impression: Abdominal pain, Vomiting Instructions: ED Vomiting (Adult), ED Abdominal Pain Unkn Cause Male..., ED Diabetic Gastroparesis Prescriptions: No Action albuterol sulfate 2.5 MG/3 ML solution for nebulization 2.5 mg INHALATION Q4H PRN (Reason: Wheezing) Patient Comments: pt doesnt have to use often albuterol sulfate 1 INHALER inhaler 1 puff INHALATION Q6H PRN (Reason: Wheezing) pantoprazole 40 mg tablet,delayed release (DR/EC) 40 mg PO DAILY glimepiride 4 mg tablet 4 mg PO DAILY Patient Comments: ON 03/12/24 INCREASED TO 1 TAB DAILY ondansetron 4 mg tablet,disintegrating 8 mg PO Q8H PRN (Reason: nausea and vomiting) Qty: 20 0RF promethazine 25 mg tablet 25 mg PO Q8H PRN (Reason: nausea and vomiting) Motegrity 1 mg tablet 1 mg PO DAILY tadalafil 10 mg tablet 10 - 20 mg PO DAILY PRN (Reason: sexual activity) dextromethorphan-guaifenesin [Mucinex DM] 60-1,200 mg tablet extended release 12 hr 1 tab PO Q12H PRN (Reason: gastrointestinal spasms or cramping) Primary Care Provider: Nathaniel Nicole Referrals: Nathaniel Nicole MD [Primary Care Provider] - Activity Restrictions/Additional Instructions: Follow-up with your machine bookkeeper as needed Print Language: Syriac Disposition Disposition: Home, Self Care
[2024-07-20] MEDS: Ondansetron 4 MG/2 ML Vial IV ×2 (04:01→05:20)
[2024-07-20] MEDS: Morphine 4 MG/ML Syringe IV ×2 (04:01→05:28)
[2024-07-20] MEDS: 0.9% Normal Saline (1000mL) 1,000 ML 999 ML IV ×2 (04:02→06:03)
[2024-07-20] MEDS: Pantoprazole Sodium 40 MG in 0.9% Normal Saline (100mL MB+) 100 ML 330 MG IV (04:02)
[2024-07-20 04:12] LABS: Absolute Lymphocyte Count 3.83 X10^3/uL (0.83-4.51); Absolute Neutrophil Count 4.3 X10^3/uL (2.0-7.7); Basophil# 0.07 X10^3/uL; Basophil% 0.7 % (0-1); Eosinophil# 0.24 X10^3/uL; Eosinophils% 2.6 % (0-5); Hematocrit 39.6 % (40-54); Hemoglobin 13.6 g/dL (13.0-16.5); Lymphocyte # 3.83 X10^3/ul (0.83-4.51); Lymphocyte % 40.9 % (19-41); Mean Corp Hgb Conc 34.3 g/dL (32-36); Mean Corpuscular Volume 87.2 fL (80-94); Mean Platelet Vol. 9.3 fl (6.2-12.0); Monocyte# 0.91 X10^3/uL; Monocyte% 9.7 % (0-10); NRBC Flagged by Analyzer 0 % (0-5); Neutrophil # 4.29 X10^3/uL (2.7-7.7); Neutrophil % 45.9 % (47-70); Platelet Count 376 K/mm3 (150-450); RBC Distribution Width CV 11.9 % (11.6-14.6); RBC Distribution Width SD 38.2 fl (35.1-43.9); Red Blood Count 4.54 M/mm3 (4.6-6.2); White Blood Count 9.4 K/mm3 (4.4-11.0)
[2024-07-20 04:29] LABS: AST(SGOT) 18 U/L (15-37); Alanine Aminotransfer ALT/SGPT 32 U/L (16-61); Albumin, Serum 3.4 g/dL (3.2-5.0); Alkaline Phosphatase 80 U/L (45-117); Anion Gap 7 (5-15); BUN 9 mg/dL (7-18); BUN/Creat Ratio 10.4 RATIO (10-20); Calcium,Total 8.9 mg/dL (8.5-10.1); Chloride 103 mmol/L (98-107); Creatinine, Serum 0.87 mg/dL (0.70-1.30); EST Glomerular Filtration Rate 100 mL/min (>60); Est Glom Filt Rate - Afr Amer 121 mL/min (>60); Globulin 3.5 g/dL (2.2-4.2); Glucose 167 mg/dL (74-106); Lipase 52 U/L (73-393); Potassium 4.2 mmol/L (3.5-5.1); Protein, Total 6.9 g/dL (6.4-8.2); Sodium Level 136 mmol/L (136-145)
[2024-07-20 04:43] LABS: Lactic Acid 1.4 mmol/L (0.4-1.9)
[2024-07-20 05:21] VITALS: PULSE 88; RESP 15; O2SAT 95
[2024-07-20 06:54] VITALS: BP 147/77; PULSE 81; RESP 18; TEMP 36.8; O2SAT 99
== END 2024-07-20 07:20 | disposition home or self-care (01) ==
PROVIDERS: Emergency Provider Emergency Medicine; PCP Family Medicine; Visit Provider Emergency Medicine
DX: R10.9 Unspecified abdominal pain (principal); E11.9 Type 2 diabetes mellitus without complications; R11.10 Vomiting, unspecified; K21.9 Gastro-esophageal reflux disease without esophagitis; Z79.899 Other long term (current) drug therapy; Z79.84 Long term (current) use of oral hypoglycemic drugs
CPT/HCPCS: 74177; 80053; 83605; 83690; 85025; 96361; 96365; 96375; 96376; 99282; Q9967; A4216; J2405

== ENCOUNTER 2024-08-18 13:30 | Observation (INO) | payer BC, SELFPAY ==
[2024-08-18] VITALS (9 sets, daily range): BP systolic 96–173; BP diastolic 54–97; PULSE 87–99; RESP 14–22; TEMP 36.3–36.7; O2SAT 95–99; BMI 41.8; BMI 40.6
--- NOTE | 2024-08-18 13:37 | ED.RN ---
UPSET BECAUSE POLICE BROUGHT IN A PT THAT WENT STRAIGHT TO THE ROOM. PT ARRIVED WHILE THIS RN WAS TRIAGING ANOTHER PT. WAS NOT AWARE THAT SHE COULD INTERRUPT WHILE THIS RN WAS TRIAGING. AGGRESSIVE TOWARDS NURSE AND ANGRY. AND THIS RN SPOKE LATER AND THIS RN COMFORTED SHE APOLOGIZED.
--- NOTE | 2024-08-18 13:41 | CT_ITS ---
PROCEDURE: STROKE BRAIN/HEAD WITHOUT CONT 08/18/2024 REASON FOR EXAM: NEURO DEFICIT, ACUTE, STROKE SUSPECTED TECHNIQUE: Multiple axial tomographic images were obtained without intravenous contrast administration. Coronal and sagittal reconstruction was obtained as well. One or more dose reduction techniques were used (e.g., Automated exposure control, adjustment of the mA and/or kV according to patient size, use of iterative reconstruction technique RADIATION DOSE SUMMARY: CTDlvol: 44.99 mGy DLP: A 12.98 mGycm COMPARISON: Comparison is made with prior examination dated November 27, 2022. FINDINGS: Normal barber-white matter differentiation. No acute abnormality is seen. No evidence of intracranial hemorrhage or mass effect. CT/STROKE Brain/Head without Cont IMPRESSION: Unremarkable unenhanced CT scan of the brain. Red Alert: Nothing acute The critical information above was relayed directly by me by telephone to Kaiser Moraes on 08/18/2024 at 1:52 pm with readback verification. Reading Location: [place] [id number]
--- NOTE | 2024-08-18 13:41 | EKG12_ITS ---
Test Reason : Blood Pressure : */* mmHG Vent. Rate : 91 BPM Atrial Rate : 91 BPM P-R Int : 178 ms QRS Dur : 68 ms QT Int : 354 ms P-R-T Axes : 39 11 2 degrees QTcB Int : 435 ms Normal sinus rhythm Normal ECG Confirmed by REGAN CASH, POOL ([id number]), restaurant expeditor GAIL RUIZ ([id number]) on 08/19/2024 8:47:45 AM Referred By: Confirmed By: POOL SPEARS MD
--- NOTE | 2024-08-18 13:42 | EDS_ITS ---
HPI History of Present Illness Chief Complaint: Stroke Alert Onset/Context/Timing Onset: Today and Hours (8 AM.) Context: Gradual Onset Timing: Continuous Quality and Location: Positive for Right Face Paresthesia, Right Arm Parasthesia and Right Leg Parasthesia Current Severity: Mild Maximum Severity: Mild Associated Symptoms Associated Symptoms: Negative for Headache, Nausea, Vomiting or Chest Pain Narrative Narrative: 48-year-old diabetic male. Said around 8:00 this morning he started having some subjective numbness to the right side of his face. Said throughout the day its gotten worse. He feels clumsy with his right side. And he is now having subjective numbness and tingling in his right arm and leg. Denies any recent head injury. Denies any blood thinners. He is never had a stroke or mini stroke. Never had symptoms like this before. Denies visual change. Denies headache. Prior similar symptoms: No Recent Illness/Hospitalization: No PFSH PFS Medical History GERD (gastroesophageal reflux disease) Morbid obesity Gastroparesis Asthma Diabetes type 2, controlled REGAN (obstructive sleep apnea) Home Medications ?Medication ?Instructions ?Recorded ?Last Taken ?Type albuterol sulfate 2.5 mg/3 mL 2.5 mg inhalation Q4H DE N Wheezing 08/22/20 Unknown History (0.083 %) solution for nebulization albuterol sulfate 90 mcg/actuation 1 puff inhalation Q 6H PRN Wheezing 08/22/20 Unknown History aerosol inhaler pantoprazole 40 mg tablet,delayed 40 mg PO DAILY reflu x 04/14/21 03/12/24 22:00 History release 40 mg glimepiride 4 mg tablet 4 mg PO DAILY diabetes 05/0403/12/24 20:00 History 4 mg ondansetron 4 mg disintegrating 8 mg (2 x 4 mg) PO Q8H PRN nausea 05/04/23 03/13/24 06:00 Rx tablet and vomiting #20 tabs 8 mg dextromethorphan-guaifenesin ER 60 1 tab PO Q12H PRN g astrointestinal 03/13/24 02/28/24 History mg-1,200 mg tab,extend spasms or cramping release,12hr (Mucinex DM) promethazine 25 mg tablet 25 mg PO Q8H PRN nausea and 03/13/24 03/12/24 20:00 History vomiting 25 mg prucalopride 1 mg tablet 1 mg PO DAILY gastro 4 03/13/24 History (Motegrity) tadalafil 10 mg tablet 10 - 20 mg PO DAILY PRN sexu al 03/13/24 Unknown History activity scopolamine base 1 mg over 3 days 1 patch transdermal Q3D PRN nausea 08/13/24 Unknown History transdermal patch and vomiting Allergy/AdvReac Type Severity Reaction Status Date / Time haloperidol (From Haldol) AdvReac Other Verified 08/18/24 13:48 metoclopramide HCl (From AdvReac GO CRAZY Verified 08/18/24 13:48 Reglan) Family History Mother Dysphagia Patient denies any maternal history of heart disease, diabetes, cancer, underlying pulmonary disease, underlying renal disease but does note she has significant issues with her esophagus, unsure exact disease. Notes frequent has items stuck, thin esophagus, dysphagia. Denied achalasia as etiology. Father Frequent UTI Patient denies any paternal history of heart disease, diabetes, cancer, underlying pulmonary disease, underlying renal disease but does note significant history of frequent urinary tract infections. Surgical History H/O foot surgery History of tonsillectomy and adenoidectomy History of hernia surgery History of tonsillectomy Social History household members: spouse housing: house Smoking Status: Never smoker alcohol intake: never substance use type: does not use ROS ROS ED ROS Narrative URI a week ago. Constitutional Constitutional ED: Denies chills or fever(s) Eyes Eyes: Denies blurry vision ENT ENT ED: Denies ear pain Cardiovascular Cardiovascular: Denies chest pain Respiratory/Chest Respiratory/Chest: Denies cough or dyspnea Gastrointestinal Gastrointestinal: Denies abdominal pain Genitourinary Genitourinary ED: Denies dysuria or hematuria Musculoskeletal Musculoskeletal: Denies arthralgias or back pain Integumentary Denies abscess or Abrasions Neurologic Neurologic: Denies headache(s) Psychiatric Psychiatric: Denies anxiety Endocrine Endocrinology: Denies polydipsia Hematologic/Lymphatic Hematologic/Lymphatic: Denies easy bleeding Allergic/Immunologic Allergic/Immunologic ED: Denies mouth swelling or urticaria EXAM Physical Exam Narrative Exam Narrative: Patient evaluated in triage room 1. Vital signs are stable afebrile. His initial blood pressure 170/95. He does not look septic or toxic in any distress. He is anxious. H EENT exam pupils round reactive light. Extra motions are intact. No facial droop. He is able to open close his eyes only difficulty. He can smile Duyn difficulty. Tongue midline. Normal speech. No trauma. Neck nontender. Lungs clear. Heart regular rhythm no murmur. Chest wall ribs nontender. Abdomen soft nontender. Moving all 4 extremities. Subjectively tells me he has decreased sensation of right side of his face right arm and leg. But he can feel it is not as distinct as the left arm and leg. Neurologically he is awake and alert. Answer questions following commands. Normal numerical control operator strength bilaterally. Normal dorsi plantarflexion. Normal rapid movements with his fingers normal fingertip to nose. Normal dorsi plantarflexion. Subjectively has decreased sensation on the right side which was given NIH of 1. Const Vital Signs: 08/18/24 13:33 08/18/24 13:41 08/18/24 14:11 Temperature 97.3 F L 98.1 F Temperature Source Temporal Oral Pulse Rate 95 99 95 Respiratory Rate 16 20 H 22 H Blood Pressure 170/95 H 173/93 H 163/90 H Blood Pressure Mean 120 119 114 Pulse Ox 99 98 97 Oxygen Delivery Method Room Air Room Air Room Air Positive well nourished and well developed; Negative for cachectic, contractures or unkempt General Appearance ED: well developed and NAD; Negative for unkempt, cachectic or contractures Nutritional Appearance: Negative for cachectic HEENT Reports moist mucous membranes atraumatic; Negative for trauma Eyes PERRL and EOMs intact bilaterally General Eye ED: Negative for pale conjunctiva or scleral icterus Neck no lymphadenopathy, supple and no JVD Chest Wall inspection of chest normal and palpation of chest normal Resp normal respiratory effort and clear to auscultation bilaterally Cardio no murmurs Rate: regular rate Rhythm: regular rhythm Heart Sounds: S1 normal and S2 normal GI normal to inspection, nondistended, normoactive bowel sounds, soft to palpation, non-tender, non-distended and no masses Palpation: Negative for tender, guarding or rebound tenderness present Back/Spine no CVA tenderness General Back: Negative for CVA tenderness Cervical Spine: Negative for cervical spine tenderness Thoracic Spine / Upper Back: Negative for thoracic spinal tenderness Lumbar Spine / Lower Back: Negative for lumbar spinal tenderness Extremity normal to inspection Extremity Narrative: Subjectively decreased sensation right arm and leg. Good strength. Good dexterity. General Extremety ED: Negative for deformity, edema or tenderness General Extremity: Negative for deformity or edema Neuro oriented x3, CN's II-XII intact bilaterally and No no sensory deficits noted Sensorium / Orientation: alert, oriented to person, oriented to place and oriented to time; Negative for orientation impaired, confused, lethargic or stuporous Speech: speech normal Motor Exam: strength 5/5 throughout Psych mental status grossly normal Appearance: Negative for unkempt Attitude: No agitated Mood & Affect: anxious; Negative for depressed or tearful Skin no wounds General Skin Exam: Negative for jaundice Lesions: no lesions Rashes: no rashes Trauma: Negative for abrasion or laceration NIHSS NIHSS Initial: 1a Level of Consciousness: 0 1b LOC Questions (Score 2 if aphasic/stupor): 0 1c LOC Commands (Only score 1st attempt): 0 2 Best Gaze (If aphasic, use reflexive mvmts.): 0 3 Visual: 0 4 Facial Palsy: 0 5 Motor Arm Right (UN = amputation/fusion): 0 5 Motor Arm Left: 0 6 Motor Leg Right: 0 6 Motor Leg Left: 0 7 Limb ataxia (Only + if out of proportion): 0 8 Sensory (Aphasia/stupor=0 or 1, coma=2): 1 9 Best Language: 0 11 Extinction and Inattention (only scored if +): 0 Total Score: 1 MDM MDM MDM Narrative Medical decision making narrative: 48-year-old male subjective decreased sensation right face, arm and leg. Benign exam. At worst NIH of 1. Stroke protocol. He will be getting a CT and CTA. Repeat exam at 2:32 PM. Patient doing well. Neurologic exam unchanged and unremarkable other than subjective tingling on the right side. Normal motor strength. At worst NIH of 1. [facility] beamed and evaluated the patient felt he should be admitted for an MRI. History & Record Review Discussion w/independent historian: Patient Additional record(s) reviewed:: Prior inpatient record, Prior outpatient record, Prior ED visit and Prior labs Lab Data Attestation: I reviewed the patient's lab results. Lab results narrative: CBC shows a white count 9. H&H 15 and 44. Platelets 386. Electrolytes show sodium 132. Gap 9. BUN and creatinine 9 and 0.7. Glucose 249. Troponin 9. Chest x-ray chronic changes. CT brain and CTA head and neck showed no acute significant process. No bleed. Glass. No obvious stroke. No high-grade stenosis. Labs: Laboratory Results - last 24 hr 08/18/24 13:40 WBC 9.6 RBC 5.05 Hgb 15.1 Hct 44.0 MCV 87.1 MCH 29.9 MCHC 34.3 RDW Std Deviation 38.6 RDW Coeff of Jeremiah 12.1 Plt Count 386 MPV 9.3 Immature Gran % (Auto) 0.300 Neut % (Auto) 49.7 Lymph % (Auto) 41.3 H Cavalier % (Auto) 6.9 Eos % (Auto) 1.1 Baso % (Auto) 0.7 Absolute Neuts (auto) 4.8 Absolute Lymphs (auto) 3.96 Nucleated RBC % 0 PT 12.1 INR 0.9 APTT 26.5 Sodium 132 L Potassium 4.2 Chloride 97 L Carbon Dioxide 26.7 Anion Gap 9 BUN 9 Creatinine 0.76 Estim Creat Clear Calc 143.37 Est GFR (MDRD) Non-Af 111 BUN/Creatinine Ratio 12.5 Glucose 249 H Calcium 9.4 Troponin T High Sens 9 Radiography Chest X-Ray - ED: 1 View, Read by ED Physician, Heart, Lungs, Mediastinum, Bony Structures, No Acute Disease and Chronic Changes Diagnostic Testing: Clinical Impression(s) from Imaging Studies Brain CT 08/18/24 13:41 IMPRESSION: Unremarkable unenhanced CT scan of the brain. Red Alert: Nothing acute The critical information above was relayed directly by me by telephone to Kaiser Chacko on 08/18/2024 at 1:52 pm with readback verification. Reading Location: [facility] Head/Neck CTA 08/18/24 13:45 IMPRESSION: 1. No high-grade stenosis or large vessel occlusion identified. If there is persistent concern for an acute intracranial process, recommend MRI. 2. Additional description as above. Reading Location: [id number] Chest X-Ray 08/18/24 14:10 IMPRESSION: No acute abnormality is seen. [facility] Chest x-ray, portable, single view, interpreted by myself shows normal cardiac silhouette. Normal mediastinum. No acute processes. Chronic changes. Discharge Plan Triage Chief Complaint: Stroke Alert ED Provider: Kaiser Chacko Dx/Rx/DC Orders Clinical Impression: Paresthesia, History of diabetes mellitus Prescriptions: No Action scopolamine base 1 mg over 3 days patch 3 day 1 patch transdermal Q3D PRN (Reason: nausea and vomiting) albuterol sulfate 2.5 MG/3 ML solution for nebulization 2.5 mg INHALATION Q4H PRN (Reason: Wheezing) Patient Comments: pt doesnt have to use often albuterol sulfate 1 INHALER inhaler 1 puff INHALATION Q6H PRN (Reason: Wheezing) pantoprazole 40 mg tablet,delayed release (DR/EC) 40 mg PO DAILY glimepiride 4 mg tablet 4 mg PO DAILY Patient Comments: ON 03/12/24 INCREASED TO 1 TAB DAILY ondansetron 4 mg tablet,disintegrating 8 mg PO Q8H PRN (Reason: nausea and vomiting) Qty: 20 0RF promethazine 25 mg tablet 25 mg PO Q8H PRN (Reason: nausea and vomiting) prucalopride [Motegrity] 1 mg tablet 1 mg PO DAILY tadalafil 10 mg tablet 10 - 20 mg PO DAILY PRN (Reason: sexual activity) dextromethorphan-guaifenesin [Mucinex DM] 60-1,200 mg tablet extended release 12 hr 1 tab PO Q12H PRN (Reason: gastrointestinal spasms or cramping) Primary Care Provider: Nathaniel Nicole Referrals: Nathaniel Nicole MD [Primary Care Provider] - Print Language: Polish Disposition Disposition: Acute Care [facility]
--- NOTE | 2024-08-18 13:45 | CT_ITS ---
PROCEDURE: STROKE CTA HEAD AND NECK W/CON 08/18/2024 REASON FOR EXAM: NEURO DEFICIT, ACUTE, STROKE SUSPECTED TECHNIQUE: CTA of the head and neck was performed with IV contrast. Multiplanar reformats as well as MIP/3D reconstructions were generated. One or more dose reduction techniques were used (e.g., Automated exposure control, adjustment of the mA and/or kV according to patient size, use of iterative reconstruction technique). CONTRAST: Isovue 370 VOLUME: 100mL RADIATION DOSE SUMMARY: CTDlvol: 16.61 mGy DLP: 761.71 mGycm COMPARISON: CT head of same date FINDINGS: CTA NECK: Aortic Arch: Patent. Brachiocephalic and Subclavians: Patent. RIGHT Carotid: Right CCA: Patent. Right ICA: Patent. Right ECA: Patent. LEFT Carotid: Left CCA: Patent. Left ICA: Patent. Left ECA: Patent. Vertebrals: Codominant. Arise from the subclavians. Both vertebrals form the basilar. RIGHT Vertebral: Patent. LEFT Vertebral: Patent. CTA HEAD: Slight limitation related to venous contamination. Anterior circulation: Patent. Posterior circulation: Patent. AICAs not well seen. Diminutive or absent RIGHT posterior communicating artery. Aneurysms: None identified. Venous structures: Grossly unremarkable within limits of nondedicated technique. CT/STROKE CTA Head AND Neck W/Con IMPRESSION: 1. No high-grade stenosis or large vessel occlusion identified. If there is pe rsistent concern for an acute intracranial process, recommend MRI. 2. Additional description as above. Reading Location: [id number]
--- NOTE | 2024-08-18 13:51 | ED.RN ---
called [facility] now that pt is back to the room. Dr. Oneill will beam in.
[2024-08-18 13:56] LABS: Absolute Lymphocyte Count 3.96 X10^3/uL (0.83-4.51); Absolute Neutrophil Count 4.8 X10^3/uL (2.0-7.7); Basophil# 0.07 X10^3/uL; Basophil% 0.7 % (0-1); Eosinophil# 0.11 X10^3/uL; Eosinophils% 1.1 % (0-5); Hemoglobin 15.1 g/dL (13.0-16.5); Lymphocyte # 3.96 X10^3/ul (0.83-4.51); Lymphocyte % 41.3 % (19-41); Mean Corp Hgb Conc 34.3 g/dL (32-36); Mean Corpuscular Hgb 29.9 pg (27.0-32.0); Mean Corpuscular Volume 87.1 fL (80-94); Mean Platelet Vol. 9.3 fl (6.2-12.0); Monocyte# 0.66 X10^3/uL; Monocyte% 6.9 % (0-10); NRBC Flagged by Analyzer 0 % (0-5); Neutrophil # 4.75 X10^3/uL (2.7-7.7); Neutrophil % 49.7 % (47-70); Platelet Count 386 K/mm3 (150-450); RBC Distribution Width CV 12.1 % (11.6-14.6); RBC Distribution Width SD 38.6 fl (35.1-43.9); Red Blood Count 5.05 M/mm3 (4.6-6.2); White Blood Count 9.6 K/mm3 (4.4-11.0)
--- NOTE | 2024-08-18 14:03 | ED.RN ---
called [facility] to verify that Dr. Oneill will be beaming in from [facility]. He has not called Dr. Chacko.
[2024-08-18 14:07] LABS: Anion Gap 9 (5-15); BUN 9 mg/dL (4-19); BUN/Creat Ratio 12.5 RATIO (10-20); Calcium,Total 9.4 mg/dL (7.6-11.0); Carbon Dioxide 26.7 mmol/L (21.0-32.0); Chloride 97 mmol/L (98-108); Creatinine, Serum 0.76 mg/dL (0.70-1.20); EST Glomerular Filtration Rate 111 (>60); Estimated Creatinine Clearance 143.37 ml/min (50-250); Glucose 249 mg/dL (70-99); Potassium 4.2 mmol/L (3.3-5.1); Sodium Level 132 mmol/L (133-145); Troponin T High Sensitivity 9 ng/L (<=22)
--- NOTE | 2024-08-18 14:10 | RAD_ITS ---
PROCEDURE: CHEST 1 VIEW 08/18/2024 REASON FOR EXAM: NEURO DEFICIT, ACUTE, STROKE SUSPECTED TECHNIQUE: Frontal view of the chest. COMPARISON: Comparison is made with prior study dated October 03, 2022. FINDINGS: Hardware: A cardiac pacemaker is present. Heart: The heart size is normal. Lungs: The lungs are clear. Bones: Degenerative changes are identified within the thoracic spine. Other: RAD/Chest 1 View IMPRESSION: No acute abnormality is seen. Reading Location: [facility]-
[2024-08-18 14:20] LABS: International Normalized Ratio 0.9; Prothrombin Time (Protime)PT. 12.1 SECONDS (11.7-14.9)
[2024-08-18 14:26] LABS: Partial Thromboplast Time 26.5 Seconds (24.1-36.2)
--- NOTE | 2024-08-18 14:53 | HP.PCM.HOS_ITS ---
HPI - General General Date of Admission: 08/18/24 Date of Service: 08/18/24 Chief Complaint: Strokelike symptoms HPI Narrative NESTOR PIERCE, is a 48 M who presented to [facility] ED on 08/18/2024 with strokelike symptoms. Patient developed subjective numbness to the right side of his face this morning around 8 AM. It steadily worsened throughout the day. He then began to have subjective numbness and tingling in the right arm and leg along with right-sided clumsiness. Has never had something like this happen before. Has history of type 2 diabetes mellitus with gastroparesis and class III obesity with REGAN. States his blood sugars were fairly well-controlled in the 150-200 range until this past week. He developed upper respiratory infectious symptoms and his blood sugars spiked to 300s. He had previously prescribed doxycycline at home and he took a 7-day course of this. Completed the course 2 days ago. [place] like he did have some improvement with the antibiotics. In the ED NIHSS score was 1. CT head and CTA head/neck were unremarkable. Chest x-ray was unremarkable. Was discussed with neurology and given concern for TIA versus stroke, hospitalist was contacted for admission. I saw the patient at bedside in the ED, and mother were present. Patient was sitting back comfortably in bed, conversing normally and in no acute distress. He had no right-sided facial drooping, dysarthria or right-sided arm or leg weakness noted. He denied any sensory changes at this time, states his sensation has moderately improved here. He does state his gastroparesis has not been very well-controlled and he has an appointment with Dr. Avila on 08/24 for this. Has been taking Zofran and promethazine as needed for the nausea with some relief but has only had minimal relief of abdominal pain. Denies any other acute concerns at this time. [facility] Medical History (Updated 08/18/24 @ 16:[address] Vivek Dugan, ) Depression Anxiety Diabetes Kidney stones Non-smoker Sleep apnea GERD (gastroesophageal reflux disease) Morbid obesity Gastroparesis Asthma Diabetes type 2, controlled REGAN (obstructive sleep apnea) Home Medications ?Medication ?Instructions ?Recorded ?Last Taken ?Type albuterol sulfate 2.5 mg/3 mL 2.5 mg inhalation Q4H DC N Wheezing 08/22/20 Unknown History (0.083 %) solution for nebulization albuterol sulfate 90 mcg/actuation 1 puff inhalation Q 6H PRN Wheezing 08/22/20 Unknown History aerosol inhaler pantoprazole 40 mg tablet,delayed 40 mg PO QHS reflux 04/14/21 08/17/24 History release glimepiride 4 mg tablet 4 mg PO DAILY diabetes 05/0408/18/24 History ondansetron 4 mg disintegrating 8 mg (2 x 4 mg) PO Q8H PRN nausea 05/04/23 03/13/24 06:00 Rx tablet and vomiting #20 tabs 8 mg dextromethorphan-guaifenesin ER 60 1 tab PO Q12H PRN g astrointestinal 03/13/24 02/28/24 History mg-1,200 mg tab,extend spasms or cramping release,12hr (Mucinex DM) promethazine 25 mg tablet 25 mg PO Q8H PRN nausea and 03/13/24 03/12/24 20:00 History vomiting 25 mg prucalopride 1 mg tablet 1 mg PO DAILY PRN gastro 04/2603/13/24 History (Motegrity) tadalafil 10 mg tablet 10 - 20 mg PO DAILY PRN sexu al 03/13/24 Unknown History activity scopolamine base 1 mg over 3 days 1 patch transdermal Q3D PRN nausea 08/13/24 Unknown History transdermal patch and vomiting Allergy/AdvReac Type Severity Reaction Status Date / Time haloperidol (From Haldol) AdvReac Other Verified 08/18/24 13:48 metoclopramide HCl (From AdvReac GO CRAZY Verified 08/18/24 13:48 Reglan) Family History Mother Dysphagia Patient denies any maternal history of heart disease, diabetes, cancer, underlying pulmonary disease, underlying renal disease but does note she has significant issues with her esophagus, unsure exact disease. Notes frequent has items stuck, thin esophagus, dysphagia. Denied achalasia as etiology. Father Frequent UTI Patient denies any paternal history of heart disease, diabetes, cancer, underlying pulmonary disease, underlying renal disease but does note significant history of frequent urinary tract infections. Surgical History H/O foot surgery History of tonsillectomy and adenoidectomy History of hernia surgery History of tonsillectomy Social History household members: spouse housing: house Smoking Status: Never smoker alcohol intake: never substance use type: does not use ROS Constitutional Constitutional: Denies chills, fatigue, fever(s) or weakness Eyes Eyes: Denies change in vision ENT HEENT: Denies nasal congestion, nasal discharge, sinus pressure or sore throat Cardiovascular Cardiovascular: Denies chest pain Respiratory/Chest Respiratory/Chest: Denies shortness of breath at rest Gastrointestinal Gastrointestinal: Reports abdominal pain and nausea; Denies constipation, diarrhea or vomiting Musculoskeletal Musculoskeletal: Denies arthralgias or myalgias Neurologic Neurologic: Reports numbness and tingling; Denies confusion, disequilibrium, dizziness, focal weakness, headache(s), paresthesias or tremor(s) Vital Signs Vital Signs Vital Signs: 08/18/24 13:33 08/18/24 13:41 08/18/24 14:11 Temperature 97.3 F L 98.1 F Temperature Source Temporal Oral Pulse Rate 95 99 95 Respiratory Rate 16 20 H 22 H Blood Pressure 170/95 H 173/93 H 163/90 H Blood Pressure Mean 120 119 114 Pulse Ox 99 98 97 Oxygen Delivery Method Room Air Room Air Room Air 08/18/24 14:30 08/18/24 14:42 Temperature 98.1 F Temperature Source Pulse Rate 94 90 Respiratory Rate 14 16 Blood Pressure 147/81 H 147/81 H Blood Pressure Mean 103 103 Pulse Ox 97 95 Oxygen Delivery Method Room Air Weight Weight: 117.48 kg Body Mass Index (BMI) 41.8 Physical Exam Const alert, oriented x3 and no apparent distress Constitutional Narrative: Middle-age male, class III obesity, mildly fatigued appearing but otherwise sitting back comfortably in bed, conversing normally, in no acute distress. General Appearance: cooperative and comfortable HEENT normocephalic, head/scalp atraumatic, hearing grossly normal bilaterally, nasal mucous membranes and turbinates normal and moist oral mucous membranes Eyes PERRL, EOMs intact bilaterally and conjunctivae normal Neck full ROM Chest inspection of chest normal Resp normal respiratory effort, normal air movement, no use of accessory muscles and clear to auscultation bilaterally Cardio regular rate, regular rhythm, no murmurs and peripheral pulses 2+ throughout GI GI Narrative: Mild tenderness to palpation in upper abdomen diffusely. Abdomen otherwise soft and nondistended with normal bowel sounds. Back/Spine normal ROM Extremity normal to inspection, full ROM and no pedal edema Skin no rashes or lesions noted Neuro moves all extremities and no focal motor deficits Speech: speech normal Motor Exam: strength 5/5 throughout Psych mental status grossly normal Results Lab / Micro Data 08/18/24 13:40 08/18/24 13:40 Labs: Laboratory Results - last 24 hr 08/18/24 13:40: WBC 9.6, RBC 5.05, Hgb 15.1, Hct 44.0, MCV 87.1, MCH 29.9, MCHC 34.3, RDW Std Deviation 38.6, RDW Coeff of Jeremiah 12.1, Plt Count 386, MPV 9.3, Immature Gran % (Auto) 0.300, Neut % (Auto) 49.7, Lymph % (Auto) 41.3 H, [place] % (Auto) 6.9, Eos % (Auto) 1.1, Baso % (Auto) 0.7, Absolute Neuts (auto) 4.8, Absolute Lymphs (auto) 3.96, Nucleated RBC % 0, PT 12.1, INR 0.9, APTT 26.5, S odium 132 L, Potassium 4.2, Chloride 97 L, Carbon Dioxide 26.7, Anion Gap 9, BUN 9, Creatinine 0.76, Estim Creat Clear Calc 143.37, Est GFR (MDRD) Non-Af 111, BUN/Creatinine Ratio 12.5, Glucose 249 H, Calcium 9.4, Troponin T High Sens 9 Rhythm Strip Rhythm Strip: Sinus Rhythm Rate: 91 Ectopy: None Imaging Radiology Impression Brain CT 08/18/24 13:41 IMPRESSION: Unremarkable unenhanced CT scan of the brain. Red Alert: Nothing acute The critical information above was relayed directly by me by telephone to Kaiser Chacko on 08/18/2024 at 1:52 pm with readback verification. Reading Location: [facility] Head/Neck CTA 08/18/24 13:45 IMPRESSION: 1. No high-grade stenosis or large vessel occlusion identified. If there is persistent concern for an acute intracranial process, recommend MRI. 2. Additional description as above. Reading Location: [id number] Chest X-Ray 08/18/24 14:10 IMPRESSION: No acute abnormality is seen. Reading Location: [facility] Assessment & Plan Assessment/Plan (1) Stroke-like symptoms: PLAN: Plan Patient is a 48-year-old male who presented [facility] ED on 08/18/2024 with strokelike symptoms. 1. Strokelike symptoms, CVA rule out ? Admit under observation status to PCU. Neurology consulted. Presented with right-sided facial numbness/tingling progressing to right arm and leg numbness/tingling; all essentially resolved in the ED. Orders placed per stroke protocol order set. CT brain and CTA head/neck unremarkable. MRI brain and echo with bubble study ordered. Lipid panel, A1c and TSH ordered. PT/OT/case management consulted. Will start baby aspirin and high intensity statin at this time. 2. Type 2 diabetes mellitus with gastroparesis ? Appears that he is only on home glimepiride 4 mg daily. Most recent A1c 8.5% on 03/14/2024; prior to that the last A1c was 10.1% in 08/2020. States he does check his blood sugars at home and they typically run in the 150s to low 200s. Repeat A1c ordered. Will order Accu-Cheks and treat with sliding scale insulin with meals for now, adjust as needed. Previously followed with [facility] gastroenterology for his gastroparesis but is now going to establish with Dr. Avila in the office on 08/24. Will continue home Motegrity (will need to bring this in), promethazine as needed, and Zofran as needed while inpatient. 3. Recent upper respiratory infection ? Patient reports recent URI symptoms and treated with previously prescribed doxycycline that he had at home; did not have any testing done or see a doctor for this. Treated with 7-day course of doxycycline that he completed on 08/16. Seems unlikely that the doxycycline could have contributed to above symptoms. Recommended that patient be seen for evaluation in the future prior to taking antibiotics like this. Chronic medical conditions: ? Class III obesity: BMI 40 on admit. Complicates hospital course, care and prognosis. ? GERD: Continue home PPI. ? Asthma: Continue home inhalers as needed. DVT prophylaxis: SCDs CODE STATUS: Full code, verified Expected disposition: Home, 1 to 2 days Total clinical time spent by myself addressing the patient's medical issues, reviewing all the data, and collaborating with patient's care team: 55 minutes. Charges/Coding Visit Charges Inpatient E&M: 45400 Init Hosp L2
--- NOTE | 2024-08-18 15:01 | CHAPLAIN ---
Type of Pastoral Visit ___ Initial Visit ___ Follow-up Visit ___ On-call Visit ___ General Patient Visit ___ Spiritual Assessment ___ Family Conference ___ Bereavement _x__ Rapid Response ___ Code Blue ___ Other (describe below) Pastoral Care Referral From ___ Patient ___ Family _x__ Nurse ___ Physician ___ Chopper Gun Operator ___ Safety Attendant ___ Other (describe below) Sacrament/Intervention _x__ Active listening ___ Anointing ___ Restorationism ___ Bereavement ___ Communion ___ Angeli exploration ___ ___ Life review _x__ Prayer ___ Reconciliation ___ Sacrament of Sick _x__ Supportive presence ___ Wedding ___ Other (describe below) Pastoral Comments RN requested support for the family members of this patient; family members were in the hallway and approached by this slag wheeler for support; spouse is quite tearful and was given time to talk and express her feelings; mother also present and making phone calls, then responsive to offer of support and prayer; met then with the patient who remembered this slag wheeler from his previous admissions; offer of listening ear and exploration of feelings; pt expresses appreciation for the time given and offer of care toward he and the family; offer of follow up to patient assuming that he will be admitted
--- NOTE | 2024-08-18 15:02 | MRI_ITS ---
PROCEDURE: BRAIN WITHOUT CONTRAST (MRIBR), 08/18/2024 REASON FOR EXAM: CVA R/O COMPARISON: CT and CTA of same date TECHNIQUE: Multisequence multiplanar MRI brain was performed without intravenous contrast. Contrast: None. FINDINGS: Variable overall mild motion limitation. Cerebrum: No evidence of acute infarct, mass, or appreciable intracranial hemorrhage. Punctate LEFT frontal subcortical white matter T2/FLAIR hyperintensity, nonspecific but compatible with minimal/early chronic microvascular ischemic changes. Cerebellum: Unremarkable. Brainstem: Unremarkable. Ventricles/extra-axial spaces: Unremarkable. Cavum septum pellucidum and cavum vergae, normal variants. Major flow voids: Better evaluated on previous CTA. Paranasal sinuses: Unremarkable. Scalp/calvarium: Unremarkable. Orbits: Grossly unremarkable within limits of nondedicated technique. MRI/Brain without Contrast IMPRESSION: 1. No specific evidence of an acute intracranial process. 2. Additional description as above. Reading Location: [id number]
--- NOTE | 2024-08-18 15:02 | ECHOD_ITS ---
Reason For Study : TIA/STROKE Procedure This was a 2D Doppler, Color Flow transthoracic echocardiogram. Exam performed portable in patient room. Left Ventricle Normal LV size. Left ventricular systolic function is normal. The left ventricular ejection fraction is 60 %. Stage 1 diastolic dysfunction. No regional wall motion abnormalities noted. Right Ventricle Normal RV size. Normal systolic function. Atria Normal left atrium. Normal right atrium. Bubble contrast study negative for right to left interatrial shunt. Mitral Valve Normal mitral valve. Tricuspid Valve Normal tricuspid valve. Aortic Valve Normal aortic valve. Trisinus/trileaflet aortic valve. Pulmonic Valve Normal pulmonic valve. Great Vessels Normal sized aortic root. Normal arch. The pulmonary artery is normal size. Inferior vena cava collapse with respiration. Pericardium/Pleural No pericardial effusion. Medication Performed a rapid injection of agitated mix of 9 cc saline and 1cc air to assess for atrial septal defect. MMode/2D Measurements & Calculations LVIDd: 4.3 cm IVSd: 1.0 cm Ao root diam: 3.1 cm LVIDs: 2.9 cm LVPWd: 0.95 cm RVDd: 3.4 cm FS: 32.4 % LAV(MOD-bp): 24.5 ml LVAd ap4: 22.6 cm2 SV(MOD-sp4): 31.4 ml LAV(MOD-bp) Indexed: 11.0 ml/m2 LVLd ap4: 8.2 cm SI(MOD-sp4): 14.1 ml/m2 LAV(MOD-sp2): 28.8 ml EDV(MOD-sp4): 51.4 ml LAV(MOD-sp4): 20.8 ml EDV(sp4-el): 52.7 ml LVAs ap4: 12.4 cm2 LVLs ap4: 6.7 cm ESV(MOD-sp4): 20.0 ml ESV(sp4-el): 19.7 ml EF(MOD-sp4): 61.1 % EF(sp4-el): 62.6 % SV(sp4-el): 33.0 ml LA A4 area: 11.1 cm2 LA dimension(2D): 3.3 cm RA A4 area: 9.8 cm2 TAPSE: 2.3 cm Time Measurements MV dec time: 0.20 sec Doppler Measurements & Calculations MV E max claudy: 78.8 cm/sec Lat Peak E' Claudy: 13.3 cm/sec Med Peak E' Claudy: 10.4 cm/sec MV A max claudy: 96.1 cm/sec E/E' lat: 5.9 E/E' med: 7.6 MV E/A: 0.82 Ao V2 max: 119.7 cm/sec LV V1 max: 109.8 cm/sec PA V2 max: 94.8 cm/sec Ao max P.7 mmHg LV V1 max P.8 mmHg ECHO/Echo Complete Interpretation Summary Normal LV size. Left ventricular systolic function is normal. The left ventricular ejection fraction is 60 %. Bubble contrast study negative for right to left interatrial shunt. Stage 1 diastolic dysfunction. Structurally normal valves. Ordering Physician: Vivek Dugan Referring Physician: VIOLETTA URIARTE Performed By: Kailey Hoover RDCS
[2024-08-18] MEDS: Aspirin 325 MG Tablet PO (15:31)
[2024-08-18 16:16] LABS: Troponin T High Sens 2 HR 8 ng/L (<=22)
[2024-08-18] MEDS: Insulin Lispro 100 UNIT/ML INSULN.PEN SC ×2 (16:37→21:50)
[2024-08-18] MEDS: LORazepam 0.5 MG Tablet PO (16:42)
[2024-08-18 16:56] LABS: Bedside Glucose 203 mg/dL (74-106)
[2024-08-18 17:02] LABS: Bedside Glucose 227 mg/dL (74-106)
[2024-08-18] MEDS: Lorazepam 2 MG/ML WCH Syringe 0.5 MG IV (18:51)
[2024-08-18 18:59] LABS: Hemoglobin A1c 8.6 % (<=5.6)
--- NOTE | 2024-08-18 21:09 | CM.ED ---
Social Work Reason for visit: Stroke Alert SW entered room and introduced self to patients and patients mother and explained role at [facility]. Patients stated that patient had gone to work this morning but ended up coming home early due to increased symptoms. Both and mother were tearful, emotional support provided. Gwendolyn Miller, SLOT AMBASSADOR, OPERATING ROOM TECH
[2024-08-18] MEDS: Pantoprazole Sodium 40 MG Tablet PO (21:51)
[2024-08-18] MEDS: Atorvastatin Calcium 80 MG Tablet PO (21:51)
[2024-08-18 22:17] LABS: Bedside Glucose 186 mg/dL (74-106)
[2024-08-19] MEDS: Dicyclomine 10 MG Capsule 20 MG PO (00:38)
[2024-08-19] MEDS: 0.9% Normal Saline (500mL Bag) 500 ML 999 ML IV (00:39)
[2024-08-19 02:00] VITALS: BP 105/74; PULSE 84; RESP 18; TEMP 36.7; O2SAT 93
[2024-08-19 03:06] VITALS: BMI 40.6
[2024-08-19 05:39] LABS: Hematocrit 37.8 % (40-54); Hemoglobin 13.1 g/dL (13.0-16.5); Mean Corp Hgb Conc 34.7 g/dL (32-36); Mean Corpuscular Hgb 30.5 pg (27.0-32.0); Mean Corpuscular Volume 87.9 fL (80-94); Mean Platelet Vol. 9.4 fl (6.2-12.0); Platelet Count 325 K/mm3 (150-450); RBC Distribution Width CV 12.2 % (11.6-14.6); RBC Distribution Width SD 39.2 fl (35.1-43.9); White Blood Count 8.4 K/mm3 (4.4-11.0)
[2024-08-19 05:46] VITALS: BP 105/75; PULSE 76; RESP 18; TEMP 36.7; O2SAT 95
[2024-08-19 06:12] LABS: Anion Gap 10 (5-15); BUN 9 mg/dL (4-19); Calcium,Total 8.7 mg/dL (7.6-11.0); Carbon Dioxide 24.9 mmol/L (21.0-32.0); Chloride 101 mmol/L (98-108); Cholesterol 149 mg/dL (<=200); Creatinine, Serum 0.85 mg/dL (0.70-1.20); EST Glomerular Filtration Rate 107 (>60); Estimated Creatinine Clearance 126.27 ml/min (50-250); Glucose 138 mg/dL (70-99); High Density Lipoprotein 40 mg/dL; Low Density Lipoprotein Calc. 89 mg/dL; Sodium Level 135 mmol/L (133-145); Triglycerides 99 mg/dL; Very Low Density Lipoprotein 20 mg/dL (5-40); cholesterol:hdl ratio screen 3.71
[2024-08-19 06:40] LABS: Bedside Glucose 146 mg/dL (74-106)
[2024-08-19 08:15] VITALS: O2SAT 96
--- NOTE | 2024-08-19 08:27 | CON.PCM.NE_ITS ---
Assessment and Plan: Neuro Assessment/Plan NESTOR PIERCE is a 48 M with a past medical history of DM2, being evaluated by Teleneurology for spreading R sided weakness and numbness and difficulty speaking, concerning for stroke. Exam is nonfocal now, symptoms largely resolved - Anti-platelet medication: Plavix 300mg once then ASA 81mg +Plavix 75mg x 21 days, then aSA 81mg alone - atorvastatin 40mg - LDL 82, A1C 8.6 - recommend EVE to evaluate for PFO and other structural abnormaltiies - Occupational/ Physical therapy consults - NPO until swallow evaluation. IVF until able to take po - DVT prophylaxis with SCDs and heparin SQ - Vascular risk factor modification. The following are the recommended guidelines: LDL Goal < 70 Smoking Cessation Diabetes Management MCFP blood pressure control should achieve <130/80 mmHg. BP management should aim to achieve terminal manager contorl in a reasonable amount of time, taking into consideration the individual patient's requirements and characteristics. Weight Management: Goal for BMI is 18.5 -24.9 kg/m2 Alcohol: No more than 2 drinks/day for men or 1 drink/day for non- women - Promote lifestyle modification: weight control, physical activity, moderation of alcohol intake, moderate sodium intake. Followup with PCP in 1-2 weeks, and in Neurology clinic in 6-12 weeks I personally attended this patient and spent a total time of 45minutes evaluating this patient including clinical assessment, review of chart, medical history imaging, and determining appropriate treatment and workup. HPI Consult Data Date of Consult: 08/19/24 HPI Narrative HPI Narrative: NESTOR PIERCE, is a 48 M who presented to [facility] ED on 08/18/2024 with strokelike symptoms. Patient developed subjective numbness to the right side of his face this morning around 8 AM. It steadily worsened throughout the day. He then began to have subjective numbness and tingling in the right arm and leg along with right-sided clumsiness. Has never had something like this happen before. Has history of type 2 diabetes mellitus with gastroparesis and class III obesity with REGAN. States his blood sugars were fairly well-controlled in the 150-200 range until this past week. He developed upper respiratory infectious symptoms and his blood sugars spiked to 300s. He had previously prescribed doxycycline at home and he took a 7-day course of this. Completed the course 2 days ago. Tangent like he did have some improvement with the antibiotics. In the ED NIHSS score was 1. CT head and CTA head/neck were unremarkable. Chest x-ray was unremarkable. Was discussed with neurology and given concern for TIA versus stroke, hospitalist was contacted for admission. Neurologic History The R cheek still has numbness, his speech is better. The first symptoms he had at 8AM yesterday was his R eye became itchy then numb, then the R face became numb as well. He states he had slurred speech as well. In the ER he felt that is when the R arm and leg went numb. Nothing like this happened before, never had stroke. Symptoms began improving 3-4 hrs after being here. Denies headache but endorses a pain that goes down his neck into his shoulder. Was started on doxycycline a week for a respiratory issue. No heart problems, nonsmoker [facility] Medical History (Updated 08/18/24 @ 16:[address] Vivek Dugan, DO) Depression Anxiety Diabetes Kidney stones Non-smoker Sleep apnea GERD (gastroesophageal reflux disease) Morbid obesity Gastroparesis Asthma Diabetes type 2, controlled REGAN (obstructive sleep apnea) Home Medications ?Medication ?Instructions ?Recorded ?Last Taken ?Type albuterol sulfate 2.5 mg/3 mL 2.5 mg inhalation Q4H WA N Wheezing 08/22/20 Unknown History (0.083 %) solution for nebulization albuterol sulfate 90 mcg/actuation 1 puff inhalation Q 6H PRN Wheezing 08/22/20 Unknown History aerosol inhaler pantoprazole 40 mg tablet,delayed 40 mg PO QHS reflux 04/14/21 08/17/24 History release glimepiride 4 mg tablet 4 mg PO DAILY diabetes 05/0408/18/24 History ondansetron 4 mg disintegrating 8 mg (2 x 4 mg) PO Q8H PRN nausea 05/04/23 03/13/24 06:00 Rx tablet and vomiting #20 tabs 8 mg dextromethorphan-guaifenesin ER 60 1 tab PO Q12H PRN g astrointestinal 03/13/24 02/28/24 History mg-1,200 mg tab,extend spasms or cramping release,12hr (Mucinex DM) promethazine 25 mg tablet 25 mg PO Q8H PRN nausea and 03/13/24 03/12/24 20:00 History vomiting 25 mg prucalopride 1 mg tablet 1 mg PO DAILY PRN gastro 04/2603/13/24 History (Motegrity) tadalafil 10 mg tablet 10 - 20 mg PO DAILY PRN sexu al 03/13/24 Unknown History activity scopolamine base 1 mg over 3 days 1 patch transdermal Q3D PRN nausea 08/13/24 Unknown History transdermal patch and vomiting aspirin 81 mg chewable tablet 81 mg PO BREAKFAST #30 t abs 08/19/24 Unknown Rx atorvastatin 40 mg tablet 40 mg PO DAILY #30 tabs 08/01 02/25 Unknown Rx clopidogrel 75 mg tablet 75 mg PO DAILY #21 tabs 08/01 02/25 Unknown Rx Allergy/AdvReac Type Severity Reaction Status Date / Time haloperidol (From Haldol) AdvReac Other Verified 08/18/24 13:48 metoclopramide HCl (From AdvReac GO CRAZY Verified 08/18/24 13:48 Reglan) Family History Mother Dysphagia Patient denies any maternal history of heart disease, diabetes, cancer, underlying pulmonary disease, underlying renal disease but does note she has significant issues with her esophagus, unsure exact disease. Notes frequent has items stuck, thin esophagus, dysphagia. Denied achalasia as etiology. Father Frequent UTI Patient denies any paternal history of heart disease, diabetes, cancer, underlying pulmonary disease, underlying renal disease but does note significant history of frequent urinary tract infections. Surgical History H/O foot surgery History of tonsillectomy and adenoidectomy History of hernia surgery History of tonsillectomy Social History household members: spouse housing: house Smoking Status: Never smoker alcohol intake: never substance use type: does not use Vital Signs Vital Signs Vital Signs: 08/18/24 13:33 08/18/24 13:41 08/18/24 14:11 Temperature 97.3 F L 98.1 F Temperature Source Temporal Oral Pulse Rate 95 99 95 Pulse Strength Respiratory Rate 16 20 H 22 H Respiratory Effort Respiratory Depth Respiratory Pattern Blood Pressure 170/95 H 173/93 H 163/90 H Blood Pressure Mean 120 119 114 Blood Pressure Source Blood Pressure Position Blood Pressure Location Pulse Ox 99 98 97 Oxygen Delivery Method Room Air Room Air Room Air 08/18/24 14:30 08/18/24 14:42 08/18/24 15:00 Temperature 98.1 F Temperature Source Pulse Rate 94 90 94 Pulse Strength Respiratory Rate 14 16 16 Respiratory Effort Respiratory Depth Respiratory Pattern Blood Pressure 147/81 H 147/81 H 172/97 H Blood Pressure Mean 103 103 122 Blood Pressure Source Blood Pressure Position Blood Pressure Location Pulse Ox 97 95 97 Oxygen Delivery Method Room Air Room Air 08/18/24 15:27 08/18/24 15:58 08/18/24 16:45 Temperature 97.7 F L Temperature Source Oral Pulse Rate 93 87 Pulse Strength Respiratory Rate 18 20 H Respiratory Effort Normal Non-Labored Respiratory Depth Normal Respiratory Pattern Normal Blood Pressure 140/90 H 146/78 H Blood Pressure Mean 106 100 Blood Pressure Source Monitor Blood Pressure Position Semi-Fowlers Blood Pressure Location Right Arm Pulse Ox 96 97 Oxygen Delivery Method Room Air Room Air Room Air 08/18/24 22:00 08/18/24 22:00 08/18/24 22:00 Temperature 98.0 F Temperature Source Oral Pulse Rate 98 Pulse Strength Normal (2+) Respiratory Rate 18 Respiratory Effort Normal Respiratory Depth Normal Respiratory Pattern Normal Blood Pressure 96/54 L Blood Pressure Mean 68 Blood Pressure Source Monitor Blood Pressure Position Semi-Fowlers Blood Pressure Location Right Arm Pulse Ox 95 Oxygen Delivery Method Room Air Room Air 08/19/24 02:00 08/19/24 04:14 08/19/24 05:46 Temperature 98.1 F 98.1 F Temperature Source Oral Oral Pulse Rate 84 76 Pulse Strength Respiratory Rate 18 18 Respiratory Effort Normal Respiratory Depth Normal Respiratory Pattern Normal Blood Pressure 105/74 105/75 Blood Pressure Mean 84 85 Blood Pressure Source Monitor Monitor Blood Pressure Position Semi-Fowlers Supine Blood Pressure Location Right Forearm Right Forearm Pulse Ox 93 95 Oxygen Delivery Method Room Air Room Air Room Air Weight Weight: 114.3 kg Body Mass Index (BMI) 40.6 EEG Results Procedure Details EEG Procedure Details: NESTOR PIERCE is a 48 year old M with a past medical history of , who presents for evaluation of Electroencephalogram on DATE at TIME NIHSS NIHSS Nursing Documentation NIHSS Nursing Documentation: NIHSS: Ischemic Stroke/TIA Start: 08/18/24 16:05 Text: For PCU Patients: NIH and Neuro Check every 4 Status: Active hours, PRN and with change in RN caregiver. Freq: [id number] Protocol: Activity Type Activity Date Activity User E-sign Co-sign Detail Recorded Client Recorded Date Recorded By Document 08/19/24 05:49 [id number] 08/19/24 05:53 08/19/24 05:49 NIH Stroke Scale [NIHSS] A score of 0 is normal or asymptomatic . Total possible score is 42. Inpatient: RN or Physician to activate a stroke alert for onset of new stroke symptoms or with NIHSS increase >/= 3 points. Following change in neurological status, NIHSS will be performed per physician order or more frequently PRN. -1a. Level of Consciousness Alert; keenly responsive -1b. LOC Questions Answers BOTH questions correctly. -1c. LOC Commands Performs both tasks correctly . -2. Best Gaze Normal -3. Visual No visual loss -4. Facial Palsy Normal symmetrical movements -5a. Left Arm No drift; arm holds 90 (or 45 ) degrees for full 10 seconds -5b. Right Arm No drift; arm holds 90 (or 45 ) degrees for full 10 seconds -6a. Left Leg No drift; leg holds 30-degree position for full 5 seconds -6b. Right Leg No drift; leg holds 30-degree position for full 5 seconds -7. Limb Ataxia Absent -8. Sensory Mild-to- moderate sensory loss; -9. Best Language No aphasia; normal -10. Dysarthria Normal -11. Extinction and Inattention No abnormality -Total 1 Query Text:A score of 0 is normal or asymptomatic. Total possible score is 42 . ED: Notify Physician for NIHSS increase by > / = 3 points. Inpatient: RN or Physician to activate a stroke alert for NIHSS increase of > / = 3 points. Coma Scale [Assess] -Eye Opening Spontaneous -Motor Obeys Commands -Verbal Oriented [Total] -Coma Scale Total 15 Physical Exam Narrative -? General: Laying comfortably in bed; in no acute distress. -? HENT: Normal oropharynx and mucosa. Normal external appearance of ears and nose. Exophthalmos. -? Neck: Supple, no pain or tenderness -? CV:? No peripheral edema. -? Pulmonary:? Normal respiratory effort. -? Ext: No cyanosis, edema, or deformity -? Skin: No rash. Normal palpation of skin.? -? Musculoskeletal: full range of motion; no joint tenderness. Normal digits and nails by inspection. No clubbing. -? NEURO: -? Mental Status: The patient was alert and oriented to time, place, and person. Normal recent/remote memory, concentration, and general fund of knowledge. -? Language: speech is clear Naming, repetition, fluency, and comprehension intact. -? Cranial Nerves: EOMI, visual gruber full, no facial asymmetry, facial sensation dim at V2, hearing intact, tongue midline, no evidence of atrophy or fibrillations. -? Motor: normal bulk, tone, and strength throughout. No pronator drift or satelliting. Upper and lower extremities equal bilaterally. -? Detailed strength exam as performed by the nurse/LAUREN and witnessed by the physician: l R L SA 5 5 EE EF 5 5 WE WF Farm Management Professor 5 5 HF KE KF 5 5 DF 5 5 PF -? Tone: is normal and bulk is normal -? Sensation- Intact to light touch bilaterally -? Coordination: No dysmetria on [id number], finger follow finger or [id number]. -? Gait- deferred Lab / Micro Data 08/19/24 04:54 08/19/24 04:54 Labs: Laboratory Results - last 24 hr 08/18/24 13:33: POC Glucose 227 H 08/18/24 13:40: WBC 9.6, RBC 5.05, Hgb 15.1, Hct 44.0, MCV 87.1, MCH 29.9, MCHC 34.3, RDW Std Deviation 38.6, RDW Coeff of Jeremiah 12.1, Plt Count 386, MPV 9.3, Immature Gran % (Auto) 0.300, Neut % (Auto) 49.7, Lymph % (Auto) 41.3 H, Sweet Grass % (Auto) 6.9, Eos % (Auto) 1.1, Baso % (Auto) 0.7, Absolute Neuts (auto) 4.8, Absolute Lymphs (auto) 3.96, Nucleated RBC % 0, PT 12.1, INR 0.9, APTT 26.5, S odium 132 L, Potassium 4.2, Chloride 97 L, Carbon Dioxide 26.7, Anion Gap 9, BUN 9, Creatinine 0.76, Estim Creat Clear Calc 143.37, Est GFR (MDRD) Non-Af 111, BUN/Creatinine Ratio 12.5, Glucose 249 H, Hemoglobin A1c 8.6, Calcium 9.4, Troponin T High Sens 9, TSH 1.170 08/18/24 15:40: Troponin T Hi Sens 2 Hr 8 08/18/24 16:36: POC Glucose 203 H 08/18/24 21:47: POC Glucose 186 H 08/19/24 04:54: WBC 8.4, RBC 4.30 L, Hgb 13.1, Hct 37.8 L, MCV 87.9, MCH 30.5, MCHC 34.7, RDW Std Deviation 39.2, RDW Coeff of Jeremiah 12.2, Plt Count 325, MPV 9.4, Sodium 135, Potassium 4.0, Chloride 101, Carbon Dioxide 24.9, Anion Gap 10, BUN 9, Creatinine 0.85, Estim Creat Clear Calc 126.27, Est GFR (MDRD) Non-Af 107, BUN/Creatinine Ratio 11.0, Glucose 138 H, Calcium 8.7, Triglycerides 99, Cholesterol 149, LDL Cholesterol, Calc 89, VLDL Cholesterol 20, HDL Cholesterol 40, Cholesterol/HDL Ratio 3.71 08/19/24 06:20: POC Glucose 146 H Rhythm Strip Rhythm Strip: Sinus Rhythm Rate: 91 Ectopy: None Imaging Radiology Impression Brain CT 08/18/24 13:41 IMPRESSION: Unremarkable unenhanced CT scan of the brain. Red Alert: Nothing acute The critical information above was relayed directly by me by telephone to Kaiser Chacko on 08/18/2024 at 1:52 pm with readback verification. Reading Location: [facility]-1 Head/Neck CTA 08/18/24 13:45 IMPRESSION: 1. No high-grade stenosis or large vessel occlusion identified. If there is persistent concern for an acute intracranial process, recommend MRI. 2. Additional description as above. Reading Location: [facility] Chest X-Ray 08/18/24 14:10 IMPRESSION: No acute abnormality is seen. Reading Location: [facility] Brain MRI 08/18/24 15:02 IMPRESSION: 1. No specific evidence of an acute intracranial process. 2. Additional description as above. Reading Location: [facility] Active Medications Active Medications Active Medications: Current Medications Generic Name Dose Route Start Last Admin Trade Name Freq PRN Reason Stop Dose Admin Acetaminophen 650 mg 08/18/24 16:05 Acetaminophen 325 Mg Tablet PO Q6H PRN PRN Pain 1-10 Or Fever>100.7 Albuterol Sulfate 2.5 mg 08/18/24 16:10 Albuterol 2.5 Mg/3 Ml Vial.Neb. INHALATION Q4H PRN Wheezing Aspirin 81 mg 08/19/24 08:00 Aspirin 81 Mg Tab.Chew PO BREAKFAST TOÑO Atorvastatin Calcium 80 mg 08/18/24 22:00 08/18/24 21:51 Atorvastatin Calcium 80 Mg Tablet PO 80 mg QHS TOÑO Administration Glucagon 1 mg 08/18/24 16:05 Glucagon 1 Mg/Ml Syringe IM X1 PRN Hypoglycemia Protocol Hydralazine HCl 5 mg 08/18/24 16:05 Hydralazine 20 Mg/Ml Vial IV 08/19/24 16:05 Q30M PRN maintain BP parameters with HR <60 Sodium Chloride 100 mls @ 15 mls/hr 08/18/24 16:02 IV .Q6H40M PRN Saline Flush Sodium Chloride 100 mls @ 15 mls/hr 08/18/24 16:02 IV .Q6H40M PRN Additional IVPB Infusion Dextrose 250 mls @ 0 mls/hr 08/18/24 16:05 Dextrose 10%-Water IV .Q0M PRN HYPOGLYCEMIA Protocol As Directed Insulin Human Lispro 0 unit 08/18/24 16:05 08/19/24 06:22 Insulin Lispro 100 Unit/Ml Insuln.Pen SC Not Given ACHS TOÑO Protocol Labetalol HCl 20 mg 08/18/24 13:40 Labetalol 20mg/4ml Syringe IV 08/19/24 13:41 X1 PRN Blood Pressure Labetalol HCl 10 - 20 mg 08/18/24 16:05 Labetalol 20mg/4ml Syringe IV 08/19/24 16:05 Q10M PRN PRN maintain BP parameters with HR >/=60 Ondansetron HCl 4 mg 08/18/24 16:05 Ondansetron 4 Mg/2 Ml Vial IV Q8H PRN PRN NAUSEA/VOMITING Pantoprazole Sodium 40 mg 08/18/24 22:00 08/18/24 21:51 Pantoprazole Sodium 40 Mg Tablet PO 40 mg QHS TOÑO Administration Sodium Chloride 10 - 40 ml 08/18/24 16:02 0.9% Saline Lock 10 Ml Syringe IV UD PRN SALINE FLUSH
[2024-08-19 08:57] VITALS: BMI 40.6
[2024-08-19 09:43] VITALS: BP 135/87; PULSE 92; RESP 18; TEMP 36.5; O2SAT 98
[2024-08-19] MEDS: Aspirin 81 MG TAB.CHEW PO (09:45)
[2024-08-19] MEDS: Clopidogrel Bisulfate 300 MG Tablet PO (11:46)
[2024-08-19] MEDS: Insulin Lispro 100 UNIT/ML INSULN.PEN SC (11:47)
[2024-08-19 12:10] LABS: Bedside Glucose 262 mg/dL (74-106)
--- NOTE | 2024-08-19 14:50 | PCM.DC ---
Discharge Instructions Diet Discharge Diet: Low fat / Low cholesterol DC O2, CPAP, BIPAP needs Home O2 Discharge instructions: No Dressing / Incision Call your doctor if you observe: Fever of 101 or Higher, Shortness of breath, Dizziness, Swelling in the ankles and Chest pain Follow Up Care Test Results: Test results from this visit will be discussed in further detail at your follow-up appointment, if applicable. Discharge Plan Admission Admit Date/Time: 08/18/24 14:57 Primary Reason for Your Visit: TIA Attending Provider: Deborah Jean Baptiste Primary Care Provider: Nathaniel Nicole Consulting Providers: Ronaldo Lopez; Matias Ratliff; Dionna Maddox; Danuta Mackenzie; Kim Escalante; Leonides Addison; Jennifer Barreto; Linwood Alonzo; Asael Owen; Adam Snyder; Sylwia Vaughn; Hernandez Mayes; Ranjana Martinez; Yris Kelly; Cuco Albert; Alcides Yao; Jose Juan Conde; Niall Wilkerson; Eli Forte; Demi Barba; Vivek Dugan Instructions Patient Instructions: TIA Dc Discharge Orders/Prescriptions Prescriptions: New clopidogrel 75 mg Tablet 75 mg PO DAILY Qty: 21 0RF aspirin 81 mg Tablet,Chewable 81 mg PO BREAKFAST Qty: 30 2RF atorvastatin 40 mg tablet 40 mg PO DAILY Qty: 30 2RF Continued scopolamine base 1 mg over 3 days patch 3 day 1 patch transdermal Q3D PRN (Reason: nausea and vomiting) albuterol sulfate 2.5 MG/3 ML solution for nebulization 2.5 mg INHALATION Q4H PRN (Reason: Wheezing) Patient Comments: pt doesnt have to use often albuterol sulfate 1 INHALER inhaler 1 puff INHALATION Q6H PRN (Reason: Wheezing) pantoprazole 40 mg tablet,delayed release (DR/EC) 40 mg PO QHS glimepiride 4 mg tablet 4 mg PO DAILY ondansetron 4 mg tablet,disintegrating 8 mg PO Q8H PRN (Reason: nausea and vomiting) Qty: 20 0RF promethazine 25 mg tablet 25 mg PO Q8H PRN (Reason: nausea and vomiting) prucalopride [Motegrity] 1 mg tablet 1 mg PO DAILY PRN (Reason: gastro) tadalafil 10 mg tablet 10 - 20 mg PO DAILY PRN (Reason: sexual activity) dextromethorphan-guaifenesin [Mucinex DM] 60-1,200 mg tablet extended release 12 hr 1 tab PO Q12H PRN (Reason: gastrointestinal spasms or cramping) Other Ambulatory Orders: 30 Day Event Recorder Preventi (Urgent) Timeframe: 1 Day Facility: [facility] - Location: Cardiovascular Services Ordered By: Dr. Deborah Jean Baptiste Referrals / Follow Up: Dangelo Queen MD [Non-Staff -Ordering Privileges] - Within 2 Weeks aNthaniel Nicole MD [Primary Care Provider] - Within 1 Week Disposition Disposition (needs filled in before D/C Order can be placed): Home, Self Care
--- NOTE | 2024-08-19 14:54 | PCM.DC.SUM ---
Providers Date of Admission: 08/18/24 Date of Discharge: 08/19/24 Primary Care Physician: Dr. Violetta Nicole MD Consultations 08/18/24 16:05 Consult: Tele-Neurology Routine Consulting Provider: [facility] Reason for Consult: Acute Ischemic Stroke/TIA EMERGENT Consult: No MD Notified: Yes Date Notified: 08/18/24 Time Notified: 16:41 Method of Notification: Answering Service Nursing Unit Staff Notify [facility] of Tele-Neurology Consult: Yes Reason For Visit: STROKE LIKE SYMPTOMS Diagnosis Discharge Diagnosis (1) Stroke-like symptoms: Status: Acute Code(s): R29.90 - Unspecified symptoms and signs involving the nervous system Medications at Discharge Home Medications albuterol sulfate 2.5 mg/3 mL (0.083 %) solution for nebulization 2.5 mg inhalation Q4H PRN Wheezing 08/22/20 albuterol sulfate 90 mcg/actuation aerosol inhaler 1 puff inhalation Q6H PRN Wheezing 08/22/20 pantoprazole 40 mg tablet,delayed release 40 mg PO QHS reflux 04/14/21 glimepiride 4 mg tablet 4 mg PO DAILY diabetes 05/04/23 ondansetron 4 mg disintegrating tablet 8 mg (2 x 4 mg) PO Q8H PRN nausea and vomiting #20 tabs 05/04/23 dextromethorphan-guaifenesin ER 60 mg-1,200 mg tab,extend release,12hr (Mucinex DM) 1 tab PO Q12H PRN gastrointestinal spasms or cramping 03/13/24 promethazine 25 mg tablet 25 mg PO Q8H PRN nausea and vomiting 03/13/24 prucalopride 1 mg tablet (Motegrity) 1 mg PO DAILY PRN gastro 03/13/24 tadalafil 10 mg tablet 10 - 20 mg PO DAILY PRN sexual activity 03/13/24 scopolamine base 1 mg over 3 days transdermal patch 1 patch transdermal Q3D PRN nausea and vomiting 08/13/24 aspirin 81 mg chewable tablet 81 mg PO BREAKFAST #30 tabs 08/19/24 atorvastatin 40 mg tablet 40 mg PO DAILY #30 tabs 08/19/24 clopidogrel 75 mg tablet 75 mg PO DAILY #21 tabs 08/19/24 Hospital Course Operations None Procedures 2-D Echocardiogram Summary of Care Provided Minutes Spent on Discharge: 45 Hospital Course: Patient is a 48 y/o male with a PMH as outlined who was admitted via the ED on 08/19/2024 with a complaint of stroke like symptoms. He developed numbness and tingling on the right side of his face on the morning of admission which steadily worsened throughout the day so he came in to the ED. He also had numbness and tingling in the right arm and leg with associated right sided clumsiness. He had a history of type II diabetes mellitus with gastroparesis and class III obesity. He had recently taken doxycycline recently for an URTI. CT of the brain and CTA of the head and neck were unremarkable and showed no evidence of a stroke or any hemodynamically significant stenosis. CXR showed no acute cardiopulmonary pathology. He was admitted for stroke like symptoms to rule out a stroke. He had MRI of the brain which also showed no evidence of a stroke. 2D echo showed EF of 60% with stage I diastolic dysfunction and no regional motion abnormalities noted. Bubble study was negative for right to left interatrial shunt and stage 1 diastolic dysfunction. Neurology was consulted and recommended a EVE. However, after cardiology evaluated patient for EVE, patient declined to have the EVE. Per neurology recommendations, he was placed on aspirin and plavix x 21 days, then to continue with aspirin only, as well as atorvastatin 40mg qhs. He is to follow up with his PCP, and was referred to neurology on outpatient basis. He was also discharged with a 30-day Holter monitor results of which is to be sent to [facility] for evaluation and interpretation. Patient seen and examined prior to discharge. He had no active complaints. His father was by his bedside. He still did complain of some mild tenderness over the right side of his face. Labs and vitals reviewed. Home medication reviewed and reconciled. Patient denied smoking. Physical Exam Const alert, oriented x3, no apparent distress and average body habitus Constitutional Narrative: class III obesity General Appearance: cooperative and comfortable Orientation / Consciousness: awake Exam Limitations: no limitations HEENT normocephalic, head/scalp atraumatic, hearing grossly normal bilaterally and moist oral mucous membranes Mouth: oral and palatal mucosa normal Eyes PERRL, EOMs intact bilaterally and conjunctivae normal Neck no lymphadenopathy and supple Resp normal respiratory effort, no retractions, no use of accessory muscles and clear to auscultation bilaterally Cardio regular rate, regular rhythm, S1 normal heart sound, S2 normal heart sound and no murmurs GI normal to inspection, nondistended, normoactive bowel sounds, soft to palpation, non-tender and non-distended Extremity normal to inspection, full ROM and no clubbing, cyanosis or edema Skin no rashes or lesions noted Neuro oriented x3, CN's II-XII intact bilaterally, moves all extremities and no focal motor deficits Sensorium / Orientation: awake and alert Motor Exam: strength 5/5 throughout Psych affect normal Weight / BMI Weight Weight: 251 lb 15.814 oz Body Mass Index (BMI) 40.6 ABG / Lab / Microbiology Data 08/19/24 04:54 08/19/24 04:54 Laboratory: Laboratory Results - last 24 hr 08/18/24 13:33: POC Glucose 227 H 08/18/24 13:40: Hemoglobin A1c 8.6, TSH 1.170 08/18/24 15:40: Troponin T Hi Sens 2 Hr 8 08/18/24 16:36: POC Glucose 203 H 08/18/24 21:47: POC Glucose 186 H 08/19/24 04:54: WBC 8.4, RBC 4.30 L, Hgb 13.1, Hct 37.8 L, MCV 87.9, MCH 30.5, MCHC 34.7, RDW Std Deviation 39.2, RDW Coeff of Jeremiah 12.2, Plt Count 325, MPV 9.4, Sodium 135, Potassium 4.0, Chloride 101, Carbon Dioxide 24.9, Anion Gap 10, BUN 9, Creatinine 0.85, Estim Creat Clear Calc 126.27, Est GFR (MDRD) Non-Af 107, BUN/Creatinine Ratio 11.0, Glucose 138 H, Calcium 8.7, Triglycerides 99, Cholesterol 149, LDL Cholesterol, Calc 89, VLDL Cholesterol 20, HDL Cholesterol 40, Cholesterol/HDL Ratio 3.71 08/19/24 06:20: POC Glucose 146 H 08/19/24 11:44: POC Glucose 262 H Radiography Diagnostic Testing: Radiology Impression Brain MRI 08/18/24 15:02 IMPRESSION: 1. No specific evidence of an acute intracranial process. 2. Additional description as above. Reading Location: [id number] Echocardiogram 08/18/24 15:02 Interpretation Summary Normal LV size. Left ventricular systolic function is normal. The left ventricular ejection fraction is 60 %. Bubble contrast study negative for right to left interatrial shunt. Stage 1 diastolic dysfunction. Structurally normal valves. Ordering Physician: Vivek Dugan Referring Physician: VIOLETTA NICOLE Performed By: Kailey Hoover RDCS D/C Instructions Discharge Diet: Low fat / Low cholesterol Discharge Activity: Return to Normal Activity Weight Bearing Status: Weight bearing as tolerated Call your doctor if you observe: Fever of 101 or Higher, Shortness of breath, Dizziness, Swelling in the ankles and Chest pain DC O2, CPAP, BIPAP Needs Home O2 Discharge instructions: No DC home with Oxygen: No Meaningful Use Info Meaningful Use Meaningful Use Diagnoses (Choose all that apply): None applicable Ischemic Stroke Statin Dosing Therapy Reference: STATIN DOSE THERAPY REFERENCE: * Patients > 75 years receive moderate or high dose statin therapy. * Patients 75 years or YOUNGER should receive HIGH intensity statin dose unless contraindicated. You will be required to document reason for non-treatment if statin daily dose does not meet guidelines. HIGH DOSE STATIN THERAPY DAILY Atorvastatin > than or = to 40 mg Rosuvastatin > than or = to 20 mg Amlodipine + Atorvastatin > than or = to 2.5/40 mg Ezetimibe + Simvastatin 10/80 mg Simvastatin 80mg Discharge Plan Admission Admit Date/Time: 08/18/24 14:57 Primary Reason for Your Visit: TIA Attending Provider: Deborah Jean Baptiste Primary Care Provider: Violetta Nicole Consulting Providers: Ronaldo Lopez; Matias Ratliff; Dionna Maddox; Danuta Mackenzie; Kim Escalante; Leonides Addison; Jennifer Barreto; Linwood Alonzo; sAael Owen; Adam Snyder; Sylwia Vaughn; Hernandez Mayes; Ranjana Martinez; Yris Kelly; Cuco Albert; Alcides Yao; Jose Juan Conde; Niall iWlkerson; Eli Forte; Demi Barba; Vivek Dugan Instructions Patient Instructions: TIA Dc Discharge Orders/Prescriptions Prescriptions: New clopidogrel 75 mg Tablet 75 mg PO DAILY Qty: 21 0RF aspirin 81 mg Tablet,Chewable 81 mg PO BREAKFAST Qty: 30 2RF atorvastatin 40 mg tablet 40 mg PO DAILY Qty: 30 2RF Continued scopolamine base 1 mg over 3 days patch 3 day 1 patch transdermal Q3D PRN (Reason: nausea and vomiting) albuterol sulfate 2.5 MG/3 ML solution for nebulization 2.5 mg INHALATION Q4H PRN (Reason: Wheezing) Patient Comments: pt doesnt have to use often albuterol sulfate 1 INHALER inhaler 1 puff INHALATION Q6H PRN (Reason: Wheezing) pantoprazole 40 mg tablet,delayed release (DR/EC) 40 mg PO QHS glimepiride 4 mg tablet 4 mg PO DAILY ondansetron 4 mg tablet,disintegrating 8 mg PO Q8H PRN (Reason: nausea and vomiting) Qty: 20 0RF promethazine 25 mg tablet 25 mg PO Q8H PRN (Reason: nausea and vomiting) prucalopride [Motegrity] 1 mg tablet 1 mg PO DAILY PRN (Reason: gastro) tadalafil 10 mg tablet 10 - 20 mg PO DAILY PRN (Reason: sexual activity) dextromethorphan-guaifenesin [Mucinex DM] 60-1,200 mg tablet extended release 12 hr 1 tab PO Q12H PRN (Reason: gastrointestinal spasms or cramping) Other Ambulatory Orders: 30 Day Event Recorder Preventi (Urgent) Timeframe: 1 Day Facility: [facility] - Location: Cardiovascular Services Ordered By: Dr. Deborah Jean Baptiste Referrals / Follow Up: Dangelo Queen MD [Non-Staff -Ordering Privileges] - Within 2 Weeks Violetta Nicole MD [Primary Care Provider] - Within 1 Week Disposition Disposition (needs filled in before D/C Order can be placed): Home, Self Care Charges/Coding Visit Charges Inpatient E&M: 32454 Disch Hosp >30min
--- NOTE | 2024-08-19 14:57 | CHAPLAIN ---
Type of Pastoral Visit ___ Initial Visit ___ Follow-up Visit ___ On-call Visit _x__ General Patient Visit ___ Spiritual Assessment ___ Family Conference ___ Bereavement ___ Rapid Response ___ Code Blue ___ Other (describe below) Pastoral Care Referral From _x__ Patient ___ Family ___ Nurse ___ Physician ___ Strike Warfare/Missile Systems Officer ___ Shipping Technician ___ Other (describe below) Sacrament/Intervention _x__ Active listening ___ Anointing ___ Orthodoxy ___ Bereavement ___ Communion ___ Angeli exploration ___ ___ Life review _x__ Prayer ___ Reconciliation ___ Sacrament of Sick _x__ Supportive presence ___ Wedding ___ Other (describe below) Pastoral Comments this is the patient that was seen yesterday by this social media editor for a stroke alert; pt is resting comfortably with his father at bedside; pt states that he is doing better and has seen improvement from the symptoms since then; pt admits that it is hard for him to wait on the testing of hospital, etc. but agrees to be thankful for the progress made; pt welcomes presence and prayer
[2024-08-19 15:45] VITALS: BP 118/75; PULSE 80; RESP 18; TEMP 36.4; O2SAT 98
--- NOTE | 2024-08-19 16:11 | CASEMGMT ---
JUSTYN DE JESUS NOTE: DC order is in. PT/OT & ST evals reviewed. No additional therapy recommended. RN CM to room. Introduced self and role. Pt denies having any home-going needs or concerns. He is aware of Rx's that have been sent to [email or web address] and states they can pick those up today. He is also aware he is to schedule appts w/PCP in [address] Queen in 2 wks. Questions answered re: event monitor. Pt requesting work release. hotel associate, Denisse, made aware. Grady HERRERAN JUSTYN CM
== END 2024-08-19 14:48 | disposition home or self-care (01) ==
LOC: ED 14:33 → PCU 15:14
PROVIDERS: Admitting Provider Hospitalist; Emergency Provider Emergency Medicine; PCP Family Medicine; Visit Provider Student in an Organized Health Care Education/Training Program
DX: R29.90 Unspecified symptoms and signs involving the nervous system (principal); Z68.41 Body mass index [BMI] 40.0-44.9, adult; E66.813 Obesity, class 3; E11.43 Type 2 diabetes mellitus with diabetic autonomic (poly)neuropathy; K31.84 Gastroparesis; J06.9 Acute upper respiratory infection, unspecified; J45.909 Unspecified asthma, uncomplicated; K21.9 Gastro-esophageal reflux disease without esophagitis; F41.9 Anxiety disorder, unspecified; F32.A Depression, unspecified; G47.33 Obstructive sleep apnea (adult) (pediatric); Z79.899 Other long term (current) drug therapy; Z79.84 Long term (current) use of oral hypoglycemic drugs; Z79.82 Long term (current) use of aspirin
CPT/HCPCS: 36415; 70450; 70496; 70498; 70551; 71045; 80048; 80061; 82962; 83036; 84443; 84484; 85025; 85027; 85610; 85730; 93005; 93306; 94762; 96361; 96374; 97161; 97802; 99221; 99285; Q9967; A4216; G0378

== ENCOUNTER → 2024-08-24 | Outpatient (CLI) | payer BC, SELFPAY ==
[2024-08-24 16:29] LABS: Absolute Lymphocyte Count 4.29 X10^3/uL (0.83-4.51); Absolute Neutrophil Count 5.8 X10^3/uL (2.0-7.7); Basophil# 0.07 X10^3/uL; Basophil% 0.6 % (0-1); Eosinophils% 1.8 % (0-5); Hematocrit 44.8 % (40-54); Hemoglobin 15.4 g/dL (13.0-16.5); Lymphocyte # 4.29 X10^3/ul (0.83-4.51); Lymphocyte % 38.2 % (19-41); Mean Corp Hgb Conc 34.4 g/dL (32-36); Mean Corpuscular Hgb 30.1 pg (27.0-32.0); Mean Corpuscular Volume 87.5 fL (80-94); Mean Platelet Vol. 9.4 fl (6.2-12.0); NRBC Flagged by Analyzer 0 % (0-5); Neutrophil # 5.75 X10^3/uL (2.7-7.7); Neutrophil % 51.2 % (47-70); Platelet Count 406 K/mm3 (150-450); RBC Distribution Width CV 11.9 % (11.6-14.6); RBC Distribution Width SD 38.4 fl (35.1-43.9); RET-HE 35.2 pg (30-35); Red Blood Count 5.12 M/mm3 (4.6-6.2); Reticulocyte Count 1.57 % (0.5-1.5); White Blood Count 11.2 K/mm3 (4.4-11.0)
[2024-08-24 17:09] LABS: Erythrocyte Sedimentation Rate 10 mm/hr (0-20)
[2024-08-24 22:43] LABS: Ferritin 259 ng/mL (37-417); Free T3 3.1 pg/mL (2.18-3.98)
[2024-08-24 23:15] LABS: ALB/GLOB Ratio 1.3 RATIO (0.9-2.4); AST(SGOT) 26 U/L (<=37); Alanine Aminotransfer ALT/SGPT 32 U/L (<=46); Albumin, Serum 4.6 g/dL (3.5-5.0); Alkaline Phosphatase 96 U/L (40-129); Anion Gap 14 (5-15); BUN 12 mg/dL (4-19); BUN/Creat Ratio 16.4 RATIO (10-20); CRP 7.35 mg/L (0.0-3.0); Calcium,Total 10.1 mg/dL (7.6-11.0); Carbon Dioxide 25.2 mmol/L (21.0-32.0); Chloride 98 mmol/L (98-108); Creatinine, Serum 0.74 mg/dL (0.70-1.20); EST Glomerular Filtration Rate 112 (>60); Globulin 3.6 g/dL (2.2-4.2); Glucose 112 mg/dL (70-99); LDH 156 U/L (87-241); Potassium 4.3 mmol/L (3.3-5.1); Protein, Total 8.2 g/dL (5.9-8.4); Sodium Level 137 mmol/L (133-145); Total Bilirubin 0.49 mg/dL (0.00-1.30)
== END | disposition home or self-care (01) ==
LOC: LAB 16:03
PROVIDERS: PCP Family Medicine; Referring Provider Internal Medicine Gastroenterology; Visit Provider Internal Medicine Gastroenterology
DX: K31.84 Gastroparesis (principal)
CPT/HCPCS: 36415; 80053; 82728; 82784; 82785; 82787; 83010; 83516; 83615; 84165; 84439; 84443; 84481; 85025; 85045; 85652; 86003; 86005; 86037; 86140; 86225; 86235; 86255; 86334

== ENCOUNTER 2024-09-03 08:27 | Outpatient (CLI) | payer BC, SELFPAY ==
[2024-09-03] MEDS: 0.9% Normal Saline (1000mL) 1,000 ML 999 ML IV ×2 (08:44→09:56)
[2024-09-03 08:45] VITALS: BP 113/61; PULSE 88; RESP 16; TEMP 36.2; O2SAT 94; BMI 41.1
[2024-09-03] MEDS: 0.9% NaCl Peripheral Flush Adult IV (08:49)
[2024-09-03 11:19] VITALS: BP 115/76; PULSE 83; RESP 16; TEMP 36.1; O2SAT 99
== END 2024-09-03 23:59 | disposition home or self-care (01) ==
LOC: MEDOUTP 08:27
PROVIDERS: PCP Family Medicine; Referring Provider Internal Medicine Gastroenterology; Visit Provider Internal Medicine Gastroenterology
DX: R11.10 Vomiting, unspecified (principal)
CPT/HCPCS: 96360; 96361; A4216

== ENCOUNTER → 2024-09-03 | Outpatient (CLI) | payer BC, SELFPAY ==
--- NOTE | 2024-09-03 07:46 | US_ITS ---
PROCEDURE: ABD LIMITED W/ ELASTOGRAPHY REASON FOR EXAM: FATTY LIVER COMPARISON: Comparison is made with prior study dated August 29, 2020. TECHNIQUE: Right upper quadrant abdominal ultrasound. Hoa ElastQ Imaging shear wave elastography for non-invasive assessment of liver tissue stiffness. Hoa EPIQ Elite. FINDINGS: LIVER: Size: Enlarged (hepatomegaly) Length: 18.1 cm Echotexture: Diffusely echogenic suggesting fatty infiltration Contour: Normal Lesions: None identified Elastography: EQI Med: 7.7 kPa EQI Med Claudy: 1.58 m/s IQR/Med: 20 %* GALLBLADDER: Normal COMMON BILE DUCT: Normal it measures 3 mm. PANCREAS: Normal Visualized portions of the right kidney are unremarkable. No right upper quadrant ascites. US/ABD Limited w/ Elastography IMPRESSION: [id number] degree of hepatic fibrosis. Reference Values: SRU <1.37 m/s (5.7kPa): No to mild fibrosis 1.37 m/s - 2.2 m/s: Moderate to severe fibrosis >2.2 m/s (15kPa): Significant fibrosis / cirrhosis METAVIR Score F2 or higher: 1.34 m/s (5.7kPa) F3 or higher: 1.55 m/s (7.3kPa) F4: 1.80 m/s (10kPa) * If the IQR/Med is >30%, the variance in the measurements is a large and the a ccuracy of the measurement may be in question. Reading Location: [place] [id number]
== END | disposition home or self-care (01) ==
LOC: US 07:42
PROVIDERS: PCP Family Medicine; Referring Provider Internal Medicine Gastroenterology; Visit Provider Internal Medicine Gastroenterology
DX: K31.84 Gastroparesis (principal)
CPT/HCPCS: 76705; 76981

== ENCOUNTER 2024-09-15 11:04 | Outpatient (RCR) | payer BC, SELFPAY | END 2024-09-30 23:59 | LOC: NS 11:04 | PROVIDERS: PCP Family Medicine; Referring Provider Internal Medicine Gastroenterology; Visit Provider Internal Medicine Gastroenterology | DX: Z71.3 Dietary counseling and surveillance (principal); E11.9 Type 2 diabetes mellitus without complications; Z91.018 Allergy to other foods | CPT/HCPCS: 97802 ==

== ENCOUNTER 2024-09-17 08:56 | Outpatient (CLI) | payer BC, SELFPAY ==
[2024-09-17] MEDS: 0.9% Normal Saline (1000mL) 1,000 ML 999 ML IV ×2 (09:12→10:14)
[2024-09-17 09:14] VITALS: BP 127/88; PULSE 74; RESP 16; TEMP 35.8; O2SAT 97; BMI 41.3
[2024-09-17] MEDS: 0.9% NaCl Peripheral Flush Adult IV (09:16)
[2024-09-17 11:24] VITALS: BP 126/70; PULSE 67; RESP 16; TEMP 36; O2SAT 97
== END 2024-09-17 23:59 | disposition home or self-care (01) ==
LOC: MEDOUTP 08:56
PROVIDERS: PCP Family Medicine; Referring Provider Internal Medicine Gastroenterology; Visit Provider Internal Medicine Gastroenterology
DX: R11.10 Vomiting, unspecified (principal)
CPT/HCPCS: 96360; 96361; A4216

== ENCOUNTER 2024-10-01 08:55 | Outpatient (CLI) | payer BC, SELFPAY ==
[2024-10-01 09:11] VITALS: BP 114/60; PULSE 71; RESP 16; TEMP 36.7; O2SAT 98; BMI 40.3
[2024-10-01] MEDS: 0.9% NaCl Peripheral Flush Adult IV (09:16)
[2024-10-01] MEDS: 0.9% Normal Saline (1000mL) 1,000 ML 999 ML IV ×2 (09:16→10:24)
[2024-10-01 11:47] VITALS: BP 125/76; PULSE 66; RESP 16; TEMP 36.5; O2SAT 99
== END 2024-10-01 23:59 | disposition home or self-care (01) ==
LOC: MEDOUTP 08:56
PROVIDERS: PCP Family Medicine; Referring Provider Internal Medicine Gastroenterology; Visit Provider Internal Medicine Gastroenterology
DX: R11.10 Vomiting, unspecified (principal)
CPT/HCPCS: 96360; 96361; A4216

== ENCOUNTER 2024-10-15 08:50 | Outpatient (CLI) | payer BC, SELFPAY ==
[2024-10-15 08:58] VITALS: BP 114/68; PULSE 75; RESP 16; TEMP 35.9; O2SAT 96; BMI 40.3
[2024-10-15] MEDS: 0.9% NaCl Peripheral Flush Adult IV (09:35)
[2024-10-15] MEDS: 0.9% Normal Saline (1000mL) 1,000 ML 999 ML IV ×2 (09:35→10:38)
[2024-10-15 11:54] VITALS: BP 131/71
== END 2024-10-15 23:59 | disposition home or self-care (01) ==
LOC: MEDOUTP 08:51
PROVIDERS: PCP Family Medicine; Referring Provider Internal Medicine Gastroenterology; Visit Provider Internal Medicine Gastroenterology
DX: R11.10 Vomiting, unspecified (principal)
CPT/HCPCS: 96360; 96361; A4216

== ENCOUNTER 2024-10-29 08:41 | Outpatient (CLI) | payer BC, SELFPAY ==
[2024-10-29] MEDS: 0.9% Normal Saline (1000mL) 1,000 ML 999 ML IV ×2 (09:05→10:13)
[2024-10-29] MEDS: 0.9% NaCl Peripheral Flush Adult IV (09:06)
[2024-10-29 09:08] VITALS: BP 138/82; PULSE 78; RESP 16; TEMP 36.4; O2SAT 97
[2024-10-29 11:23] VITALS: BP 128/71; PULSE 58; RESP 16; TEMP 36.3; O2SAT 97
== END 2024-10-29 23:59 | disposition home or self-care (01) ==
LOC: MEDOUTP 08:41
PROVIDERS: PCP Family Medicine; Referring Provider Internal Medicine Gastroenterology; Visit Provider Internal Medicine Gastroenterology
DX: R11.10 Vomiting, unspecified (principal)
CPT/HCPCS: 96360; 96361; A4216

== ENCOUNTER 2024-11-02 05:04 | Day surgery (SDC) | payer BC, SELFPAY ==
--- NOTE | 2024-10-29 14:34 | PAT.ANE_ITS ---
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 When Was Last Pacemaker Check QUESTION #4 FULL TEXT: You/Your Family Experience fever (hyperthermia) with Anesthesia Last Oral Intake Last Oral intake: Last Oral Intake NPO since Meds taken in AM with sips of water? Meds patient instructed to take am of surgery PONV PONV - civil engineering intern: PONV - civil engineering intern Female No 10/29/24 09:07 HX of Motion Sickness No 10/29/24 09:07 HX of N/V After Surgery No 10/29/24 09:07 Non-Smoker Yes 10/29/24 09:07 Duration of Surgery greater No 10/29/24 09:07 than 60 minutes Number of Risk Factors 1 10/29/24 09:07 PONV Score Low Risk 10/29/24 09:07 Height & Weight Height & Weight: Anesthesia: Height & Weight Height 5 ft 6 in 08/19/24 14:39 Respiratory Assessment Respiratory Assessment - civil engineering intern: Respiratory Tract Infection Hx - civil engineering intern Hx Respiratory Tract Infection No 10/29/24 09:07 STOP Sleep Apnea STOP Sleep Apnea - civil engineering intern: STOP Sleep Apnea - civil engineering intern Hx Hypertension No 10/29/24 09:07 Hx Sleep Apnea Yes 10/29/24 09:07 CPAP No 10/29/24 09:07 BIPAP No 10/29/24 09:07 Do you snore loudly (louder than talking or can be heard Do you often feel tired/ fatigued/ sleepy during daytime? Has anyone observed you stop breathing during sleep? STOP Results Positive 10/29/24 09:07 QUESTION #5 FULL TEXT : Do you snore loudly (louder than talking or can be heard through closed doors)? Tobacco Use History Tobacco Use History - civil engineering intern: Tobacco Use History - civil engineering intern Tobacco Use Non-smoker 08/19/24 08:58 Smoking Status Never smoker 10/29/24 09:07 Hx Tobacco Use No 10/29/24 09:07 Years Smoking Packs Smoked per Day Smoking Cessation Date was within the last 15 years Hx Smoking Cessation Date Hx Smoking Cessation Counseling Hematologic Medial History Hematologic Hx - civil engineering intern: Hematologic Medical Hx - manager actuarial Hx of Blood Transfusion No 10/29/24 09:07 Hx of Transfusion in last 3 No 10/29/24 09:07 Months Date of Last Transfusion (if within last 3 months) Ever experience any problems No 10/29/24 09:07 with transfusion(s)? Specify any problems Hx of Preganancy in last 3 N/A 10/29/24 09:07 Months Nurse Filling Out Transfusion MGBILL 10/29/24 09:07 & Questions: Date: 10/29/24 10/29/24 09:07 Time: 09:10 10/29/24 09:07 Patient unable to answer at this time (ie. confused, unrespo /Reproduction History /Reproductive History - civil engineering intern: /Reproductive Hx- civil engineering intern Hx Now Gestational Age (in weeks): EDC: Hx Hx Para [facility] History (Updated 10/29/24 @ 09:17 by Hodan Gallegos) Wears contact lenses Wears glasses Restless legs TIA (transient ischemic attack) Shortness of breath on exertion Leg cramps History of edema History of echocardiogram Stroke-like symptoms Anxiety Diabetes Kidney stones Non-smoker Sleep apnea GERD (gastroesophageal reflux disease) Morbid obesity Gastroparesis Asthma Diabetes type 2, controlled REGAN (obstructive sleep apnea) Home Medications ?Medication ?Instructions ?Recorded ?Last Taken ?Type albuterol sulfate 2.5 mg/3 mL 2.5 mg inhalation Q4H NM N Wheezing 08/22/20 Unknown History (0.083 %) solution for nebulization albuterol sulfate 90 mcg/actuation 1 puff inhalation Q 6H PRN Wheezing 08/22/20 Unknown History aerosol inhaler pantoprazole 40 mg tablet,delayed 40 mg PO QHS reflux 04/14/21 08/17/24 History release glimepiride 4 mg tablet 4 mg PO DAILY diabetes 05/0408/18/24 History ondansetron 4 mg disintegrating 8 mg (2 x 4 mg) PO Q8H PRN nausea 05/04/23 03/13/24 06:00 Rx tablet and vomiting #20 tabs 8 mg dextromethorphan-guaifenesin ER 60 1 tab PO Q12H PRN g astrointestinal 03/13/24 02/28/24 History mg-1,200 mg tab,extend spasms or cramping release,12hr (Mucinex DM) promethazine 25 mg tablet 25 mg PO Q8H PRN nausea and 03/13/24 03/12/24 20:00 History vomiting 25 mg prucalopride 1 mg tablet 1 mg PO DAILY PRN gastro 04/2603/13/24 History (Motegrity) tadalafil 10 mg tablet 10 - 20 mg PO DAILY PRN sexu al 03/13/24 Unknown History activity scopolamine base 1 mg over 3 days 1 patch transdermal Q3D PRN nausea 08/13/24 Unknown History transdermal patch and vomiting aspirin 81 mg chewable tablet 81 mg PO BREAKFAST #30 t abs 08/19/24 Unknown Rx atorvastatin 40 mg tablet 40 mg PO DAILY #30 tabs 08/01 02/25 Unknown Rx clopidogrel 75 mg tablet 75 mg PO DAILY #21 tabs 08/01 02/25 Unknown Rx Allergy/AdvReac Type Severity Reaction Status Date / Time haloperidol (From Haldol) AdvReac Other Verified 10/29/24 09:07 metoclopramide HCl (From AdvReac GO CRAZY Verified 10/29/24 09:07 Reglan) Family History Mother Dysphagia Patient denies any maternal history of heart disease, diabetes, cancer, underlying pulmonary disease, underlying renal disease but does note she has significant issues with her esophagus, unsure exact disease. Notes frequent has items stuck, thin esophagus, dysphagia. Denied achalasia as etiology. Father Frequent UTI Patient denies any paternal history of heart disease, diabetes, cancer, underlying pulmonary disease, underlying renal disease but does note significant history of frequent urinary tract infections. Surgical History (Updated 10/29/24 @ 09:07 by Hodan Gallegos) History of lithotripsy History of esophagogastroduodenoscopy (EGD) History of colonoscopy History of gastric surgery H/O foot surgery History of tonsillectomy and adenoidectomy History of hernia surgery History of tonsillectomy Social History household members: spouse housing: house Smoking Status: Never smoker alcohol intake: never substance use type: does not use Audit: Pertinent Findings Pertinent Findings EKG Perinent findings: 03/2024: NSR Echo (EF%) pertinent findings: 08/2024: EF 60%, Stage 1 diastolic dysfxn Additional pertinent findings: cafeteria monitor 08/2024: WNL Recommendation Anesthesia Recommendation Anesthesia recommendation: OPTIMIZED for anesthesia (Please do EKG on DOS, given stroke/TIA hx, EKG on DOS is indicated. Otherwise, should be able to proceed)
[2024-11-02] VITALS (7 sets, daily range): BP systolic 120–139; BP diastolic 72–81; PULSE 78–85; RESP 16–20; TEMP 36.6–37; O2SAT 95–100; BMI 41.3
[2024-11-02] MEDS: Lactated Ringers 1,000 ML 15 ML IV (05:52)
--- NOTE | 2024-11-02 06:24 | PRE.ANES_ITS ---
ASA Classification* ASA Classification ASA Classification: 3 (Asthma, hx TIA, DM , Gastroparesis (NPO > 12 hours, but please have general intubation equipment ready if needed, suction, etc) ) Assessment & Plan Anesthesia* Anesthesia Assessment Anesthesia Assessment: Discussed sedation and/or anesthesia options, risks, benefits, and alternatives with patient/parents/legal guardian/POA. Questions invited. The patient/parents/legal guardian/POA seems to understand and agrees to proceed with anesthesia plan. Reviewed the physical assessment, medical history, allergy history and patient home medications list prior to surgery/procedure/anesthetic and documented any changes. Performed airway and anesthesia risk assessments. Anesthesia Type Anesthesia Type: General History Source History Obtained from:: Patient and Chart Anesthesia Focused Assessment* Temperature: 97.8 F Pulse Rate: 78 Blood Pressure: 139/78 Respiratory Rate: 18 Pulse Ox: 100 Oxygen Delivery Method: Room Air Airway Assessment Mouth opens: >3 cm Mallampati Score: II Teeth Condition: Intact Neck Range of motion (ROM): Full ROM Focused Labs Anesthesia Preop lab: CBC WBC 11.2 K/mm3 (4.4-11.0) H 08/24/24 16:06 5 RBC 5.12 M/mm3 (4.6-6.2) 08/24/24 16:06 08/24/24 Hgb 15.4 g/dL (13.0-16.5) 08/24/24 16:06 08/24/24 Hct 44.8 % (40-54) 08/24/24 16:06 08/24/24 Plt Count 406 K/mm3 (150-450) 08/24/24 16:06 08/24/24 CHEMISTRY Potassium 4.3 mmol/L (3.3-5.1) 08/24/24 16:06 08/24/24 Sodium 137 mmol/L (133-145) 08/24/24 16:06 08/24/24 Magnesium 1.8 mg/dL (1.6-2.6) 03/14/24 05:35 03/14/24 BUN 12 mg/dL (4-19) 08/24/24 16:06 08/24/24 Creatinine 0.74 mg/dL (0.70-1.20) 08/24/24 16:06 08/24/24 Glucose 112 mg/dL (70-99) H 08/24/24 16:06 08/24/24 POC Glucose 262 mg/dL (74-106) H 08/19/24 11:44 08/19/24 TSH 1.850 uIU/mL (0.300-4.200) 08/24/24 16:06 03/2 09/25 COAG PT 12.1 SECONDS (11.7-14.9) 08/18/24 13:40 Pre-Assessment Diagnosis/Proposed Procedure Planned Operative Procedure(s): EGD Anesthesia History 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 When Was Last Pacemaker Check QUESTION #4 FULL TEXT: You/Your Family Experience fever (hyperthermia) with Anesthesia Last Oral Intake Last Oral intake: Last Oral Intake NPO since 18:00 11/02/24 05:49 Meds taken in AM with sips of No 11/02/24 05:49 water? Meds patient instructed to take am of surgery PONV PONV - children's literature professor: PONV - children's literature professor Female No 10/29/24 09:07 HX of Motion Sickness No 10/29/24 09:07 HX of N/V After Surgery No 10/29/24 09:07 Non-Smoker Yes 10/29/24 09:07 Duration of Surgery greater No 10/29/24 09:07 than 60 minutes Number of Risk Factors 1 10/29/24 09:07 PONV Score Low Risk 10/29/24 09:07 Height & Weight Height & Weight: Anesthesia: Height & Weight Height 5 ft 6 in 11/02/24 05:49 Weight: 116 kg 11/02/24 05:49 Body Mass Index (BMI) 41.3 11/02/24 05:49 Respiratory Assessment Respiratory Assessment - children's literature professor: Respiratory Tract Infection Hx - children's literature professor Hx Respiratory Tract Infection No 10/29/24 09:07 STOP Sleep Apnea STOP Sleep Apnea - children's literature professor: STOP Sleep Apnea - children's literature professor Hx Hypertension No 10/29/24 09:08 Hx Sleep Apnea Yes 10/29/24 09:07 CPAP No 10/29/24 09:07 BIPAP No 10/29/24 09:07 Do you snore loudly (louder than talking or can be heard Do you often feel tired/ fatigued/ sleepy during daytime? Has anyone observed you stop breathing during sleep? STOP Results Positive 10/29/24 09:07 QUESTION #5 FULL TEXT : Do you snore loudly (louder than talking or can be heard through closed doors)? 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 Specify any problems Hx of Preganancy in last 3 N/A 10/29/24 09:07 Months Nurse Filling Out Transfusion MGRIFFITH 10/29/24 09:07 & Questions: Date: 10/29/24 10/29/24 09:07 Time: 09:10 10/29/24 09:07 Patient unable to answer at this time (ie. 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: /Reproductive Hx- children's literature professor Hx Now Gestational Age (in weeks): EDC: Hx Hx Para Hx Section SAB Active Medications Active Medications: Current Medications Generic Name Dose Route Start Last Admin Trade Name Freq PRN Reason Stop Dose Admin Lactated Ringer's 1,000 mls @ 15 mls/hr 11/02/24 05:45 11/02/24 05:52 IV 15 mls/hr .Q48H [facility] Medical History (Updated 10/29/24 @ 09:17 by Hodan Gallegos) Wears contact lenses Wears glasses Restless legs TIA (transient ischemic attack) Shortness of breath on exertion Leg cramps History of edema History of echocardiogram Stroke-like symptoms Anxiety Diabetes Kidney stones Non-smoker Sleep apnea GERD (gastroesophageal reflux disease) Morbid obesity Gastroparesis Asthma Diabetes type 2, controlled REGAN (obstructive sleep apnea) Home Medications ?Medication ?Instructions ?Recorded ?Last Taken ?Type albuterol sulfate 2.5 mg/3 mL 2.5 mg inhalation Q4H GA N Wheezing 08/22/20 Unknown History (0.083 %) solution for nebulization albuterol sulfate 90 mcg/actuation 1 puff inhalation Q 6H PRN Wheezing 08/22/20 Unknown History aerosol inhaler pantoprazole 40 mg tablet,delayed 40 mg PO QHS reflux 04/14/21 08/17/24 History release glimepiride 4 mg tablet 4 mg PO DAILY diabetes 05/0408/18/24 History ondansetron 4 mg disintegrating 8 mg (2 x 4 mg) PO Q8H PRN nausea 05/04/23 03/13/24 06:00 Rx tablet and vomiting #20 tabs 8 mg dextromethorphan-guaifenesin ER 60 1 tab PO Q12H PRN g astrointestinal 03/13/24 02/28/24 History mg-1,200 mg tab,extend spasms or cramping release,12hr (Mucinex DM) promethazine 25 mg tablet 25 mg PO Q8H PRN nausea and 03/13/24 03/12/24 20:00 History vomiting 25 mg prucalopride 1 mg tablet 1 mg PO DAILY PRN gastro 04/2603/13/24 History (Motegrity) tadalafil 10 mg tablet 10 - 20 mg PO DAILY PRN sexu al 03/13/24 Unknown History activity scopolamine base 1 mg over 3 days 1 patch transdermal Q3D PRN nausea 08/13/24 Unknown History transdermal patch and vomiting aspirin 81 mg chewable tablet 81 mg PO BREAKFAST #30 t abs 08/19/24 10/29/24 Rx atorvastatin 40 mg tablet 40 mg PO DAILY #30 tabs 08/01 02/25 Unknown Rx clopidogrel 75 mg tablet 75 mg PO DAILY #21 tabs 08/0110/29/24 Rx Allergy/AdvReac Type Severity Reaction Status Date / Time haloperidol (From Haldol) AdvReac Other Verified 11/02/24 05:48 metoclopramide HCl (From AdvReac GO CRAZY Verified 11/02/24 05:48 Reglan) Family History Mother Dysphagia Patient denies any maternal history of heart disease, diabetes, cancer, underlying pulmonary disease, underlying renal disease but does note she has significant issues with her esophagus, unsure exact disease. Notes frequent has items stuck, thin esophagus, dysphagia. Denied achalasia as etiology. Father Frequent UTI Patient denies any paternal history of heart disease, diabetes, cancer, underlying pulmonary disease, underlying renal disease but does note significant history of frequent urinary tract infections. Surgical History (Updated 10/29/24 @ 09:07 by Hodan Gallegos) History of lithotripsy History of esophagogastroduodenoscopy (EGD) History of colonoscopy History of gastric surgery H/O foot surgery History of tonsillectomy and adenoidectomy History of hernia surgery History of tonsillectomy Social History household members: spouse housing: house Smoking Status: Never smoker alcohol intake: never substance use type: does not use Review of Systems (Anesthesia) ROS Narrative System reviewed and no additional complaints, except as documented. Physical Exam Const alert, oriented x3 and average body habitus Resp normal respiratory effort, normal air movement and clear to auscultation bilaterally Cardio regular rate, regular rhythm, no murmurs and diaphoretic
--- NOTE | 2024-11-02 06:30 | EGD_PTH ---
PATIENT: NESTOR PIERCE LOC: EN U#:[id number] AGE/SX: 49/M ROOM: RE11/02/[address]: Dr. Yo Avila DO : 1975 BED: DIS: 11/02/2024 SPEC #: [id number] RECD: 11/02/24 10:30 STATUS: ERON ASHWINI #: [id number] MANJINDER: 11/02/24 06:[address]: Yo Avila DEPT: SURGICAL PATHOLOGY RECD BY: Daniel Harrison ENTERED: 11/02/24 11:08 SP TYPE: EGD BIOPSY OT DR: Dr. Nathaniel Nicole MD Tissues: A - Esophagus, NOS B - Gastric mucous membrane C - Duodenum, NOS Procedures: Immunohistochemical Stains Special Stain Group I Surgery Specimen Level IV GMS Stain (control) IHC Stain ADDITIONAL HEADER OPERATION: EGD with biopsy PRE-OP DIAGNOSIS: Gastroparesis, fatty liver TISSUE SUBMITTED: A- Distal esophagus biopsy, B- Gastric body biopsy, C- Duodenum biopsy MICROSCOPIC DIAGNOSIS A. Esophagus, distal, biopsy: * Squamous mucosa with reactive changes and ulceration. * Columnar mucosa negative for goblet cell metaplasia. * Negative for dysplasia. * PASD stain is negative for fungal organisms. * IHC negative for HSV (herpes simplex virus types I&II). * IHC negative for CMV (cytomegalovirus). B. Stomach, body, biopsy: * Oxyntic mucosa with slight chronic inflammation. * IHC negative for H pylori organisms. C. Small bowel, duodenum, biopsy: * Normal villous architecture with Boris gland hyperplasia and gastric mucin cell metaplasia, suggestive of peptic injury. * Negative for increased intraepithelial lymphocytes. MICROSCOPIC DESCRIPTION Slides are reviewed. All matched controls reacted appropriately. These tests were developed and their performance characteristics determined by [facility]. They may not have been cleared or approved by the U.S. Food and Drug Administration. The FDA has determined that such clearance or approval is not necessary.? The above immunohistochemical/dualISH?markers are ordered and reviewed by the Pathologist. GROSS DESCRIPTION A. Received in formalin in a container labeled with the patient's name, date of , and distal esophagus biopsy are multiple guerrero-pink fragments of mucosal tissue measuring 1.0 x 0.6 x 0.3 cm in aggregate. Submitted in toto in A1. B. Received in formalin in a container labeled with the patient's name, date of , and gastric body biopsy are 2 guerrero-pink fragments of mucosal tissue measuring 0.4 x 0.3 x 0.3 cm and 0.5 x 0.4 x 0.3 cm. Submitted in toto in B1. C. Received in formalin in a container labeled with the patient's name, date of , and duodenum biopsy are 2 guerrero-pink fragments of mucosal tissue measuring 0.3 x 0.3 cm and 0.6 x 0.3 x 0.2 cm. Submitted in toto in C1. [facility] 11-02-2024 CPT:[id number]
--- NOTE | 2024-11-02 06:46 | PCM.HP.STD ---
HPI - General General Date of Admission: 11/02/24 Date of Service: 11/02/24 Chief Complaint: Gastroparesis HPI Narrative NESTOR PIERCE, is a 49 M who presents*[facility] established 3. pt presents with referral from gastroparesis clinic for recurrent vomiting. PMH of DMII, GERD, and gastroparesis. pt reports that in 2019 he had a procedure for his gastroparesis, states he is 90% better than he was, the first year and a half after the procedure he said he was feeling great, but has started to have more frequent flares. Pt reports daily nausea and vomiting that starts in the morning. Reports daily bowel movement, but does not feel like he is completely emptying.Pt reports constant aching / stabbing epigastric pain and reports it morfin at night. Pt reports he is having flares every 3-4 weeks now. Had a flare last week and then his diabetes became uncontrolled and reports he had a TIA. [facility] Medical History Wears contact lenses Wears glasses Restless legs TIA (transient ischemic attack) Shortness of breath on exertion Leg cramps History of edema History of echocardiogram Stroke-like symptoms Anxiety Diabetes Kidney stones Non-smoker Sleep apnea GERD (gastroesophageal reflux disease) Morbid obesity Gastroparesis Asthma Diabetes type 2, controlled REGAN (obstructive sleep apnea) Home Medications ?Medication ?Instructions ?Recorded ?Last Taken ?Type albuterol sulfate 2.5 mg/3 mL 2.5 mg inhalation Q4H PRN Wheezing 08/22/20 Unknown History (0.083 %) solution for nebulization albuterol sulfate 90 mcg/actuation 1 puff inhalation Q6H PRN Wheezing 08/22/20 Unknown History aerosol inhaler pantoprazole 40 mg tablet,delayed 40 mg PO QHS reflux 04/14/21 08/17/24 History release glimepiride 4 mg tablet 4 mg PO DAILY diabetes 05/04/23 08/18/24 History ondansetron 4 mg disintegrating 8 mg (2 x 4 mg) PO Q8H PRN nausea 05/04/23 03/13/24 06:00 Rx tablet and vomiting #20 tabs 8 mg dextromethorphan-guaifenesin ER 60 1 tab PO Q12H PRN gastrointestinal 03/13/24 02/28/24 History mg-1,200 mg tab,extend spasms or cramping release,12hr (Mucinex DM) promethazine 25 mg tablet 25 mg PO Q8H PRN nausea and 03/13/24 03/12/24 20:00 History vomiting 25 mg prucalopride 1 mg tablet 1 mg PO DAILY PRN gastro 03/13/24 03/13/24 History (Motegrity) tadalafil 10 mg tablet 10 - 20 mg PO DAILY PRN sexual 03/13/24 Unknown History activity scopolamine base 1 mg over 3 days 1 patch transdermal Q3D PRN nausea 08/13/24 Unknown History transdermal patch and vomiting aspirin 81 mg chewable tablet 81 mg PO BREAKFAST #30 tabs 08/19/24 10/29/24 Rx atorvastatin 40 mg tablet 40 mg PO DAILY #30 tabs 08/19/24 Unknown Rx clopidogrel 75 mg tablet 75 mg PO DAILY #21 tabs 08/19/24 10/29/24 Rx Allergy/AdvReac Type Severity Reaction Status Date / Time haloperidol (From Haldol) AdvReac Other Verified 11/02/24 05:48 metoclopramide HCl (From AdvReac GO CRAZY Verified 11/02/24 05:48 Reglan) Family History Mother Dysphagia Patient denies any maternal history of heart disease, diabetes, cancer, underlying pulmonary disease, underlying renal disease but does note she has significant issues with her esophagus, unsure exact disease. Notes frequent has items stuck, thin esophagus, dysphagia. Denied achalasia as etiology. Father Frequent UTI Patient denies any paternal history of heart disease, diabetes, cancer, underlying pulmonary disease, underlying renal disease but does note significant history of frequent urinary tract infections. Surgical History History of lithotripsy History of esophagogastroduodenoscopy (EGD) History of colonoscopy History of gastric surgery H/O foot surgery History of tonsillectomy and adenoidectomy History of hernia surgery History of tonsillectomy Social History household members: spouse housing: house Smoking Status: Never smoker alcohol intake: never substance use type: does not use ROS Constitutional Constitutional: Denies fatigue, fever(s), poor appetite, weight gain or weight loss Gastrointestinal Gastrointestinal: Denies belching, bloating, change in bowel habits, change in stool character, chewing difficulty, coffee ground emesis, constipation, cramping, diarrhea, dyspepsia, dysphagia, early satiety, excessive flatus, fecal incontinence, heartburn, hematemesis, hematochezia, hemorrhoids, loose stools, melena, nausea, odynophagia, rectal bleeding, tenesmus, vomiting or weight changes Vital Signs Vital Signs Vital Signs: 11/02/24 05:49 11/02/24 05:49 11/02/24 06:26 Temperature 97.8 F 97.8 F Temperature Source Temporal Pulse Rate 78 78 Respiratory Rate 18 18 Respiratory Pattern Normal Blood Pressure 139/78 H 139/78 H Blood Pressure Mean 98 Blood Pressure Source Monitor Blood Pressure Position Sitting Blood Pressure Location Right Arm Pulse Ox 100 100 Oxygen Delivery Method Room Air Room Air Weight Weight: 255 lb 11.779 oz Body Mass Index (BMI) 41.3 Physical Exam Const alert, oriented x3 and average body habitus Resp normal respiratory effort, normal air movement and clear to auscultation bilaterally Cardio regular rate, regular rhythm, no murmurs and diaphoretic Assessment & Plan Assessment/Plan (1) Gastroparesis: PLAN: Assessment and Plan Assessment and Plan (1) Gastroparesis: Status: Acute (2) Fatty liver: Status: Acute Plan: 48 y/o male with a PMH as outlined who was admitted via the ED on 08/19/2024 with a complaint of stroke like symptoms. He developed numbness and tingling on the right side of his face on the morning of admission which steadily worsened throughout the day so he came in to the ED. He also had numbness and tingling in the right arm and leg with associated right sided clumsiness. He had a history of type II diabetes mellitus with gastroparesis and class III obesity. He had recently taken doxycycline recently for an URTI. CT of the brain and CTA of the head and neck were unremarkable and showed no evidence of a stroke or any hemodynamically significant stenosis. CXR showed no acute cardiopulmonary pathology. He was admitted for stroke like symptoms to rule out a stroke. He had MRI of the brain which also showed no evidence of a stroke. 2D echo showed EF of 60% with stage I diastolic dysfunction and no regional motion abnormalities noted. Bubble study was negative for right to left interatrial shunt and stage 1 diastolic dysfunction. Neurology was consulted and recommended a EVE. However, after cardiology evaluated patient for EVE, patient declined to have the EVE. Per neurology recommendations, he was placed on aspirin and plavix x 21 days, then to continue with aspirin only, as well as atorvastatin 40mg qhs. He is to follow up with his PCP, and was referred to neurology on outpatient basis. He was also discharged with a 30-day Holter monitor results of which is to be sent to [place] [facility] for evaluation and interpretation. He comes in to establish care regarding a diagnosis of severe gastroparesis. He is status post perioral endoscopic myotomy for gastroparesis approximately 2 years ago. Patient was doing well regarding his gastroparesis but recently started developing worsening abdominal pain cramping nausea with intermittent vomiting. He has not had a repeat gastric emptying study since undergoing that procedure. He has not started any new medicines. He does not take any narcotics. He was given Motegrity for constipation and gastroparesis in the past. He does not have any neuropathy, nephropathy, proteinuria, retinopathy as per patient from his longstanding diabetes. As per the patient he is only on a sulfonylurea at this time. He was on insulin in the past but recently has only been on oral medicines. His last hemoglobin A1c was 8.3. 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 He had previous imaging with CT scan abdomen pelvis that showed a fatty liver but he has never had a elastography or FibroScan Recommendations: -Elastography -Autoimmune testing -EGD with Botox versus stent placement in the distal stomach -Repeat gastric emptying study. Orders: Orders Celiac AB,Comprehensive Today K31.84 - Gastroparesis JESSICA + Protein Elect, Serum Today K31.84 - Gastroparesis LDH Today K31.84 - Gastroparesis Ferritin Today K31.84 - Gastroparesis CBC W/Diff, Automated Today K31.84 - Gastroparesis Haptoglobin Today K31.84 - Gastroparesis Retic Panel Count Today K31.84 - Gastroparesis ANCA Today K31.84 - Gastroparesis YAMILETH Comprehensive Panel Today K3.84 - Gastroparesis Immunoglobulin E Today K3.84 - Gastroparesis Allergen, Food Profile 14 Today K3. - Gastroparesis Allergen, Food Profile Today K3.84 - Gastroparesis Allergen, Mini-Rast Today K3.84 - Gastroparesis Comprehensive Metabolic Profil Today K3.84 - Gastroparesis IgG Subclasses Today K3.84 - Gastroparesis Erythrocyte Sed Rate Today K3. - Gastroparesis CRP Today K3. - Gastroparesis Thyroid Stim Hormone (TSH) Today K3. - Gastroparesis T4 Free Direct Today K3. - Gastroparesis Free T3 Today K3.84 - Gastroparesis ABD Limited w/ Elastography Today K3 - Gastroparesis
--- NOTE | 2024-11-02 07:09 | PCM.POST.ANE ---
Anesthesia: Postop Eval I Current Vital Signs Temperature: 98.1 F Pulse Rate: 82 Blood Pressure: 120/72 Respiratory Rate: 20 Pulse Ox: 98 Oxygen Delivery Method: Room Air Assessment Airway patent: Yes Spontaneous unlabored respirations: Yes Mental status: Awake nausea: No Vomiting: No Anesthesia Complication: No Fluid Hydration Crystalloid volume administer (ml): 300 Total IV fluid infused: 300 Progress Note Anesthesia document: Postop Eval 1 completed: Yes
--- NOTE | 2024-11-02 07:15 | OP.CCLET_ITS ---
11/02/2024 Nathaniel Nicole Re : Upper GI endoscopy procedure for Kenrick Barrientos Dear Bonnie This procedure was performed on Saturday, November 02, 2024. My impressions and recommendations are as follows: Impressions : - LA Grade C reflux esophagitis with no bleeding. Biopsied. - Small hiatal hernia. - Erythematous mucosa in the gastric body. Biopsied. - Erythematous duodenopathy. Biopsied. Recommendations : - Discharge patient to home. - Resume previous diet. - Continue present medications. - Await pathology results. My findings are described in the full procedure note, which is enclosed. If I can be of further assistance, please feel free to contact me at . Sincerely, Yo Avila DO 11/02/2024 7:14:36 AM This report has been signed electronically.
--- NOTE | 2024-11-02 07:15 | OP.EGD_ITS ---
Patient Name: Kenrick Barrientos Procedure Date: 11/02/2024 6:27 AM Date of : 1975 Age: 49 Procedure: Upper GI endoscopy Indications: Epigastric abdominal pain, Functional Dyspepsia, Failure to respond to medical treatment Providers: Yo Avila DO Referring MD: Nathaniel Nicole Medicines: Monitored Anesthesia Care Patient Profile: This is a 49 year old male. Refer to note in patient chart for documentation of history and physical. Patient has symptoms of acute epigastric abdominal pain, chronic dyspepsia and chronic heartburn. Complications: No immediate complications. Procedure: Pre-Anesthesia Assessment: - Prior to the procedure, a History and Physical was performed, and patient medications and allergies were reviewed. The patient is competent. The risks and benefits of the procedure and the sedation options and risks were discussed with the patient. All questions were answered and informed consent was obtained. Patient identification and proposed procedure were verified by the physician in the pre-procedure area. Mental Status Examination: alert and oriented. Airway Examination: normal oropharyngeal airway and neck mobility. Respiratory Examination: clear to auscultation. CV Examination: normal. Prophylactic Antibiotics: The patient does not require prophylactic antibiotics. Prior Anticoagulants: The patient has taken no anticoagulant or antiplatelet agents except for aspirin. ASA Grade Assessment: II - A patient with mild systemic disease. After reviewing the risks and benefits, the patient was deemed in satisfactory condition to undergo the procedure. The anesthesia plan was to use monitored anesthesia care (MAC). Immediately prior to administration of medications, the patient was re-assessed for adequacy to receive sedatives. The heart rate, respiratory rate, oxygen saturations, blood pressure, adequacy of pulmonary ventilation, and response to care were monitored throughout the procedure. The physical status of the patient was re-assessed after the procedure. After obtaining informed consent, the endoscope was passed under direct vision. Throughout the procedure, the patient's blood pressure, pulse, and oxygen saturations were monitored continuously. The Endoscope was introduced through the mouth, and advanced to the third part of the duodenum. Small bowel enteroscopy was deemed necessary. The upper GI endoscopy was accomplished without difficulty. The patient tolerated the procedure well. Scope In: 6:57:38 AM Scope Out: 7:02:40 AM Total Procedure Duration Time 0 hours 5 minutes 2 seconds Findings: LA Grade C (one or more mucosal breaks continuous between tops of 2 or more mucosal folds, less than 75% circumference) esophagitis with no bleeding was found 34 to 40 cm from the incisors. Biopsies were taken with a cold forceps for histology. Verification of patient identification for the specimen was done. Estimated blood loss was minimal. A small hiatal hernia was present. Patchy mildly erythematous mucosa without bleeding was found in the gastric body. Biopsies were taken with a cold forceps for histology. Verification of patient identification for the specimen was done. Estimated blood loss was minimal. Biopsies were taken with a cold forceps for Helicobacter pylori testing. Verification of patient identification for the specimen was done. Estimated blood loss was minimal. Patchy mildly erythematous mucosa without active bleeding and with no stigmata of bleeding was found in the duodenal bulb. Biopsies were taken with a cold forceps for histology. Verification of patient identification for the specimen was done. Estimated blood loss was minimal. Impression: - LA Grade C reflux esophagitis with no bleeding. Biopsied. - Small hiatal hernia. - Erythematous mucosa in the gastric body. Biopsied. - Erythematous duodenopathy. Biopsied. Recommendation: - Discharge patient to home. - Resume previous diet. - Continue present medications. - Await pathology results. Procedure Code(s): --- Professional --- 15617, Small intestinal endoscopy, enteroscopy beyond second portion of duodenum, not including ileum; with biopsy, single or multiple CPT copyright 2021 [employer]. All rights reserved. The codes documented in this report are preliminary and upon trim setter review may be revised to meet current compliance requirements. Yo Avila DO 11/02/2024 7:14:36 AM This report has been signed electronically. Number of Addenda: 0 Note Initiated On: 11/02/2024 6:27 AM
--- NOTE | 2024-11-02 09:00 | POSTOPAN2_ITS ---
Anesthesia Postop Eval I Sum Postop Eval Completion status Anesthesia document: Postop Eval 1 completed: Yes Anesthesia Postop Eval I Summary Anesthesia Postop Eval I Summary: Anesthesia Postop Eval I: Assessment Summary Airway patent Yes 11/02/24 07:10 ECOLOGICAL [email or web address] Spontaneous unlabored Yes 11/02/24 07:10 ECOLOGICAL ECONOMIST.[email or web address] respirations Mental status Awake 11/02/24 07:10 ECOLOGICAL ECONOMIST.[email or web address] nausea No 11/02/24 07:10 ECOLOGICAL ECONOMIST.[email or web address] Vomiting No 11/02/24 07:10 ECOLOGICAL ECONOMIST.[email or web address] Anesthesia Postop Eval I: Fluid Summary Crystalloid volume administer 300 11/02/24 07:10 ECOLOGICAL ECONOMIST.JDEF (ml) Colloids volume administered ( ml) Blood Product volume administered (ml) Total IV fluid infused 300 11/02/24 07:10 ECOLOGICAL ECONOMIST.[email or web address] Anesthesia Postop Eval I: Summary Notes Anesthesia Complication No 11/02/24 07:10 ECOLOGICAL [email or web address].[email or web address] Anesthesia Complication Comment: Post-operative progress note Anesthesia: Postop Eval II Evaluation Mental status: Awake Pain Level: 0 nausea: No Vomiting: No Complications Anesthesia Complication: No
--- NOTE | 2024-11-02 09:00 | PCM.POSTANE2 ---
Anesthesia Postop Eval I Sum Postop Eval Completion status Anesthesia document: Postop Eval 1 completed: Yes Anesthesia Postop Eval I Summary Anesthesia Postop Eval I Summary: Anesthesia Postop Eval I: Assessment Summary Airway patent Yes 11/02/24 07:10 PIGMENT MAKING [email or web address] Spontaneous unlabored Yes 11/02/24 07:10 PIGMENT MAKING SUPERVISOR.[email or web address] respirations Mental status Awake 11/02/24 07:10 PIGMENT MAKING SUPERVISOR.JDEF nausea No 11/02/24 07:10 PIGMENT MAKING SUPERVISOR.JDEF Vomiting No 11/02/24 07:10 PIGMENT MAKING SUPERVISOR.[email or web address] Anesthesia Postop Eval I: Fluid Summary Crystalloid volume administer 300 11/02/24 07:10 PIGMENT MAKING SUPERVISOR.JDEF (ml) Colloids volume administered ( ml) Blood Product volume administered (ml) Total IV fluid infused 300 11/02/24 07:10 PIGMENT MAKING SUPERVISOR.JDEF Anesthesia Postop Eval I: Summary Notes Anesthesia Complication No 11/02/24 07:10 PIGMENT MAKING SUPERVISOR.JDEF Anesthesia Complication Comment: Post-operative progress note Anesthesia: Postop Eval II Evaluation Mental status: Awake Pain Level: 0 nausea: No Vomiting: No Complications Anesthesia Complication: No
== END 2024-11-02 07:34 | disposition home or self-care (01) ==
LOC: EN 05:04 → AC 05:07
PROVIDERS: PCP Family Medicine; Referring Provider Family Medicine; Visit Provider Internal Medicine Gastroenterology
PROC: 0DJ08ZZ Inspection of Upper Intestinal Tract, Via Natural or Artificial Opening Endoscopic (ICD-10-PCS; CPT 43235; principal; 2024-11-02 06:25)
DX: E11.43 Type 2 diabetes mellitus with diabetic autonomic (poly)neuropathy (principal); K76.0 Fatty (change of) liver, not elsewhere classified; K21.00 Gastro-esophageal reflux disease with esophagitis, without bleeding; K31.84 Gastroparesis; Z79.82 Long term (current) use of aspirin; K44.9 Diaphragmatic hernia without obstruction or gangrene; Z79.02 Long term (current) use of antithrombotics/antiplatelets; Z79.84 Long term (current) use of oral hypoglycemic drugs; Z86.73 Personal history of transient ischemic attack (TIA), and cerebral infarction without residual deficits; Z79.899 Other long term (current) drug therapy; R10.13 Epigastric pain; K31.89 Other diseases of stomach and duodenum; K29.50 Unspecified chronic gastritis without bleeding
CPT/HCPCS: 43239; 88305; 88312; 88341; 88342; J2405

== ENCOUNTER 2024-11-12 08:24 | Outpatient (RCR) | payer BC, SELFPAY | END 2024-11-30 23:59 | LOC: NS 08:24 | PROVIDERS: PCP Family Medicine; Referring Provider Internal Medicine Gastroenterology; Visit Provider Internal Medicine Gastroenterology | DX: Z71.3 Dietary counseling and surveillance (principal); E11.9 Type 2 diabetes mellitus without complications; Z91.018 Allergy to other foods | CPT/HCPCS: 97803 ==

== ENCOUNTER 2024-11-12 09:02 | Outpatient (CLI) | payer BC, SELFPAY ==
[2024-11-12 09:14] VITALS: BP 138/76; PULSE 69; RESP 16; TEMP 36.2; O2SAT 97; BMI 41.6
[2024-11-12] MEDS: 0.9% Normal Saline (1000mL) 1,000 ML 999 ML IV ×2 (09:14→10:27)
[2024-11-12] MEDS: 0.9% NaCl Peripheral Flush Adult IV (09:17)
[2024-11-12 11:39] VITALS: BP 131/75; PULSE 77; RESP 16
== END 2024-11-12 23:59 | disposition home or self-care (01) ==
LOC: MEDOUTP 09:02
PROVIDERS: PCP Family Medicine; Referring Provider Internal Medicine Gastroenterology; Visit Provider Internal Medicine Gastroenterology
DX: R11.10 Vomiting, unspecified (principal)
CPT/HCPCS: 96360; 96361; A4216

== ENCOUNTER 2024-11-26 08:55 | Outpatient (CLI) | payer BC, SELFPAY ==
[2024-11-26 09:02] VITALS: BP 125/78; PULSE 79; RESP 16; TEMP 35.8; O2SAT 96
[2024-11-26] MEDS: 0.9% Normal Saline (1000mL) 1,000 ML 999 ML IV ×2 (09:23→10:27)
[2024-11-26] MEDS: 0.9% NaCl Peripheral Flush Adult IV (09:25)
[2024-11-26 11:39] VITALS: BP 125/75; PULSE 71; RESP 16; TEMP 35.9; O2SAT 96
== END 2024-11-26 23:59 | disposition home or self-care (01) ==
LOC: MEDOUTP 08:55
PROVIDERS: PCP Family Medicine; Referring Provider Internal Medicine Gastroenterology; Visit Provider Internal Medicine Gastroenterology
DX: R11.10 Vomiting, unspecified (principal)
CPT/HCPCS: 96360; 96361; A4216

== ENCOUNTER → 2024-12-01 | Outpatient (CLI) | payer BC, SELFPAY ==
--- NOTE | 2024-12-01 17:18 | CT_ITS ---
PROCEDURE: ABDOMEN/PELVIS WITH CONTRAST 12/01/2024 REASON FOR EXAM: GASTROPARESIS TECHNIQUE: ABDOMEN/PELVIS WITH CONTRAST Coronal and Sagittal reconstruction series were provided. CONTRAST: Isovue 3 7 VOLUME: 99 mL One or more dose reduction techniques were used (e.g., Automated exposure control, adjustment of the mA and/or kV according to patient size, use of iterative reconstruction technique. RADIATION DOSE SUMMARY: CTDlvol: 34 mGy DLP: 1460 mGycm COMPARISON: 07/20/2024 FINDINGS: Clear lung bases. Distal esophageal wall thickening possible esophagitis. Normal heart size. Hepatic steatosis. Normal gallbladder, pancreas, spleen, adrenal glands, kidneys. Mild left-sided hydronephrosis without ureteral stone or other obstructing etiology visualized. Normal. Normal prostate. No retroperitoneal mass no free air. Nondistended bowel. Normal appendix. No acute large bowel findings. Status post bilateral inguinal hernia repair. No acute abdominal wall findings. Mild lumbar spine degeneration. CT/Abdomen/Pelvis WITH Contrast IMPRESSION: No acute abdominal or pelvic findings. Reading Location: [facility]-
--- NOTE | 2024-12-01 17:18 | CT_ITS ---
PROCEDURE: ABDOMEN/PELVIS WITH CONTRAST 12/01/2024 REASON FOR EXAM: GASTROPARESIS TECHNIQUE: ABDOMEN/PELVIS WITH CONTRAST Coronal and Sagittal reconstruction series were provided. CONTRAST: Isovue 3 7 VOLUME: 99 mL One or more dose reduction techniques were used (e.g., Automated exposure control, adjustment of the mA and/or kV according to patient size, use of iterative reconstruction technique. RADIATION DOSE SUMMARY: CTDlvol: 34 mGy DLP: 1460 mGycm COMPARISON: 07/20/2024 FINDINGS: Clear lung bases. Distal esophageal wall thickening possible esophagitis. Normal heart size. Hepatic steatosis. Normal gallbladder, pancreas, spleen, adrenal glands, kidneys. Mild left-sided hydronephrosis without ureteral stone or other obstructing etiology visualized. Normal. Normal prostate. No retroperitoneal mass no free air. Nondistended bowel. Normal appendix. No acute large bowel findings. Status post bilateral inguinal hernia repair. No acute abdominal wall findings. Mild lumbar spine degeneration. CT/Abdomen/Pelvis WITH Contrast IMPRESSION: No acute abdominal or pelvic findings. Reading Location: [facility]
[2024-12-01 17:48] LABS: CREATININE FINGERSTICK < 1.0 mg/dL (0.70-1.30); EGFR FINGERSTICK > 60.0000 mL/min (>60)
== END | disposition home or self-care (01) ==
PROVIDERS: PCP Family Medicine; Referring Provider Internal Medicine Gastroenterology; Visit Provider Internal Medicine Gastroenterology
DX: R11.2 Nausea with vomiting, unspecified (principal); K31.84 Gastroparesis
CPT/HCPCS: 74177; Q9967; A4216

== ENCOUNTER 2024-12-10 08:54 | Outpatient (CLI) | payer BC, SELFPAY ==
[2024-12-10 09:09] VITALS: BP 134/81; PULSE 87; RESP 16; TEMP 36.1; O2SAT 97; BMI 40.6
[2024-12-10] MEDS: 0.9% NaCl Peripheral Flush Adult IV (09:18)
[2024-12-10] MEDS: 0.9% Normal Saline (1000mL) 1,000 ML 999 ML IV ×2 (09:18→10:21)
[2024-12-10 11:34] VITALS: BP 137/78; PULSE 78; RESP 16; TEMP 36.6; O2SAT 98
== END 2024-12-10 23:59 | disposition home or self-care (01) ==
LOC: MEDOUTP 08:54
PROVIDERS: PCP Family Medicine; Referring Provider Internal Medicine Gastroenterology; Visit Provider Internal Medicine Gastroenterology
DX: R11.10 Vomiting, unspecified (principal)
CPT/HCPCS: 96360; 96361; A4216

== ENCOUNTER 2024-12-21 08:22 | Outpatient (CLI) | payer BC, SELFPAY ==
[2024-12-21] MEDS: 0.9% Normal Saline (1000mL) 1,000 ML 999 ML IV ×2 (08:42→09:47)
[2024-12-21] MEDS: 0.9% NaCl Peripheral Flush Adult IV (08:42)
[2024-12-21 08:49] VITALS: BP 111/73; PULSE 68; RESP 16; TEMP 36.1; O2SAT 97; BMI 40.3
[2024-12-21 10:59] VITALS: BP 135/72; PULSE 80
== END 2024-12-21 23:59 | disposition home or self-care (01) ==
LOC: MEDOUTP 08:22
PROVIDERS: PCP Family Medicine; Referring Provider Internal Medicine Gastroenterology; Visit Provider Internal Medicine Gastroenterology
DX: R11.0 Nausea (principal)
CPT/HCPCS: 96360; 96361; A4216

== ENCOUNTER 2025-01-01 07:50 | Outpatient (CLI) | payer BC, SELFPAY ==
[2025-01-01 08:06] VITALS: BP 121/69; PULSE 87; RESP 16; TEMP 35.9; O2SAT 97; BMI 40.0
[2025-01-01] MEDS: 0.9% NaCl Peripheral Flush Adult IV (08:18)
[2025-01-01] MEDS: 0.9% Normal Saline (1000mL) 1,000 ML 999 ML IV ×2 (08:20→09:29)
[2025-01-01 10:37] VITALS: BP 133/76; PULSE 86; RESP 16; O2SAT 97
== END 2025-01-01 23:59 | disposition home or self-care (01) ==
LOC: MEDOUTP 07:50
PROVIDERS: PCP Family Medicine; Referring Provider Internal Medicine Gastroenterology; Visit Provider Internal Medicine Gastroenterology
DX: R11.10 Vomiting, unspecified (principal)
CPT/HCPCS: 96360; 96361; A4216

== ENCOUNTER 2025-01-11 11:15 | Outpatient (CLI) | payer BC, SELFPAY ==
[2025-01-11] MEDS: 0.9% NaCl Peripheral Flush Adult IV (11:34)
[2025-01-11] MEDS: 0.9% Normal Saline (1000mL) 1,000 ML 999 ML IV ×2 (11:35→12:40)
[2025-01-11 11:36] VITALS: BP 134/82; PULSE 101; RESP 16; TEMP 36.3; O2SAT 97; BMI 41.1
[2025-01-11 13:47] VITALS: BP 133/70; PULSE 73; RESP 16
== END 2025-01-11 23:59 | disposition home or self-care (01) ==
LOC: MEDOUTP 11:16
PROVIDERS: PCP Family Medicine; Referring Provider Internal Medicine Gastroenterology; Visit Provider Internal Medicine Gastroenterology
DX: R11.10 Vomiting, unspecified (principal)
CPT/HCPCS: 96360; 96361; A4216

== ENCOUNTER 2025-01-18 09:54 | Outpatient (CLI) | payer BC, SELFPAY ==
[2025-01-18] MEDS: 0.9% Normal Saline (1000mL) 1,000 ML 999 ML IV ×2 (10:06→11:07)
[2025-01-18 10:07] VITALS: BP 127/71; PULSE 83; RESP 16; TEMP 36.2; O2SAT 99; BMI 40.3
[2025-01-18 12:20] VITALS: BP 131/75; PULSE 86
== END 2025-01-18 23:59 | disposition home or self-care (01) ==
LOC: MEDOUTP 09:54
PROVIDERS: PCP Family Medicine; Referring Provider Internal Medicine Gastroenterology; Visit Provider Internal Medicine Gastroenterology
DX: R11.10 Vomiting, unspecified (principal)
CPT/HCPCS: 96360; 96361; A4216

== ENCOUNTER 2025-02-03 11:27 | Outpatient (CLI) | payer BC, SELFPAY ==
[2025-02-03 11:49] VITALS: BP 139/77; PULSE 73; RESP 16; TEMP 35.9; O2SAT 99
[2025-02-03] MEDS: 0.9% NaCl Peripheral Flush Adult IV (11:57)
[2025-02-03] MEDS: 0.9% Normal Saline (1000mL) 1,000 ML 999 ML IV ×2 (12:05→13:04)
[2025-02-03 14:13] VITALS: BP 123/67; PULSE 88; RESP 16; TEMP 35.8; O2SAT 96
== END 2025-02-03 23:59 | disposition home or self-care (01) ==
LOC: MEDOUTP 11:28
PROVIDERS: PCP Family Medicine; Referring Provider Internal Medicine Gastroenterology; Visit Provider Internal Medicine Gastroenterology
DX: R11.0 Nausea (principal)
CPT/HCPCS: 96360; 96361; A4216

== ENCOUNTER 2025-02-17 11:27 | Outpatient (CLI) | payer BC, SELFPAY ==
[2025-02-17] MEDS: 0.9% NaCl Peripheral Flush Adult IV (11:45)
[2025-02-17] MEDS: 0.9% Normal Saline (1000mL) 1,000 ML 999 ML IV ×2 (11:45→12:46)
[2025-02-17 11:48] VITALS: BP 131/73; PULSE 75; RESP 16; TEMP 36.1; O2SAT 96; BMI 40.3
[2025-02-17 13:56] VITALS: BP 124/73; PULSE 87; RESP 16; TEMP 36.4; O2SAT 96
== END 2025-02-17 23:59 | disposition home or self-care (01) ==
LOC: MEDOUTP 11:28
PROVIDERS: PCP Family Medicine; Referring Provider Internal Medicine Gastroenterology; Visit Provider Internal Medicine Gastroenterology
DX: R11.10 Vomiting, unspecified (principal)
CPT/HCPCS: 96360; 96361; A4216

== ENCOUNTER 2025-03-03 10:12 | Outpatient (CLI) | payer BC, SELFPAY ==
[2025-03-03 10:40] VITALS: BP 136/75; PULSE 84; RESP 16; TEMP 36; O2SAT 98; BMI 41.1
[2025-03-03] MEDS: 0.9% NaCl Peripheral Flush Adult IV (10:50)
[2025-03-03] MEDS: 0.9% Normal Saline (1000mL) 1,000 ML 999 ML IV ×2 (10:50→12:00)
[2025-03-03 13:08] VITALS: BP 144/73; PULSE 87; RESP 16
== END 2025-03-03 23:59 | disposition home or self-care (01) ==
LOC: MEDOUTP 10:12
PROVIDERS: PCP Family Medicine; Referring Provider Internal Medicine Gastroenterology; Visit Provider Internal Medicine Gastroenterology
DX: R11.10 Vomiting, unspecified (principal)
CPT/HCPCS: 96360; 96361; A4216

== ENCOUNTER 2025-03-17 10:26 | Outpatient (CLI) | payer BC, SELFPAY ==
[2025-03-17 10:43] VITALS: BP 131/84; PULSE 84; RESP 16; TEMP 35.6; O2SAT 94; BMI 41.1
[2025-03-17] MEDS: 0.9% Normal Saline (1000mL) 1,000 ML 999 ML IV ×2 (10:43→11:45)
[2025-03-17] MEDS: 0.9% NaCl Peripheral Flush Adult IV (10:46)
[2025-03-17 12:56] VITALS: BP 131/82; PULSE 91; RESP 16; TEMP 36.1; O2SAT 98
== END 2025-03-17 23:59 | disposition home or self-care (01) ==
LOC: MEDOUTP 10:26
PROVIDERS: PCP Family Medicine; Referring Provider Internal Medicine Gastroenterology; Visit Provider Internal Medicine Gastroenterology
DX: R11.10 Vomiting, unspecified (principal)
CPT/HCPCS: 96360; 96361; A4216

== ENCOUNTER 2025-03-23 13:45 | Outpatient (CLI) | payer BC, SELFPAY ==
[2025-03-23] MEDS: 0.9% Normal Saline (1000mL) 1,000 ML 999 ML IV ×2 (14:10→15:11)
[2025-03-23 14:13] VITALS: BP 109/65; PULSE 77; RESP 16; TEMP 36.1; O2SAT 96; BMI 41.1
[2025-03-23 16:22] VITALS: BP 129/70; PULSE 73; RESP 16; TEMP 36.1; O2SAT 96
== END 2025-03-23 23:59 | disposition home or self-care (01) ==
LOC: MEDOUTP 13:45
PROVIDERS: PCP Family Medicine; Referring Provider Internal Medicine Gastroenterology; Visit Provider Internal Medicine Gastroenterology
DX: R11.10 Vomiting, unspecified (principal)
CPT/HCPCS: 96360; 96361; A4216

== ENCOUNTER 2025-03-31 10:29 | Outpatient (CLI) | payer BC, SELFPAY ==
[2025-03-31 10:52] VITALS: BP 124/74; PULSE 82; RESP 16; TEMP 35.8; O2SAT 97; BMI 40.3
[2025-03-31] MEDS: 0.9% Normal Saline (1000mL) 1,000 ML 999 ML IV ×2 (10:58→12:08)
[2025-03-31] MEDS: 0.9% NaCl Peripheral Flush Adult IV ×2 (11:04→12:49)
== END 2025-03-31 23:59 | disposition home or self-care (01) ==
LOC: MEDOUTP 10:29
PROVIDERS: PCP Family Medicine; Referring Provider Internal Medicine Gastroenterology; Visit Provider Internal Medicine Gastroenterology
DX: R11.10 Vomiting, unspecified (principal)
CPT/HCPCS: 96360; 96361; A4216

== ENCOUNTER 2025-04-07 10:29 | Outpatient (CLI) | payer BC, SELFPAY ==
[2025-04-07 10:34] VITALS: BP 146/90; PULSE 93; RESP 16; TEMP 36; O2SAT 99
[2025-04-07] MEDS: 0.9% NaCl Peripheral Flush Adult IV (10:37)
[2025-04-07] MEDS: 0.9% Normal Saline (1000mL) 1,000 ML 999 ML IV ×2 (10:49→12:01)
== END 2025-04-07 23:59 | disposition home or self-care (01) ==
LOC: MEDOUTP 10:29
PROVIDERS: PCP Family Medicine; Referring Provider Internal Medicine Gastroenterology; Visit Provider Internal Medicine Gastroenterology
DX: R11.10 Vomiting, unspecified (principal)
CPT/HCPCS: 96360; 96361; A4216

== ENCOUNTER 2025-04-14 11:38 | Outpatient (CLI) | payer BC, SELFPAY ==
[2025-04-14 12:10] VITALS: BP 142/80; PULSE 89; RESP 16; TEMP 36.1; O2SAT 94
[2025-04-14] MEDS: 0.9% NaCl Peripheral Flush Adult IV ×2 (12:13→13:11)
[2025-04-14] MEDS: 0.9% Normal Saline (1000mL) 1,000 ML 999 ML IV ×2 (13:00→14:03)
[2025-04-14 15:10] VITALS: BP 136/76; PULSE 91; RESP 16; TEMP 35.9; O2SAT 98
== END 2025-04-14 23:59 | disposition home or self-care (01) ==
LOC: MEDOUTP 11:38
PROVIDERS: PCP Family Medicine; Referring Provider Internal Medicine Gastroenterology; Visit Provider Internal Medicine Gastroenterology
DX: R11.10 Vomiting, unspecified (principal)
CPT/HCPCS: 96360; 96361; A4216

== ENCOUNTER 2025-04-28 07:44 | Outpatient (CLI) | payer BC, SELFPAY ==
[2025-04-28 07:55] VITALS: BP 146/89; PULSE 94; RESP 16; O2SAT 100
[2025-04-28] MEDS: 0.9% NaCl Peripheral Flush Adult IV (07:56)
[2025-04-28] MEDS: 0.9% Normal Saline (1000mL) 1,000 ML 999 ML IV ×2 (08:04→09:03)
[2025-04-28 10:11] VITALS: BP 134/76; PULSE 83
== END 2025-04-28 23:59 | disposition home or self-care (01) ==
LOC: MEDOUTP 07:44
PROVIDERS: PCP Family Medicine; Referring Provider Internal Medicine Gastroenterology; Visit Provider Internal Medicine Gastroenterology
DX: R11.10 Vomiting, unspecified (principal)
CPT/HCPCS: 96360; 96361; A4216

== ENCOUNTER 2025-05-12 11:35 | Outpatient (CLI) | payer BC, SELFPAY ==
[2025-05-12 11:44] VITALS: BP 138/84; PULSE 95; RESP 16; TEMP 36.2; O2SAT 99; BMI 40.3
[2025-05-12] MEDS: 0.9% NaCl Peripheral Flush Adult IV (11:49)
[2025-05-12] MEDS: 0.9% Normal Saline (1000mL) 1,000 ML 1000 ML IV ×2 (11:49→12:58)
== END 2025-05-12 23:59 | disposition home or self-care (01) ==
LOC: MEDOUTP 11:35
PROVIDERS: PCP Family Medicine; Referring Provider Internal Medicine Gastroenterology; Visit Provider Internal Medicine Gastroenterology
DX: R11.10 Vomiting, unspecified (principal)
CPT/HCPCS: 96360; 96361; A4216

== ENCOUNTER 2025-05-18 10:55 | Outpatient (CLI) | payer BC, SELFPAY ==
[2025-05-18 11:02] VITALS: BP 156/79; PULSE 86; RESP 16; TEMP 35.9; O2SAT 99; BMI 41.1
[2025-05-18] MEDS: 0.9% Normal Saline (1000mL) 1,000 ML 999 ML IV ×2 (11:11→12:12)
[2025-05-18 13:25] VITALS: BP 122/76; PULSE 74; RESP 16; TEMP 36.3; O2SAT 98
== END 2025-05-18 23:59 | disposition home or self-care (01) ==
LOC: MEDOUTP 10:55
PROVIDERS: PCP Family Medicine; Referring Provider Internal Medicine Gastroenterology; Visit Provider Internal Medicine Gastroenterology
DX: R11.10 Vomiting, unspecified (principal)
CPT/HCPCS: 96360; 96361